=== PATIENT | female | born 1975 | race African-American/Black ===

== ENCOUNTER 2018-04-21 18:33 | Inpatient (IN) ==
[2018-04-21] MEDS ORDERED: Sod Chloride 0.9% Inj 1,000 ML IV.SIG ONE (20:25)
--- NOTE | 2018-04-21 20:28 | ED ---
HPI General Chief complaint: Nausea/Vomiting/Diarrhea Stated complaint: vomiting Time Seen by Provider: 04/21/18 20:09 Source: patient, family and RN notes reviewed Mode of arrival: ambulatory History of Present Illness HPI narrative: 42yF presenting with fever, nausea and vomiting, and dysuria. The patient states that 2 days ago she developed a feeling of "bladder fullness " and urinary urgency; since then, she's developed tactile fevers/ shaking chills, nausea, vomiting, inability to tolerate any PO intake, dysuria and urinary frequency, and loose stools. She has a history of CKD and follows with a commercial administrator in [place], not on HD. Related Data Home Medications Medication Instructions Recorded Confirmed amlodipine [Norvasc] 10 mg PO DAILY 04/21/18 04/21/18 calcitriol 0.25 mcg PO DAILY 04/21/18 04/21/18 calcium acetate 667 mg PO TID 04/21/18 04/21/18 ferrous sulfate 325 mg PO BID 04/21/18 04/21/18 furosemide 20 mg PO DAILY 04/21/18 04/21/18 glipizide 2.5 mg PO DAILY 04/21/18 04/21/18 latanoprost 1 drp OPHTHALMIC (EYE) QPM 04/21/18 04/21/18 metoprolol succinate 100 mg PO DAILY 04/21/18 04/21/18 simvastatin 20 mg PO QPM 04/21/18 04/21/18 Allergies Allergy/AdvReac Type Severity Reaction Status Date / Time No Known Allergies Allergy Unverified 04/21/18 20:25 Review of Systems ROS: all other systems reviewed are negative PMFSH History History Provided By: Patient Medical History Medical History Anemia (Acute) Diabetes (Acute) Chronic kidney disease (Acute) Hyperlipidemia (Acute) Hypertension (Acute) Surgical History Surgical History History of eye surgery (Acute) Social History Social History Substance History: No History of Abuse Smoking Status: Never smoker How Often Do You Have a Drink Containing Alcohol: Never Recent Travel in [facility] within the Last 8 Weeks: No Recent Out of Country Travel within the Last 8 Weeks: No Exam Const Other: Vomiting into emesis bag during exam, (+) rigors HENMT Face and sinus: normal facial exam Eyes General: appearance normal, both eyes and all related structures Resp Effort & Inspection: normal respiratory effort Auscultation: no rhonchi and no wheezes Cardio Rate: tachycardic Rhythm: regular rhythm GI Inspection: non-distended Palpation: soft and nontender Skin General: no rashes or lesions noted Neuro General: alert and awake Psych Affect: normal affect Course Reevaluation(s) Reevaluation #1: I reviewed the patient's history and exam. I reviewed her laboratory testing. I have personally examined the patient. Patient is having shaking chills. She is ill-appearing. I have ordered a second liter of normal saline. Her lactic is negative but she appears to have Sirs I will perform 2 blood cultures and give Rocephin for bacteremia. She has an acute exacerbation of her chronic kidney disease. She still has nausea, vomiting, and abdominal pain. She will be given Benadryl 25 mill grams IV, Reglan 10 mg IV in addition to the 1 g of Rocephin IV. Morphine 4 mg IV. CAT scan shows a mesenteric type mass etiology is unclear. The patient is ill-appearing and requires admission. This has been relayed to Dr. Luciano with the admitting service. She has agreed to admit the patient. Time: 22:38 Initial Documented Vital Signs Temperature 99.2 F 04/21/18 18:41 Pulse Rate 105 H 04/21/18 18:41 Respiratory Rate 18 04/21/18 18:41 Blood Pressure 199/91 H 04/21/18 18:41 Pulse Oximetry 98 04/21/18 18:41 Last Documented Vital Signs Temperature 99.2 F 04/21/18 18:41 Pulse Rate 105 H 04/21/18 18:41 Respiratory Rate 18 04/21/18 20:45 Blood Pressure 199/91 H 04/21/18 18:41 Pulse Oximetry 98 04/21/18 18:41 Medical Decision Making [facility] Narrative Medical decision making narrative: Assessment: 42yF presenting with fever, rigors, nausea/ vomiting, dysuria Plan: Tylenol, zofran, IVF Fingerstick Labs UA, UCG CT abd/ pelvis, non-contrast Dispo TBD depending on results of workup ____ Medical Screen Exam Complete: Yes Emergency Medical Condition: Yes Differential Diagnosis Differential Diagnosis: Differential diagnosis includes, but is not limited to: UTI/ pyelonephritis, hypo/hyperglycemia, pancreatitis, SBO, sepsis/ SIRS Lab Data Result diagrams: 04/21/18 20:35 04/21/18 20:35 POC Results POC Urine Results Negative Lab Results 04/21/18 04/21/18 04/21/18 Range/Units 20:35 20:35 20:35 WBC 7.3 (4.0-11.0) th/mm3 RBC 3.62 L (4.00-5.30) mil/mm3 Hgb 9.6 L (11.6-15.3) gm/dL Hct 30.0 L (35.0-46.0) % MCV 82.9 (80.0-100.0) fL MCH 26.6 L (27.0-34.0) pg MCHC 32.1 (32.0-36.0) % RDW 13.3 (11.6-17.2) % Plt Count 391 (150-450) th/mm3 MPV 8.7 (7.0-11.0) fL Neut % (Auto) 92.2 H (16.0-70.0) % Lymph % (Auto) 6.0 L (9.0-44.0) % Clayton % (Auto) 1.6 (0.0-8.0) % Eos % (Auto) 0.0 (0.0-4.0) % Baso % (Auto) 0.2 (0.0-2.0) % Neut # (Auto) 6.7 (1.8-7.7) th/mm3 Lymph # (Auto) 0.4 L (1.0-4.8) th/mm3 Clayton # (Auto) 0.1 (0.0-0.9) th/mm3 Eos # (Auto) 0.0 (0.0-0.4) th/mm3 Baso # (Auto) 0.0 (0.0-0.2) th/mm3 WBC Differential . Differential Comment Auto diff final Sodium 142 (136-145) meq/L Potassium 4.5 (3.5-5.1) meq/L Chloride 110 H (98-107) meq/L Carbon Dioxide 19.4 L (21.0-32.0) meq/L Anion Gap 13 (5-15) meq/L BUN 103 H (7-18) mg/dL Creatinine 6.61 H (0.50-1.00) mg/dL Estimated GFR 7 L (>89) mL/min POC Glucose (68-110) mg/dl Random Glucose 199 H (74-106) mg/dL Lactic Acid 1.7 (0.4-2.0) mmol/L Calcium 8.6 (8.5-10.1) mg/dL Magnesium 2.2 (1.5-2.5) mg/dL Total Bilirubin 0.3 (0.2-1.0) mg/dL AST 17 (15-37) U/L ALT 27 (10-53) U/L Alkaline Phosphatase 56 (45-117) U/L Total Protein 7.8 (6.4-8.2) g/dL Albumin 3.1 L (3.4-5.0) g/dL Lipase 190 (73-393) U/L Urine Color (Yellw/Straw) Urine Clarity (Clear) Urine pH (5.0-8.5) Ur Specific Bath (1.002-1.035) Urine Protein (Neg-Trace) mg/dL Urine Glucose (UA) (Negative) mg/dL Urine Ketones (Negative) mg/dL Urine Occult Blood (Negative) Urine Nitrate (Negative) Urine Bilirubin (Negative) Urine Urobilinogen (Less than 2) mg/dL Ur Leukocyte Esterase (Negative) Urine RBC (0-3) /hpf Urine WBC (0-5) /hpf Ur Squamous Epith Cells (0-5) /hpf Urine Bacteria (None) /hpf Micro UA Comment Ur Microscopic Review Urine Culture Comments 04/21/18 04/21/18 Range/Units 20:50 21:00 WBC (4.0-11.0) th/mm3 RBC (4.00-5.30) mil/mm3 Hgb (11.6-15.3) gm/dL Hct (35.0-46.0) % MCV (80.0-100.0) fL MCH (27.0-34.0) pg MCHC (32.0-36.0) % RDW (11.6-17.2) % Plt Count (150-450) th/mm3 MPV (7.0-11.0) fL Neut % (Auto) (16.0-70.0) % Lymph % (Auto) (9.0-44.0) % Clayton % (Auto) (0.0-8.0) % Eos % (Auto) (0.0-4.0) % Baso % (Auto) (0.0-2.0) % Neut # (Auto) (1.8-7.7) th/mm3 Lymph # (Auto) (1.0-4.8) th/mm3 Clayton # (Auto) (0.0-0.9) th/mm3 Eos # (Auto) (0.0-0.4) th/mm3 Baso # (Auto) (0.0-0.2) th/mm3 WBC Differential Differential Comment Sodium (136-145) meq/L Potassium (3.5-5.1) meq/L Chloride (98-107) meq/L Carbon Dioxide (21.0-32.0) meq/L Anion Gap (5-15) meq/L BUN (7-18) mg/dL Creatinine (0.50-1.00) mg/dL Estimated GFR (>89) mL/min POC Glucose 192 H (68-110) mg/dl Random Glucose (74-106) mg/dL Lactic Acid (0.4-2.0) mmol/L Calcium (8.5-10.1) mg/dL Magnesium (1.5-2.5) mg/dL Total Bilirubin (0.2-1.0) mg/dL AST (15-37) U/L ALT (10-53) U/L Alkaline Phosphatase (45-117) U/L Total Protein (6.4-8.2) g/dL Albumin (3.4-5.0) g/dL Lipase (73-393) U/L Urine Color Straw (Yellw/Straw) Urine Clarity Clear (Clear) Urine pH 5.0 (5.0-8.5) Ur Specific Bath 1.012 (1.002-1.035) Urine Protein 500 or greater (Neg-Trace) mg/dL Urine Glucose (UA) 150 H (Negative) mg/dL Urine Ketones Trace H (Negative) mg/dL Urine Occult Blood Moderate H (Negative) Urine Nitrate Negative (Negative) Urine Bilirubin Negative (Negative) Urine Urobilinogen Less than 2 (Less than 2) mg/dL Ur Leukocyte Esterase Negative (Negative) Urine RBC 22 H (0-3) /hpf Urine WBC 3 (0-5) /hpf Ur Squamous Epith Cells <1 (0-5) /hpf Urine Bacteria Rare H (None) /hpf Micro UA Comment Culture not ind Ur Microscopic Review Not Reportable Urine Culture Comments Culture not ind Imaging Data Radiologist's impression: Abdomen/Pelvis CT 04/21/18 20:25 CONCLUSION: 1. Bulky large soft tissue density mesenteric masses with the largest measuring 14.7 x 7.5 x 8.5 cm. A second dominant mesenteric mass extends to the right adnexa. Differential considerations include ovarian malignancy with mesenteric metastases, GIST, mesenteric fibromatosis, and mesenteric adenopathy amongst other etiologies. Ultrasound examination of the pelvis may be performed to exclude right ovarian mass. Discharge Plan Discharge Disposition Patient Disposition: ED Admit(ED Internal Use Only) Discharge Condition Condition: Stable Discharge Order Discharge Orders: ED Use Only Admit Order (Routine); Ordered 04/21/18 Ordered By: Paul Cano Discharge Details Diagnosis: SIRS (systemic inflammatory response syndrome), Abdominal pain, Acute renal failure, Abdominal mass Physicians Team ED Provider: Jennifer Finn ED Midlevel Provider: Paul Cano Primary Care Provider: UNKNOWN, Attending Provider: Acacia Luciano Other Providers: Zachary Uribe Status ED Status: Admitted Patient
[2018-04-21 21:06] LABS: Baso % (Auto) 0.2 % (0.0-2.0); Hemoglobin 9.6 gm/dL (11.6-15.3); Lymph # (Auto) 0.4 th/mm3 (1.0-4.8); Mean Corpuscular HGB Conc 32.1 % (32.0-36.0); Mean Corpuscular Hemoglobin 26.6 pg (27.0-34.0); Mean Corpuscular Volume 82.9 fL (80.0-100.0); Mean Platelet Volume 8.7 fL (7.0-11.0); Mono # (Auto) 0.1 th/mm3 (0.0-0.9); Mono % (Auto) 1.6 % (0.0-8.0); Neut # (Auto) 6.7 th/mm3 (1.8-7.7); Neut % (Auto) 92.2 % (16.0-70.0); Platelet Count 391 th/mm3 (150-450); Red Blood Count 3.62 mil/mm3 (4.00-5.30); Red Cell Distribution Width 13.3 % (11.6-17.2); White Blood Count 7.3 th/mm3 (4.0-11.0)
[2018-04-21 21:18] LABS: Alanine Aminotransferase 27 U/L (10-53); Albumin 3.1 g/dL (3.4-5.0); Anion Gap 13 meq/L (5-15); Aspartate Aminotransferase 17 U/L (15-37); Blood Urea Nitrogen 103 mg/dL (7-18); Calcium 8.6 mg/dL (8.5-10.1); Carbon Dioxide 19.4 meq/L (21.0-32.0); Chloride 110 meq/L (98-107); Glomerular Filtration Rate 7 mL/min (>89); Glucose,Random 199 mg/dL (74-106); Lipase 190 U/L (73-393); Magnesium 2.2 mg/dL (1.5-2.5); Potassium 4.5 meq/L (3.5-5.1); Sodium 142 meq/L (136-145)
[2018-04-21 21:21] LABS: Alkaline Phosphatase 56 U/L (45-117); Total Protein 7.8 g/dL (6.4-8.2)
--- NOTE | 2018-04-21 21:28 | CT ---
EXAM DATE: 04/21/2018 9:17 PM EST AGE/SEX: 42 years / Female INDICATIONS: Nausea and vomiting. CLINICAL DATA: This is the patient's initial encounter. Patient reports that signs and symptoms have been present for 2 days and indicates a pain score of 3/10. MEDICAL/SURGICAL HISTORY: . Hypertension. Chronic kidney failure. None. RADIATION DOSE: 16.55 CTDI (mGy) COMPARISON: No prior exams available for comparison. TECHNIQUE: Multiple contiguous axial images were obtained through the abdomen. Images were obtained using multiple row detector helical technique. Using automated exposure control and adjustment of the mA and/or kV according to patient size, radiation dose was kept as low as reasonably achievable to o btain optimal diagnostic quality images. DICOM format image data is available electronically for rev iew and comparison. FINDINGS: LOWER LUNGS: The visualized lower lungs are clear. LIVER: Diffusely homogeneous density without intrahepatic ductal dilatation or volume loss. SPLEEN: Homogeneous density without enlargement. PANCREAS: Grossly unremarkable. KIDNEYS: Kidneys are symmetrical in size without evidence for radiopaque renal calculi or hydronephr osis. No significant contour deforming renal abnormality. ADRENAL GLANDS: Unremarkable. AORTA: Martha-aneurysmal. BOWEL/MESENTERY: There is a very large soft tissue density mesenteric mass which measures 14.7 x 7.5 x 8.5 cm centered just above the umbilicus level. There are multiple additional bulky soft tissue de nsity masses extending inferiorly to the level of the right adnexa. These appear to be separate from the uterus. Bowel loops are normal in caliber without evidence for obstruction. There is trace free f luid noted in the right lower quadrant. Appendix is visualized and normal in appearance. ABDOMINAL WALL: Intact. BLADDER: Contours are smooth. REPRODUCTIVE: Grossly unremarkable. BONY STRUCTURES: Unremarkable. CONCLUSION: 1. Bulky large soft tissue density mesenteric masses with the largest measuring 14.7 x 7.5 x 8.5 cm. A second dominant mesenteric mass extends to the right adnexa. Differential considerations include o varian malignancy with mesenteric metastases, GIST, mesenteric fibromatosis, and mesenteric adenopath y amongst other etiologies. Ultrasound examination of the pelvis may be performed to exclude right ov maribel mass. Electronically signed by: Fawad South MD Board Certified Radiologist 04/21/2018 9:27 PM EST
[2018-04-21 21:52] LABS: Bacteria,Urine Rare /hpf; Bilirubin,Urine Negative (Negative); Clarity,Urine Clear (Clear); Color,Urine Straw (Yellw/Straw); Glucose,Urine (UA) 150 mg/dL (Negative); Leukocyte Esterase,Urine Negative (Negative); Nitrite,Urine Negative (Negative); Specific Gravity,Urine 1.012 (1.002-1.035); Squamous Epithelial Cell,Urine <1 /hpf (0-5)
[2018-04-21] MEDS ORDERED: Morphine Inj 4 MG/ML Vial IV.PUSH ONE (22:11)
[2018-04-21] MEDS ORDERED: Sod Chloride 0.9% Inj 1,000 ML IV.SIG SCH (22:15)
[2018-04-21] MEDS ORDERED: Bisacodyl 10 MG Supp RECTAL PRN (22:34)
[2018-04-21] MEDS ORDERED: Morphine Sulfate Inj 2 MG/ML Vial IV.PUSH PRN (22:34)
--- NOTE | 2018-04-21 22:38 | P.HPIM ---
History of Present Illness Primary Care Physician: UNKNOWN History of Present Illness: This is a 42-year-old female with a PMH of HTN, Hyperlipidemia, Anemia, CKD and DM who presented to the ER with complaints of nausea, vomiting, urinary urgency and subjective fever/chills x2 days. Unable to take PO due to symptoms. Denies sick contacts, chest pain or diarrhea. On arrival, BP 199/91, HR 105, O2 sat 98% on RA, Temp 99.2. CBC essentially unremarkable except for anemia, hemoglobin 9.6. Gotten 6.61, no previous labs for comparison, however patient notes baseline creatinine is approx 3. States she follows w/ [facility] in [place] and is not on HD. UA negative for UTI. CT Abdomen/Pelvis bulky large soft tissue density mesenteric masses, second dominant mesenteric mass extends to right adnexa, differential includes ovarian malignancy with metastatic disease. S/p Blood Cultures and Rocephin IV in ER. Diagnosis (1) SIRS (systemic inflammatory response syndrome): (2) HTN (hypertension): (3) EVER (acute kidney injury): (4) Mesenteric mass: (5) DM (diabetes mellitus): Inpatient Certification Inpatient Certification: I certify that the inpatient services were ordered in accordance with Medicare regulations governing the order. This includes certification that hospital inpatient services are reasonable and necessary and in the case of services not specified as inpatient-only under 42 CFR 419.22(n), that they are appropriately provided as inpatient services in accordance to with the 2-midnight benchmark under 43 CFR 412.3(e) Estimated Total Length of Stay (Days): 2 Plans for Post Hospital Care: Not yet determined Review of Systems PAST FAMILY HISTORY: Reviewed. No h/o DM or CAD Review of Systems: all other systems reviewed are negative [facility] Medical History Medical History Anemia (Acute) Diabetes (Acute) Chronic kidney disease (Acute) Hyperlipidemia (Acute) Hypertension (Acute) Surgical History Surgical History History of eye surgery (Acute) Social History Social History Substance History: No History of Abuse Smoking Status: Never smoker How Often Do You Have a Drink Containing Alcohol: Never Recent Travel in [facility] within the Last 8 Weeks: No Recent Out of Country Travel within the Last 8 Weeks: No Immunization History Tetanus Immunization: >5 Years Medications and Allergies Allergies Allergy/AdvReac Type Severity Reaction Status Date / Time No Known Allergies Allergy Unverified 04/21/18 20:25 Home Medications Medication Instructions Recorded Confirmed Type amlodipine [Norvasc] 10 mg PO DAILY 04/21/18 04/21/18 History calcitriol 0.25 mcg PO DAILY 04/21/18 04/21/18 History calcium acetate 667 mg PO TID 04/21/18 04/21/18 History ferrous sulfate 325 mg PO BID 04/21/18 04/21/18 History furosemide 20 mg PO DAILY 04/21/18 04/21/18 History glipizide 2.5 mg PO DAILY 04/21/18 04/21/18 History latanoprost 1 drp OPHTHALMIC (EYE) QPM 04/21/18 04/21/18 History metoprolol succinate 100 mg PO DAILY 04/21/18 04/21/18 History simvastatin 20 mg PO QPM 04/21/18 04/21/18 History Active Medications: Active Medications Acetaminophen (Tylenol) 650 mg PO Q4H PRN PRN Reason: Temp > 100.4 Al Hydroxide/Mg Hydroxide (Milk Of Magnesia Liq) 30 ml PO Q12H PRN PRN Reason: Mild Constipation Bisacodyl (Dulcolax Supp) 10 mg RECTAL DAILY PRN PRN Reason: SEVERE CONSITIPATION Sodium Chloride (Ns Inj) 1,000 mls @ 1,000 mls/hr IV.SIG BOLUS RENETTA Stop: 04/21/18 23:14 Last Admin: 04/21/18 22:27 Dose: 1,000 mls/hr Ceftriaxone Sodium 1,000 mg/ (Sodium Chloride) 100 mls @ 200 mls/hr IV.SIG ONCE ONE Stop: 04/21/18 22:48 Sodium Chloride (Ns Inj) 1,000 mls @ 100 mls/hr IV.CONT .Q10H RENETTA Cefepime HCl 1,000 mg/ Sodium (Chloride) 100 mls @ 200 mls/hr IV.SIG Q12H RENETTA Lactulose (Lactulose Liq) 30 ml PO DAILY PRN PRN Reason: SEVERE CONSITIPATION Morphine Sulfate (Morphine Inj) 2 mg IV.PUSH Q4H PRN PRN Reason: PAIN SCALE 6 TO 10 Ondansetron HCl (Zofran Inj) 4 mg IV.PUSH Q6H PRN PRN Reason: NAUSEA OR VOMITING Senna/Docusate Sodium (Olga-Colace) 1 tab PO BID RENETTA Sennosides (Senokot) 17.2 mg PO Q12H PRN PRN Reason: Moderate Constipation Sodium Chloride (Ns Flush) 2 ml IV.FLUSH PRN PRN PRN Reason: FLUSH AFTER USING IV ACCESS Sodium Chloride (Ns Flush) 2 ml IV.FLUSH BID RENETTA Sodium Chloride (Ns Flush) 2 ml IV.FLUSH PRN PRN PRN Reason: FLUSH AFTER USING IV ACCESS Physical Exam Vital signs: Vital Signs 04/21/18 18:41 04/21/18 20:45 Temperature 99.2 F Pulse Rate 105 H Respiratory Rate 18 18 Blood Pressure 199/91 H Pulse Oximetry 98 Intake & Output 04/21/18 04/21/18 04/22/18 06:59 18:59 06:59 Weight 86.183 kg Narrative: PE: GENERAL: Pleasant young white female in no acute distress. at bedside. SKIN: Focused skin assessment warm and dry. HEENT: PERRLA, EOMI. No scleral icterus or conjunctival pallor. No lid lag or facial droop. CARDIOVASCULAR: Regular rate and rhythm. No obvious murmurs to auscultation. No chest tenderness to palpation. RESPIRATORY: No obvious rhonchi or wheezing. Clear to auscultation. Breath sounds equal bilaterally. GASTROINTESTINAL: Abdomen soft, non-tender, nondistended. BS normal. MUSCULOSKELETAL: Extremities without clubbing, cyanosis, or edema. No obvious deformities. NEUROLOGICAL: Awake, alert and oriented x4. No focal neurologic deficits. Moving both upper and lower extremities spontaneously. PSYCHIATRIC: Appropriate mood and affect. Insight and judgment normal. Results Labs CBC & Chem 7: 04/21/18 20:35 04/21/18 20:35 Imaging Impressions Abdomen/Pelvis CT 04/21/18 20:25 CONCLUSION: 1. Bulky large soft tissue density mesenteric masses with the largest measuring 14.7 x 7.5 x 8.5 cm. A second dominant mesenteric mass extends to the right adnexa. Differential considerations include ovarian malignancy with mesenteric metastases, GIST, mesenteric fibromatosis, and mesenteric adenopathy amongst other etiologies. Ultrasound examination of the pelvis may be performed to exclude right ovarian mass. Caprini VTE Risk Assessment Caprini VTE Risk Assessment: No/Low Risk (score <= 1) Caprini Risk Assessment Model: Point Value = 1 Point Value = 2 Point Value = 3 Point Value = 5 Age 41-60 Minor surgery BMI > 25 kg/m2 Swollen legs Varicose veins or History of unexplained or recurrent spontaneous Oral contraceptives or hormone replacement Sepsis (< 1 month) Serious lung disease, including pneumonia (< 1 month) Abnormal pulmonary function Acute myocardial infarction Congestive heart failure (< 1 month) History of inflammatory bowel disease Medical patient at bed rest Age 61-74 Arthroscopic surgery Major open surgery (> 45 min) Laparoscopic surgery (> 45 min) Malignancy Confined to bed (> 72 hours) Immobilizing plaster cast Central venous access Age >= 75 History of VTE Family history of VTE Factor V Leiden Prothrombin [id number] Lupus anticoagulant Anticardiolipin antibodies Elevated serum homocysteine Heparin-induced thrombocytopenia Other congenital or acquired thrombophilia Stroke (< 1 month) Elective arthroplasty Hip, pelvis, or leg fracture Acute spinal cord injury (< 1 month) Prophylaxis Regimen: Total Risk Factor Score Risk Level Prophylaxis Regimen 0-1 Low Early ambulation 2 Moderate Order ONE of the following: *Sequential Compression Device (SCD) *Heparin 5000 units SQ BID 3-4 Higher Order ONE of the following medications: *Heparin 5000 units SQ TID *Enoxaparin/Lovenox 40 mg SQ daily (WT < 150 kg, CrCl > 30 mL/min) *Enoxaparin/Lovenox 30 mg SQ daily (WT < 150 kg, CrCl > 10-29 mL/min) *Enoxaparin/Lovenox 30 mg SQ BID (WT < 150 kg, CrCl > 30 mL/min) AND/OR *Sequential Compression Device (SCD) 5 or more Highest Order ONE of the following medications: *Heparin 5000 units SQ TID (Preferred with Epidurals) *Enoxaparin/Lovenox 40 mg SQ daily (WT < 150 kg, CrCl > 30 mL/min) *Enoxaparin/Lovenox 30 mg SQ daily (WT < 150 kg, CrCl > 10-29 mL/min) *Enoxaparin/Lovenox 30 mg SQ BID (WT < 150 kg, CrCl > 30 mL/min) AND *Sequential Compression Device (SCD) Assessment and Plan (1) SIRS (systemic inflammatory response syndrome): Code(s): R65.10 - Systemic inflammatory response syndrome (SIRS) of non-infectious origin without acute organ dysfunction Status: Acute (2) HTN (hypertension): Code(s): I10 - Essential (primary) hypertension Status: Acute (3) EVER (acute kidney injury): Code(s): N17.9 - Acute kidney failure, unspecified Status: Acute (4) Mesenteric mass: Code(s): K63.9 - Disease of intestine, unspecified Status: Acute (5) DM (diabetes mellitus): Code(s): E11.9 - Type 2 diabetes mellitus without complications Status: Acute Plan A/P: 1. SIRS: Temp 99.2, HR 105, Source-unclear, s/p Blood Cultures and Rocephin IV , will follow up cultures, continue IV Abx, IVF for hydration. 2. EVER: h/o CKD, Creatinine currently 6.61, reports baseline creatinine approx 3, follows w/ [facility] in [place]. IVF for hydration, Consult Nephrology for further recommendations/eval, monitor I/O, avoid nephrotoxic agents 3. Mesenteric Masses: CT Abd/Pelvis w/ large mesenteric masses and right adnexal mass, possibly ovarian malignancy w/ mets, will check Pelvic US to eval for ovarian mass. Consult [facility] in am for further eval/recommendations. 4. DM: Sliding scale w/ Accu-checks, will check Hgb A1c. 5. HTN: Uncontrolled. BP 199 systolic, resume home medications, antihypertensives as needed for BP >180 6. DVT Prophylaxis: SCD/Teds 7. Social work for d/c planning as needed. 8. Case discussed w/ ER physician at length, labs/records/imaging reviewed by me.
[2018-04-21] MEDS: Sod Chloride 0.9% Inj 1,000 ML IV.CONT SCH (23:01)
[2018-04-22] MEDS ORDERED: Dextrose 50% in Water 50 ML Vial IV.PUSH PRN (00:02)
--- NOTE | 2018-04-22 00:44 | US ---
EXAM DATE: 04/22/2018 12:10 AM EST AGE/SEX: 42 years / Female INDICATIONS: Pelvic pain. CLINICAL DATA: This is the patient's initial encounter. Patient reports that signs and symptoms have been present for 1 day and indicates a pain score of 3/10. MEDICAL/SURGICAL HISTORY: Anemia. Diabetes. Hypertension. Hyperlipidemia. Chronic kidney dis ease. . History of Eye surgery. [place] [facility] [place] CONTRAST, 04/21/2018. . MEASUREMENTS: Uterus:__8.6 x 4.1 x 4.1 cm Endometrial Stripe:__6 mm Right Ovary:__ 9.7 x 11.6 x 8.1 cm Left Ovary:__ 3.7 x 3.1 x 2.1 cm FINDINGS: Uterus: Uterus is incompletely visualized due to patient's body habitus. Endometrial Stripe: The endometrial stripe displays homogeneous echotexture. Right Ovary: Abnormality noted in the right adnexa does correspond to apparently right ovarian mass which measures 9.7 x 11.6 x 8.1 cm. Evaluation is however limited due to patient's decline of transva ginal exam. Left Ovary: Ovary contains no mass or significant cystic lesion. Fluid: No free fluid. Other: None. CONCLUSION: 1. Limited examination due to patient's body habitus and decline of transvaginal exam. 2. The right adnexal mass noted on CT exam does appear to correspond to the right ovary measuring 9. 7 x 11.6 x 8.1 cm. 3. Uterus is not completely visualized and therefore the midline pelvic mass cannot be definitively excluded from the uterus although again this appears separate on CT exam. 4. Given the possibility of right ovarian mass, findings on CT exam are most concerning for metastat ic ovarian neoplasm. Correlation with tumor markers and clinical history is recommended. Further eval uation may be performed with MRI examination of the pelvis if there is continued clinical uncertainty following gynecological consultation. Electronically signed by: Fawad South MD Board Certified Radiologist 04/22/2018 12:42 AM EST
[2018-04-22 04:34] LABS: Baso % (Auto) 0.3 % (0.0-2.0); Hematocrit 24.3 % (35.0-46.0); Hemoglobin 7.8 gm/dL (11.6-15.3); Lymph # (Auto) 0.7 th/mm3 (1.0-4.8); Lymph % (Auto) 9.9 % (9.0-44.0); Mean Corpuscular HGB Conc 32.3 % (32.0-36.0); Mean Corpuscular Hemoglobin 26.7 pg (27.0-34.0); Mean Corpuscular Volume 82.7 fL (80.0-100.0); Mean Platelet Volume 8.5 fL (7.0-11.0); Mono # (Auto) 0.6 th/mm3 (0.0-0.9); Mono % (Auto) 9.2 % (0.0-8.0); Neut # (Auto) 5.4 th/mm3 (1.8-7.7); Neut % (Auto) 80.6 % (16.0-70.0); Platelet Count 315 th/mm3 (150-450); Red Blood Count 2.94 mil/mm3 (4.00-5.30); Red Cell Distribution Width 13.7 % (11.6-17.2); White Blood Count 6.7 th/mm3 (4.0-11.0)
[2018-04-22 05:05] LABS: Alanine Aminotransferase 20 U/L (10-53); Albumin 2.5 g/dL (3.4-5.0); Alkaline Phosphatase 43 U/L (45-117); Anion Gap 12 meq/L (5-15); Aspartate Aminotransferase 14 U/L (15-37); Blood Urea Nitrogen 97 mg/dL (7-18); Calcium 7.8 mg/dL (8.5-10.1); Carbon Dioxide 19.2 meq/L (21.0-32.0); Chloride 115 meq/L (98-107); Glomerular Filtration Rate 9 mL/min (>89); Glucose,Random 141 mg/dL (74-106); Potassium 4.4 meq/L (3.5-5.1); Sodium 146 meq/L (136-145); Total Protein 6.2 g/dL (6.4-8.2)
[2018-04-22] MEDS ORDERED: Promethazine 25 MG Supp RECTAL SCH (08:00)
[2018-04-22] MEDS: Senna/Docusate Sodium 8.6/50 MG Tablet PO SCH ×2 (08:27→20:46)
[2018-04-22] MEDS: Sodium Chloride 0.9% 2 ML Flush BID IV.FLUSH SCH ×2 (08:27→20:33)
[2018-04-22] MEDS: Insulin NovoLOG Aspart Correctional Sugar Inj SQ SCH ×4 (08:44→20:33)
[2018-04-22] MEDS: Sod Chloride 0.9% Inj 1,000 ML IV.CONT SCH (08:45)
[2018-04-22] MEDS: Sodium Chloride 0.45 % Inj 1,000 ML IV.CONT SCH ×2 (09:53→20:45)
[2018-04-22] MEDS ORDERED: Labetalol HCl Inj 100 MG/20 ML Vial IV.PUSH PRN (10:24)
[2018-04-22] MEDS ORDERED: Naloxone Inj 0.4 MG/ML Vial IV.PUSH PRN (10:30)
[2018-04-22] MEDS ORDERED: Acetaminophen 325 MG Tablet PO PRN (10:30)
[2018-04-22] MEDS ORDERED: Morphine Sulfate Inj 2 MG/ML Vial IV.PUSH PRN (10:30)
--- NOTE | 2018-04-22 10:44 | P.PNIM ---
Subjective Interval history: Patient reports persistent nausea and vomiting, no abdominal pain. Feeling weak. No bowel movement since coming in. No complaints of dysuria. Physical Exam Vital signs: Vital Signs 04/21/18 18:41 04/21/18 20:45 04/21/18 23:00 Temperature 99.2 F Pulse Rate 105 H 107 H Respiratory Rate 18 18 16 Blood Pressure 199/91 H 165/81 H Pulse Oximetry 98 98 04/22/18 02:30 04/22/18 02:42 04/22/18 03:27 Temperature 98.7 F Pulse Rate 104 H Respiratory Rate 15 20 Blood Pressure 181/86 H 161/77 H Pulse Oximetry 99 04/22/18 08:00 Temperature 98.8 F Pulse Rate 126 H Respiratory Rate 16 Blood Pressure 193/88 H Pulse Oximetry 97 Intake & Output 04/21/18 04/22/18 04/22/18 18:59 06:59 18:59 Intake Total 2100 / 2100 1200 / 1200 Balance 2100 / 2100 1200 / 1200 Weight 86.183 kg 86 kg Intake: IV 2100 / 2100 1200 / 1200 NS Inj 1,000 ML @ 100 mls/hr IV 1100 / 1100 .CONT .Q10H [facility] Rx#:[id number] Maxipime Inj 1,000 MG In NS Inj 100 / 100 100 ML @ 200 mls/hr IV.SIG Q12H [facility] Rx#:[id number] NS Inj 1,000 ML @ 1000 mls/hr 2000 / 2000 IV.SIG BOLUS [facility] Rx#:[id number] Rocephin Inj 1,000 MG In NS Inj 100 / 100 100 ML @ 200 mls/hr IV.SIG ONCE ONE Rx#:[id number] Other: # Voids 2 Date of Last Bowel Movement 04/22/18 Narrative: GENERAL: Well nourished well-developed female laying in bed in no acute distress however vomiting, ill-appearing CARDIOVASCULAR: Mild tachycardic rate, regular rhythm RESPIRATORY: Clear to auscultation. Breath sounds equal bilaterally. GASTROINTESTINAL: Abdomen soft, non-tender, mild distentionpositive bowel sounds MUSCULOSKELETAL: Extremities without clubbing, cyanosis, or edema. No obvious deformities. NEUROLOGICAL: Awake, alert and oriented x4. No focal neurologic deficits. Moving both upper and lower extremities spontaneously. Results Labs CBC & Chem 7: 04/22/18 04:14 04/22/18 04:14 Imaging Imaging: Impressions Pelvis Ultrasound 04/21/18 00:00 CONCLUSION: 1. Limited examination due to patient's body habitus and decline of transvaginal exam. 2. The right adnexal mass noted on CT exam does appear to correspond to the right ovary measuring 9.7 x 11.6 x 8.1 cm. 3. Uterus is not completely visualized and therefore the midline pelvic mass cannot be definitively excluded from the uterus although again this appears separate on CT exam. 4. 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 Correlation with tumor markers and clinical history is recommended. Further evaluation may be performed with MRI examination of the pelvis if there is continued clinical uncertainty following gynecological consultation. Abdomen/Pelvis CT 04/21/18 20:25 CONCLUSION: 1. Bulky large soft tissue density mesenteric masses with the largest measuring 14.7 x 7.5 x 8.5 cm. A second dominant mesenteric mass extends to the right adnexa. Differential considerations include ovarian malignancy with mesenteric metastases, GIST, mesenteric fibromatosis, and mesenteric adenopathy amongst other etiologies. Ultrasound examination of the pelvis may be performed to exclude right ovarian mass. Assessment and Plan (1) SIRS (systemic inflammatory response syndrome): Code(s): R65.10 - Systemic inflammatory response syndrome (SIRS) of non-infectious origin without acute organ dysfunction Status: Acute (2) HTN (hypertension): Code(s): I10 - Essential (primary) hypertension Status: Chronic (3) EVER (acute kidney injury): Code(s): N17.9 - Acute kidney failure, unspecified Status: Acute (4) Mesenteric mass: Code(s): K63.9 - Disease of intestine, unspecified Status: Acute (5) DM (diabetes mellitus): Code(s): E11.9 - Type 2 diabetes mellitus without complications Status: Chronic (6) Acute renal failure: Code(s): N17.9 - Acute kidney failure, unspecified Status: Acute (7) Ovarian mass, right: Code(s): N83.9 - Noninflammatory disorder of ovary, fallopian tube and broad ligament, unspecified Status: Acute Plan 42-year-old white female presents with intractable nausea and vomiting with poor p.o. intake Acute renal failure superimposed on chronic kidney disease, no baseline GFR for comparison and reports baseline creatinine of 3.Likely due to dehydration and poor p.o. intake, IV fluid hydration, nephrology consultation. Right ovarian mass with mesenteric mass suspected ovarian malignancy with possible metastasisCA- 125 currently pending. Consult [facility]ology, Dr. Summers. Consult IR for CT-guided biopsy of mass Anemialikely of chronic kidney diseasemild decrease in hemoglobin may be due to fluids overnight, repeat levels in the morning. Hemoccult stool. Consider Epogen. Hypertension, uncontrolled unable to tolerate p.o.IV hydralazine and labetalol. Continue to monitor blood pressure closely. Ceg-[id number] diabetes mellitus, uncontrolled however poor p.o. intake hold home glipizide, blood sugar monitoring with sliding scale insulin. Hypernatremia change IV fluid to half-normal saline and monitor DVT prophylaxisSCDs, start heparin subcu after procedure today. Progress Note: Quality VTE Deep Vein Thrombosis/Pulmonary Embolism Present on Admission: No _ (1) Acute renal failure Qualifiers: Acute renal failure type:
[2018-04-22] MEDS: hydrALAZINE HCl Inj 20 MG/ML Vial IV.PUSH PRN (11:23)
--- NOTE | 2018-04-22 13:35 | P.CONNP ---
<Andrew Taylor - Last Filed: 04/22/18 16:04> History of Present Illness Primary Care Provider: UNKNOWN History of Present Illness: Patient is a 42 year old female who came to ED with fever, nausea and vomiting, and dysuria. Patient stated she has been vomiting since Wednesday with little to no PO intake. Medical history includes: CKD, HTN, HLD, DM, Anemia. Patient stated she has a history of CKD stage IV and follows with a aircraft design engineer in [place], [place]. Patient stated her baseline renal function is Creatinine 3 and eGFR of about 25. Patient reports she has CKD due to DM. Patient states she is still having episodes of nausea and vomiting. Patient states she no longer has dysuria and is constipated. Oncology was consulted for possible ovarian mass on CT scan. CA- 125 is 77.3. Kidneys on CT scan were unremarkable, no hydronephrosis. Patient currently NPO for biopsy today of right ovarian mass. Patient presented to ED with a Creatinine of 6.61 and BUN of 103 so nephrology was consulted. Patient denies drug, tobacco, or alcohol use. Patient denies family history of renal problems. Review of Systems All other systems reviewed negative except as stated in HPI PMFSH - History History Provided By: Patient - Medical History Medical History: Medical History (Last Updated 04/21/18 @ 20:46 by Funmi Waldrop RN) Anemia Diabetes Chronic kidney disease Hyperlipidemia Hypertension - Surgical History Surgical History: Surgical History (Last Updated 04/21/18 @ 20:46 by Funmi Waldrop RN) History of eye surgery - Tobacco History Second Hand Smoke Exposure: No Smoking Status: Never smoker - Alcohol History How Often Do You Have a Drink Containing Alcohol: Never - Substance Use History Substance History: No History of Abuse - Travel History Recent Travel in the [place] Within the Last 8 Weeks: No Recent Travel Out of the Country Within the Last 8 Weeks: No - Immunization History Tetanus Immunization: >5 Years Medications and Allergies Allergies Allergy/AdvReac Type Severity Reaction Status Date / Time No Known Allergies Allergy Unverified 04/21/18 20:25 Home Medications Medication Instructions Recorded Confirmed Type amlodipine [Norvasc] 10 mg PO DAILY 04/21/18 04/21/18 History calcitriol 0.25 mcg PO DAILY 04/21/18 04/21/18 History calcium acetate 667 mg PO TID 04/21/18 04/21/18 History ferrous sulfate 325 mg PO BID 04/21/18 04/21/18 History furosemide 20 mg PO DAILY 04/21/18 04/21/18 History glipizide 2.5 mg PO DAILY 04/21/18 04/21/18 History latanoprost 1 drp OPHTHALMIC (EYE) QPM 04/21/18 04/21/18 History metoprolol succinate 100 mg PO DAILY 04/21/18 04/21/18 History simvastatin 20 mg PO QPM 04/21/18 04/21/18 History Active Medications: Active Medications Acetaminophen (Tylenol) 650 mg PO Q4H PRN PRN Reason: Temp > 100.4 Acetaminophen (Tylenol) 650 mg PO Q6HR PRN PRN Reason: PAIN SCALE 1 TO 2 Hydrocodone Bitart/Acetaminophen ([place] 5/325) 1 tab PO Q4H PRN PRN Reason: PAIN SCALE 3 TO 5 Hydrocodone Bitart/Acetaminophen ([place] 7.5/325) 1 tab PO Q4H PRN PRN Reason: PAIN SCALE 6 TO 10 Al Hydroxide/Mg Hydroxide (Milk Of Magnanshu Liq) 30 ml PO Q12H PRN PRN Reason: Mild Constipation Amlodipine Besylate (Norvasc) 10 mg PO DAILY [facility] Bisacodyl (Dulcolax Supp) 10 mg RECTAL DAILY PRN PRN Reason: SEVERE CONSITIPATION Calcitriol (Rocaltrol) 0.25 mcg PO DAILY [facility] Dextrose (D50w Vial) 50 ml IV.PUSH UNSCH PRN PRN Reason: PER HYPOGLYCEMIA PROTOCOL Glucagon (Glucagon Inj) 1 mg OTHER PRN PRN PRN Reason: for Hypoglycemia Protocol Heparin Sodium (Porcine) (Heparin Inj) 5,000 units SQ Q12HR [facility] Hydralazine HCl (Apresoline Inj) 10 mg IV.PUSH Q6H PRN PRN Reason: SEE LABEL COMMENTS Last Admin: 04/22/18 11:23 Dose: 10 mg Cefepime HCl 1,000 mg/ Sodium (Chloride) 100 mls @ 200 mls/hr IV.SIG Q12H [facility] Last Infusion: 04/22/18 09:08 Dose: Infused Sodium Chloride (1/2 Normal Saline Inj) 1,000 mls @ 100 mls/hr IV.CONT .Q10H [facility] Last Admin: 04/22/18 09:53 Dose: 100 mls/hr Insulin Aspart (Novolog Insulin Correctional Sugar Inj) 0 unit SQ ACHS [facility]; Protocol Last Admin: 04/22/18 08:44 Dose: 1 unit Labetalol HCl (Trandate Inj) 10 mg IV.PUSH Q2H PRN PRN Reason: SEE LABEL COMMENTS Lactulose (Lactulose Liq) 30 ml PO DAILY PRN PRN Reason: SEVERE CONSITIPATION Latanoprost (Xalatan 0.005% Opth Drops) 1 drop EACH EYE QPM [facility] Metoprolol Succinate (Toprol Xl) 100 mg PO DAILY [facility] Morphine Sulfate (Morphine Inj) 2 mg IV.PUSH Q3H PRN PRN Reason: PAIN 3-5; IF UABLE TO TAKE PO Morphine Sulfate (Morphine Inj) 4 mg IV.PUSH Q3H PRN PRN Reason: PAIN 6-10;IF UNABLE TO TAKE PO Naloxone HCl (Narcan Inj) 0.4 mg IV.PUSH UNSCH PRN PRN Reason: SEE LABEL COMMENTS Ondansetron HCl (Zofran Odt) 4 mg PO Q6H PRN PRN Reason: NAUSEA OR VOMITING Ondansetron HCl (Zofran Inj) 8 mg IV.PUSH Q6H PRN PRN Reason: NAUSEA OR VOMITING Prochlorperazine Edisylate (Compazine Inj) 5 mg IV.PUSH Q6H PRN PRN Reason: SEVERE NAUSEA Last Admin: 04/22/18 11:23 Dose: 5 mg Promethazine HCl (Phenergan Supp) 25 mg RECTAL Q6H PRN PRN Reason: NAUSEA OR VOMITING Promethazine HCl (Phenergan) 25 mg PO Q6H PRN PRN Reason: NAUSEA OR VOMITING Senna/Docusate Sodium (Olga-Colace) 1 tab PO BID [facility] Last Admin: 04/22/18 08:27 Dose: Not Given Sennosides (Senokot) 17.2 mg PO Q12H PRN PRN Reason: Moderate Constipation Sodium Chloride (Ns Flush) 2 ml IV.FLUSH BID [facility] Last Admin: 04/22/18 08:27 Dose: Not Given Sodium Chloride (Ns Flush) 2 ml IV.FLUSH PRN PRN PRN Reason: FLUSH AFTER USING IV ACCESS Exam Vital signs: Vital Signs 04/21/18 18:41 04/21/18 20:45 04/21/18 23:00 Temperature 99.2 F Pulse Rate 105 H 107 H Respiratory Rate 18 18 16 Blood Pressure 199/91 H 165/81 H Pulse Oximetry 98 98 04/22/18 02:30 04/22/18 02:42 04/22/18 03:27 Temperature 98.7 F Pulse Rate 104 H Respiratory Rate 15 20 Blood Pressure 181/86 H 161/77 H Pulse Oximetry 99 04/22/18 08:00 04/22/18 10:43 Temperature 98.8 F 98.7 F Pulse Rate 126 H 120 H Respiratory Rate 16 16 Blood Pressure 193/88 H 191/78 H Pulse Oximetry 97 98 Intake & Output 04/21/18 04/22/18 04/22/18 18:59 06:59 18:59 Intake Total 2099 / 2099 1200 / 1200 Balance 2099 / 2099 1200 / 1200 Weight 86.183 kg 86 kg Intake: IV 2099 / 2099 1200 / 1200 NS Inj 1,000 ML @ 100 mls/hr IV 1100 / 1100 .CONT .Q10H [facility] Rx#:[id number] Maxipime Inj 1,000 MG In NS Inj 100 / 100 100 ML @ 200 mls/hr IV.SIG Q12H [facility] Rx#:[id number] NS Inj 1,000 ML @ 1000 mls/hr 2000 / 2000 IV.SIG BOLUS [facility] Rx#:[id number] Rocephin Inj 1,000 MG In NS Inj 100 / 100 100 ML @ 200 mls/hr IV.SIG ONCE ONE Rx#:[id number] Other: # Voids 2 Date of Last Bowel Movement 04/22/18 04/22/18 Narrative: GENERAL: Patient vomiting, ill-appearing. CARDIOVASCULAR: Tachycardic, regular rhythm. RESPIRATORY: Clear to auscultation. Breath sounds equal bilaterally. GASTROINTESTINAL: Abdomen soft, non-tender, positive bowel sounds. MUSCULOSKELETAL: Extremities without clubbing, cyanosis, or edema. No obvious deformities. NEUROLOGICAL: Awake, alert and oriented. Results - Lab Results 04/22/18 04:14 04/22/18 04:14 Most recent lab results Calcium 7.8 mg/dL (8.5-10.1) L D 04/22/18 04:14 Magnesium 2.2 mg/dL (1.5-2.5) 04/21/18 20:35 Assessment and Plan - Assessment (1) Acute on chronic renal failure Code(s): N17.9 - Acute kidney failure, unspecified; N18.9 - Chronic kidney disease, unspecified Status: Acute Plan: Patient reports CKD stage IV with a baseline Creatinine of 3. No prior labs available. Patient had proteinuria which suggests CKD due to diabetic nephropathy. Acute on chronic renal failure could be due to dehydration and poor po intake. Creatinine on admission was 6.61 and has improved with IV fluid hydration. Creatinine currently is 6.16. BUN is 97. Continue IVF. Monitor fluid and electrolytes. Avoid nephrotoxic agents. (2) Ovarian mass, right Code(s): N83.9 - Noninflammatory disorder of ovary, fallopian tube and broad ligament, unspecified Status: Acute Plan: Right ovarian mass found on CT. Biopsy of mass to be done today. (3) DM (diabetes mellitus) Code(s): E11.9 - Type 2 diabetes mellitus without complications Status: Chronic Plan: Insulin coverage to maintain blood glucose levels between 140 and 180 while hospitalized. (4) HTN (hypertension) Code(s): I10 - Essential (primary) hypertension Status: Chronic Plan: Monitor BP. Patient on Amlodipine and Metoprolol. Patient currently unable to tolerate PO so IV Hydralazine and Labetalol ordered. (5) Anemia Code(s): D64.9 - Anemia, unspecified Status: Acute Plan: Hgb 7.8. Monitor. <Zachary Uribe - Last Filed: 04/22/18 16:35> History of Present Illness Primary Care Provider: UNKNOWN [facility] - Medical History Medical History: Medical History (Last Updated 04/21/18 @ 20:46 by Funmi Waldrop RN) Anemia Diabetes Chronic kidney disease Hyperlipidemia Hypertension - Surgical History Surgical History: Surgical History (Last Updated 04/21/18 @ 20:46 by Funmi Waldrop RN) History of eye surgery Medications and Allergies Active Medications: Active Medications Acetaminophen (Tylenol) 650 mg PO Q4H PRN PRN Reason: Temp > 100.4 Acetaminophen (Tylenol) 650 mg PO Q6HR PRN PRN Reason: PAIN SCALE 1 TO 2 Hydrocodone Bitart/Acetaminophen ([place] 5/325) 1 tab PO Q4H PRN PRN Reason: PAIN SCALE 3 TO 5 Hydrocodone Bitart/Acetaminophen ([place] 7.5/325) 1 tab PO Q4H PRN PRN Reason: PAIN SCALE 6 TO 10 Al Hydroxide/Mg Hydroxide (Milk Of Magnesia Liq) 30 ml PO Q12H PRN PRN Reason: Mild Constipation Amlodipine Besylate (Norvasc) 10 mg PO DAILY [facility] Bisacodyl (Dulcolax Supp) 10 mg RECTAL DAILY PRN PRN Reason: SEVERE CONSITIPATION Calcitriol (Rocaltrol) 0.25 mcg PO DAILY [facility] Dextrose (D50w Vial) 50 ml IV.PUSH UNSCH PRN PRN Reason: PER HYPOGLYCEMIA PROTOCOL Glucagon (Glucagon Inj) 1 mg OTHER PRN PRN PRN Reason: for Hypoglycemia Protocol Heparin Sodium (Porcine) (Heparin Inj) 5,000 units SQ Q12HR [facility] Hydralazine HCl (Apresoline Inj) 10 mg IV.PUSH Q6H PRN PRN Reason: SEE LABEL COMMENTS Last Admin: 04/22/18 11:23 Dose: 10 mg Cefepime HCl 1,000 mg/ Sodium (Chloride) 100 mls @ 200 mls/hr IV.SIG Q12H [facility] Last Infusion: 04/22/18 09:08 Dose: Infused Sodium Chloride (1/2 Normal Saline Inj) 1,000 mls @ 100 mls/hr IV.CONT .Q10H [facility] Last Admin: 04/22/18 09:53 Dose: 100 mls/hr Ondansetron HCl 8 mg/ Dextrose 54 mls @ 216 mls/hr IV.SIG Q6H PRN PRN Reason: NAUSEA OR VOMITING Insulin Aspart (Novolog Insulin Correctional Sugar Inj) 0 unit SQ ACHS [facility]; Protocol Last Admin: 04/22/18 13:19 Dose: 1 unit Labetalol HCl (Trandate Inj) 10 mg IV.PUSH Q2H PRN PRN Reason: SEE LABEL COMMENTS Lactulose (Lactulose Liq) 30 ml PO DAILY PRN PRN Reason: SEVERE CONSITIPATION Latanoprost (Xalatan 0.005% Opth Drops) 1 drop EACH EYE QPM [facility] Metoprolol Succinate (Toprol Xl) 100 mg PO DAILY [facility] Morphine Sulfate (Morphine Inj) 2 mg IV.PUSH Q3H PRN PRN Reason: PAIN 3-5; IF UABLE TO TAKE PO Morphine Sulfate (Morphine Inj) 4 mg IV.PUSH Q3H PRN PRN Reason: PAIN 6-10;IF UNABLE TO TAKE PO Naloxone HCl (Narcan Inj) 0.4 mg IV.PUSH UNSCH PRN PRN Reason: SEE LABEL COMMENTS Ondansetron HCl (Zofran Odt) 4 mg PO Q6H PRN PRN Reason: NAUSEA OR VOMITING Prochlorperazine Edisylate (Compazine Inj) 5 mg IV.PUSH Q6H PRN PRN Reason: SEVERE NAUSEA Last Admin: 04/22/18 11:23 Dose: 5 mg Promethazine HCl (Phenergan Supp) 25 mg RECTAL Q6H PRN PRN Reason: NAUSEA OR VOMITING Promethazine HCl (Phenergan) 25 mg PO Q6H PRN PRN Reason: NAUSEA OR VOMITING Senna/Docusate Sodium (Olga-Colace) 1 tab PO BID [facility] Last Admin: 04/22/18 08:27 Dose: Not Given Sennosides (Senokot) 17.2 mg PO Q12H PRN PRN Reason: Moderate Constipation Sodium Chloride (Ns Flush) 2 ml IV.FLUSH BID [facility] Last Admin: 04/22/18 08:27 Dose: Not Given Sodium Chloride (Ns Flush) 2 ml IV.FLUSH PRN PRN PRN Reason: FLUSH AFTER USING IV ACCESS Exam Vital signs: Vital Signs 04/21/18 18:41 04/21/18 20:45 04/21/18 23:00 Temperature 99.2 F Pulse Rate 105 H 107 H Respiratory Rate 18 18 16 Blood Pressure 199/91 H 165/81 H Pulse Oximetry 98 98 04/22/18 02:30 04/22/18 02:42 04/22/18 03:27 Temperature 98.7 F Pulse Rate 104 H Respiratory Rate 15 20 Blood Pressure 181/86 H 161/77 H Pulse Oximetry 99 04/22/18 08:00 04/22/18 10:43 04/22/18 12:00 Temperature 98.8 F 98.7 F 98.3 F Pulse Rate 126 H 120 H 101 H Respiratory Rate 16 16 16 Blood Pressure 193/88 H 191/78 H 163/70 H Pulse Oximetry 97 98 97 Intake & Output 04/21/18 04/22/18 04/22/18 18:59 06:59 18:59 Intake Total 2099 1200 / 1200 Balance 2099 1200 / 1200 Weight 86.183 kg 86 kg Intake: IV 2100 / 2100 1200 / 1200 NS Inj 1,000 ML @ 100 mls/hr IV 1100 / 1100 .CONT .Q10H [facility] Rx#:[id number] Maxipime Inj 1,000 MG In NS Inj 100 / 100 100 ML @ 200 mls/hr IV.SIG Q12H [facility] Rx#:[id number] NS Inj 1,000 ML @ 1000 mls/hr 2000 / 2000 IV.SIG BOLUS [facility] Rx#:[id number] Rocephin Inj 1,000 MG In NS Inj 100 / 100 100 ML @ 200 mls/hr IV.SIG ONCE ONE Rx#:[id number] Other: # Voids 2 Date of Last Bowel Movement 04/22/18 04/22/18 Results - Lab Results 04/22/18 04:14 04/22/18 04:14 Most recent lab results Calcium 7.8 mg/dL (8.5-10.1) L D 04/22/18 04:14 Phosphorus 6.0 mg/dL (2.5-4.9) H 04/22/18 09:49 Magnesium 2.2 mg/dL (1.5-2.5) 04/21/18 20:35 Assessment and Plan - Assessment (1) Acute on chronic renal failure Code(s): N17.9 - Acute kidney failure, unspecified; N18.9 - Chronic kidney disease, unspecified Status: Acute (2) Ovarian mass, right Code(s): N83.9 - Noninflammatory disorder of ovary, fallopian tube and broad ligament, unspecified Status: Acute (3) DM (diabetes mellitus) Code(s): E11.9 - Type 2 diabetes mellitus without complications Status: Chronic (4) HTN (hypertension) Code(s): I10 - Essential (primary) hypertension Status: Chronic (5) Anemia Code(s): D64.9 - Anemia, unspecified Status: Acute - Attending Attestation patient was seen and examined. Agree with above assessment and plan. Apparently follows with aircraft design engineer in [place], baseline stage IV CKD. She has heavy proteinuria, suggesting diabetic nephropathy. Renal function is significantly worse, may be nearing the need for dialysis. However there is slight improvement compared to time of admission. She has an ovarian mass which is to be biopsied. Severe anemia is noted, obtain iron profile. Avoid nephrotoxic agents. Avoid Gadolinium. Monitor. May need dialysis in the near future if no significant improvement in renal function.
[2018-04-22 14:26] LABS: INR 1.1 Ratio; Prothrombin Time 11.1 sec (9.8-11.6)
[2018-04-22] MEDS ORDERED: fentaNYL Citrate Inj 100 MCG/2 ML Ampul ONE (15:45)
[2018-04-22 16:25] LABS: Hemoglobin A1c 6.6 % (4.3-6.0)
--- NOTE | 2018-04-22 16:46 | P.RAD ---
Post CT Procedure Prog Note - Pre Procedure Diagnosis (1) Mesenteric mass - Post Procedure Diagnosis (1) Mesenteric mass - Procedure Information Procedure Date: 04/22/18 Supervising Radiologist: Anurag Diallo Jr, MD Estimated blood loss (mL): 0 Anesthesia: Other - Plan of Activity Patient to Unit: Other Patient condition: Good See PACS Report for procedural detail/treatment. Biopsy CT Abdominal Mass Site: Intraperitoneal masses. Largest left midabdominal mass targeted during the bx. Specimen: Core Biopsy Findings: 3 core samples taken. No hemorrhage on post CT images. Pt tolerated the procedure well. Plan: Back to [place]
[2018-04-22] MEDS ORDERED: HYDROmorphone PF Inj 2 MG/ML Vial ONE (16:51)
[2018-04-22 17:11] LABS: % Iron Saturation 31.4 % (20-50)
--- NOTE | 2018-04-22 17:25 | MB ---
cc: Chely Summers MD,Neris Luciano,Andrew Emery MD DATE: 04/22/2018 PHYSICIAN REQUESTING CONSULTATION: Neris Barroso MD REASON FOR CONSULTATION: 1. Multiple intraperitoneal masses. 2. Evaluate for possible gynecologic malignancy. HISTORY OF PRESENT ILLNESS: This is a 42-year-old female who reports that in the last couple of days, she had a sense of nausea with some vomiting. She has felt that her abdomen is becoming more protuberant than usual. She has noticed that her clothes have not fit recently as they previously had. She also reports some difficulty with urination and changes of the urinary stream. The exact time course of some of these recent symptoms are uncertain. She presented to the hospital because of gastrointestinal symptoms of nausea and vomiting and a sense of fever and chills with decreased oral intake. She is seen and evaluated and admitted to the hospital now. Preliminary findings include renal failure that is interpreted as acute renal failure on top of preexisting chronic renal failure, reportedly with a baseline creatinine of 3, BUN and creatinine today are 97 and 6.16. Other objective data: H and H after hydration 7.9/24.3 but her history does not include any source of unusual bleeding. White count 6.7, platelets 315. INR 1.1. IMAGING: Includes CT scan of the abdomen and pelvis as well as a pelvic ultrasound. CT scan shows multiple large masses in the peritoneal cavity that are thought to involve the mesentery, possibly the adnexa. The uterus appears normal. One of the masses extends down to in close proximity of an ovary. Another mass is above the umbilicus and may be separate from the gynecologic organs, possibly arising from and/or metastatic to involve mesentery. No significant ascites or adenopathy separately detected. The largest mass is 14.7 cm. Pelvic ultrasound is such that the uterus is not well visualized. The left ovary appears normal. The right ovary is thought to probably involve one of these masses measuring 11.6 x 9.7 x 8.1 cm; however, it is noted that evaluation is limited to some extent. Tumor markers were obtained, none of which are significantly abnormal. Beta hCG is normal. CA-125 is only modestly elevated at 71. CEA is normal at 2.0. She is seen now in consultation for further evaluation and recommendations regarding these findings. PAST MEDICAL HISTORY: Notable for chronic renal disease, hypertension, diabetes, elevated cholesterol. PAST SURGICAL HISTORY: She does not report any prior abdominal surgery. She has had surgery on her eye. ALLERGIES: NO KNOWN DRUG ALLERGIES. MEDICATIONS: As listed in the chart. FAMILY HISTORY: Noncontributory. No known cancer history. REVIEW OF SYSTEMS: As per history of present illness. She reports that she still has fairly regular periods without abnormal bleeding between periods for a couple of years at least. Her periods have been quite symptomatic such that the first day of bleeding is associated with GI upset with nausea and vomiting. It lasts for a couple of hours. She also reports a history of gastroesophageal reflux disease and has previously been evaluated and placed on medication for that. She states currently she is not taking any medication. She reports a prior 5-day hospitalization with evaluation for that group of symptoms in the past. SOCIAL HISTORY: She is . 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 PHYSICAL EXAM: GENERAL: She is on a stretcher in preparation of going to interventional radiology for biopsy. She is nauseated with vomiting and appears to be feeling poorly. She is alert and conversive and asks appropriate questions and provides insightful information. ABDOMEN: Distended. There is a solid mass-like effect essentially palpable in all 4 quadrants most noted in the right upper quadrant and left lower midline. There is no overt fluid wave. There are no acute changes in that there is no rebound or guarding. Time is spent in discussion with her reviewing the findings in her case to date. I explained the reason for [facility] oncology consultation. I am sorry that she is feeling poorly and our efforts are to try to get her feeling better and to try to figure out what is going on to come up with treatment recommendations. I explained that I was asked to see her from a gynecologic oncology standpoint due to the masses in the pelvis that may or may not be of gynecologic origin, but the possibility exists of abnormal growths from the ovaries. I explained that there are benign abnormal growths that can become quite large and then there are potentially cancerous growths that can become quite large. With respect to treatment at times surgery is the first course of action and at other times if malignancy is present of gynecologic origin we may recommend chemotherapy to shrink the tumor volume to improve how she is feeling and then consider surgery. Other factors that come into the treatment decision consideration are her overall health and the concerns regarding her underlying renal failure, hydration status and other issues. There is not radiographic evidence to suggest bowel obstruction, but with her fevers at home it is possible that she could have a viral illness and her acute renal failure is due to decreased oral intake with nausea and vomiting resulting in dehydration. Nevertheless, more information is needed and that is the reason behind the recommendations for a tissue biopsy. We will use that information to try to clarify the diagnosis and make recommendations thereafter. Discussion ensued. Questions were asked and answered. I hope she gets to feeling better. We will follow along in her care. ASSESSMENT: 1. Multifocal large intraperitoneal masses, complex in nature was a strong solid feature. 2. Origin of the mass is uncertain may be gynecologic or non-gynecologic. 3. Tumor markers do not provide any definitive additional information. 4. Underlying chronic renal failure with acute renal failure. 5. Febrile illness with nausea and vomiting, dehydration. DISCUSSION: Counseling and coordination of care. PLAN: 1. From a [facility] oncology standpoint, recommend interventional radiology to do CT-directed biopsies of solid intraperitoneal masses to try to clarify diagnosis. 2. Medical care as outlined and initiated. 3. We will follow along in her care. Pending results of biopsies for further recommendations. Thank you for the consultation. MD BLANCO Burrell/foster , 04:02 PM , 04:22 PM
[2018-04-22] MEDS: Heparin - SQ 10,000 UNITS/ML Vial SQ SCH (20:33)
[2018-04-22] MEDS: Latanoprost 0.005% Opth Drops 2.5 ML Bottle EACH EYE SCH (20:50)
[2018-04-23] MEDS: Morphine Inj 4 MG/ML Vial IV.PUSH PRN ×2 (00:24→04:31)
[2018-04-23] MEDS: Sodium Chloride 0.9% 2 ML Flush PRN IV.FLUSH ×2 (00:28→04:32)
[2018-04-23 00:41] LABS: Protein/Creatinine Ratio,Urine 10.99 (0.00-0.14); Total Protein,Urine Random 791.1 mg/dL (0-11.8); Uric Acid, Random Urine 20.3 mg/dL
--- NOTE | 2018-04-23 01:09 | CT ---
EXAM DATE: 04/22/2018 5:02 PM EST AGE/SEX: 42 years / Female INDICATIONS: Abdominal lesion. CLINICAL DATA: This is the patient's initial encounter. Patient reports that signs and symptoms have been present for 1 day and indicates a pain score of 10/10. MEDICAL/SURGICAL HISTORY: Chronic renal failure. Diabetes. Hypertension. Mesenteric masses. None. COMPARISON: [facility] – [place] ABDOMEN & PELVIS W/O CONTRAST, 04/21/2018. . BIOPSY SITE: . . Abdomen MEDICATION(S): 50mcg fentanyl (Sublimaze) IV 1.0mg lorazepam (Ativan) IV DEVICE(S): 18 gauge BARD biopsy needle 17 gauge needle Three core specimen(s) sent to the laboratory for pathologic evaluation. . . PROCEDURE: CT guided . . Abdomen biopsy Prior to the procedure informed consent was obtained. Any appropriate prior imaging studies were rev iewed. These images show a large mesenteric masses occupying the pelvis. The dominant mass within the left hemipelvis was targeted during this biopsy. Using automated exposure control and adjustment of the mA and/or kV according to patient size, radiat ion dose was kept as low as reasonably achievable to obtain optimal diagnostic quality images. DICOM format image data is available electronically for review and comparison. The site was prepped in a sterile fashion. Full sterile technique was used, including cap, mask, katelynn rile gloves and gown and a large sterile sheet. Hand hygiene and 2% chlorhexidine and/or betadine/al cohol prep was utilized per protocol for cutaneous antisepsis. The skin and subcutaneous tissues wer e infiltrated with local anesthetic solution. With CT guidance the previously identified target was localized. Biopsy was performed using the presc ribed needle as above. Adequate hemostasis was obtained with compression at the puncture site. Follow-up CT scan reveals no hemorrhage. The patient tolerated the procedure well and there were no complications. The patient was returned to the Radiology Outpatient Unit in stable condition. FINDINGS: Successful core biopsy of the dominant mesenteric mass within the left hemipelvis. CONCLUSION: 1. Uncomplicated CT guided biopsy. Electronically signed by: Anurag Diallo MD Board Certified Radiologist 04/23/2018 1:07 AM EST
[2018-04-23] MEDS: hydrALAZINE HCl Inj 20 MG/ML Vial IV.PUSH PRN (04:34)
[2018-04-23] MEDS: Promethazine 25 MG Supp RECTAL PRN (04:37)
[2018-04-23 07:03] LABS: Baso # (Auto) 0.1 th/mm3 (0.0-0.2); Baso % (Auto) 0.7 % (0.0-2.0); Hematocrit 23.9 % (35.0-46.0); Hemoglobin 8.3 gm/dL (11.6-15.3); Lymph # (Auto) 0.5 th/mm3 (1.0-4.8); Lymph % (Auto) 4.9 % (9.0-44.0); Mean Corpuscular Hemoglobin 28.6 pg (27.0-34.0); Mean Platelet Volume 8.5 fL (7.0-11.0); Mono # (Auto) 0.4 th/mm3 (0.0-0.9); Mono % (Auto) 4.4 % (0.0-8.0); Platelet Count 288 th/mm3 (150-450); Red Blood Count 2.91 mil/mm3 (4.00-5.30)
[2018-04-23 07:37] LABS: Calcium 8.2 mg/dL (8.5-10.1); Carbon Dioxide 18.3 meq/L (21.0-32.0); Potassium 4.3 meq/L (3.5-5.1)
[2018-04-23] MEDS: Heparin - SQ 10,000 UNITS/ML Vial SQ SCH ×2 (08:19→21:55)
[2018-04-23] MEDS: Senna/Docusate Sodium 8.6/50 MG Tablet PO SCH ×2 (08:20→21:55)
[2018-04-23] MEDS: amLODIPine 10 MG Tablet PO SCH (08:20)
[2018-04-23] MEDS: Calcitriol 0.25 MCG Capsule PO SCH (08:20)
[2018-04-23] MEDS: Acetaminophen 325 MG Tablet PO PRN (08:20)
[2018-04-23] MEDS: Sodium Chloride 0.9% 2 ML Flush BID IV.FLUSH SCH ×2 (08:21→21:55)
--- NOTE | 2018-04-23 10:50 | P.PNIM ---
Subjective Interval history: Wants to know when she will be discharged. She still has episodes of vomiting however improved overnight. Will like to try to eat more than clear liquids. No abdominal pain at this time. Reports no dysuria. No chills or fever. Physical Exam Vital signs: Vital Signs 04/22/18 10:43 04/22/18 12:00 04/22/18 17:41 Temperature 98.7 F 98.3 F 98.6 F Pulse Rate 120 H 101 H 82 Respiratory Rate 16 16 16 Blood Pressure 191/78 H 163/70 H 124/60 Pulse Oximetry 98 97 94 L 04/22/18 18:46 04/22/18 18:47 04/22/18 18:48 Temperature Pulse Rate 108 H Respiratory Rate 14 14 14 Blood Pressure 132/67 Pulse Oximetry 96 04/22/18 20:00 04/23/18 00:00 04/23/18 04:00 Temperature 98.3 F 98.7 F 100.2 F H Pulse Rate 103 H 109 H 111 H Respiratory Rate 17 17 17 Blood Pressure 132/78 186/83 H 188/87 H Pulse Oximetry 96 97 97 04/23/18 04:21 04/23/18 04:57 04/23/18 06:19 Temperature Pulse Rate 113 H Respiratory Rate 19 18 Blood Pressure 173/77 H Pulse Oximetry 96 04/23/18 08:00 Temperature 100.2 F H Pulse Rate 115 H Respiratory Rate 18 Blood Pressure 186/86 H Pulse Oximetry 95 Intake & Output 04/22/18 04/23/18 04/23/18 18:59 06:59 18:59 Intake Total 1200 / 1200 1790 / 1790 Output Total 1025 / 1025 Balance 1200 / 1200 765 / 765 Weight 96.4 kg Intake: IV 1200 / 1200 1770 / 1770 NS Inj 1,000 ML @ 100 mls/hr IV 1100 / 1100 .CONT .Q10H [facility] Rx#:[id number] 1/2 Normal Saline Inj 1,000 ML 1670 / 1670 @ 75 mls/hr IV.CONT .[id number] [facility] Rx#:[id number] Maxipime Inj 1,000 MG In NS Inj 100 / 100 100 / 100 100 ML @ 200 mls/hr IV.SIG Q12H [facility] Rx#:[id number] Oral 20 / 20 Output: Urine 725 / 725 Emesis 300 / 300 Other: Date of Last Bowel Movement 04/22/18 Narrative: GENERAL: Well nourished well-developed female laying in bed in no acute distress ill-appearing CARDIOVASCULAR: Mild tachycardic rate, regular rhythm RESPIRATORY: Clear to auscultation. Breath sounds equal bilaterally. GASTROINTESTINAL: Abdomen soft, non-tender, mild distentionpositive bowel sounds MUSCULOSKELETAL: Extremities without clubbing, cyanosis, or edema. No obvious deformities. NEUROLOGICAL: Awake, alert and oriented x4. No focal neurologic deficits. Moving both upper and lower extremities spontaneously. PSYCH: Flat affect Results Labs CBC & Chem 7: 04/23/18 06:45 04/23/18 06:45 Labs: Microbiology 04/21/18 22:55 Blood - Peripheral Aerobic Blood Culture - Preliminary No growth in 1 day 04/21/18 22:55 Blood - Peripheral Anaerobic Blood Culture - Preliminary No growth in 1 day 04/21/18 22:50 Blood - Peripheral Aerobic Blood Culture - Preliminary No growth in 1 day 04/21/18 22:50 Blood - Peripheral Anaerobic Blood Culture - Preliminary No growth in 1 day Imaging Imaging: Impressions Abdomen Biopsy CT 04/22/18 00:00 CONCLUSION: 1. Uncomplicated CT guided biopsy. Procedures Procedures: 04/22 CT-guided biopsy of intraperitoneal mesenteric mass with interventional radiology Assessment and Plan (1) Acute on chronic renal failure: Code(s): N17.9 - Acute kidney failure, unspecified; N18.9 - Chronic kidney disease, unspecified Status: Acute (2) Ovarian mass, right: Code(s): N83.9 - Noninflammatory disorder of ovary, fallopian tube and broad ligament, unspecified Status: Acute (3) DM (diabetes mellitus): Code(s): E11.9 - Type 2 diabetes mellitus without complications Status: Chronic (4) HTN (hypertension): Code(s): I10 - Essential (primary) hypertension Status: Chronic (5) Anemia: Code(s): D64.9 - Anemia, unspecified Status: Acute (6) Mesenteric mass: Code(s): K63.9 - Disease of intestine, unspecified Status: Acute (7) SIRS (systemic inflammatory response syndrome): Code(s): R65.10 - Systemic inflammatory response syndrome (SIRS) of non-infectious origin without acute organ dysfunction Status: Acute Plan 42-year-old white female presents with intractable nausea and vomiting with poor p.o. intake Acute renal failure superimposed on chronic kidney disease stage IV, no baseline GFR for comparison and reports baseline creatinine of 3.Likely due to dehydration and poor p.o. intake, IV fluid hydration, appreciate nephrology recommendations, if worsens will need future hemodialysis. Right ovarian mass with mesenteric mass suspected ovarian malignancy with possible metastasisCA- 125 elevated 77. Appreciate [facility] oncology, Dr. Summers recommendations and await biopsy results. Status post CT-guided biopsy of mass / Anemialikely of chronic kidney diseasehemoglobin stable overnight, Hemoccult stool. Consider Epogen. Hypertension, uncontrolled .IV hydralazine and labetalol. Restart home amlodipine and metoprolol. Continue to monitor blood pressure closely. Djn-fjguyvj-shahzirkg diabetes mellitus, uncontrolled with underlying diabetic nephropathy however poor p.o. intakehold home glipizide, blood sugar monitoring with sliding scale insulin. Hypernatremia improved today after change IV fluid to half-normal saline. Nausea and vomiting likely due to mesenteric masssupportive care, antiemetics, advance from clear liquids to full liquids. DVT prophylaxisSCDs, heparin subcu Presenting systematic inflammatory response syndrome with no source of infection may be due to tumor mass. Discontinue IV antibiotics and continue to monitor patient clinically. Blood culture showed no infection. Progress Note: Quality VTE Deep Vein Thrombosis/Pulmonary Embolism Present on Admission: No _ (1) Acute on chronic renal failure Qualifiers: Acute renal failure type: Chronic kidney disease stage: (2) DM (diabetes mellitus) Qualifiers: Diabetes mellitus type: Diabetes mellitus detention insulin use: Diabetes mellitus complication status: Diabetes mellitus complication detail: Diabetic retinopathy severity: Proliferative retinopathy type: Diabetes mellitus macular edema: Laterality: Chronic kidney disease stage: (3) HTN (hypertension) Qualifiers: Hypertension type: (4) Anemia Qualifiers: Anemia type: Iron deficiency anemia type: Vitamin B12 deficiency anemia type: Folate deficiency anemia type: Bone marrow failure anemia type: Hemolytic anemia type: Other causes of anemia: Chronic kidney disease stage :
[2018-04-23] MEDS: Sodium Chloride 0.45 % Inj 1,000 ML IV.CONT SCH ×2 (12:42→21:57)
[2018-04-23] MEDS: Insulin NovoLOG Aspart Correctional Sugar Inj SQ SCH ×4 (12:46→20:00)
--- NOTE | 2018-04-23 15:30 | P.PNNP ---
Subjective Interval history: Patient feels tired Physical Exam Vital signs: Vital Signs 04/22/18 17:41 04/22/18 18:46 04/22/18 18:47 Temperature 98.6 F Pulse Rate 82 Respiratory Rate 16 14 14 Blood Pressure 124/60 Pulse Oximetry 94 L 04/22/18 18:48 04/22/18 20:00 04/23/18 00:00 Temperature 98.3 F 98.7 F Pulse Rate 108 H 103 H 109 H Respiratory Rate 14 17 17 Blood Pressure 132/67 132/78 186/83 H Pulse Oximetry 96 96 97 04/23/18 04:00 04/23/18 04:21 04/23/18 04:57 Temperature 100.2 F H Pulse Rate 111 H Respiratory Rate 17 19 18 Blood Pressure 188/87 H Pulse Oximetry 97 04/23/18 06:19 04/23/18 08:00 04/23/18 11:50 Temperature 100.2 F H 99.6 F Pulse Rate 113 H 115 H 102 H Respiratory Rate 18 18 Blood Pressure 173/77 H 186/86 H 177/81 H Pulse Oximetry 96 95 96 Intake & Output 04/22/18 04/23/18 04/23/18 18:59 06:59 18:59 Intake Total 1200 / 1200 1790 / 1790 330 / 330 Output Total 1025 / 1025 Balance 1200 / 1200 765 / 765 330 / 330 Weight 96.4 kg Intake: IV 1200 / 1200 1770 / 1770 330 / 330 NS Inj 1,000 ML @ 100 mls/hr IV 1100 / 1100 .CONT .Q10H [facility] Rx#:[id number] 1/2 Normal Saline Inj 1,000 ML 1670 / 1670 330 / 330 @ 75 mls/hr IV.CONT .[id number] [facility] Rx#:[id number] Maxipime Inj 1,000 MG In NS Inj 100 / 100 100 / 100 100 ML @ 200 mls/hr IV.SIG Q12H [facility] Rx#:[id number] Oral 20 / 20 Output: Urine 725 / 725 Emesis 300 / 300 Other: Date of Last Bowel Movement 04/22/18 04/22/18 Narrative: GENERAL: Patient vomiting, ill-appearing. CARDIOVASCULAR: Tachycardic, regular rhythm. RESPIRATORY: Clear to auscultation. Breath sounds equal bilaterally. GASTROINTESTINAL: Abdomen soft, non-tender, positive bowel sounds. MUSCULOSKELETAL: Extremities without clubbing, cyanosis, or edema. No obvious deformities. NEUROLOGICAL: Awake, alert and oriented. Assessment and Plan - Assessment (1) Acute on chronic renal failure Code(s): N17.9 - Acute kidney failure, unspecified; N18.9 - Chronic kidney disease, unspecified Status: Acute Plan: Patient reports CKD stage IV with a baseline Creatinine of 3. No prior labs available. Patient had proteinuria which suggests CKD due to diabetic nephropathy. Acute on chronic renal failure worsening despite hydration consider dialysis creatinine 6.8 Discussed with patient Continue IVF. Monitor fluid and electrolytes. Avoid nephrotoxic agents. (2) Ovarian mass, right Code(s): N83.9 - Noninflammatory disorder of ovary, fallopian tube and broad ligament, unspecified Status: Acute Plan: Right ovarian mass found on CT. Biopsy of mass (3) DM (diabetes mellitus) Code(s): E11.9 - Type 2 diabetes mellitus without complications Status: Chronic Plan: Insulin coverage to maintain blood glucose levels between 140 and 180 while hospitalized. (4) HTN (hypertension) Code(s): I10 - Essential (primary) hypertension Status: Chronic Plan: Monitor BP. Patient on Amlodipine and Metoprolol. Patient currently unable to tolerate PO so IV Hydralazine and Labetalol ordered. (5) Anemia Code(s): D64.9 - Anemia, unspecified Status: Acute Plan: Hgb 7.8. Monitor.
[2018-04-23] MEDS: Latanoprost 0.005% Opth Drops 2.5 ML Bottle EACH EYE SCH (18:40)
[2018-04-23] MEDS ORDERED: Influenza (Quadrivalent) Vaccine 0.5 ML Syringe IM ONE (22:30)
[2018-04-24] MEDS: Sodium Chloride 0.9% 2 ML Flush PRN IV.FLUSH (03:47)
[2018-04-24] MEDS: Promethazine 25 MG Supp RECTAL PRN (05:36)
[2018-04-24] MEDS ORDERED: Influenza (Quadrivalent) Vaccine 0.5 ML Syringe IM ONE (09:00)
[2018-04-24] MEDS: amLODIPine 10 MG Tablet PO SCH (09:39)
[2018-04-24] MEDS: Heparin - SQ 10,000 UNITS/ML Vial SQ SCH ×2 (09:39→21:00)
[2018-04-24] MEDS: Senna/Docusate Sodium 8.6/50 MG Tablet PO SCH ×2 (09:39→21:07)
[2018-04-24] MEDS: Calcitriol 0.25 MCG Capsule PO SCH (09:39)
[2018-04-24] MEDS: Insulin NovoLOG Aspart Correctional Sugar Inj SQ SCH ×4 (09:40→21:07)
[2018-04-24] MEDS: Sodium Chloride 0.9% 2 ML Flush BID IV.FLUSH SCH ×2 (09:40→21:07)
[2018-04-24] MEDS: Sodium Chloride 0.45 % Inj 1,000 ML IV.CONT SCH (12:43)
[2018-04-24] MEDS: hydrALAZINE 50 MG Tablet PO SCH ×2 (12:44→17:20)
--- NOTE | 2018-04-24 14:07 | P.PNIM ---
Subjective Interval history: Patient reports that her nausea has improved. Tolerating some food. No abdominal pain at this time. Physical Exam Vital signs: Vital Signs 04/23/18 16:00 04/23/18 20:00 04/23/18 20:02 Temperature 99.3 F 98.3 F Pulse Rate 94 H 96 H 96 H Respiratory Rate 20 20 Blood Pressure 160/76 H 157/73 H Pulse Oximetry 96 98 04/23/18 23:58 04/24/18 00:00 04/24/18 03:54 Temperature 98.4 F Pulse Rate 77 96 H 97 H Respiratory Rate 16 Blood Pressure 176/82 H Pulse Oximetry 99 04/24/18 04:00 04/24/18 08:00 04/24/18 11:38 Temperature 98.7 F 98.8 F 98.8 F Pulse Rate 105 H 105 H 104 H Respiratory Rate 20 19 18 Blood Pressure 178/84 H 212/98 H 181/89 H Pulse Oximetry 96 95 95 Intake & Output 04/23/18 04/24/18 04/24/18 18:59 06:59 18:59 Intake Total 930 / 930 2740 / 2740 1054 / 1054 Balance 930 / 930 2740 / 2740 1054 / 1054 Weight 96.4 kg Intake: IV 330 / 330 1000 / 1000 1054 / 1054 1/2 Normal Saline Inj 1,000 ML 330 / 330 1000 / 1000 1000 / 1000 @ 75 mls/hr IV.CONT .[id number] [facility] Rx#:[id number] Zofran Inj 8 MG In D5W Inj 50 54 / 54 ML @ 216 mls/hr IV.SIG Q6H PRN Rx#:[id number] Oral 600 / 600 1740 / 1740 Other: # Voids 4 3 Date of Last Bowel Movement 04/22/18 04/22/18 # Bowel Movements 0 Narrative: GENERAL: Well nourished well-developed female laying in bed in no acute distress ill-appearing CARDIOVASCULAR: Regular rate and rhythm RESPIRATORY: Clear to auscultation. Breath sounds equal bilaterally. GASTROINTESTINAL: Abdomen soft, non-tender, mild distentionpositive bowel sounds MUSCULOSKELETAL: Extremities without clubbing, cyanosis, or edema. No obvious deformities. NEUROLOGICAL: Awake, alert and oriented x4. No focal neurologic deficits. Results Labs CBC & Chem 7: 04/23/18 06:45 04/23/18 06:45 Labs: Microbiology 04/21/18 22:55 Blood - Peripheral Aerobic Blood Culture - Preliminary No growth in 3 days 04/21/18 22:55 Blood - Peripheral Anaerobic Blood Culture - Preliminary No growth in 3 days 04/21/18 22:50 Blood - Peripheral Aerobic Blood Culture - Preliminary No growth in 3 days 04/21/18 22:50 Blood - Peripheral Anaerobic Blood Culture - Preliminary No growth in 3 days Procedures Procedures: 04/22 CT-guided biopsy of intraperitoneal mesenteric mass with interventional radiology Assessment and Plan (1) Acute on chronic renal failure: Code(s): N17.9 - Acute kidney failure, unspecified; N18.9 - Chronic kidney disease, unspecified Status: Acute (2) Ovarian mass, right: Code(s): N83.9 - Noninflammatory disorder of ovary, fallopian tube and broad ligament, unspecified Status: Acute (3) DM (diabetes mellitus): Code(s): E11.9 - Type 2 diabetes mellitus without complications Status: Chronic (4) HTN (hypertension): Code(s): I10 - Essential (primary) hypertension Status: Chronic (5) Anemia: Code(s): D64.9 - Anemia, unspecified Status: Acute (6) Mesenteric mass: Code(s): K63.9 - Disease of intestine, unspecified Status: Acute (7) SIRS (systemic inflammatory response syndrome): Code(s): R65.10 - Systemic inflammatory response syndrome (SIRS) of non-infectious origin without acute organ dysfunction Status: Acute Plan 42-year-old white female presents with intractable nausea and vomiting with poor p.o. intake Acute renal failure superimposed on chronic kidney disease stage IV, no baseline GFR for comparison and reports baseline creatinine of 3.May be due to dehydration and poor p.o. intake, however creatinine has not improved much with IV fluid hydration, appreciate nephrology recommendations, if worsens will need future hemodialysis. Right ovarian mass with mesenteric mass suspected ovarian malignancy with possible metastasisCA- 125 elevated 77. Appreciate [employer] oncology, Dr. Summers recommendations and await biopsy results. Status post CT-guided biopsy of mass 04/22 Anemialikely of chronic kidney diseasehemoglobin stable 05/03, repeat in a.m., Hemoccult stool. Consider Epogen. Hypertension, uncontrolled .IV hydralazine and labetalol. Restart home amlodipine and metoprolol. Add scheduled hydralazine p.o. today. Continue to monitor blood pressure closely. Obw-raiamnl-clnoqxweo diabetes mellitus, uncontrolled with underlying diabetic nephropathy however poor p.o. intakehold home glipizide, blood sugar monitoring with sliding scale insulin. Hypernatremia improved after change IV fluid to half-normal saline. Nausea and vomiting likely due to mesenteric masssupportive care, antiemetics, advance from full liquids to soft diet DVT prophylaxisSCDs, heparin subcu Presenting systematic inflammatory response syndrome with no source of infection may be due to tumor mass. Discontinue IV antibiotics and continue to monitor patient clinically. Blood culture showed no infection. Progress Note: Quality VTE Deep Vein Thrombosis/Pulmonary Embolism Present on Admission: No _ (1) Acute on chronic renal failure Qualifiers: Acute renal failure type: Chronic kidney disease stage: (2) DM (diabetes mellitus) Qualifiers: Diabetes mellitus type: Diabetes mellitus jail insulin use: Diabetes mellitus complication status: Diabetes mellitus complication detail: Diabetic retinopathy severity: Proliferative retinopathy type: Diabetes mellitus macular edema: Laterality: Chronic kidney disease stage: (3) HTN (hypertension) Qualifiers: Hypertension type: (4) Anemia Qualifiers: Anemia type: Iron deficiency anemia type: Vitamin B12 deficiency anemia type: Folate deficiency anemia type: Bone marrow failure anemia type: Hemolytic anemia type: Other causes of anemia: Chronic kidney disease stage :
[2018-04-24 15:07] LABS: Baso % (Auto) 0.2 % (0.0-2.0); Hematocrit 26.7 % (35.0-46.0); Hemoglobin 8.9 gm/dL (11.6-15.3); Lymph # (Auto) 0.6 th/mm3 (1.0-4.8); Lymph % (Auto) 5.6 % (9.0-44.0); Mean Corpuscular HGB Conc 33.2 % (32.0-36.0); Mean Corpuscular Hemoglobin 27.4 pg (27.0-34.0); Mean Corpuscular Volume 82.5 fL (80.0-100.0); Mean Platelet Volume 8.6 fL (7.0-11.0); Mono # (Auto) 0.5 th/mm3 (0.0-0.9); Mono % (Auto) 4.6 % (0.0-8.0); Neut # (Auto) 9.2 th/mm3 (1.8-7.7); Neut % (Auto) 89.6 % (16.0-70.0); Platelet Count 292 th/mm3 (150-450); Red Blood Count 3.24 mil/mm3 (4.00-5.30); Red Cell Distribution Width 13.7 % (11.6-17.2); White Blood Count 10.2 th/mm3 (4.0-11.0)
[2018-04-24 15:27] LABS: Calcium 7.8 mg/dL (8.5-10.1); Carbon Dioxide 16.7 meq/L (21.0-32.0); Potassium 4.2 meq/L (3.5-5.1)
[2018-04-24] MEDS: Latanoprost 0.005% Opth Drops 2.5 ML Bottle EACH EYE SCH (17:20)
--- NOTE | 2018-04-24 19:18 | P.PNNP ---
Subjective Interval history: Patient was having nausea and vomiting and feels sick Physical Exam Vital signs: Vital Signs 04/23/18 20:00 04/23/18 20:02 04/23/18 23:58 Temperature 98.3 F Pulse Rate 96 H 96 H 77 Respiratory Rate 20 Blood Pressure 157/73 H Pulse Oximetry 98 04/24/18 00:00 04/24/18 03:54 04/24/18 04:00 Temperature 98.4 F 98.7 F Pulse Rate 96 H 97 H 105 H Respiratory Rate 16 20 Blood Pressure 176/82 H 178/84 H Pulse Oximetry 99 96 04/24/18 08:00 04/24/18 11:38 04/24/18 16:00 Temperature 98.8 F 98.8 F 98.6 F Pulse Rate 105 H 104 H 97 H Respiratory Rate 19 18 17 Blood Pressure 212/98 H 181/89 H 145/69 H Pulse Oximetry 95 95 95 Intake & Output 04/24/18 04/24/18 04/25/18 06:59 18:59 06:59 Intake Total 2740 / 2740 1204 / 1204 Balance 2740 / 2740 1204 / 1204 Weight 96.4 kg Intake: IV 1000 / 1000 1054 / 1054 1/2 Normal Saline Inj 1,000 ML 1000 / 1000 1000 / 1000 @ 75 mls/hr IV.CONT .[id number] [facility] Rx#:[id number] Zofran Inj 8 MG In D5W Inj 50 54 / 54 ML @ 216 mls/hr IV.SIG Q6H PRN Rx#:[id number] Oral 1740 / 1740 150 / 150 Other: # Voids 3 3 Date of Last Bowel Movement 04/22/18 Narrative: GENERAL: Patient vomiting, ill-appearing. CARDIOVASCULAR: Tachycardic, regular rhythm. RESPIRATORY: Clear to auscultation. Breath sounds equal bilaterally. GASTROINTESTINAL: Abdomen soft, non-tender, positive bowel sounds. MUSCULOSKELETAL: Extremities without clubbing, cyanosis, or edema. No obvious deformities. NEUROLOGICAL: Awake, alert and oriented. Assessment and Plan - Assessment (1) Acute on chronic renal failure Code(s): N17.9 - Acute kidney failure, unspecified; N18.9 - Chronic kidney disease, unspecified Status: Acute Plan: Patient reports CKD stage IV with a baseline Creatinine of 3. No prior labs available. Patient had proteinuria which suggests CKD due to diabetic nephropathy. She is getting more sick creatinine 6.97 discussed dialysis with her Despite hydration she is doing poorly Persistent nausea and vomiting She agreed to it Place consult for interventional radiology for PermCath Dialysis explained to them duration and length Dr. Uribe to discuss further details and alternate home dialysis if interested (2) Ovarian mass, right Code(s): N83.9 - Noninflammatory disorder of ovary, fallopian tube and broad ligament, unspecified Status: Acute Plan: Right ovarian mass found on CT. Biopsy of mass (3) DM (diabetes mellitus) Code(s): E11.9 - Type 2 diabetes mellitus without complications Status: Chronic Plan: Insulin coverage to maintain blood glucose levels between 140 and 180 while hospitalized. (4) HTN (hypertension) Code(s): I10 - Essential (primary) hypertension Status: Chronic Plan: Monitor BP. Patient on Amlodipine and Metoprolol. Patient currently unable to tolerate PO so IV Hydralazine and Labetalol ordered. (5) Anemia Code(s): D64.9 - Anemia, unspecified Status: Acute Plan: Hgb 7.8. Monitor.
[2018-04-25] MEDS: Sodium Chloride 0.45 % Inj 1,000 ML IV.CONT SCH (01:31)
[2018-04-25] MEDS: hydrALAZINE HCl Inj 20 MG/ML Vial IV.PUSH PRN (05:27)
[2018-04-25 06:34] LABS: INR 1.1 Ratio; Prothrombin Time 11.1 sec (9.8-11.6)
[2018-04-25 07:04] LABS: Calcium 8.1 mg/dL (8.5-10.1); Carbon Dioxide 16.9 meq/L (21.0-32.0); Potassium 4.1 meq/L (3.5-5.1)
[2018-04-25] MEDS: Heparin - SQ 10,000 UNITS/ML Vial SQ SCH ×2 (09:38→21:26)
[2018-04-25] MEDS: hydrALAZINE 50 MG Tablet PO SCH ×3 (09:55→19:44)
[2018-04-25] MEDS: amLODIPine 10 MG Tablet PO SCH (09:55)
[2018-04-25] MEDS ORDERED: ceFAZolin 2 GM Premix Inj 2 GM/50 ML PIGGYBACK IV.SIG SCH (10:00)
[2018-04-25] MEDS ORDERED: Vancomycin Inj 1,000 MG in Sodium Chlor 0.9% Inj 250 ML IV.SIG SCH (10:01)
[2018-04-25] MEDS ORDERED: Albumin Human 25% Inj 100 ML IV.SIG PRN (10:03)
[2018-04-25] MEDS ORDERED: Acetaminophen 325 MG Tablet PO PRN (10:03)
[2018-04-25] MEDS ORDERED: Sod Chloride 0.9% Inj 1,000 ML IV.CONT PRN (10:03)
[2018-04-25] MEDS ORDERED: Heparin 10,000 UNITS/10 ML Vial (for IV use) OTHER PRN (10:03)
[2018-04-25] MEDS ORDERED: Gelatin 12 MM/7 MM Topical Foam TOPICAL PRN (10:03)
[2018-04-25] MEDS ORDERED: Sod Chloride 0.9% Inj 1,000 ML OTHER PRN ×2 (10:03)
[2018-04-25] MEDS: Insulin NovoLOG Aspart Correctional Sugar Inj SQ SCH ×3 (10:19→21:20)
[2018-04-25] MEDS: Sodium Chloride 0.9% 2 ML Flush BID IV.FLUSH SCH ×2 (10:20→21:21)
[2018-04-25] MEDS: Calcitriol 0.25 MCG Capsule PO SCH (10:20)
[2018-04-25] MEDS: Senna/Docusate Sodium 8.6/50 MG Tablet PO SCH ×2 (10:20→21:15)
[2018-04-25] MEDS ORDERED: Sodium Chlor 0.9% Inj 250 ML ONE (10:59)
[2018-04-25] MEDS ORDERED: fentaNYL Citrate Inj 250 MCG/5 ML Ampul ONE (11:45)
[2018-04-25] MEDS ORDERED: Lidocaine 1%/Epinephrine 1:100,000 Inj 20 ML Vial ONE (12:29)
[2018-04-25] MEDS ORDERED: *Heparin 10,000 UNITS/10 ML Vial Periprocedural ONLY ONE (12:29)
[2018-04-25] MEDS: Heparin 10,000 UNITS/10 ML Vial (for IV use) OTHER PRN (16:17)
--- NOTE | 2018-04-25 18:41 | P.PNIM ---
Subjective Interval history: no cp or sob, seen in hd. nausea worse earlier, a little better now Physical Exam Vital signs: Vital Signs 04/24/18 20:00 04/25/18 00:00 04/25/18 04:00 Temperature 99.5 F 99.1 F 98.1 F Pulse Rate 103 H 99 H 69 Respiratory Rate 20 21 26 H Blood Pressure 185/81 H 185/80 H 186/82 H Pulse Oximetry 98 98 97 04/25/18 07:35 04/25/18 11:25 04/25/18 13:30 Temperature 99.2 F 99.0 F Pulse Rate 100 H 100 H 113 H Respiratory Rate 20 20 18 Blood Pressure 107/74 140/61 118/48 L Pulse Oximetry 97 97 95 04/25/18 13:45 04/25/18 14:15 Temperature Pulse Rate 113 H 107 H Respiratory Rate 18 18 Blood Pressure 128/54 L 111/52 L Pulse Oximetry 91 L 91 L Intake & Output 04/24/18 04/25/18 04/25/18 18:59 06:59 18:59 Intake Total 1204 / 1204 1054 / 1054 54 / 54 Output Total Balance 1204 / 1204 1054 / 1054 53 / 53 Weight 94.7 kg Intake: IV 1054 / 1054 1054 / 1054 54 / 54 1/2 Normal Saline Inj 1,000 ML 1000 / 1000 1000 / 1000 @ 75 mls/hr IV.CONT .[id number] [facility] Rx#:[id number] Zofran Inj 8 MG In D5W Inj 50 54 / 54 54 / 54 54 / 54 ML @ 216 mls/hr IV.SIG Q6H PRN Rx#:[id number] Oral 150 / 150 0 / 0 Output: Urine Other: # Voids 3 2 Date of Last Bowel Movement 04/22/18 04/22/18 04/22/18 Narrative: GENERAL: sittign up in bed. aaox3 SKIN: Warm and dry. HEAD: Normocephalic. EYES: No scleral icterus. No injection or drainage. NECK: Supple, trachea midline. No JVD. CARDIOVASCULAR: Regular rate and rhythm without murmurs, gallops, or rubs. RESPIRATORY: Breath sounds equal bilaterally. No accessory muscle use. GASTROINTESTINAL: Abdomen soft, non-tender, nondistended. MUSCULOSKELETAL: No cyanosis, or edema. Results Labs CBC & Chem 7: 04/24/18 14:19 04/25/18 05:49 Labs: Microbiology 04/21/18 22:55 Blood - Peripheral Aerobic Blood Culture - Preliminary No growth in 4 days 04/21/18 22:55 Blood - Peripheral Anaerobic Blood Culture - Preliminary No growth in 4 days 04/21/18 22:50 Blood - Peripheral Aerobic Blood Culture - Preliminary No growth in 4 days 04/21/18 22:50 Blood - Peripheral Anaerobic Blood Culture - Preliminary No growth in 4 days Procedures Procedures: 04/22 CT-guided biopsy of intraperitoneal mesenteric mass with interventional radiology Assessment and Plan (1) Acute on chronic renal failure: Code(s): N17.9 - Acute kidney failure, unspecified; N18.9 - Chronic kidney disease, unspecified Status: Acute (2) Ovarian mass, right: Code(s): N83.9 - Noninflammatory disorder of ovary, fallopian tube and broad ligament, unspecified Status: Acute (3) DM (diabetes mellitus): Code(s): E11.9 - Type 2 diabetes mellitus without complications Status: Chronic (4) HTN (hypertension): Code(s): I10 - Essential (primary) hypertension Status: Chronic (5) Anemia: Code(s): D64.9 - Anemia, unspecified Status: Acute (6) Mesenteric mass: Code(s): K63.9 - Disease of intestine, unspecified Status: Acute (7) SIRS (systemic inflammatory response syndrome): Code(s): R65.10 - Systemic inflammatory response syndrome (SIRS) of non-infectious origin without acute organ dysfunction Status: Acute Plan 42-year-old white female presents with intractable nausea and vomiting with poor p.o. intake //Acute renal failure superimposed on chronic kidney disease stage IV, no baseline GFR for comparison and reports baseline creatinine of 3.May be due to dehydration and poor p.o. intake, however creatinine has not improved much with IV fluid hydration, appreciate nephrology recommendations, if worsens will need future hemodialysis. =04/25. vas-cath in -start HD. appreciate Neph assistance. 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 Appreciate WORD PROCESSING SUPERVISOR oncology, Dr. Summers recommendations and await biopsy results. Status post CT-guided biopsy of mass 04/22 =f/u bx results. //Anemialikely of chronic kidney diseasehemoglobin stable 05/03, repeat in a.m. , Hemoccult stool. Consider Epogen. //Hypertension, uncontrolled .IV hydralazine and labetalol. Restart home amlodipine and metoprolol. Add scheduled hydralazine p.o. today. Continue to monitor blood pressure closely. //Ojk-mrtacly-slidwtepw diabetes mellitus, uncontrolled with underlying diabetic nephropathy however poor p.o. intakehold home glipizide, blood sugar monitoring with sliding scale insulin. //Hypernatremia improved after change IV fluid to half-normal saline. //Nausea and vomiting likely due to mesenteric masssupportive care, antiemetics , advance from full liquids to soft diet //DVT prophylaxisSCDs, heparin subcu Discussed Condition With: patient, nurse. Discharge Planning: pending propagation worker onc, neph clearance Progress Note: Quality VTE Deep Vein Thrombosis/Pulmonary Embolism Present on Admission: No _ (1) DM (diabetes mellitus) Qualifiers: Chronic kidney disease stage: Diabetes mellitus complication detail: Diabetes mellitus complication status: Diabetes mellitus prison insulin use : Diabetes mellitus macular edema: Diabetes mellitus type: Diabetic retinopathy severity: Laterality: Proliferative retinopathy type: (2) Anemia Qualifiers: Anemia type: Bone marrow failure anemia type: Chronic kidney disease stage : Folate deficiency anemia type: Hemolytic anemia type: Iron deficiency anemia type: Other causes of anemia: Vitamin B12 deficiency anemia type: (3) Acute on chronic renal failure Qualifiers: Acute renal failure type: Chronic kidney disease stage: (4) HTN (hypertension) Qualifiers: Hypertension type:
[2018-04-25] MEDS: Latanoprost 0.005% Opth Drops 2.5 ML Bottle EACH EYE SCH (19:44)
--- NOTE | 2018-04-25 20:27 | P.PNNP ---
Subjective Interval history: Patient was seen this AM, no distress. Hemodialysis initiated today. PermCath placed. <Agustin Taylorcristian - Last Filed: 04/25/18 20:19> Physical Exam Vital signs: Vital Signs 04/25/18 00:00 04/25/18 04:00 04/25/18 07:35 Temperature 99.1 F 98.1 F 99.2 F Pulse Rate 99 H 69 100 H Respiratory Rate 21 26 H 20 Blood Pressure 185/80 H 186/82 H 107/74 Pulse Oximetry 98 97 97 04/25/18 11:25 04/25/18 13:30 04/25/18 13:45 Temperature 99.0 F Pulse Rate 100 H 113 H 113 H Respiratory Rate 20 18 18 Blood Pressure 140/61 118/48 L 128/54 L Pulse Oximetry 97 95 91 L 04/25/18 14:15 Temperature Pulse Rate 107 H Respiratory Rate 18 Blood Pressure 111/52 L Pulse Oximetry 91 L Intake & Output 04/25/18 04/25/18 04/26/18 06:59 18:59 06:59 Intake Total 1054 / 1054 54 / 54 Output Total 2000 Balance 1054 / 1054 -1947 / -1947 Weight 94.7 kg Intake: IV 1054 / 1054 54 / 54 1/2 Normal Saline Inj 1,000 ML 1000 / 1000 @ 75 mls/hr IV.CONT .[id number] [facility] Rx#:[id number] Zofran Inj 8 MG In D5W Inj 50 54 / 54 54 / 54 ML @ 216 mls/hr IV.SIG Q6H PRN Rx#:[id number] Oral 0 / 0 Output: Urine Hemodialysis Amount 1999 Other: # Voids 2 Date of Last Bowel Movement 04/22/18 04/22/18 Narrative: GENERAL: nad CARDIOVASCULAR: Tachycardic, regular rhythm. RESPIRATORY: Clear to auscultation. Breath sounds equal bilaterally. GASTROINTESTINAL: Abdomen soft, non-tender, positive bowel sounds. MUSCULOSKELETAL: Extremities without clubbing, cyanosis, or edema. No obvious deformities. NEUROLOGICAL: Awake, alert and oriented. <Andrew Taylor - Last Filed: 04/25/18 20:19> Vital signs: Vital Signs 04/25/18 07:35 04/25/18 11:25 04/25/18 13:30 Temperature 99.2 F 99.0 F Pulse Rate 100 H 100 H 113 H Respiratory Rate 20 20 18 Blood Pressure 107/74 140/61 118/48 L Pulse Oximetry 97 97 95 04/25/18 13:45 04/25/18 14:15 04/25/18 20:00 Temperature 99.0 F Pulse Rate 113 H 107 H 115 H Respiratory Rate 18 18 18 Blood Pressure 128/54 L 111/52 L 186/81 H Pulse Oximetry 91 L 91 L 97 04/26/18 00:00 04/26/18 00:56 04/26/18 04:00 Temperature 98.8 F 98.8 F 98.9 F Pulse Rate 108 H 108 H 111 H Respiratory Rate 15 15 15 Blood Pressure 171/72 H 171/72 H 188/84 H Pulse Oximetry 100 100 95 Intake & Output 04/25/18 04/25/18 04/26/18 06:59 18:59 06:59 Intake Total 1054 / 1054 54 / 54 308 / 308 Output Total 2000 Balance 1054 / 1054 -1947 / -194 308 / 308 Weight 94.7 kg 95.6 kg Intake: IV 1054 / 1054 54 / 54 108 / 108 1/2 Normal Saline Inj 1,000 ML 1000 / 1000 @ 75 mls/hr IV.CONT .[id number] [facility] Rx#:[id number] Zofran Inj 8 MG In D5W Inj 50 54 / 54 54 / 54 108 / 108 ML @ 216 mls/hr IV.SIG Q6H PRN Rx#:[id number] Oral 0 / 0 200 / 200 Output: Urine Hemodialysis Amount 1999 Other: # Voids 2 1 Date of Last Bowel Movement 04/22/18 04/22/18 <Zachary Uribe - Last Filed: 04/26/18 06:32> Assessment and Plan - Assessment (1) Acute on chronic renal failure Code(s): N17.9 - Acute kidney failure, unspecified; N18.9 - Chronic kidney disease, unspecified Status: Acute Plan: Patient reports CKD stage IV with a baseline Creatinine of 3. No prior labs available. Patient followed with pierogi maker Dr. Velez in [place] prior to moving. Patient had proteinuria which suggests CKD due to diabetic nephropathy. Creatinine 6.82 and BUN 100. PermCath placed and hemodialysis initiated today. Patient to be dialyzed tomorrow. Monitor fluid and electrolytes. Avoid nephrotoxic agents. (2) Ovarian mass, right Code(s): N83.9 - Noninflammatory disorder of ovary, fallopian tube and broad ligament, unspecified Status: Acute Plan: Right ovarian mass found on CT. Biopsy of mass, pathology pending. (3) DM (diabetes mellitus) Code(s): E11.9 - Type 2 diabetes mellitus without complications Status: Chronic Plan: Insulin coverage to maintain blood glucose levels between 140 and 180 while hospitalized. (4) HTN (hypertension) Code(s): I10 - Essential (primary) hypertension Status: Chronic Plan: Monitor BP. Patient on Amlodipine and Metoprolol. (5) Anemia Code(s): D64.9 - Anemia, unspecified Status: Acute Plan: Hgb 8.9. Epogen with dialysis. <Andrew Taylor - Last Filed: 04/25/18 20:19> - Assessment (1) Acute on chronic renal failure Code(s): N17.9 - Acute kidney failure, unspecified; N18.9 - Chronic kidney disease, unspecified Status: Acute (2) Ovarian mass, right Code(s): N83.9 - Noninflammatory disorder of ovary, fallopian tube and broad ligament, unspecified Status: Acute (3) DM (diabetes mellitus) Code(s): E11.9 - Type 2 diabetes mellitus without complications Status: Chronic (4) HTN (hypertension) Code(s): I10 - Essential (primary) hypertension Status: Chronic (5) Anemia Code(s): D64.9 - Anemia, unspecified Status: Acute - Attending Attestation patient was seen and examined on 04/25/18. Agree with above assessment and plan. <Zachary Uribe - Last Filed: 04/26/18 06:32>
[2018-04-25 21:19] LABS: Hepatitis A IgM Antibody Nonreactive (Nonreactive); Hepatitits B Surface Antigen Nonreactive (Nonreactive)
[2018-04-26] MEDS: hydrALAZINE HCl Inj 20 MG/ML Vial IV.PUSH PRN (04:04)
[2018-04-26 05:53] LABS: Baso % (Auto) 0.1 % (0.0-2.0); Hematocrit 26.6 % (35.0-46.0); Hemoglobin 8.8 gm/dL (11.6-15.3); Lymph # (Auto) 0.6 th/mm3 (1.0-4.8); Mean Corpuscular HGB Conc 33.1 % (32.0-36.0); Mean Corpuscular Hemoglobin 26.8 pg (27.0-34.0); Mean Corpuscular Volume 80.8 fL (80.0-100.0); Mean Platelet Volume 8.9 fL (7.0-11.0); Mono # (Auto) 0.8 th/mm3 (0.0-0.9); Mono % (Auto) 9.2 % (0.0-8.0); Neut # (Auto) 6.9 th/mm3 (1.8-7.7); Neut % (Auto) 83.7 % (16.0-70.0); Platelet Count 266 th/mm3 (150-450); Red Cell Distribution Width 13.4 % (11.6-17.2); White Blood Count 8.2 th/mm3 (4.0-11.0)
[2018-04-26 06:27] LABS: Albumin 2.4 g/dL (3.4-5.0); Calcium 7.8 mg/dL (8.5-10.1); Magnesium 2.1 mg/dL (1.5-2.5); Phosphorus 7.3 mg/dL (2.5-4.9); Potassium 3.8 meq/L (3.5-5.1)
--- NOTE | 2018-04-26 09:50 | IR ---
EXAM DATE: 04/25/2018 1:42 PM EST AGE/SEX: 42 years / Female INDICATIONS: Patient with history of chronic kidney disease stage IV in need of tunneled central matias ous catheter placement for dialysis. CLINICAL DATA: This is the patient's initial encounter. Patient reports that signs and symptoms have been present for 4 - 6 days and indicates a pain score of 0/10. MEDICAL/SURGICAL HISTORY: . Chronic kidney disease, Hypertension, Hyperlipidemia, Diabetes, Ane natalia . Eye surgery. COMPARISON: No prior exams available for comparison. FLUORO TIME (min): 1.34 IMAGE SERIES: 2 RADIATION DOSE: 27 mGy CAK ACCESS SITE: Right internal jugular vein SEDATION TIME (min): 30 MEDICATION(S): 2 mg midazolam (Versed) IV 100 mcg fentanyl (Sublimaze) IV Prophylactic antibiotics were administered with appropriate pre-procedure timing. Vancomycin within 2 hrs of procedure, Ancef (or alternative) within 1 hr of procedure. DEVICE(S): 15 fr 19 cm Palindrome Perm Cath. . . PROCEDURE: 1. Ultrasound-guided venipuncture. 2. PermaCath placement. 3. Conscious sedation with continuous EKG and oximetry monitoring. The risks, benefits and alternatives to the procedure were explained and verbal and written consent w as obtained. The site was prepped in sterile fashion. Full sterile technique was used, including ca p, mask, sterile gloves and gown and a large sterile sheet. Hand hygiene and 2% chlorhexidine and/or betadine/alcohol prep was utilized per protocol for cutaneous antisepsis. Sterile gel and sterile p robe cover were utilized for ultrasound guidance. The skin and subcutaneous tissues were infiltrated with local anesthetic solution. With ultrasound and fluoroscopic guidance a dermatotomy was created over the prescribed vein. A micr opuncture set was used to access the targeted vein and serial dilatation was performed to accept the prescribed length catheter. A subcutaneous tunnel was created in a retrograde fashion the catheter w as pulled through the tunnel. The catheter was flushed and assembled and locked with heparin. The c atheter was sutured in place. Conscious sedation was performed with the prescribed dosages and duration as above in the presence of an independent trained radiology nurse to assist in the monitoring of the patient. EKG and oximetry remained stable throughout the procedure. The patient tolerated the procedure well and there were n o complications. The patient was sent to post anesthesia recovery in stable condition. CONCLUSION: 1. Uncomplicated PermaCath placement as above. Electronically signed by: Fawad South MD Board Certified Radiologist 04/26/2018 9:48 AM EST
--- NOTE | 2018-04-26 09:59 | P.PNNP ---
Subjective Interval history: seen during dialysis. On 3K, UF goal is 3 liters. BFR is 330 ml/min. Physical Exam Vital signs: Vital Signs 04/25/18 11:25 04/25/18 13:30 04/25/18 13:45 Temperature 99.0 F Pulse Rate 100 H 113 H 113 H Respiratory Rate 20 18 18 Blood Pressure 140/61 118/48 L 128/54 L Pulse Oximetry 97 95 91 L 04/25/18 14:15 04/25/18 20:00 04/26/18 00:00 Temperature 99.0 F 98.8 F Pulse Rate 107 H 115 H 108 H Respiratory Rate 18 18 15 Blood Pressure 111/52 L 186/81 H 171/72 H Pulse Oximetry 91 L 97 100 04/26/18 00:56 04/26/18 04:00 04/26/18 08:45 Temperature 98.8 F 98.9 F 98.4 F Pulse Rate 108 H 111 H 112 H Respiratory Rate 15 15 20 Blood Pressure 171/72 H 188/84 H 186/75 H Pulse Oximetry 100 95 96 Intake & Output 04/25/18 04/26/18 04/26/18 18:59 06:59 18:59 Intake Total 54 / 54 308 / 308 Output Total 2000 Balance -1946 / -1946 308 / 308 Weight 95.6 kg Intake: IV 54 / 54 108 / 108 Zofran Inj 8 MG In D5W Inj 50 54 / 54 108 / 108 ML @ 216 mls/hr IV.SIG Q6H PRN Rx#:[id number] Oral 200 / 200 Output: Urine Hemodialysis Amount 1999 Other: # Voids 1 Date of Last Bowel Movement 04/22/18 Narrative: GENERAL: nad CARDIOVASCULAR: RRR RESPIRATORY: Clear to auscultation. Breath sounds equal bilaterally. GASTROINTESTINAL: Abdomen soft, non-tender, positive bowel sounds. MUSCULOSKELETAL: Extremities without clubbing, cyanosis, or edema. No obvious deformities. NEUROLOGICAL: Awake, alert and oriented. Assessment and Plan - Assessment (1) Acute on chronic renal failure Code(s): N17.9 - Acute kidney failure, unspecified; N18.9 - Chronic kidney disease, unspecified Status: Acute Plan: Patient reports CKD stage IV with a baseline Creatinine of 3. No prior labs available. Patient followed with plumber apprentice Dr. Velez in [place] prior to moving. Patient had proteinuria which suggests CKD due to diabetic nephropathy. Patient has likely reached ESRD. PermCath placed and hemodialysis initiated. Dialysis today. Monitor fluid and electrolytes. Needs outpatient dialysis arrangements. (2) Ovarian mass, right Code(s): N83.9 - Noninflammatory disorder of ovary, fallopian tube and broad ligament, unspecified Status: Acute Plan: Right ovarian mass found on CT. Biopsy of mass, pathology pending. (3) DM (diabetes mellitus) Code(s): E11.9 - Type 2 diabetes mellitus without complications Status: Chronic Plan: Insulin coverage to maintain blood glucose levels between 140 and 180 while hospitalized. (4) HTN (hypertension) Code(s): I10 - Essential (primary) hypertension Status: Chronic Plan: Monitor BP. Patient on Amlodipine and Metoprolol. (5) Anemia Code(s): D64.9 - Anemia, unspecified Status: Acute Plan: Epogen with dialysis.
[2018-04-26] MEDS: Insulin NovoLOG Aspart Correctional Sugar Inj SQ SCH ×4 (12:16→20:47)
[2018-04-26] MEDS: hydrALAZINE 50 MG Tablet PO SCH ×3 (12:17→17:56)
[2018-04-26] MEDS: Heparin - SQ 10,000 UNITS/ML Vial SQ SCH ×2 (12:53→20:37)
[2018-04-26] MEDS: Calcitriol 0.25 MCG Capsule PO SCH (12:54)
[2018-04-26] MEDS: Vitamin B Complex/Vit C/Folic Tablet PO SCH (12:54)
[2018-04-26] MEDS: amLODIPine 10 MG Tablet PO SCH (12:55)
[2018-04-26] MEDS: Senna/Docusate Sodium 8.6/50 MG Tablet PO SCH ×2 (12:55→20:37)
[2018-04-26] MEDS: Sodium Chloride 0.9% 2 ML Flush BID IV.FLUSH SCH ×2 (12:55→20:37)
--- NOTE | 2018-04-26 15:34 | P.PNIM ---
Subjective Interval history: Patient with very severe nausea this morning which has resolved after dialysis today. Patient reports pain is under control. Denies any chest pain or shortness of breath. Physical Exam Vital signs: Vital Signs 04/25/18 20:00 04/26/18 00:00 04/26/18 00:56 Temperature 99.0 F 98.8 F 98.8 F Pulse Rate 115 H 108 H 108 H Respiratory Rate 18 15 15 Blood Pressure 186/81 H 171/72 H 171/72 H Pulse Oximetry 97 100 100 04/26/18 04:00 04/26/18 08:45 04/26/18 12:20 Temperature 98.9 F 98.4 F 98.2 F Pulse Rate 111 H 112 H 113 H Respiratory Rate 15 20 25 H Blood Pressure 188/84 H 186/75 H 194/88 H Pulse Oximetry 95 96 97 04/26/18 14:49 04/26/18 15:06 Temperature Pulse Rate Respiratory Rate Blood Pressure 142/65 H Pulse Oximetry 97 Intake & Output 04/25/18 04/26/18 04/26/18 18:59 06:59 18:59 Intake Total 54 / 54 308 / 308 Output Total 2000 3000 / 3000 Balance -1947 / -1947 308 / 308 -3000 / -3000 Weight 95.6 kg Intake: IV 54 / 54 108 / 108 Zofran Inj 8 MG In D5W Inj 50 54 / 54 108 / 108 ML @ 216 mls/hr IV.SIG Q6H PRN Rx#:[id number] Oral 200 / 200 Output: Urine Hemodialysis Amount 1999 / 1999 3000 / 3000 Other: # Voids 1 Date of Last Bowel Movement 04/22/18 04/22/18 Narrative: GENERAL: sitting up in bed. Sleeping, wakes up for exam. Aaox3 SKIN: Warm and dry. HEAD: Normocephalic. EYES: No scleral icterus. No injection or drainage. NECK: Supple, trachea midline. No JVD. CARDIOVASCULAR: Regular rate and rhythm without murmurs, gallops, or rubs. RESPIRATORY: Breath sounds equal bilaterally. No accessory muscle use. GASTROINTESTINAL: Abdomen soft, non-tender, nondistended. MUSCULOSKELETAL: No cyanosis, or edema. Results Labs CBC & Chem 7: 04/26/18 04:56 04/26/18 04:56 Labs: Microbiology 04/21/18 22:55 Blood - Peripheral Aerobic Blood Culture - Final No growth in 5 days 04/21/18 22:55 Blood - Peripheral Anaerobic Blood Culture - Final No growth in 5 days 04/21/18 22:50 Blood - Peripheral Aerobic Blood Culture - Final No growth in 5 days 04/21/18 22:50 Blood - Peripheral Anaerobic Blood Culture - Final No growth in 5 days Imaging Imaging: Impressions Central Venous Line 04/25/18 18:46 CONCLUSION: 1. Uncomplicated PermaCath placement as above. Procedures Procedures: 04/22 CT-guided biopsy of intraperitoneal mesenteric mass with interventional radiology Assessment and Plan (1) Acute on chronic renal failure: Code(s): N17.9 - Acute kidney failure, unspecified; N18.9 - Chronic kidney disease, unspecified Status: Acute (2) Ovarian mass, right: Code(s): N83.9 - Noninflammatory disorder of ovary, fallopian tube and broad ligament, unspecified Status: Acute (3) DM (diabetes mellitus): Code(s): E11.9 - Type 2 diabetes mellitus without complications Status: Chronic (4) HTN (hypertension): Code(s): I10 - Essential (primary) hypertension Status: Chronic (5) Anemia: Code(s): D64.9 - Anemia, unspecified Status: Acute (6) Mesenteric mass: Code(s): K63.9 - Disease of intestine, unspecified Status: Acute (7) SIRS (systemic inflammatory response syndrome): Code(s): R65.10 - Systemic inflammatory response syndrome (SIRS) of non-infectious origin without acute organ dysfunction Status: Acute Plan 42-year-old white female presents with intractable nausea and vomiting with poor p.o. intake //Acute renal failure superimposed on chronic kidney disease stage IV, no baseline GFR for comparison and reports baseline creatinine of 3.May be due to dehydration and poor p.o. intake, however creatinine has not improved much with IV fluid hydration, appreciate nephrology recommendations, if worsens will need future hemodialysis. =04/25. vas-cath in -start HD. appreciate Neph assistance. = 04/26 BUN 70, improving on HD. Continue to monitor. 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 Summers recommendations and await biopsy results. Status post CT-guided biopsy of mass 04/22 = 04/26. Biopsy results still pending f/u bx results. //Anemialikely of chronic kidney diseasehemoglobin stable 05/03, repeat in a.m. , Hemoccult stool. Consider Epogen. //Hypertension, uncontrolled .IV hydralazine and labetalol. Restart home amlodipine and metoprolol. Add scheduled hydralazine p.o. today. Continue to monitor blood pressure closely. = 04/26 systolic blood pressures up to 190 today. Will add clonidine as needed. //Jur-[id number]-bfasynljb diabetes mellitus, uncontrolled with underlying diabetic nephropathy however poor p.o. intakehold home glipizide, blood sugar monitoring with sliding scale insulin. //Hypernatremia .. Improved. As per nephrology. Appreciate assistance. //Nausea and vomiting likely due to mesenteric masssupportive care, antiemetics , advance from full liquids to soft diet //DVT prophylaxisSCDs, heparin subcu Discharge Planning: Biopsy results pending pending director of alumni relations onc, neph clearance On dialysis. Progress Note: Quality VTE Deep Vein Thrombosis/Pulmonary Embolism Present on Admission: No _ (1) Acute on chronic renal failure Qualifiers: Acute renal failure type: Chronic kidney disease stage: (2) DM (diabetes mellitus) Qualifiers: Diabetes mellitus type: Diabetes mellitus detention insulin use: Diabetes mellitus complication status: Diabetes mellitus complication detail: Diabetic retinopathy severity: Proliferative retinopathy type: Diabetes mellitus macular edema: Laterality: Chronic kidney disease stage: (3) HTN (hypertension) Qualifiers: Hypertension type: (4) Anemia Qualifiers: Anemia type: Iron deficiency anemia type: Vitamin B12 deficiency anemia type: Folate deficiency anemia type: Bone marrow failure anemia type: Hemolytic anemia type: Other causes of anemia: Chronic kidney disease stage :
[2018-04-26] MEDS ORDERED: Labetalol HCl Inj 20 MG/4 ML Vial IV.PUSH PRN (16:00)
[2018-04-26] MEDS: Acetaminophen 325 MG Tablet PO PRN (16:07)
[2018-04-26] MEDS: Latanoprost 0.005% Opth Drops 2.5 ML Bottle EACH EYE SCH (17:57)
[2018-04-27] MEDS ORDERED: Pantoprazole Inj 40 MG Vial IV.PUSH ONE (01:37)
--- NOTE | 2018-04-27 08:34 | P.PN ---
Subjective Interval history: patient resting in bed states still having n/v denies pain explained pathology results: SMOOTH MUSCLE TISSUE WITH HISTOPATHOLOGIC FEATURES SUGGESTIVE OF A NEOPLASM NEEDLE CORE BIOPSY, CLINICALLY ABDOMINAL MASS. 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 Summers patient stated understanding Physical Exam Vital signs: Vital Signs 04/26/18 08:45 04/26/18 12:20 04/26/18 14:49 Temperature 98.4 F 98.2 F Pulse Rate 112 H 113 H Respiratory Rate 20 25 H Blood Pressure 186/75 H 194/88 H 142/65 H Pulse Oximetry 96 97 04/26/18 15:06 04/26/18 15:50 04/26/18 19:08 Temperature 101.2 F H 98.3 F Pulse Rate 98 H Respiratory Rate 25 H Blood Pressure 137/62 Pulse Oximetry 97 96 04/26/18 19:31 04/26/18 20:00 04/27/18 00:00 Temperature 98.4 F 98.1 F Pulse Rate 93 H 95 H Respiratory Rate 16 17 Blood Pressure 150/65 H 189/90 H Pulse Oximetry 96 98 96 04/27/18 04:00 04/27/18 07:32 04/27/18 08:00 Temperature 98.3 F 99.1 F Pulse Rate 93 H 104 H Respiratory Rate 15 22 Blood Pressure 133/61 143/76 H Pulse Oximetry 96 95 97 Intake & Output 04/26/18 04/27/18 04/27/18 18:59 06:59 18:59 Intake Total 150 / 150 Output Total 3000 / 3000 Balance -3000 / -3000 150 / 150 Weight 89.9 kg Intake: Oral 150 / 150 Output: Hemodialysis Amount 3000 / 3000 Other: # Voids 3 0 Date of Last Bowel Movement 04/22/18 04/27/18 - Constitutional no acute distress - Routine HEENT Exam Head: Present: normocephalic, atraumatic - Routine Respiratory Exam Present: CTA bilaterally - Routine Cardiovascular Exam Present: RRR - Routine Extremities Exam Present: full ROM - Routine Skin Exam Present: intact - Routine Neurological Exam Present: oriented X3 sleepy - Detailed Neurological Exam: Coma Scale Eye Opening: To sound Verbal Response: Oriented - Routine Psychiatric Exam Present: normal affect Results - Labs CBC & Chem 7: 04/26/18 04:56 04/26/18 04:56 Laboratory Results - last 24 hr 02/12/19 02/12/19 02/12/19 09:02 11:17 17:34 POC Glucose 167 H 178 H 185 H 04/26/18 20:44 POC Glucose 173 H Microbiology 04/21/18 22:55 Blood - Peripheral Aerobic Blood Culture - Final No growth in 5 days 04/21/18 22:55 Blood - Peripheral Anaerobic Blood Culture - Final No growth in 5 days 04/21/18 22:50 Blood - Peripheral Aerobic Blood Culture - Final No growth in 5 days 04/21/18 22:50 Blood - Peripheral Anaerobic Blood Culture - Final No growth in 5 days - Imaging Impressions Central Venous Line 04/25/18 18:46 CONCLUSION: 1. Uncomplicated PermaCath placement as above. 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 Summers
[2018-04-27] MEDS: hydrALAZINE 50 MG Tablet PO SCH ×3 (09:00→17:04)
--- NOTE | 2018-04-27 09:42 | P.PNNP ---
Subjective Interval history: patient was seen and examined. She is experiencing nausea and vomiting. Biopsy of the ovarian mass preliminary is positive for neoplastic disease. Had dialysis yesterday. Physical Exam Vital signs: Vital Signs 04/26/18 12:20 04/26/18 14:49 04/26/18 15:06 Temperature 98.2 F Pulse Rate 113 H Respiratory Rate 25 H Blood Pressure 194/88 H 142/65 H Pulse Oximetry 97 97 04/26/18 15:50 04/26/18 19:08 04/26/18 19:31 Temperature 101.2 F H 98.3 F Pulse Rate 98 H Respiratory Rate 25 H Blood Pressure 137/62 Pulse Oximetry 96 96 04/26/18 20:00 04/27/18 00:00 04/27/18 04:00 Temperature 98.4 F 98.1 F 98.3 F Pulse Rate 93 H 95 H 93 H Respiratory Rate 16 17 15 Blood Pressure 150/65 H 189/90 H 133/61 Pulse Oximetry 98 96 96 04/27/18 07:32 04/27/18 08:00 Temperature 99.1 F Pulse Rate 104 H Respiratory Rate 22 Blood Pressure 143/76 H Pulse Oximetry 95 97 Intake & Output 04/26/18 04/27/18 04/27/18 18:59 06:59 18:59 Intake Total 150 / 150 Output Total 3000 / 3000 Balance -3000 / -3000 150 / 150 Weight 89.9 kg Intake: Oral 150 / 150 Output: Hemodialysis Amount 3000 / 3000 Other: # Voids 3 0 Date of Last Bowel Movement 04/22/18 04/27/18 Narrative: GENERAL: nad CARDIOVASCULAR: RRR RESPIRATORY: Clear to auscultation. Breath sounds equal bilaterally. GASTROINTESTINAL: Abdomen soft, non-tender, positive bowel sounds. MUSCULOSKELETAL: Extremities without clubbing, cyanosis, or edema. No obvious deformities. NEUROLOGICAL: Awake, alert and oriented. Assessment and Plan - Assessment (1) Acute on chronic renal failure Code(s): N17.9 - Acute kidney failure, unspecified; N18.9 - Chronic kidney disease, unspecified Status: Acute Plan: Patient reports CKD stage IV with a baseline Creatinine of 3. No prior labs available. Patient followed with loss control engineer Dr. Velez in [place] prior to moving. Likely has reached ESRD. HD initiated during this admission. Monitor fluid and electrolytes. Depending on [employer] plans, I will consult Vascular surgery for AVF placement. (2) Ovarian mass, right Code(s): N83.9 - Noninflammatory disorder of ovary, fallopian tube and broad ligament, unspecified Status: Acute Plan: Right ovarian mass found on CT. s/p biopsy: neoplasm. (3) DM (diabetes mellitus) Code(s): E11.9 - Type 2 diabetes mellitus without complications Status: Chronic Plan: Insulin coverage to maintain blood glucose levels between 140 and 180 while hospitalized. (4) HTN (hypertension) Code(s): I10 - Essential (primary) hypertension Status: Chronic Plan: Monitor BP. Patient on Amlodipine and Metoprolol. (5) Anemia Code(s): D64.9 - Anemia, unspecified Status: Acute Plan: Epogen with dialysis.
[2018-04-27] MEDS: Heparin - SQ 10,000 UNITS/ML Vial SQ SCH ×2 (09:43→21:12)
[2018-04-27] MEDS: Insulin NovoLOG Aspart Correctional Sugar Inj SQ SCH ×4 (09:45→21:19)
[2018-04-27] MEDS: Sodium Chloride 0.9% 2 ML Flush BID IV.FLUSH SCH ×2 (09:45→21:14)
[2018-04-27] MEDS: amLODIPine 10 MG Tablet PO SCH (12:29)
[2018-04-27] MEDS: Calcitriol 0.25 MCG Capsule PO SCH (12:29)
[2018-04-27] MEDS: Vitamin B Complex/Vit C/Folic Tablet PO SCH (12:30)
[2018-04-27] MEDS: Senna/Docusate Sodium 8.6/50 MG Tablet PO SCH ×2 (12:30→21:14)
--- NOTE | 2018-04-27 15:48 | P.CONGS ---
[facility] Gen Surgery Consult Note Consult date: 04/27/18 Reason for consult: other (Smooth muscle tissue consistent with neoplasm) Requesting physician: Esme Stafford Narrative: This is a 42-year-old female who was recently admitted with complaints of nausea vomiting and urinary urgency for about 2 days. She has a history of hypertension, dyslipidemia, anemia, stage IV chronic kidney disease and diabetes type 2. A pelvic ultrasound was done which was concerning for metastatic ovarian neoplasm. An abdominal/pelvis CT scan showed bulky large soft tissue density mesenteric masses. A CT-guided biopsy was done which showed smooth muscle tissue with histopathological findings of neoplasm. Of note, the patient has started traditional hemodialysis during this admission. A General Surgery consultation has been requested. Review of Systems All other systems reviewed negative except as stated in [facility] - History History Provided By: Patient - Medical History Medical History: Medical History (Last Reviewed 04/27/18 @ 15:39 by LUISANA Baeza) Anemia Diabetes Chronic kidney disease Hyperlipidemia Hypertension - Surgical History Surgical History: Surgical History (Last Reviewed 04/27/18 @ 15:39 by LUISANA Baeza) History of eye surgery - Tobacco History Second Hand Smoke Exposure: No Smoking Status: Never smoker - Alcohol History How Often Do You Have a Drink Containing Alcohol: Never - Substance Use History Substance History: No History of Abuse - Travel History Recent Travel in the [place] Within the Last 8 Weeks: No Recent Travel Out of the Country Within the Last 8 Weeks: No - Immunization History Tetanus Immunization: Unable to Assess Hx Influenza Vaccine This Season: No Medications and Allergies Allergies Allergy/AdvReac Type Severity Reaction Status Date / Time No Known Allergies Allergy Unverified 04/21/18 20:25 Home Medications Medication Instructions Recorded Confirmed Type amlodipine [Norvasc] 10 mg PO DAILY 04/21/18 04/21/18 History calcitriol 0.25 mcg PO DAILY 04/21/18 04/21/18 History calcium acetate 667 mg PO TID 04/21/18 04/21/18 History ferrous sulfate 325 mg PO BID 04/21/18 04/21/18 History furosemide 20 mg PO DAILY 04/21/18 04/21/18 History glipizide 2.5 mg PO DAILY 04/21/18 04/21/18 History latanoprost 1 drp OPHTHALMIC (EYE) QPM 04/21/18 04/21/18 History metoprolol succinate 100 mg PO DAILY 04/21/18 04/21/18 History simvastatin 20 mg PO QPM 04/21/18 04/21/18 History Active Medications: Active Medications Acetaminophen (Tylenol) 650 mg PO UNSCH PRN PRN Reason: SEE LABEL COMMENTS Acetaminophen (Tylenol) 650 mg PO Q4H PRN PRN Reason: Temp > 100.4 Last Admin: 04/26/18 16:07 Dose: 650 mg Acetaminophen (Tylenol) 650 mg PO Q6HR PRN PRN Reason: PAIN SCALE 1 TO 2 Hydrocodone Bitart/Acetaminophen ([place] 5/325) 1 tab PO Q4H PRN PRN Reason: PAIN SCALE 3 TO 5 Hydrocodone Bitart/Acetaminophen ([place] 7.5/325) 1 tab PO Q4H PRN PRN Reason: PAIN SCALE 6 TO 10 Al Hydroxide/Mg Hydroxide (Milk Of Magnesia Liq) 30 ml PO Q12H PRN PRN Reason: Mild Constipation Amlodipine Besylate (Norvasc) 10 mg PO DAILY [facility] Last Admin: 04/27/18 12:29 Dose: 10 mg Bisacodyl (Dulcolax Supp) 10 mg RECTAL DAILY PRN PRN Reason: SEVERE CONSITIPATION Calcitriol (Rocaltrol) 0.25 mcg PO DAILY [facility] Last Admin: 04/27/18 12:29 Dose: 0.25 mcg Clonidine HCl (Catapres) 0.1 mg PO UNSCH PRN PRN Reason: SEE LABEL COMMENTS Clonidine HCl (Catapres) 0.1 mg PO Q6H PRN PRN Reason: SBP>160, DBP>90 Dextrose (D50w Vial) 50 ml IV.PUSH UNSCH PRN PRN Reason: PER HYPOGLYCEMIA PROTOCOL Diphenhydramine HCl (Benadryl) 25 mg PO UNSCH PRN PRN Reason: SEE LABEL COMMENTS Epoetin Danilo (Epogen Inj) 10,000 unit IV.PUSH UNSCH PRN PRN Reason: SEE LABEL COMMENTS Last Admin: 04/25/18 16:17 Dose: 10,000 unit Gelatin (Gelfoam 12 Mm/7 Mm Topical) 1 foam TOPICAL PRN PRN PRN Reason: help stop bleeding from site Gentamicin Sulfate (Gentamicin Inj) 20 mg OTHER WITH DIALYSIS PRN PRN Reason: Dwell Gentamycin Lock Last Admin: 04/25/18 16:17 Dose: 20 mg Glucagon (Glucagon Inj) 1 mg OTHER PRN PRN PRN Reason: for Hypoglycemia Protocol Heparin Sodium (Porcine) (Heparin Inj) 8,000 units OTHER WITH DIALYSIS PRN PRN Reason: for machine prime Heparin Sodium (Porcine) (Heparin Inj) 1,000 units OTHER WITH DIALYSIS PRN PRN Reason: Dwell Heparin to Fill Catheter Last Admin: 04/25/18 16:17 Dose: 1,000 units Heparin Sodium (Porcine) (Heparin Inj) 5,000 units SQ Q12HR [facility] Last Admin: 04/27/18 09:43 Dose: 5,000 units Hydralazine HCl (Apresoline) 50 mg PO TID [facility] Last Admin: 04/27/18 12:29 Dose: 50 mg Hydralazine HCl (Apresoline Inj) 10 mg IV.PUSH Q6H PRN PRN Reason: SEE LABEL COMMENTS Last Admin: 04/26/18 04:04 Dose: 10 mg Cefazolin Sodium/Dextrose (Ancef 2 Gm Premix Inj) 2 gm in 50 mls @ 100 mls/hr IV.SIG HORSE RIDING COACH OR INSTRUCTOR [facility] Vancomycin HCl 1,000 mg/ (Sodium Chloride) 250 mls @ 200 mls/hr IV.SIG HORSE RIDING COACH OR INSTRUCTOR [facility] Last Admin: 04/25/18 11:12 Dose: 200 mls/hr Albumin Human (Flexbumin 25% Inj) 100 mls @ 60 mls/hr IV.SIG WITH DIALYSIS PRN PRN Reason: hypotension / volume replace Sodium Chloride (Ns Inj) 1,000 mls @ 200 mls/hr OTHER .Q5H PRN PRN Reason: for dialyzer flush PRN Sodium Chloride (Ns Inj) 1,000 mls @ 0 mls/hr IV.CONT .Q0M PRN PRN Reason: hypotension / volume replace Sodium Chloride (Ns Inj) 1,000 mls @ 0 mls/hr OTHER .Q0M PRN PRN Reason: for prime and rinse back Ondansetron HCl 8 mg/ Dextrose 54 mls @ 216 mls/hr IV.SIG Q6H PRN PRN Reason: NAUSEA OR VOMITING Last Infusion: 04/26/18 03:59 Dose: Infused Insulin Aspart (Novolog Insulin Correctional Sugar Inj) 0 unit SQ ACHS [facility]; Protocol Last Admin: 04/27/18 12:31 Dose: Not Given Labetalol HCl (Trandate Inj) 10 mg IV.PUSH Q2H PRN PRN Reason: SEE LABEL COMMENTS Lactulose (Lactulose Liq) 30 ml PO DAILY PRN PRN Reason: SEVERE CONSITIPATION Latanoprost (Xalatan 0.005% Opth Drops) 1 drop EACH EYE QPM [facility] Last Admin: 04/26/18 17:57 Dose: Not Given Mannitol (Mannitol Inj) 12.5 gm IV.PUSH UNSCH PRN PRN Reason: hypotension / volume replace Metoprolol Succinate (Toprol Xl) 100 mg PO DAILY [facility] Last Admin: 04/27/18 12:29 Dose: 100 mg Morphine Sulfate (Morphine Inj) 2 mg IV.PUSH Q3H PRN PRN Reason: PAIN 3-5; IF UABLE TO TAKE PO Morphine Sulfate (Morphine Inj) 4 mg IV.PUSH Q3H PRN PRN Reason: PAIN 6-10;IF UNABLE TO TAKE PO Last Admin: 04/23/18 04:31 Dose: 4 mg Naloxone HCl (Narcan Inj) 0.4 mg IV.PUSH UNSCH PRN PRN Reason: SEE LABEL COMMENTS Nitroglycerin (Nitrostat Sl) 0.4 mg SL Q5M PRN PRN Reason: CHEST PAIN Ondansetron HCl (Zofran Odt) 4 mg PO Q6H PRN PRN Reason: NAUSEA OR VOMITING Last Admin: 04/26/18 20:55 Dose: 4 mg Prochlorperazine Edisylate (Compazine Inj) 5 mg IV.PUSH Q6H PRN PRN Reason: SEVERE NAUSEA Last Admin: 04/27/18 09:43 Dose: 5 mg Promethazine HCl (Phenergan Supp) 25 mg RECTAL Q6H PRN PRN Reason: NAUSEA OR VOMITING Last Admin: 04/24/18 05:36 Dose: 25 mg Promethazine HCl (Phenergan) 25 mg PO Q6H PRN PRN Reason: NAUSEA OR VOMITING Last Admin: 04/22/18 09:30 Dose: 25 mg Senna/Docusate Sodium (Olga-Colace) 1 tab PO BID [facility] Last Admin: 04/27/18 12:30 Dose: 1 tab Sennosides (Senokot) 17.2 mg PO Q12H PRN PRN Reason: Moderate Constipation Sevelamer Carbonate (Renvela) 1,600 mg PO TIDAC [facility] Last Admin: 04/27/18 12:29 Dose: 1,600 mg Sodium Chloride (Ns Flush) 5 ml IV.FLUSH PRN PRN PRN Reason: flush each lumen during HD Sodium Chloride (Ns Flush) 2 ml IV.FLUSH BID [facility] Last Admin: 04/27/18 09:45 Dose: 2 ml Sodium Chloride (Ns Flush) 2 ml IV.FLUSH PRN PRN PRN Reason: FLUSH AFTER USING IV ACCESS Last Admin: 04/24/18 03:47 Dose: 2 ml Vitamin B Complex/Vit C/Folic Acid (Nephrocaps) 1 tab PO DAILY [facility] Last Admin: 04/27/18 12:30 Dose: 1 tab Exam Vital signs: Vital Signs 04/26/18 15:50 04/26/18 19:08 04/26/18 19:31 Temperature 101.2 F H 98.3 F Pulse Rate 98 H Respiratory Rate 25 H Blood Pressure 137/62 Pulse Oximetry 96 96 04/26/18 20:00 04/27/18 00:00 04/27/18 04:00 Temperature 98.4 F 98.1 F 98.3 F Pulse Rate 93 H 95 H 93 H Respiratory Rate 16 17 15 Blood Pressure 150/65 H 189/90 H 133/61 Pulse Oximetry 98 96 96 04/27/18 07:32 04/27/18 08:00 04/27/18 12:00 Temperature 99.1 F 99.6 F Pulse Rate 104 H 101 H Respiratory Rate 22 22 Blood Pressure 143/76 H 173/79 H Pulse Oximetry 95 97 97 Intake & Output 04/26/18 04/27/18 04/27/18 18:59 06:59 18:59 Intake Total 150 / 150 Output Total 3000 / 3000 Balance -3000 / -3000 150 / 150 Weight 89.9 kg Intake: Oral 150 / 150 Output: Hemodialysis Amount 3000 / 3000 Other: # Voids 3 0 Date of Last Bowel Movement 04/22/18 04/27/18 Narrative: GENERAL: Very pleasant 42 year old female resting in bed in no acute distress. SKIN: Warm and dry. She has a RIGHT subclavian Vascath in place. HEAD: Atraumatic. Normocephalic. EYES: Pupils equal and round. No scleral icterus. No injection or drainage. ENT: No nasal bleeding or discharge. Mucous membranes pink and moist. NECK: Trachea midline. CARDIOVASCULAR: Regular rate and rhythm. RESPIRATORY: No accessory muscle use. Clear to auscultation. Breath sounds equal bilaterally. GASTROINTESTINAL: Abdomen soft, obese, nondistended. Tenderness to palpation throughout. No visible scars or hernias. MUSCULOSKELETAL: Extremities without clubbing, cyanosis, or edema. No obvious deformities. NEUROLOGICAL: Awake and alert. No obvious cranial nerve deficits. Motor grossly within normal limits. Five out of 5 muscle strength in the arms and legs. Normal speech. PSYCHIATRIC: Appropriate mood and affect; insight and judgment normal. Results - Labs 05/09/18 04:28 05/09/18 04:28 Laboratory Results WBC 8.2 th/mm3 (4.0-11.0) 04/26/18 04:56 RBC 3.30 mil/mm3 (4.00-5.30) L 04/26/18 04:56 Hgb 8.8 gm/dL (11.6-15.3) L 04/26/18 04:56 Hct 26.6 % (35.0-46.0) L 04/26/18 04:56 MCV 80.8 fL (80.0-100.0) 04/26/18 04:56 MCH 26.8 pg (27.0-34.0) L 04/26/18 04:56 MCHC 33.1 % (32.0-36.0) 04/26/18 04:56 RDW 13.4 % (11.6-17.2) 04/26/18 04:56 Plt Count 266 th/mm3 (150-450) 04/26/18 04:56 MPV 8.9 fL (7.0-11.0) 04/26/18 04:56 Neut % (Auto) 83.7 % (16.0-70.0) H 04/26/18 04:56 Lymph % (Auto) 7.0 % (9.0-44.0) L 04/26/18 04:56 Boundary % (Auto) 9.2 % (0.0-8.0) H 04/26/18 04:56 Eos % (Auto) 0.0 % (0.0-4.0) 04/26/18 04:56 Baso % (Auto) 0.1 % (0.0-2.0) 04/26/18 04:56 Neut # (Auto) 6.9 th/mm3 (1.8-7.7) 04/26/18 04:56 Lymph # (Auto) 0.6 th/mm3 (1.0-4.8) L 04/26/18 04:56 Boundary # (Auto) 0.8 th/mm3 (0.0-0.9) 04/26/18 04:56 Eos # (Auto) 0.0 th/mm3 (0.0-0.4) 04/26/18 04:56 Baso # (Auto) 0.0 th/mm3 (0.0-0.2) 04/26/18 04:56 WBC Differential . 04/26/18 04:56 Differential Comment Auto diff final 04/26/18 04:56 PT 11.1 sec (9.8-11.6) 04/25/18 05:49 INR 1.1 Ratio 04/25/18 05:49 Sodium 140 meq/L (136-145) 04/26/18 04:56 Potassium 3.8 meq/L (3.5-5.1) 04/26/18 04:56 Chloride 104 meq/L (98-107) 04/26/18 04:56 Carbon Dioxide 22.0 meq/L (21.0-32.0) 04/26/18 04:56 Anion Gap 14 meq/L (5-15) 04/26/18 04:56 BUN 71 mg/dL (7-18) H 04/26/18 04:56 Creatinine 5.89 mg/dL (0.50-1.00) H 04/26/18 04:56 Estimated GFR 10 mL/min (>89) L 04/26/18 04:56 POC Glucose 163 mg/dl (68-110) H 04/27/18 12:44 Random Glucose 172 mg/dL (74-106) H 04/26/18 04:56 Hemoglobin A1c 6.6 % (4.3-6.0) H 04/22/18 04:14 Lactic Acid 1.7 mmol/L (0.4-2.0) 04/21/18 20:35 Calcium 7.8 mg/dL (8.5-10.1) L 04/26/18 04:56 Phosphorus 7.3 mg/dL (2.5-4.9) H 04/26/18 04:56 Magnesium 2.1 mg/dL (1.5-2.5) 04/26/18 04:56 Iron 88 mcg/dL (50-170) 04/22/18 09:49 TIBC 280 mcg/dL (250-450) 04/22/18 09:49 % Saturation 31.4 % (20-50) 04/22/18 09:49 Total Bilirubin 0.3 mg/dL (0.2-1.0) 04/22/18 04:14 AST 14 U/L (15-37) L 04/22/18 04:14 ALT 20 U/L (10-53) 04/22/18 04:14 Alkaline Phosphatase 43 U/L (45-117) L 04/22/18 04:14 Total Protein 6.2 g/dL (6.4-8.2) L D 04/22/18 04:14 Albumin 2.4 g/dL (3.4-5.0) L 04/26/18 04:56 Lipase 190 U/L (73-393) 04/21/18 20:35 Carcinoembryonic Ag 2.0 ng/mL (0.2-5.0) 04/22/18 09:49 CA 125 Antigen 71.5 U/mL (0.0-30.2) H 04/22/18 09:49 Beta HCG, Qual Less than 1.0 mIU/mL (0-5) 04/22/18 09:49 Urine Color Straw (Yellw/Straw) 04/21/18 20:50 Urine Clarity Clear (Clear) 04/21/18 20:50 Urine pH 5.0 (5.0-8.5) 04/21/18 20:50 Ur Specific [place] 1.012 (1.002-1.035) 04/21/18 20:50 Urine Protein 500 or greater mg/dL (Neg-Trace) 04/21/18 20:50 Urine Glucose (UA) 150 mg/dL (Negative) H 04/21/18 20:50 Urine Ketones Trace mg/dL (Negative) H 04/21/18 20:50 Urine Occult Blood Moderate (Negative) H 04/21/18 20:50 Urine Nitrate Negative (Negative) 04/21/18 20:50 Urine Bilirubin Negative (Negative) 04/21/18 20:50 Urine Urobilinogen Less than 2 mg/dL (Less than 2) 04/21/18 20:50 Ur Leukocyte Esterase Negative (Negative) 04/21/18 20:50 Urine RBC 22 /hpf (0-3) H 04/21/18 20:50 Urine WBC 3 /hpf (0-5) 04/21/18 20:50 Ur Squamous Epith Cells <1 /hpf (0-5) 04/21/18 20:50 Urine Bacteria Rare /hpf (None) H 04/21/18 20:50 Micro UA Comment Culture not ind 04/21/18 20:50 Ur Microscopic Review Not Reportable 04/21/18 20:50 Urine Culture Comments Culture not ind 04/21/18 20:50 Ur Random Creatinine 72 mg/dL (27-300) 04/23/18 00:05 U Random Total Protein 791.1 mg/dL (0-11.8) H 04/23/18 00:05 Ur Random Sodium 51 meq/L 04/23/18 00:05 Ur Random Uric Acid 20.3 mg/dL 04/23/18 00:05 Protein/Creatinin Ratio 10.99 (0.00-0.14) H 04/23/18 00:05 Hepatitis A IgM Ab Nonreactive (Nonreactive) 04/25/18 13:03 Hep Bs Antigen Nonreactive (Nonreactive) 04/25/18 13:03 Hep B Core IgM Ab Nonreactive (Nonreactive) 04/25/18 13:03 Hep C IgG Ab Nonreactive (Nonreactive) 04/25/18 13:03 Impressions Pelvis Ultrasound 04/21/18 00:00 CONCLUSION: 1. Limited examination due to patient's body habitus and decline of transvaginal exam. 2. The right adnexal mass noted on CT exam does appear to correspond to the right ovary measuring 9.7 x 11.6 x 8.1 cm. 3. Uterus is not completely visualized and therefore the midline pelvic mass cannot be definitively excluded from the uterus although again this appears separate on CT exam. 4. 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 Correlation with tumor markers and clinical history is recommended. Further evaluation may be performed with MRI examination of the pelvis if there is continued clinical uncertainty following gynecological consultation. Abdomen/Pelvis CT 04/21/18 20:25 CONCLUSION: 1. Bulky large soft tissue density mesenteric masses with the largest measuring 14.7 x 7.5 x 8.5 cm. A second dominant mesenteric mass extends to the right adnexa. Differential considerations include ovarian malignancy with mesenteric metastases, GIST, mesenteric fibromatosis, and mesenteric adenopathy amongst other etiologies. Ultrasound examination of the pelvis may be performed to exclude right ovarian mass. Abdomen Biopsy CT 04/22/18 00:00 CONCLUSION: 1. Uncomplicated CT guided biopsy. Central Venous Line 04/25/18 18:46 CONCLUSION: 1. Uncomplicated PermaCath placement as above. - Imaging Imaging: ITS Impressions Pelvis Ultrasound 04/21/18 00:00 CONCLUSION: 1. Limited examination due to patient's body habitus and decline of transvaginal exam. 2. The right adnexal mass noted on CT exam does appear to correspond to the right ovary measuring 9.7 x 11.6 x 8.1 cm. 3. Uterus is not completely visualized and therefore the midline pelvic mass cannot be definitively excluded from the uterus although again this appears separate on CT exam. 4. 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 Correlation with tumor markers and clinical history is recommended. Further evaluation may be performed with MRI examination of the pelvis if there is continued clinical uncertainty following gynecological consultation. Abdomen/Pelvis CT 04/21/18 20:25 CONCLUSION: 1. Bulky large soft tissue density mesenteric masses with the largest measuring 14.7 x 7.5 x 8.5 cm. A second dominant mesenteric mass extends to the right adnexa. Differential considerations include ovarian malignancy with mesenteric metastases, GIST, mesenteric fibromatosis, and mesenteric adenopathy amongst other etiologies. Ultrasound examination of the pelvis may be performed to exclude right ovarian mass. Abdomen Biopsy CT 04/22/18 00:00 CONCLUSION: 1. Uncomplicated CT guided biopsy. Central Venous Line 04/25/18 18:46 CONCLUSION: 1. Uncomplicated PermaCath placement as above. CT scan - abdomen: image reviewed Assessment and Plan - Plan 42 year old female with abdominal pain; CKD now on hemodialysis; CT guided bx c/ w neoplasm -CA125 elevated -Continue clear liquids -Nephrology following; now on HD -Will plan for ex lap and resection of neoplasm -Clear liquids today -Thank you for this consult ; We will continue to follow Discussed Condition With: Dr. Remigio Strong - Attending Attestation The exam, history, and the medical decision-making described in the above note were completed with the assistance of the mid-level provider. I reviewed and agree with the findings presented. I attest that I had a [id number] encounter with the patient on the same day, and personally performed and documented my assessment and findings in the medical record. 42yo female with large intra-abdominal mass, uterine vs GI vs soft tissue in origin unlikely malignant, symptomatic currently and painful on exam long d/w patient, recommend surgical resection with surg onc and logistics operations manager onc will plan for surgery next week, optimize from medical standpoint prior to surgery
[2018-04-27] MEDS: Latanoprost 0.005% Opth Drops 2.5 ML Bottle EACH EYE SCH (17:37)
--- NOTE | 2018-04-27 18:34 | P.PNIM ---
Subjective Interval history: Patient says that nausea continues, a little better this afternoon. Denies any chest pain or shortness of breath. Positive bowel movement. Physical Exam Vital signs: Vital Signs 04/26/18 19:08 04/26/18 19:31 04/26/18 20:00 Temperature 98.3 F 98.4 F Pulse Rate 93 H Respiratory Rate 16 Blood Pressure 150/65 H Pulse Oximetry 96 98 04/27/18 00:00 04/27/18 04:00 04/27/18 07:32 Temperature 98.1 F 98.3 F Pulse Rate 95 H 93 H Respiratory Rate 17 15 Blood Pressure 189/90 H 133/61 Pulse Oximetry 96 96 95 04/27/18 08:00 04/27/18 12:00 04/27/18 16:00 Temperature 99.1 F 99.6 F 99.9 F H Pulse Rate 104 H 101 H 95 H Respiratory Rate 22 22 20 Blood Pressure 143/76 H 173/79 H 119/62 Pulse Oximetry 95 97 98 Intake & Output 04/26/18 04/27/18 04/27/18 18:59 06:59 18:59 Intake Total 150 / 150 Output Total 3000 / 3000 Balance -3000 / -3000 150 / 150 Weight 89.9 kg Intake: Oral 150 / 150 Output: Hemodialysis Amount 3000 / 3000 Other: # Voids 3 0 Date of Last Bowel Movement 04/22/18 04/27/18 04/27/18 Narrative: GENERAL: sitting up in bed. Awake. Aaox3 SKIN: Warm and dry. HEAD: Normocephalic. EYES: No scleral icterus. No injection or drainage. NECK: Supple, trachea midline. No JVD. CARDIOVASCULAR: Regular rate and rhythm without murmurs, gallops, or rubs. RESPIRATORY: Breath sounds equal bilaterally. No accessory muscle use. GASTROINTESTINAL: Abdomen soft, non-tender, nondistended. Positive bowel sounds. MUSCULOSKELETAL: No cyanosis, or edema. Results Labs CBC & Chem 7: 04/26/18 04:56 04/26/18 04:56 Procedures Procedures: 04/22 CT-guided biopsy of intraperitoneal mesenteric mass with interventional radiology Assessment and Plan (1) Mesenteric mass: Code(s): K63.9 - Disease of intestine, unspecified Status: Acute Plan 42-year-old white female presents with intractable nausea and vomiting with poor p.o. intake //Acute renal failure superimposed on chronic kidney disease stage IV, no baseline GFR for comparison and reports baseline creatinine of 3.May be due to dehydration and poor p.o. intake, however creatinine has not improved much with IV fluid hydration, appreciate nephrology recommendations, if worsens will need future hemodialysis. =04/25. vas-cath in -start HD. appreciate Neph assistance. = 04/26 BUN 70, improving on HD. Continue to monitor. = 04/27. Continues on HD. Appreciate nephrology assistance. 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 Appreciate HIGH SPEED OPERATOR oncology, Dr. Summers recommendations and await biopsy results. Status post CT-guided biopsy of mass 04/22 = Biopsy results shows smooth muscle with appearance of neoplasm. General surgery consulted. Appreciate assistance. May need to consult general oncology. Follow-up general surgery recommendations. //Anemialikely of chronic kidney diseasehemoglobin stable 05/03. Hemoccult stool. Consider Epogen. = Repeat labs tomorrow. //Hypertension, uncontrolled .IV hydralazine and labetalol. Restart home amlodipine and metoprolol. Add scheduled hydralazine p.o. today. Continue to monitor blood pressure closely. = 04/26 systolic blood pressures up to 190 today. Will add clonidine as needed. = 04/27. Blood pressure acceptable today. Continue current regimen. //[id number] diabetes mellitus, uncontrolled with underlying diabetic nephropathy however poor p.o. intakehold home glipizide, blood sugar monitoring with sliding scale insulin. //Hypernatremia - Improved. As per nephrology. Appreciate assistance. //Nausea and vomiting likely due to mesenteric masssupportive care, antiemetics , advance from full liquids to soft diet = 04/27. Patient says that Compazine appears to be helping the most with her nausea. Positive bowel movement. We will check EKG. If QT okay, will increase Compazine. //DVT prophylaxisSCDs, heparin subcu Discharge Planning: pending automotive general manager onc, neph, general surgery clearance On dialysis. Progress Note: Quality VTE Deep Vein Thrombosis/Pulmonary Embolism Present on Admission: No
[2018-04-28] MEDS: hydrALAZINE HCl Inj 20 MG/ML Vial IV.PUSH PRN (05:24)
[2018-04-28] MEDS: Sodium Chloride 0.9% 2 ML Flush PRN IV.FLUSH (05:25)
[2018-04-28 05:37] LABS: Baso % (Auto) 0.4 % (0.0-2.0); Eos # (Auto) 0.1 th/mm3 (0.0-0.4); Eos % (Auto) 0.6 % (0.0-4.0); Hematocrit 26.7 % (35.0-46.0); Lymph # (Auto) 1.5 th/mm3 (1.0-4.8); Mean Corpuscular HGB Conc 33.9 % (32.0-36.0); Mean Corpuscular Hemoglobin 27.9 pg (27.0-34.0); Mean Corpuscular Volume 82.3 fL (80.0-100.0); Mean Platelet Volume 9.6 fL (7.0-11.0); Mono # (Auto) 1.3 th/mm3 (0.0-0.9); Mono % (Auto) 13.5 % (0.0-8.0); Neut # (Auto) 6.9 th/mm3 (1.8-7.7); Neut % (Auto) 70.5 % (16.0-70.0); Platelet Count 256 th/mm3 (150-450); Red Blood Count 3.24 mil/mm3 (4.00-5.30); Red Cell Distribution Width 13.5 % (11.6-17.2); White Blood Count 9.7 th/mm3 (4.0-11.0)
[2018-04-28 06:07] LABS: Albumin 2.3 g/dL (3.4-5.0); Carbon Dioxide 26.8 meq/L (21.0-32.0); Potassium 3.5 meq/L (3.5-5.1)
[2018-04-28 06:10] LABS: Phosphorus 6.8 mg/dL (2.5-4.9); Total Protein 6.1 g/dL (6.4-8.2)
[2018-04-28] MEDS: amLODIPine 10 MG Tablet PO SCH (08:50)
[2018-04-28] MEDS: Calcitriol 0.25 MCG Capsule PO SCH (08:51)
[2018-04-28] MEDS: hydrALAZINE 50 MG Tablet PO SCH ×3 (08:51→19:14)
[2018-04-28] MEDS: Vitamin B Complex/Vit C/Folic Tablet PO SCH (08:52)
[2018-04-28] MEDS: Heparin - SQ 10,000 UNITS/ML Vial SQ SCH ×2 (08:52→20:59)
[2018-04-28] MEDS: Insulin NovoLOG Aspart Correctional Sugar Inj SQ SCH ×4 (08:53→20:59)
[2018-04-28] MEDS: Sodium Chloride 0.9% 2 ML Flush BID IV.FLUSH SCH ×2 (08:53→21:00)
[2018-04-28] MEDS: Senna/Docusate Sodium 8.6/50 MG Tablet PO SCH ×2 (08:54→20:58)
--- NOTE | 2018-04-28 09:03 | P.PNNP ---
Subjective Interval history: patient was seen and examined. Resting, voices no complaints. General surgery consulted regarding metastatic malignancy. Physical Exam Vital signs: Vital Signs 04/27/18 12:00 04/27/18 16:00 04/27/18 20:00 Temperature 99.6 F 99.9 F H 98.9 F Pulse Rate 101 H 95 H 93 H Respiratory Rate 22 20 17 Blood Pressure 173/79 H 119/62 128/60 Pulse Oximetry 97 98 96 04/27/18 20:21 04/28/18 00:00 04/28/18 04:00 Temperature 98.9 F 98.8 F Pulse Rate 88 92 H Respiratory Rate 16 16 Blood Pressure 135/63 186/86 H Pulse Oximetry 98 95 96 04/28/18 07:47 04/28/18 08:00 Temperature 99.3 F Pulse Rate 75 Respiratory Rate 18 Blood Pressure 143/76 H Pulse Oximetry 97 97 Intake & Output 04/27/18 04/28/18 04/28/18 18:59 06:59 18:59 Intake Total 200 / 200 Balance 200 / 200 Weight 89.8 kg Intake: Oral 200 / 200 Other: # Voids 2 0 Date of Last Bowel Movement 04/27/18 04/24/18 Narrative: GENERAL: no distress, comfortable, voices no complaints. SKIN: Warm and dry. HEAD: Atraumatic. Normocephalic. EYES: Pupils equal and round. No scleral icterus. No injection or drainage. ENT: No nasal bleeding or discharge. Mucous membranes pink and moist. NECK: Trachea midline. CARDIOVASCULAR: Regular rate and rhythm. RESPIRATORY: No accessory muscle use. Clear to auscultation. Breath sounds equal bilaterally. GASTROINTESTINAL: Abdomen soft, obese, nondistended. Tenderness to palpation throughout. No visible scars or hernias. MUSCULOSKELETAL: Extremities without clubbing, cyanosis, or edema. No obvious deformities. NEUROLOGICAL: Awake and alert. No focal deficits. Assessment and Plan - Assessment (1) Acute on chronic renal failure Code(s): N17.9 - Acute kidney failure, unspecified; N18.9 - Chronic kidney disease, unspecified Status: Acute Plan: Patient reports CKD stage IV with a baseline Creatinine of 3. No prior labs available. Patient followed with vehicle technician Dr. Velez in [place] prior to moving. Likely has reached ESRD. HD initiated during this admission. Monitor fluid and electrolytes. Depending on surgery plans I will consult Vascular surgery for AVF placement. (2) Ovarian mass, right Code(s): N83.9 - Noninflammatory disorder of ovary, fallopian tube and broad ligament, unspecified Status: Acute Plan: Right ovarian mass found on CT. s/p biopsy: neoplasm. (3) DM (diabetes mellitus) Code(s): E11.9 - Type 2 diabetes mellitus without complications Status: Chronic Plan: Insulin coverage to maintain blood glucose levels between 140 and 180 while hospitalized. (4) HTN (hypertension) Code(s): I10 - Essential (primary) hypertension Status: Chronic Plan: Monitor BP. Patient on Amlodipine and Metoprolol. (5) Anemia Code(s): D64.9 - Anemia, unspecified Status: Acute Plan: Epogen with dialysis.
--- NOTE | 2018-04-28 11:39 | ECG ---
Date Performed: 04/27/2018 Time Performed: 19:37:21 PTAGE: 42 years EKG: Sinus rhythm POOR R-WAVE PROGRESSION CANNOT EXCLUDE ANTEROSEPTAL AR VS LEAD PLACEMENT. BORDERLINE ECG NO PREVIOUS TRACING DOCTOR: Troy Thomas Interpretating Date/Time 04/28/2018 11:36:23
[2018-04-28] MEDS: Heparin 10,000 UNITS/10 ML Vial (for IV use) OTHER PRN (13:23)
--- NOTE | 2018-04-28 18:09 | P.PNIM ---
Subjective Interval history: Patient says she is feeling right. Nausea improved today. Denies any chest pain or shortness of breath. Would like diet advanced. Physical Exam Vital signs: Vital Signs 04/27/18 20:00 04/27/18 20:21 04/28/18 00:00 Temperature 98.9 F 98.9 F Pulse Rate 93 H 88 Respiratory Rate 17 16 Blood Pressure 128/60 135/63 Pulse Oximetry 96 98 95 04/28/18 04:00 04/28/18 07:47 04/28/18 08:00 Temperature 98.8 F 99.3 F Pulse Rate 92 H 75 Respiratory Rate 16 18 Blood Pressure 186/86 H 143/76 H Pulse Oximetry 96 97 97 04/28/18 12:00 Temperature 99.1 F Pulse Rate 96 H Respiratory Rate 18 Blood Pressure 150/63 H Pulse Oximetry 97 Intake & Output 04/27/18 04/28/18 04/28/18 18:59 06:59 18:59 Intake Total 200 / 200 Output Total 1999 Balance 200 / 200 -1999 Weight 89.8 kg Intake: Oral 200 / 200 Output: Hemodialysis Amount 1999 Other: # Voids 2 0 Date of Last Bowel Movement 04/27/18 04/24/18 Narrative: GENERAL: sitting up in bed. Awake. Aaox3. Appears comfortable today. SKIN: Warm and dry. HEAD: Normocephalic. EYES: No scleral icterus. No injection or drainage. NECK: Supple, trachea midline. No JVD. CARDIOVASCULAR: Regular rate and rhythm without murmurs, gallops, or rubs. RESPIRATORY: Breath sounds equal bilaterally. No accessory muscle use. GASTROINTESTINAL: Abdomen soft, non-tender, nondistended. Positive bowel sounds. MUSCULOSKELETAL: No cyanosis, or edema. Results Labs CBC & Chem 7: 04/28/18 04:56 04/28/18 04:56 Procedures Procedures: 04/22 CT-guided biopsy of intraperitoneal mesenteric mass with interventional radiology Assessment and Plan (1) Mesenteric mass: Code(s): K63.9 - Disease of intestine, unspecified Status: Acute Plan 42-year-old female presents with intractable nausea and vomiting with poor p.o. intake //Acute renal failure superimposed on chronic kidney disease stage IV, no baseline GFR for comparison and reports baseline creatinine of 3.May be due to dehydration and poor p.o. intake, however creatinine has not improved much with IV fluid hydration, appreciate nephrology recommendations, if worsens will need future hemodialysis. =04/25. vas-cath in -start HD. appreciate Neph assistance. = 04/26 BUN 70, improving on HD. Continue to monitor. = 04/27. Continues on HD. Appreciate nephrology assistance. = 04/28. Continues on hemodialysis. Nephrology managing. 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 Appreciate SENIOR WATER RESOURCES ENGINEER oncology, Dr. Summers recommendations and await biopsy results. Status post CT-guided biopsy of mass 04/22 = Biopsy results shows smooth muscle with appearance of neoplasm. General surgery consulted. Appreciate assistance. May need to consult general oncology. Follow-up general surgery recommendations. = 04/28. Discussed with general surgery FLOORING MACHINE FEEDER again.. Follow-up surgeon Recommendations. //Anemialikely of chronic kidney diseasehemoglobin stable 05/03. Hemoccult stool. Consider Epogen. = Labs stable. Follow.. //Hypertension, uncontrolled .IV hydralazine and labetalol. Restart home amlodipine and metoprolol. Add scheduled hydralazine p.o. today. Continue to monitor blood pressure closely. = 04/26 systolic blood pressures up to 190 today. Will add clonidine as needed. = 04/27. Blood pressure acceptable today. Continue current regimen. = 04/28. Blood pressure acceptable. Continue to monitor. //Xam-[id number] diabetes mellitus, uncontrolled with underlying diabetic nephropathy however poor p.o. intakehold home glipizide, blood sugar monitoring with sliding scale insulin. //Hypernatremia - Improved. As per nephrology. Appreciate assistance. //Nausea and vomiting likely due to mesenteric masssupportive care, antiemetics , advance from full liquids to soft diet = 04/27. Patient says that Compazine appears to be helping the most with her nausea. Positive bowel movement. We will check EKG. If QT okay, will increase Compazine. = 04/28. Nausea much improved. Likely improved due to resolution of uremia. Advance diet and monitor. //DVT prophylaxisSCDs, heparin subcu Discharge Planning: pending die cast engineer onc, neph, general surgery clearance On dialysis. Progress Note: Quality VTE Deep Vein Thrombosis/Pulmonary Embolism Present on Admission: No
[2018-04-28] MEDS: Latanoprost 0.005% Opth Drops 2.5 ML Bottle EACH EYE SCH (18:18)
[2018-04-29] MEDS: amLODIPine 10 MG Tablet PO SCH (08:46)
[2018-04-29] MEDS: Vitamin B Complex/Vit C/Folic Tablet PO SCH (08:46)
[2018-04-29] MEDS: Senna/Docusate Sodium 8.6/50 MG Tablet PO SCH ×2 (08:47→20:58)
[2018-04-29] MEDS: Calcitriol 0.25 MCG Capsule PO SCH (08:47)
[2018-04-29] MEDS: Sodium Chloride 0.9% 2 ML Flush BID IV.FLUSH SCH ×2 (08:48→21:06)
[2018-04-29] MEDS: Heparin - SQ 10,000 UNITS/ML Vial SQ SCH ×2 (08:48→20:58)
[2018-04-29] MEDS: hydrALAZINE 50 MG Tablet PO SCH ×3 (08:49→18:05)
[2018-04-29] MEDS: Insulin NovoLOG Aspart Correctional Sugar Inj SQ SCH ×4 (08:49→20:56)
--- NOTE | 2018-04-29 11:31 | P.DIET ---
Nutritional Evaluation Type of nutrition evaluation: initial Nutrition screening: [facility] [place] (Very Poor PO Intake) Subjective Subjective Comments: Ate 100% of breakfast today. Nausea improved. Objective - Diagnosis SIRS, Abd Pain, Vomitting, Acute Exacerb of CKD, Abd Mass - Objective % IBW: 136 (IBW = 145#) Body Weight Used for Calculations: IBW (65.9 kg) Energy Needs - Lower Range (kCal/kg): 28 Energy Needs - Upper Range (kCal/kg): 32 Lower Limit kCal/kg (kCals): 1,845 Upper Limit kCal/kg (kCals): 2,109 Lower Limit Protein Factor (Grams per Kg): 1.2 Upper Limit Protein Factor (Grams per Kg): 1.5 Lower Protein Needs (Protein): 79 Upper Protein Needs (Protein): 99 Dietitian Reviewed in Medical Record: Current diet, Curent medications, Intake & Output, Labs, Medical history Diet Order: Renal, Diabetic, 2 gm Na Objective Comments: Meds include Nephrocaps Assessment Assessment: Pt has had poor intake since admission d/t limited diet and GI symptoms. HD has been initiated. Symptoms related to po intake have improved and the pt was able to eat 100% this morning. RD will monitor po intake moving forward and assess for the need of supplements. Recommendations: Add 2000 ADA to diet order RD following Dietitian to Monitor: Lab values, Intake & Output, Weight change, PO Intake, Medical course
--- NOTE | 2018-04-29 12:18 | P.PNNP ---
Subjective Interval history: Patient dialyzed yesterday, 2 L removed in UF. General surgery consulted regarding metastatic malignancy. Awaiting their input. Patient needs AVF placement for HD. <Andrew Taylor - Last Filed: 04/29/18 12:13> Physical Exam Vital signs: Vital Signs 04/28/18 20:00 04/28/18 21:25 04/29/18 00:00 Temperature 99.1 F 100.1 F H Pulse Rate 96 H 92 H Respiratory Rate 18 18 Blood Pressure 120/56 L 117/57 L Pulse Oximetry 97 95 97 04/29/18 08:00 04/29/18 11:47 Temperature 98.3 F 98.5 F Pulse Rate 95 H 88 Respiratory Rate 16 16 Blood Pressure 127/77 100/52 L Pulse Oximetry 98 96 Intake & Output 04/28/18 04/29/18 04/29/18 18:59 06:59 18:59 Intake Total 360 / 360 Output Total 1999 Balance -1640 / -1640 Weight 89.6 kg Intake: Oral 360 / 360 Output: Hemodialysis Amount 1999 Other: # Voids 1 # Bowel Movements 0 Narrative: GENERAL: no distress, comfortable, voices no complaints. SKIN: Warm and dry. HEAD: Atraumatic. Normocephalic. EYES: Pupils equal and round. No scleral icterus. No injection or drainage. ENT: No nasal bleeding or discharge. Mucous membranes pink and moist. NECK: Trachea midline. CARDIOVASCULAR: Regular rate and rhythm. RESPIRATORY: No accessory muscle use. Clear to auscultation. Breath sounds equal bilaterally. GASTROINTESTINAL: Abdomen soft, obese, nondistended. Tenderness to palpation throughout. No visible scars or hernias. MUSCULOSKELETAL: Extremities without clubbing, cyanosis, or edema. No obvious deformities. NEUROLOGICAL: Awake and alert. No focal deficits. <Andrew Taylor - Last Filed: 04/29/18 12:13> Vital signs: Vital Signs 04/28/18 20:00 04/28/18 21:25 04/29/18 00:00 Temperature 99.1 F 100.1 F H Pulse Rate 96 H 92 H Respiratory Rate 18 18 Blood Pressure 120/56 L 117/57 L Pulse Oximetry 97 95 97 04/29/18 08:00 04/29/18 11:47 Temperature 98.3 F 98.5 F Pulse Rate 95 H 88 Respiratory Rate 16 16 Blood Pressure 127/77 100/52 L Pulse Oximetry 98 96 Intake & Output 04/28/18 04/29/18 04/29/18 18:59 06:59 18:59 Intake Total 360 / 360 Output Total 1999 Balance -1640 / -1640 Weight 89.6 kg Intake: Oral 360 / 360 Output: Hemodialysis Amount 1999 Other: # Voids 1 # Bowel Movements 0 <Zachary Uribe - Last Filed: 05/02/18 08:21> Assessment and Plan - Assessment (1) Acute on chronic renal failure Code(s): N17.9 - Acute kidney failure, unspecified; N18.9 - Chronic kidney disease, unspecified Status: Acute Plan: Patient reports CKD stage IV with a baseline Creatinine of 3. No prior labs available. Patient followed with habilitation specialist Dr. Velez in [place] prior to moving. Likely has reached ESRD. HD initiated during this admission. Patient dialyzed 04/25, 04/26, 04/28. 2 L removed in UF yesterday. Monitor fluid and electrolytes. Depending on surgery plans I will consult Vascular surgery for AVF placement. (2) Ovarian mass, right Code(s): N83.9 - Noninflammatory disorder of ovary, fallopian tube and broad ligament, unspecified Status: Acute Plan: Right ovarian mass found on CT. s/p biopsy: neoplasm. General surgery consulted regarding metastatic malignancy. Awaiting their input. (3) DM (diabetes mellitus) Code(s): E11.9 - Type 2 diabetes mellitus without complications Status: Chronic Plan: Insulin coverage to maintain blood glucose levels between 140 and 180 while hospitalized. (4) HTN (hypertension) Code(s): I10 - Essential (primary) hypertension Status: Chronic Plan: Monitor BP. Patient on Amlodipine and Metoprolol. (5) Anemia Code(s): D64.9 - Anemia, unspecified Status: Acute Plan: Epogen with dialysis. (6) Metabolic bone disease Code(s): E88.9 - Metabolic disorder, unspecified; M90.80 - Osteopathy in diseases classified elsewhere, unspecified site Status: Acute Plan: Monitor phosphorus intermittently, patient on Renvela. <Andrew Taylor - Last Filed: 04/29/18 12:13> - Assessment (1) Acute on chronic renal failure Code(s): N17.9 - Acute kidney failure, unspecified; N18.9 - Chronic kidney disease, unspecified Status: Acute (2) Ovarian mass, right Code(s): N83.9 - Noninflammatory disorder of ovary, fallopian tube and broad ligament, unspecified Status: Acute (3) DM (diabetes mellitus) Code(s): E11.9 - Type 2 diabetes mellitus without complications Status: Chronic (4) HTN (hypertension) Code(s): I10 - Essential (primary) hypertension Status: Chronic (5) Anemia Code(s): D64.9 - Anemia, unspecified Status: Acute (6) Metabolic bone disease Code(s): E88.9 - Metabolic disorder, unspecified; M90.80 - Osteopathy in diseases classified elsewhere, unspecified site Status: Acute - Attending Attestation patient was seen and examined. Agree with above assessment and plan. <Zachary Uribe - Last Filed: 05/02/18 08:21>
--- NOTE | 2018-04-29 17:29 | P.PNIM ---
Subjective Interval history: Reports nausea better is tolerating diet. Had hemodialysis yesterday. States her niece is coming to visit her tomorrow. No significant abdominal pain. Physical Exam Vital signs: Vital Signs 04/28/18 20:00 04/28/18 21:25 04/29/18 00:00 Temperature 99.1 F 100.1 F H Pulse Rate 96 H 92 H Respiratory Rate 18 18 Blood Pressure 120/56 L 117/57 L Pulse Oximetry 97 95 97 04/29/18 08:00 04/29/18 11:47 04/29/18 16:00 Temperature 98.3 F 98.5 F 99.7 F H Pulse Rate 95 H 88 96 H Respiratory Rate 16 16 16 Blood Pressure 127/77 100/52 L 137/61 Pulse Oximetry 98 96 97 Intake & Output 04/28/18 04/29/18 04/29/18 18:59 06:59 18:59 Intake Total 360 / 360 Output Total 1999 Balance -1640 / -1640 Weight 89.6 kg Intake: Oral 360 / 360 Output: Hemodialysis Amount 1999 Other: # Voids 1 Date of Last Bowel Movement 04/29/18 # Bowel Movements 0 1 Narrative: GENERAL: sitting up in bed working on her computer. Awake. Aaox3. Appears comfortable today. CARDIOVASCULAR: Regular rate and rhythm without murmurs, gallops, or rubs. RESPIRATORY: Breath sounds equal bilaterally. No accessory muscle use. GASTROINTESTINAL: Abdomen soft, non-tender, slight distention, positive bowel sounds. MUSCULOSKELETAL: No cyanosis, or edema. Results Labs CBC & Chem 7: 04/28/18 04:56 04/28/18 04:56 Procedures Procedures: 04/22 CT-guided biopsy of intraperitoneal mesenteric mass with interventional radiology Assessment and Plan (1) Acute on chronic renal failure: Code(s): N17.9 - Acute kidney failure, unspecified; N18.9 - Chronic kidney disease, unspecified Status: Acute (2) Ovarian mass, right: Code(s): N83.9 - Noninflammatory disorder of ovary, fallopian tube and broad ligament, unspecified Status: Acute (3) DM (diabetes mellitus): Code(s): E11.9 - Type 2 diabetes mellitus without complications Status: Chronic (4) HTN (hypertension): Code(s): I10 - Essential (primary) hypertension Status: Chronic (5) Anemia: Code(s): D64.9 - Anemia, unspecified Status: Acute (6) Metabolic bone disease: Code(s): E88.9 - Metabolic disorder, unspecified; M90.80 - Osteopathy in diseases classified elsewhere, unspecified site Status: Acute Plan 42-year-old white female presents with intractable nausea and vomiting with poor p.o. intake Acute renal failure superimposed on chronic kidney disease stage IV, no baseline GFR for comparison and reports baseline creatinine of 3.May be due to dehydration and poor p.o. 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 Appreciate [facility]IER oncology, Dr. Summers recommendations Status post CT-guided biopsy of mass 04/22 Biopsy results revealed smooth muscle with appearance of neoplasm, general surgery consulted appreciate further recommendations. Anemialikely of chronic kidney diseasehemoglobin stable 04/28, consider Epogen Hypertension, better controlled.IV hydralazine and labetalol. Restart home amlodipine and metoprolol. Continue scheduled hydralazine Continue to monitor blood pressure closely. Jkh-[id number] diabetes mellitus, uncontrolled with underlying diabetic nephropathy hold home glipizide, blood sugar monitoring with sliding scale insulin. Hypernatremia improved/ resolved Nausea and vomiting likely due to mesenteric masssupportive care, antiemetics, clinically improving currently on ADA diet DVT prophylaxisSCDs, heparin subcu Progress Note: Quality VTE Deep Vein Thrombosis/Pulmonary Embolism Present on Admission: No _ (1) Acute on chronic renal failure Qualifiers: Acute renal failure type: Chronic kidney disease stage: (2) DM (diabetes mellitus) Qualifiers: Diabetes mellitus type: Diabetes mellitus machine wiper insulin use: Diabetes mellitus complication status: Diabetes mellitus complication detail: Diabetic retinopathy severity: Proliferative retinopathy type: Diabetes mellitus macular edema: Laterality: Chronic kidney disease stage: (3) HTN (hypertension) Qualifiers: Hypertension type: (4) Anemia Qualifiers: Anemia type: Iron deficiency anemia type: Vitamin B12 deficiency anemia type: Folate deficiency anemia type: Bone marrow failure anemia type: Hemolytic anemia type: Other causes of anemia: Chronic kidney disease stage :
[2018-04-29] MEDS: Latanoprost 0.005% Opth Drops 2.5 ML Bottle EACH EYE SCH (18:07)
--- NOTE | 2018-04-30 09:15 | P.PNGS ---
Subjective Patient reports: no new complaints (Date of visit was 04/29/2018) Physical Exam Vital signs: Vital Signs 04/29/18 11:47 04/29/18 16:00 04/29/18 20:00 Temperature 98.5 F 99.7 F H 99.2 F Pulse Rate 88 96 H 95 H Respiratory Rate 16 16 18 Blood Pressure 100/52 L 137/61 127/61 Pulse Oximetry 96 97 97 04/30/18 00:06 04/30/18 04:00 04/30/18 07:40 Temperature 98.5 F 98.6 F 98.6 F Pulse Rate 89 88 98 H Respiratory Rate 18 18 20 Blood Pressure 137/66 122/58 L 142/78 H Pulse Oximetry 96 98 98 Intake & Output 04/29/18 04/30/18 04/30/18 18:59 06:59 18:59 Intake Total 1350 / 1350 680 / 680 Balance 1350 / 1350 680 / 680 Weight 89.3 kg Intake: Oral 1350 / 1350 680 / 680 Other: # Voids 2 3 Date of Last Bowel Movement 04/29/18 04/29/18 # Bowel Movements 1 - Constitutional no acute distress - Routine Respiratory Exam Present: CTA bilaterally - Routine Cardiovascular Exam Present: RRR - Routine Abdominal Exam Present: soft, normoactive bowel sounds, mass. Absent: tenderness, distended, rebound - Routine Extremities Exam Absent: cyanosis, clubbing - Routine Neurological Exam Present: alert, oriented X3 Results - Labs 04/28/18 04:56 04/28/18 04:56 Laboratory Results - last 24 hr 04/29/18 04/29/18 04/29/18 12:10 17:23 20:55 POC Glucose 197 H 145 H 232 H 04/30/18 08:55 POC Glucose 146 H - Imaging Imaging: ITS Impressions Pelvis Ultrasound 04/21/18 00:00 CONCLUSION: 1. Limited examination due to patient's body habitus and decline of transvaginal exam. 2. The right adnexal mass noted on CT exam does appear to correspond to the right ovary measuring 9.7 x 11.6 x 8.1 cm. 3. Uterus is not completely visualized and therefore the midline pelvic mass cannot be definitively excluded from the uterus although again this appears separate on CT exam. 4. 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 Correlation with tumor markers and clinical history is recommended. Further evaluation may be performed with MRI examination of the pelvis if there is continued clinical uncertainty following gynecological consultation. Abdomen/Pelvis CT 04/21/18 20:25 CONCLUSION: 1. Bulky large soft tissue density mesenteric masses with the largest measuring 14.7 x 7.5 x 8.5 cm. A second dominant mesenteric mass extends to the right adnexa. Differential considerations include ovarian malignancy with mesenteric metastases, GIST, mesenteric fibromatosis, and mesenteric adenopathy amongst other etiologies. Ultrasound examination of the pelvis may be performed to exclude right ovarian mass. Abdomen Biopsy CT 04/22/18 00:00 CONCLUSION: 1. Uncomplicated CT guided biopsy. Central Venous Line 04/25/18 18:46 CONCLUSION: 1. Uncomplicated PermaCath placement as above. 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
--- NOTE | 2018-04-30 09:45 | P.PNNP ---
Subjective Interval history: Patient is alert, seen during HD, no SOB, not in distress. Physical Exam Vital signs: Vital Signs 04/29/18 11:47 04/29/18 16:00 04/29/18 20:00 Temperature 98.5 F 99.7 F H 99.2 F Pulse Rate 88 96 H 95 H Respiratory Rate 16 16 18 Blood Pressure 100/52 L 137/61 127/61 Pulse Oximetry 96 97 97 04/30/18 00:06 04/30/18 04:00 04/30/18 07:40 Temperature 98.5 F 98.6 F 98.6 F Pulse Rate 89 88 98 H Respiratory Rate 18 18 20 Blood Pressure 137/66 122/58 L 142/78 H Pulse Oximetry 96 98 98 Intake & Output 04/29/18 04/30/18 04/30/18 18:59 06:59 18:59 Intake Total 1350 / 1350 680 / 680 Balance 1350 / 1350 680 / 680 Weight 89.3 kg Intake: Oral 1350 / 1350 680 / 680 Other: # Voids 2 3 Date of Last Bowel Movement 04/29/18 04/29/18 # Bowel Movements 1 Narrative: GENERAL: no distress, comfortable, voices no complaints. SKIN: Warm and dry. HEAD: Atraumatic. Normocephalic. EYES: Pupils equal and round. No scleral icterus. No injection or drainage. ENT: No nasal bleeding or discharge. Mucous membranes pink and moist. NECK: Trachea midline. CARDIOVASCULAR: Regular rate and rhythm. RESPIRATORY: No accessory muscle use. Clear to auscultation. Breath sounds equal bilaterally. GASTROINTESTINAL: Abdomen soft, obese, nondistended. Tenderness to palpation throughout. No visible scars or hernias. MUSCULOSKELETAL: Extremities without clubbing, cyanosis, or edema. No obvious deformities. NEUROLOGICAL: Awake and alert. No focal deficits. Assessment and Plan - Assessment (1) Acute on chronic renal failure Code(s): N17.9 - Acute kidney failure, unspecified; N18.9 - Chronic kidney disease, unspecified Status: Acute Plan: Patient reports CKD stage IV with a baseline Creatinine of 3. No prior labs available. Patient followed with pizzamaker Dr. Velez in [place] prior to moving. Likely has reached ESRD. HD initiated during this admission. Patient dialyzed 04/25, 04/26, 04/28. 2 L removed in UF yesterday. Monitor fluid and electrolytes. Depending on surgery plans, will need to consult Vascular surgery for AVF placement. HD now, remove fluid as tolerated. BP is stable. (2) Ovarian mass, right Code(s): N83.9 - Noninflammatory disorder of ovary, fallopian tube and broad ligament, unspecified Status: Acute Plan: Right ovarian mass found on CT. s/p biopsy: neoplasm. General surgery consulted regarding metastatic malignancy. Awaiting their input. (3) DM (diabetes mellitus) Code(s): E11.9 - Type 2 diabetes mellitus without complications Status: Chronic Plan: Insulin coverage to maintain blood glucose levels between 140 and 180 while hospitalized. (4) HTN (hypertension) Code(s): I10 - Essential (primary) hypertension Status: Chronic Plan: Monitor BP. Patient on Amlodipine and Metoprolol. (5) Anemia Code(s): D64.9 - Anemia, unspecified Status: Acute Plan: Epogen with dialysis. (6) Metabolic bone disease Code(s): E88.9 - Metabolic disorder, unspecified; M90.80 - Osteopathy in diseases classified elsewhere, unspecified site Status: Acute Plan: Monitor phosphorus intermittently, patient on Renvela.
[2018-04-30] MEDS: Heparin 10,000 UNITS/10 ML Vial (for IV use) OTHER PRN (11:53)
[2018-04-30] MEDS: hydrALAZINE 50 MG Tablet PO SCH ×3 (13:00→18:11)
[2018-04-30] MEDS: Insulin NovoLOG Aspart Correctional Sugar Inj SQ SCH ×4 (13:00→21:21)
[2018-04-30] MEDS: Heparin - SQ 10,000 UNITS/ML Vial SQ SCH ×2 (13:00→20:30)
[2018-04-30] MEDS: Calcitriol 0.25 MCG Capsule PO SCH (13:01)
[2018-04-30] MEDS: amLODIPine 10 MG Tablet PO SCH (13:01)
[2018-04-30] MEDS: Senna/Docusate Sodium 8.6/50 MG Tablet PO SCH ×2 (13:01→20:30)
[2018-04-30] MEDS: Vitamin B Complex/Vit C/Folic Tablet PO SCH (13:01)
--- NOTE | 2018-04-30 13:50 | P.PNIM ---
Subjective Interval history: Reports she went to dialysis this morning. Did not get her morning meds yet and complaining of headache. Nausea better tolerating diet. No abdominal pain. Physical Exam Vital signs: Vital Signs 04/29/18 16:00 04/29/18 20:00 04/30/18 00:06 Temperature 99.7 F H 99.2 F 98.5 F Pulse Rate 96 H 95 H 89 Respiratory Rate 16 18 18 Blood Pressure 137/61 127/61 137/66 Pulse Oximetry 97 97 96 04/30/18 04:00 04/30/18 07:40 04/30/18 13:19 Temperature 98.6 F 98.6 F 98.2 F Pulse Rate 88 98 H 105 H Respiratory Rate 18 20 20 Blood Pressure 122/58 L 142/78 H 163/79 H Pulse Oximetry 98 98 98 Intake & Output 04/29/18 04/30/18 04/30/18 18:59 06:59 18:59 Intake Total 1350 / 1350 680 / 680 Balance 1350 / 1350 680 / 680 Weight 89.3 kg Intake: Oral 1350 / 1350 680 / 680 Other: # Voids 2 3 Date of Last Bowel Movement 04/29/18 04/29/18 04/29/18 # Bowel Movements 1 Narrative: GENERAL: sitting up in bed eating lunch in no acute distress CARDIOVASCULAR: Regular rate and rhythm without murmurs, gallops, or rubs. RESPIRATORY: Breath sounds equal bilaterally. No accessory muscle use. GASTROINTESTINAL: Abdomen soft, non-tender, slight distention, positive bowel sounds. MUSCULOSKELETAL: No cyanosis, or edema. Results Labs CBC & Chem 7: 04/28/18 04:56 04/28/18 04:56 Procedures Procedures: 04/22 CT-guided biopsy of intraperitoneal mesenteric mass with interventional radiology Assessment and Plan (1) Abdominal mass: Code(s): R19.00 - Intra-abdominal and pelvic swelling, mass and lump, unspecified site Status: Acute Plan 42-year-old white female presents with intractable nausea and vomiting with poor p.o. intake Acute renal failure superimposed on chronic kidney disease stage IV, no baseline GFR for comparison and reports baseline creatinine of 3.May be due to dehydration and poor p.o. 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 Appreciate QUALITY CONTROL ANALYST oncology, Dr. Summers recommendations Status post CT-guided biopsy of mass 04/22 Biopsy results revealed smooth muscle with appearance of neoplasm, general surgery consulted appreciate further recommendations, scheduled for surgical intervention next Wednesday with Dr. Flood. Anemialikely of chronic kidney diseasehemoglobin stable 04/28, consider Epogen with Hb Hypertension, overall better controlled.IV hydralazine and labetalol. Restart home amlodipine and metoprolol. Continue scheduled hydralazine Continue to monitor blood pressure closely. [id number] diabetes mellitus, uncontrolled with underlying diabetic nephropathy hold home glipizide, blood sugar monitoring with sliding scale insulin. Hypernatremia improved/ resolved Nausea and vomiting likely due to mesenteric masssupportive care, antiemetics, clinically improving currently tolerating ADA diet DVT prophylaxisSCDs, heparin subcu Progress Note: Quality VTE Deep Vein Thrombosis/Pulmonary Embolism Present on Admission: No _ (1) Abdominal mass Qualifiers: Abdominal location:
[2018-04-30] MEDS: Sodium Chloride 0.9% 2 ML Flush BID IV.FLUSH SCH ×2 (18:13→20:30)
[2018-04-30] MEDS: Latanoprost 0.005% Opth Drops 2.5 ML Bottle EACH EYE SCH (18:51)
[2018-05-01] MEDS: Insulin NovoLOG Aspart Correctional Sugar Inj SQ SCH ×4 (09:48→20:41)
[2018-05-01] MEDS: Calcitriol 0.25 MCG Capsule PO SCH (09:48)
[2018-05-01] MEDS: Vitamin B Complex/Vit C/Folic Tablet PO SCH (09:48)
[2018-05-01] MEDS: amLODIPine 10 MG Tablet PO SCH (09:48)
[2018-05-01] MEDS: Senna/Docusate Sodium 8.6/50 MG Tablet PO SCH ×2 (09:48→20:41)
[2018-05-01] MEDS: hydrALAZINE 50 MG Tablet PO SCH ×3 (09:48→17:38)
[2018-05-01] MEDS: Sodium Chloride 0.9% 2 ML Flush BID IV.FLUSH SCH ×2 (09:49→20:41)
[2018-05-01] MEDS: Heparin - SQ 10,000 UNITS/ML Vial SQ SCH ×2 (09:49→20:41)
--- NOTE | 2018-05-01 14:22 | P.PNIM ---
Subjective Interval history: Patient denies nausea and vomiting. Tolerating diet. No abdominal pain. Ready for surgery this coming week. Open to starting long- acting insulin. Asked about alternative options for peritoneal dialysis. Inquired for future kidney transplant Physical Exam Vital signs: Vital Signs 04/30/18 16:30 04/30/18 20:00 05/01/18 00:00 Temperature 98.3 F 99.8 F H 99.1 F Pulse Rate 117 H 111 H 93 H Respiratory Rate 20 18 18 Blood Pressure 160/73 H 127/62 124/69 Pulse Oximetry 98 98 98 05/01/18 04:00 05/01/18 08:00 05/01/18 12:00 Temperature 99.0 F 98.2 F 98.1 F Pulse Rate 97 H 89 84 Respiratory Rate 18 14 14 Blood Pressure 163/77 H 134/75 136/73 Pulse Oximetry 99 97 100 Intake & Output 04/30/18 05/01/18 05/01/18 18:59 06:59 18:59 Intake Total 1040 / 1040 Balance 1040 / 1040 Weight 88.8 kg Intake: Oral 1040 / 1040 Other: # Voids 3 Date of Last Bowel Movement 04/29/18 04/29/18 04/29/18 Narrative: GENERAL: sitting up in bed eating lunch in no acute distress CARDIOVASCULAR: Regular rate and rhythm without murmurs, gallops, or rubs. RESPIRATORY: Breath sounds equal bilaterally. No accessory muscle use. GASTROINTESTINAL: Abdomen soft, non-tender, slight distention, positive bowel sounds. MUSCULOSKELETAL: No cyanosis, or edema. Results Labs CBC & Chem 7: 04/28/18 04:56 04/28/18 04:56 Procedures Procedures: 04/22 CT-guided biopsy of intraperitoneal mesenteric mass with interventional radiology Assessment and Plan (1) Abdominal mass: Code(s): R19.00 - Intra-abdominal and pelvic swelling, mass and lump, unspecified site Status: Acute Plan 42-year-old white female presents with intractable nausea and vomiting with poor p.o. intake Acute renal failure superimposed on chronic kidney disease stage IV, no baseline GFR for comparison and reports baseline creatinine of 3.May be due to dehydration and poor p.o. 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 Appreciate DIRECTOR HEMATOLOGY oncology, Dr. Summers recommendations Status post CT-guided biopsy of mass 04/22 Biopsy results revealed smooth muscle with appearance of neoplasm, general surgery consulted appreciate further recommendations, scheduled for surgical intervention next Wednesday with Dr. Flood. Anemialikely of chronic kidney diseasehemoglobin stable 04/28, consider Epogen with Hb Hypertension, overall better controlled.IV hydralazine and labetalol. Restart home amlodipine and metoprolol. Continue scheduled hydralazine Continue to monitor blood pressure closely. [id number] diabetes mellitus, uncontrolled with underlying diabetic nephropathy hold home glipizide, blood sugar monitoring with sliding scale insulin. Add Levemir to regimen today Hypernatremia improved/ resolved Nausea and vomiting likely due to mesenteric masssupportive care, antiemetics, clinically improving currently tolerating ADA diet DVT prophylaxisSCDs, heparin subcu Progress Note: Quality VTE Deep Vein Thrombosis/Pulmonary Embolism Present on Admission: No _ (1) Abdominal mass Qualifiers: Abdominal location:
[2018-05-01] MEDS: Latanoprost 0.005% Opth Drops 2.5 ML Bottle EACH EYE SCH (17:38)
--- NOTE | 2018-05-01 18:56 | P.PNNP ---
Subjective Interval history: Patient is alert, no SOB, not in distress. Physical Exam Vital signs: Vital Signs 04/30/18 20:00 05/01/18 00:00 05/01/18 04:00 Temperature 99.8 F H 99.1 F 99.0 F Pulse Rate 111 H 93 H 97 H Respiratory Rate 18 18 18 Blood Pressure 127/62 124/69 163/77 H Pulse Oximetry 98 98 99 05/01/18 08:00 05/01/18 12:00 05/01/18 16:00 Temperature 98.2 F 98.1 F 98.7 F Pulse Rate 89 84 88 Respiratory Rate 14 14 15 Blood Pressure 134/75 136/73 121/68 Pulse Oximetry 97 100 98 Intake & Output 04/30/18 05/01/18 05/01/18 18:59 06:59 18:59 Intake Total 1040 / 1040 480 / 480 Balance 1040 / 1040 480 / 480 Weight 88.8 kg Intake: Oral 1040 / 1040 480 / 480 Other: # Voids 3 1 Date of Last Bowel Movement 04/29/18 04/29/18 04/29/18 Narrative: GENERAL: no distress, comfortable, voices no complaints. SKIN: Warm and dry. HEAD: Atraumatic. Normocephalic. EYES: Pupils equal and round. No scleral icterus. No injection or drainage. ENT: No nasal bleeding or discharge. Mucous membranes pink and moist. NECK: Trachea midline. CARDIOVASCULAR: Regular rate and rhythm. RESPIRATORY: No accessory muscle use. Clear to auscultation. Breath sounds equal bilaterally. GASTROINTESTINAL: Abdomen soft, obese, nondistended. Tenderness to palpation throughout. No visible scars or hernias. MUSCULOSKELETAL: Extremities without clubbing, cyanosis, or edema. No obvious deformities. NEUROLOGICAL: Awake and alert. No focal deficits. Assessment and Plan - Assessment (1) Acute on chronic renal failure Code(s): N17.9 - Acute kidney failure, unspecified; N18.9 - Chronic kidney disease, unspecified Status: Acute Plan: Patient reports CKD stage IV with a baseline Creatinine of 3. No prior labs available. Patient followed with neck cutter Dr. Velez in [place] prior to moving. Likely has reached ESRD. HD initiated during this admission. Patient dialyzed 04/25, 04/26, 04/28. 2 L removed in UF yesterday. Monitor fluid and electrolytes. Depending on surgery plans, will need to consult Vascular surgery for AVF placement. HD done yesterday. BP is stable. Patient for surgery tomorrow. Patient is asking for PD, told to discuss with Dr. Uribe after the abd. surgery. Dr. Uribe will follow from AM. (2) Ovarian mass, right Code(s): N83.9 - Noninflammatory disorder of ovary, fallopian tube and broad ligament, unspecified Status: Acute Plan: Right ovarian mass found on CT. s/p biopsy: neoplasm. General surgery consulted regarding metastatic malignancy. Awaiting their input. (3) DM (diabetes mellitus) Code(s): E11.9 - Type 2 diabetes mellitus without complications Status: Chronic Plan: Insulin coverage to maintain blood glucose levels between 140 and 180 while hospitalized. (4) HTN (hypertension) Code(s): I10 - Essential (primary) hypertension Status: Chronic Plan: Monitor BP. Patient on Amlodipine and Metoprolol. (5) Anemia Code(s): D64.9 - Anemia, unspecified Status: Acute Plan: Epogen with dialysis. (6) Metabolic bone disease Code(s): E88.9 - Metabolic disorder, unspecified; M90.80 - Osteopathy in diseases classified elsewhere, unspecified site Status: Acute Plan: Monitor phosphorus intermittently, patient on Renvela.
[2018-05-01] MEDS: Insulin Detemir Inj 1,000 UNIT/10 ML Vial SQ SCH (20:41)
[2018-05-02] MEDS: Insulin NovoLOG Aspart Correctional Sugar Inj SQ SCH ×4 (08:11→21:50)
[2018-05-02] MEDS ORDERED: Polyethylene Glycol 3350 17 GM Packet PO ONE (10:00)
[2018-05-02] MEDS: Heparin - SQ 10,000 UNITS/ML Vial SQ SCH (10:46)
[2018-05-02] MEDS: Senna/Docusate Sodium 8.6/50 MG Tablet PO SCH ×2 (10:47→21:52)
[2018-05-02] MEDS: Calcitriol 0.25 MCG Capsule PO SCH (10:47)
[2018-05-02] MEDS: Vitamin B Complex/Vit C/Folic Tablet PO SCH (10:47)
[2018-05-02] MEDS: amLODIPine 10 MG Tablet PO SCH (10:47)
[2018-05-02] MEDS: Sodium Chloride 0.9% 2 ML Flush BID IV.FLUSH SCH ×2 (10:48→21:52)
[2018-05-02] MEDS: hydrALAZINE 50 MG Tablet PO SCH ×3 (10:59→18:30)
--- NOTE | 2018-05-02 11:53 | P.PNNP ---
Subjective Interval history: Patient was seen, no distress, no complaints. Patient to get dialysis today. <Andrew Taylor - Last Filed: 05/02/18 11:53> Physical Exam Vital signs: Vital Signs 05/01/18 12:00 05/01/18 16:00 05/01/18 20:00 Temperature 98.1 F 98.7 F 98.7 F Pulse Rate 84 88 84 Respiratory Rate 14 15 18 Blood Pressure 136/73 121/68 119/60 Pulse Oximetry 100 98 98 05/01/18 23:42 05/02/18 03:48 05/02/18 04:00 Temperature 97.5 F L 98.3 F Pulse Rate 90 90 80 Respiratory Rate 18 18 Blood Pressure 134/70 131/65 Pulse Oximetry 99 96 05/02/18 08:00 Temperature 98.4 F Pulse Rate 87 Respiratory Rate 18 Blood Pressure 162/77 H Pulse Oximetry 99 Intake & Output 05/01/18 05/02/18 05/02/18 18:59 06:59 18:59 Intake Total 480 / 480 120 / 120 Output Total 800 / 800 Balance 480 / 480 -680 / -680 Weight 89.1 kg Intake: Oral 480 / 480 120 / 120 Output: Urine 800 / 800 Other: # Voids 1 2 Date of Last Bowel Movement 04/29/18 04/29/18 Narrative: GENERAL: no distress, comfortable, voices no complaints. SKIN: Warm and dry. HEAD: Atraumatic. Normocephalic. EYES: Pupils equal and round. No scleral icterus. No injection or drainage. ENT: No nasal bleeding or discharge. Mucous membranes pink and moist. NECK: Trachea midline. CARDIOVASCULAR: Regular rate and rhythm. RESPIRATORY: No accessory muscle use. Clear to auscultation. Breath sounds equal bilaterally. GASTROINTESTINAL: Abdomen soft, obese, nondistended. Tenderness to palpation throughout. No visible scars or hernias. MUSCULOSKELETAL: Extremities without clubbing, cyanosis, or edema. No obvious deformities. NEUROLOGICAL: Awake and alert. No focal deficits. <Andrew Taylor - Last Filed: 05/02/18 11:53> Vital signs: Vital Signs 05/01/18 23:42 05/02/18 03:48 05/02/18 04:00 Temperature 97.5 F L 98.3 F Pulse Rate 90 90 80 Respiratory Rate 18 18 Blood Pressure 134/70 131/65 Pulse Oximetry 99 96 05/02/18 08:00 05/02/18 12:00 05/02/18 17:00 Temperature 98.4 F 98.3 F 98.0 F Pulse Rate 90 102 H 93 H Respiratory Rate 18 Blood Pressure 162/77 H 157/73 H 169/80 H Pulse Oximetry 99 100 100 Intake & Output 05/02/18 05/02/18 05/03/18 06:59 18:59 06:59 Intake Total 120 / 120 Output Total 800 / 800 5000 / 5000 Balance -680 / -680 -5000 / -5000 Weight 89.1 kg Intake: Oral 120 / 120 Output: Urine 800 / 800 Hemodialysis Amount 5000 / 5000 Other: # Voids 4 Date of Last Bowel Movement 04/29/18 05/02/18 # Bowel Movements 1 <Zachary Uribe - Last Filed: 05/02/18 20:29> Assessment and Plan - Assessment (1) Acute on chronic renal failure Code(s): N17.9 - Acute kidney failure, unspecified; N18.9 - Chronic kidney disease, unspecified Status: Acute Plan: Patient reports CKD stage IV with a baseline Creatinine of 3. No prior labs available. Patient followed with [facility] Dr. Velez in [place] prior to moving. Likely has reached ESRD. HD initiated during this admission. Patient to be dialyzed today. Monitor fluid and electrolytes. Will need to consult Vascular for AVF placement sometime after surgery. Monitor fluid and electrolytes. Avoid nephrotoxic agents. (2) Ovarian mass, right Code(s): N83.9 - Noninflammatory disorder of ovary, fallopian tube and broad ligament, unspecified Status: Acute Plan: Right ovarian mass found on CT. s/p biopsy: neoplasm. General surgery consulted regarding metastatic malignancy. Surgery is planned for tomorrow. (3) DM (diabetes mellitus) Code(s): E11.9 - Type 2 diabetes mellitus without complications Status: Chronic Plan: Insulin coverage to maintain blood glucose levels between 140 and 180 while hospitalized. (4) HTN (hypertension) Code(s): I10 - Essential (primary) hypertension Status: Chronic Plan: Monitor BP. Patient on Amlodipine and Metoprolol. (5) Anemia Code(s): D64.9 - Anemia, unspecified Status: Acute Plan: Epogen with dialysis. (6) Metabolic bone disease Code(s): E88.9 - Metabolic disorder, unspecified; M90.80 - Osteopathy in diseases classified elsewhere, unspecified site Status: Acute Plan: Monitor phosphorus intermittently, patient on Renvela. <Andrew Taylor - Last Filed: 05/02/18 11:53> - Assessment (1) Acute on chronic renal failure Code(s): N17.9 - Acute kidney failure, unspecified; N18.9 - Chronic kidney disease, unspecified Status: Acute (2) Ovarian mass, right Code(s): N83.9 - Noninflammatory disorder of ovary, fallopian tube and broad ligament, unspecified Status: Acute (3) DM (diabetes mellitus) Code(s): E11.9 - Type 2 diabetes mellitus without complications Status: Chronic (4) HTN (hypertension) Code(s): I10 - Essential (primary) hypertension Status: Chronic (5) Anemia Code(s): D64.9 - Anemia, unspecified Status: Acute (6) Metabolic bone disease Code(s): E88.9 - Metabolic disorder, unspecified; M90.80 - Osteopathy in diseases classified elsewhere, unspecified site Status: Acute - Attending Attestation patient was seen and examined. Agree with above assessment and plan. <Zachary Uribe - Last Filed: 05/02/18 20:29>
--- NOTE | 2018-05-02 12:07 | P.PNGS ---
Subjective Interval history: Resting in bed No events overnight Pain better Physical Exam Vital signs: Vital Signs 05/01/18 16:00 05/01/18 20:00 05/01/18 23:42 Temperature 98.7 F 98.7 F 97.5 F L Pulse Rate 88 84 90 Respiratory Rate 15 18 18 Blood Pressure 121/68 119/60 134/70 Pulse Oximetry 98 98 99 05/02/18 03:48 05/02/18 04:00 05/02/18 08:00 Temperature 98.3 F 98.4 F Pulse Rate 90 80 87 Respiratory Rate 18 18 Blood Pressure 131/65 162/77 H Pulse Oximetry 96 99 Intake & Output 05/01/18 05/02/18 05/02/18 18:59 06:59 18:59 Intake Total 480 / 480 120 / 120 Output Total 800 / 800 Balance 480 / 480 -680 / -680 Weight 89.1 kg Intake: Oral 480 / 480 120 / 120 Output: Urine 800 / 800 Other: # Voids 1 2 Date of Last Bowel Movement 04/29/18 04/29/18 Narrative: Alert and awake Abd: soft; non tender non distended - Urinary Catheter Management Indwelling Urethral Catheter Cath placed during this visit: no Reason for continuing: Not indwelling catheter Straight Cath placed during this visit: yes Reason for continuing: Not indwelling catheter Insertion date: 05/09/18 Insertion time: 05:34 Results - Labs 05/09/18 04:28 05/09/18 04:28 Laboratory Results - last 24 hr 05/01/18 05/01/18 05/01/18 12:42 17:32 20:39 POC Glucose 254 H 143 H 232 H 05/02/18 05/02/18 08:05 11:35 POC Glucose 119 H 245 H - Imaging Imaging: ITS Impressions Pelvis Ultrasound 04/21/18 00:00 CONCLUSION: 1. Limited examination due to patient's body habitus and decline of transvaginal exam. 2. The right adnexal mass noted on CT exam does appear to correspond to the right ovary measuring 9.7 x 11.6 x 8.1 cm. 3. Uterus is not completely visualized and therefore the midline pelvic mass cannot be definitively excluded from the uterus although again this appears separate on CT exam. 4. 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 Correlation with tumor markers and clinical history is recommended. Further evaluation may be performed with MRI examination of the pelvis if there is continued clinical uncertainty following gynecological consultation. Abdomen/Pelvis CT 04/21/18 20:25 CONCLUSION: 1. Bulky large soft tissue density mesenteric masses with the largest measuring 14.7 x 7.5 x 8.5 cm. A second dominant mesenteric mass extends to the right adnexa. Differential considerations include ovarian malignancy with mesenteric metastases, GIST, mesenteric fibromatosis, and mesenteric adenopathy amongst other etiologies. Ultrasound examination of the pelvis may be performed to exclude right ovarian mass. Abdomen Biopsy CT 04/22/18 00:00 CONCLUSION: 1. Uncomplicated CT guided biopsy. Central Venous Line 04/25/18 18:46 CONCLUSION: 1. Uncomplicated PermaCath placement as above. Assessment and Plan - Assessment (1) Abdominal mass Code(s): R19.00 - Intra-abdominal and pelvic swelling, mass and lump, unspecified site Status: Acute - Plan 42 year old female with abdominal pain; CKD now on hemodialysis; CT guided bx c/ w neoplasm -Plan for ex lap; radical resection of intra-abdominal soft tissue mass -Obtain consents -Clear liquids today; MOM and Miralax for gentle bowel prep -NPO after MN - Attending Attestation The exam, history, and the medical decision-making described in the above note were completed with the assistance of the mid-level provider. I reviewed and agree with the findings presented. I attest that I had a [id number] encounter with the patient on the same day, and personally performed and documented my assessment and findings in the medical record. 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
[2018-05-02 13:48] LABS: Baso % (Auto) 0.6 % (0.0-2.0); Eos # (Auto) 0.1 th/mm3 (0.0-0.4); Eos % (Auto) 1.8 % (0.0-4.0); Hematocrit 26.2 % (35.0-46.0); Hemoglobin 8.6 gm/dL (11.6-15.3); Lymph # (Auto) 1.1 th/mm3 (1.0-4.8); Lymph % (Auto) 15.5 % (9.0-44.0); Mean Corpuscular HGB Conc 32.9 % (32.0-36.0); Mean Corpuscular Hemoglobin 27.4 pg (27.0-34.0); Mean Corpuscular Volume 83.1 fL (80.0-100.0); Mean Platelet Volume 9.8 fL (7.0-11.0); Mono # (Auto) 0.7 th/mm3 (0.0-0.9); Mono % (Auto) 9.4 % (0.0-8.0); Neut # (Auto) 5.2 th/mm3 (1.8-7.7); Neut % (Auto) 72.7 % (16.0-70.0); Platelet Count 228 th/mm3 (150-450); Red Blood Count 3.15 mil/mm3 (4.00-5.30); Red Cell Distribution Width 13.5 % (11.6-17.2); White Blood Count 7.2 th/mm3 (4.0-11.0)
[2018-05-02 14:08] LABS: Calcium 8.3 mg/dL (8.5-10.1); Carbon Dioxide 30.2 meq/L (21.0-32.0); Potassium 3.9 meq/L (3.5-5.1)
--- NOTE | 2018-05-02 15:36 | P.PNIM ---
Subjective Interval history: No nausea or vomiting. No abdominal pain. Ready for surgery tomorrow. No headaches. Doing okay. Physical Exam Vital signs: Vital Signs 05/01/18 16:00 05/01/18 20:00 05/01/18 23:42 Temperature 98.7 F 98.7 F 97.5 F L Pulse Rate 88 84 90 Respiratory Rate 15 18 18 Blood Pressure 121/68 119/60 134/70 Pulse Oximetry 98 98 99 05/02/18 03:48 05/02/18 04:00 05/02/18 08:00 Temperature 98.3 F 98.4 F Pulse Rate 90 80 87 Respiratory Rate 18 18 Blood Pressure 131/65 162/77 H Pulse Oximetry 96 99 05/02/18 12:00 Temperature 98.3 F Pulse Rate 100 H Respiratory Rate 18 Blood Pressure 157/73 H Pulse Oximetry 100 Intake & Output 05/01/18 05/02/18 05/02/18 18:59 06:59 18:59 Intake Total 480 / 480 120 / 120 Output Total 800 / 800 1999 Balance 480 / 480 -680 / -680 -1999 Weight 89.1 kg Intake: Oral 480 / 480 120 / 120 Output: Urine 800 / 800 Hemodialysis Amount 1999 Other: # Voids 1 2 Date of Last Bowel Movement 04/29/18 04/29/18 05/02/18 Narrative: GENERAL: sitting up in bed eating lunch in no acute distress CARDIOVASCULAR: Regular rate and rhythm without murmurs, gallops, or rubs. RESPIRATORY: Breath sounds equal bilaterally. No accessory muscle use. GASTROINTESTINAL: Abdomen soft, non-tender, nondistended, positive bowel sounds. MUSCULOSKELETAL: No cyanosis, or edema. Results Labs CBC & Chem 7: 05/02/18 12:35 05/02/18 12:35 Procedures Procedures: 04/22 CT-guided biopsy of intraperitoneal mesenteric mass with interventional radiology Assessment and Plan (1) Acute on chronic renal failure: Code(s): N17.9 - Acute kidney failure, unspecified; N18.9 - Chronic kidney disease, unspecified Status: Acute (2) Ovarian mass, right: Code(s): N83.9 - Noninflammatory disorder of ovary, fallopian tube and broad ligament, unspecified Status: Acute (3) DM (diabetes mellitus): Code(s): E11.9 - Type 2 diabetes mellitus without complications Status: Chronic (4) HTN (hypertension): Code(s): I10 - Essential (primary) hypertension Status: Chronic (5) Anemia: Code(s): D64.9 - Anemia, unspecified Status: Acute (6) Metabolic bone disease: Code(s): E88.9 - Metabolic disorder, unspecified; M90.80 - Osteopathy in diseases classified elsewhere, unspecified site Status: Acute Plan 42-year-old white female presents with intractable nausea and vomiting with poor p.o. intake Acute renal failure superimposed on chronic kidney disease stage IV, no baseline GFR for comparison and reports baseline creatinine of 3.May be due to dehydration and poor p.o. 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 Appreciate [employer] oncology, Dr. Summers recommendations Status post CT-guided biopsy of mass 04/22 Biopsy results revealed smooth muscle with appearance of neoplasm, general surgery consulted appreciate further recommendations, scheduled for surgical intervention ex lap with radical resection of the intra-abdominal soft tissue mass tomorrow with Dr. Flood. Anemialikely of chronic kidney diseasehemoglobin stable 8.6, consider Epogen with Hb Hypertension, overall better controlled.IV hydralazine and labetalol. Restart home amlodipine and metoprolol. Continue scheduled hydralazine Continue to monitor blood pressure closely. Yhv-[id number]-opmsiferq diabetes mellitus, uncontrolled with underlying diabetic nephropathy hold home glipizide, blood sugar monitoring with sliding scale insulin. Continue Levemir Hypernatremia improved/ resolved Nausea and vomiting likely due to mesenteric masssupportive care, antiemetics, clinically improving currently tolerating ADA diet DVT prophylaxisSCDs, heparin subcu Progress Note: Quality VTE Deep Vein Thrombosis/Pulmonary Embolism Present on Admission: No _ (1) Acute on chronic renal failure Qualifiers: Acute renal failure type: Chronic kidney disease stage: (2) DM (diabetes mellitus) Qualifiers: Diabetes mellitus type: Diabetes mellitus emt intermediate insulin use: Diabetes mellitus complication status: Diabetes mellitus complication detail: Diabetic retinopathy severity: Proliferative retinopathy type: Diabetes mellitus macular edema: Laterality: Chronic kidney disease stage: (3) HTN (hypertension) Qualifiers: Hypertension type: (4) Anemia Qualifiers: Anemia type: Iron deficiency anemia type: Vitamin B12 deficiency anemia type: Folate deficiency anemia type: Bone marrow failure anemia type: Hemolytic anemia type: Other causes of anemia: Chronic kidney disease stage :
[2018-05-02] MEDS: Latanoprost 0.005% Opth Drops 2.5 ML Bottle EACH EYE SCH (18:34)
[2018-05-02] MEDS: Insulin Detemir Inj 1,000 UNIT/10 ML Vial SQ SCH (21:51)
[2018-05-03] MEDS: Insulin NovoLOG Aspart Correctional Sugar Inj SQ SCH ×4 (08:20→22:07)
[2018-05-03] MEDS: hydrALAZINE 50 MG Tablet PO SCH ×2 (09:34→13:39)
[2018-05-03] MEDS: Senna/Docusate Sodium 8.6/50 MG Tablet PO SCH ×2 (09:35→22:07)
[2018-05-03] MEDS: Calcitriol 0.25 MCG Capsule PO SCH (09:35)
[2018-05-03] MEDS: amLODIPine 10 MG Tablet PO SCH (09:35)
[2018-05-03] MEDS: Sodium Chloride 0.9% 2 ML Flush BID IV.FLUSH SCH ×2 (09:35→22:07)
[2018-05-03] MEDS: Vitamin B Complex/Vit C/Folic Tablet PO SCH (09:35)
--- NOTE | 2018-05-03 11:33 | P.PNNP ---
Subjective Interval history: Patient was seen, no distress, no complaints. Patient is having surgery today. Patient dialyzed yesterday, 3 L removed. <Andrew Taylor - Last Filed: 05/03/18 11:31> Physical Exam Vital signs: Vital Signs 05/02/18 12:00 05/02/18 17:00 05/02/18 20:00 Temperature 98.3 F 98.0 F 99.0 F Pulse Rate 102 H 93 H 106 H Respiratory Rate 18 18 16 Blood Pressure 157/73 H 169/80 H 156/72 H Pulse Oximetry 100 100 94 L 05/03/18 00:00 05/03/18 04:00 05/03/18 08:00 Temperature 98.7 F 98.7 F 98.8 F Pulse Rate 93 H 91 H 91 H Respiratory Rate 17 17 18 Blood Pressure 139/77 147/76 H 133/69 Pulse Oximetry 100 97 99 Intake & Output 05/02/18 05/03/18 05/03/18 18:59 06:59 18:59 Output Total 5000 / 5000 Balance -5000 / -5000 Weight 89 kg Output: Hemodialysis Amount 5000 / 5000 Other: # Voids 4 Date of Last Bowel Movement 05/02/18 05/02/18 # Bowel Movements 1 1 - Constitutional no acute distress - Routine HEENT Exam Head: Present: normocephalic Eye: Present: EOMI ENT: Present: mucous membranes moist - Routine Neck Exam Absent: JVD - Routine Respiratory Exam Absent: accessory muscle use, respiratory distress - Routine Abdominal Exam Present: soft. Absent: tenderness - Routine Extremities Exam Absent: edema - Routine Neurological Exam Present: alert, oriented X3 <Andrew Taylor - Last Filed: 05/03/18 11:31> Vital signs: Vital Signs 05/03/18 00:00 05/03/18 04:00 05/03/18 08:00 Temperature 98.7 F 98.7 F 98.8 F Pulse Rate 93 H 91 H 88 Respiratory Rate 17 17 18 Blood Pressure 139/77 147/76 H 133/69 Pulse Oximetry 100 97 99 05/03/18 12:00 05/03/18 16:00 05/03/18 19:56 Temperature 98.7 F 98.8 F 98.9 F Pulse Rate 93 H 94 H 82 Respiratory Rate 18 18 20 Blood Pressure 150/76 H 141/67 H 115/57 L Pulse Oximetry 98 98 97 Intake & Output 05/03/18 05/03/18 05/04/18 06:59 18:59 06:59 Intake Total 480 / 480 Balance 480 / 480 Weight 89 kg Intake: Oral 480 / 480 Other: # Voids 2 Date of Last Bowel Movement 05/02/18 05/02/18 # Bowel Movements 1 <JojoZachary - Last Filed: 05/03/18 21:56> Assessment and Plan - Assessment (1) Acute on chronic renal failure Code(s): N17.9 - Acute kidney failure, unspecified; N18.9 - Chronic kidney disease, unspecified Status: Acute Plan: Patient reports CKD stage IV with a baseline Creatinine of 3. No prior labs available. Patient followed with senior center manager Dr. Velez in [place] prior to moving. Likely has reached ESRD. HD initiated during this admission. Patient dialyzed yesterday, 3 L removed. Monitor fluid and electrolytes. Will need to consult Vascular for AVF placement sometime after surgery. Monitor fluid and electrolytes. Avoid nephrotoxic agents. (2) Ovarian mass, right Code(s): N83.9 - Noninflammatory disorder of ovary, fallopian tube and broad ligament, unspecified Status: Acute Plan: Right ovarian mass found on CT. s/p biopsy: neoplasm. General surgery consulted regarding metastatic malignancy. Surgery is planned for today. (3) DM (diabetes mellitus) Code(s): E11.9 - Type 2 diabetes mellitus without complications Status: Chronic Plan: Insulin coverage to maintain blood glucose levels between 140 and 180 while hospitalized. (4) HTN (hypertension) Code(s): I10 - Essential (primary) hypertension Status: Chronic Plan: Monitor BP. Patient on Amlodipine, Hydralazine, and Metoprolol. (5) Anemia Code(s): D64.9 - Anemia, unspecified Status: Acute Plan: Epogen with dialysis. (6) Metabolic bone disease Code(s): E88.9 - Metabolic disorder, unspecified; M90.80 - Osteopathy in diseases classified elsewhere, unspecified site Status: Acute Plan: Monitor phosphorus intermittently, patient on Renvela. <Andrew Taylor - Last Filed: 05/03/18 11:31> - Assessment (1) Acute on chronic renal failure Code(s): N17.9 - Acute kidney failure, unspecified; N18.9 - Chronic kidney disease, unspecified Status: Acute (2) Ovarian mass, right Code(s): N83.9 - Noninflammatory disorder of ovary, fallopian tube and broad ligament, unspecified Status: Acute (3) DM (diabetes mellitus) Code(s): E11.9 - Type 2 diabetes mellitus without complications Status: Chronic (4) HTN (hypertension) Code(s): I10 - Essential (primary) hypertension Status: Chronic (5) Anemia Code(s): D64.9 - Anemia, unspecified Status: Acute (6) Metabolic bone disease Code(s): E88.9 - Metabolic disorder, unspecified; M90.80 - Osteopathy in diseases classified elsewhere, unspecified site Status: Acute - Attending Attestation patient was seen and examined. Agree with above assessment and plan. Surgery was canceled today, rescheduled for Wednesday. <Zachary Uribe - Last Filed: 05/03/18 21:56>
--- NOTE | 2018-05-03 13:59 | P.PNIM ---
Physical Exam Vital signs: Vital Signs 05/02/18 17:00 05/02/18 20:00 05/03/18 00:00 Temperature 98.0 F 99.0 F 98.7 F Pulse Rate 93 H 106 H 93 H Respiratory Rate 18 16 17 Blood Pressure 169/80 H 156/72 H 139/77 Pulse Oximetry 100 94 L 100 05/03/18 04:00 05/03/18 08:00 05/03/18 12:00 Temperature 98.7 F 98.8 F 98.7 F Pulse Rate 91 H 91 H 93 H Respiratory Rate 17 18 18 Blood Pressure 147/76 H 133/69 150/76 H Pulse Oximetry 97 99 98 Intake & Output 05/02/18 05/03/18 05/03/18 18:59 06:59 18:59 Output Total 5000 / 5000 Balance -5000 / -5000 Weight 89 kg Output: Hemodialysis Amount 5000 / 5000 Other: # Voids 4 Date of Last Bowel Movement 05/02/18 05/02/18 # Bowel Movements 1 1 Narrative: GENERAL: sitting up in bed in no acute distress CARDIOVASCULAR: Regular rate and rhythm without murmurs, gallops, or rubs. RESPIRATORY: Breath sounds equal bilaterally. No accessory muscle use. GASTROINTESTINAL: Abdomen soft, non-tender, nondistended, positive bowel sounds. MUSCULOSKELETAL: No cyanosis, or edema. Neurological exam alert and oriented x3 Results Labs CBC & Chem 7: 05/02/18 12:35 05/02/18 12:35 Procedures Procedures: 04/22 CT-guided biopsy of intraperitoneal mesenteric mass with interventional radiology Assessment and Plan (1) Acute on chronic renal failure: Code(s): N17.9 - Acute kidney failure, unspecified; N18.9 - Chronic kidney disease, unspecified Status: Acute (2) Ovarian mass, right: Code(s): N83.9 - Noninflammatory disorder of ovary, fallopian tube and broad ligament, unspecified Status: Acute (3) DM (diabetes mellitus): Code(s): E11.9 - Type 2 diabetes mellitus without complications Status: Chronic (4) HTN (hypertension): Code(s): I10 - Essential (primary) hypertension Status: Chronic (5) Anemia: Code(s): D64.9 - Anemia, unspecified Status: Acute (6) Metabolic bone disease: Code(s): E88.9 - Metabolic disorder, unspecified; M90.80 - Osteopathy in diseases classified elsewhere, unspecified site Status: Acute Plan 42-year-old white female presents with intractable nausea and vomiting with poor p.o. intake Acute renal failure superimposed on chronic kidney disease stage IV, no baseline GFR for comparison and reports baseline creatinine of 3.May be due to dehydration and poor p.o. 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 Appreciate [employer]INUOUS [employer]ER oncology, Dr. Summers recommendations Status post CT-guided biopsy of mass 04/22 Biopsy results revealed smooth muscle with appearance of neoplasm, general surgery consulted appreciate further recommendations, scheduled for surgical intervention ex lap with radical resection of the intra-abdominal soft tissue mass today with Dr. Flood. Anemialikely of chronic kidney diseasehemoglobin stable 8.6, consider Epogen with Hb Hypertension, overall better controlled.IV hydralazine and labetalol. Restart home amlodipine and metoprolol. Continue scheduled hydralazine Continue to monitor blood pressure closely. [id number] diabetes mellitus, uncontrolled with underlying diabetic nephropathy hold home glipizide, blood sugar monitoring with sliding scale insulin. Continue Levemir 10 units subcu nightly, Hypernatremia improved/ resolved Nausea and vomiting likely due to mesenteric masssupportive care, antiemetics, clinically improving currently tolerating ADA diet DVT prophylaxisSCDs, heparin subcu on hold due to surgery Progress Note: Quality VTE Deep Vein Thrombosis/Pulmonary Embolism Present on Admission: No _ (1) Acute on chronic renal failure Qualifiers: Acute renal failure type: Chronic kidney disease stage: (2) DM (diabetes mellitus) Qualifiers: Diabetes mellitus type: Diabetes mellitus studio model insulin use: Diabetes mellitus complication status: Diabetes mellitus complication detail: Diabetic retinopathy severity: Proliferative retinopathy type: Diabetes mellitus macular edema: Laterality: Chronic kidney disease stage: (3) HTN (hypertension) Qualifiers: Hypertension type: (4) Anemia Qualifiers: Anemia type: Iron deficiency anemia type: Vitamin B12 deficiency anemia type: Folate deficiency anemia type: Bone marrow failure anemia type: Hemolytic anemia type: Other causes of anemia: Chronic kidney disease stage :
--- NOTE | 2018-05-03 16:22 | P.PNGS ---
Subjective Patient reports: no new complaints Physical Exam Vital signs: Vital Signs 05/02/18 17:00 05/02/18 20:00 05/03/18 00:00 Temperature 98.0 F 99.0 F 98.7 F Pulse Rate 93 H 106 H 93 H Respiratory Rate 18 16 17 Blood Pressure 169/80 H 156/72 H 139/77 Pulse Oximetry 100 94 L 100 05/03/18 04:00 05/03/18 08:00 05/03/18 12:00 Temperature 98.7 F 98.8 F 98.7 F Pulse Rate 91 H 91 H 93 H Respiratory Rate 17 18 18 Blood Pressure 147/76 H 133/69 150/76 H Pulse Oximetry 97 99 98 Intake & Output 05/02/18 05/03/18 05/03/18 18:59 06:59 18:59 Output Total 5000 / 5000 Balance -5000 / -5000 Weight 89 kg Output: Hemodialysis Amount 5000 / 5000 Other: # Voids 4 Date of Last Bowel Movement 05/02/18 05/02/18 # Bowel Movements 1 1 - Constitutional no acute distress - Routine Abdominal Exam Present: soft, normoactive bowel sounds, mass. Absent: tenderness, distended, rebound, guarding Results - Labs 05/02/18 12:35 05/02/18 12:35 Laboratory Results - last 24 hr 05/02/18 05/02/18 05/03/18 16:46 20:52 08:17 POC Glucose 106 253 H 118 H Blood Type Blood Type Recheck Antibody Screen 05/03/18 05/03/18 08:48 12:16 POC Glucose 109 Blood Type O Positive Blood Type Recheck Required Antibody Screen Negative - Imaging Imaging: ITS Impressions Pelvis Ultrasound 04/21/18 00:00 CONCLUSION: 1. Limited examination due to patient's body habitus and decline of transvaginal exam. 2. The right adnexal mass noted on CT exam does appear to correspond to the right ovary measuring 9.7 x 11.6 x 8.1 cm. 3. Uterus is not completely visualized and therefore the midline pelvic mass cannot be definitively excluded from the uterus although again this appears separate on CT exam. 4. 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 Correlation with tumor markers and clinical history is recommended. Further evaluation may be performed with MRI examination of the pelvis if there is continued clinical uncertainty following gynecological consultation. Abdomen/Pelvis CT 04/21/18 20:25 CONCLUSION: 1. Bulky large soft tissue density mesenteric masses with the largest measuring 14.7 x 7.5 x 8.5 cm. A second dominant mesenteric mass extends to the right adnexa. Differential considerations include ovarian malignancy with mesenteric metastases, GIST, mesenteric fibromatosis, and mesenteric adenopathy amongst other etiologies. Ultrasound examination of the pelvis may be performed to exclude right ovarian mass. Abdomen Biopsy CT 04/22/18 00:00 CONCLUSION: 1. Uncomplicated CT guided biopsy. Central Venous Line 04/25/18 18:46 CONCLUSION: 1. Uncomplicated PermaCath placement as above. 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 Summers available
[2018-05-03] MEDS: Insulin Detemir Inj 1,000 UNIT/10 ML Vial SQ SCH (22:07)
[2018-05-04 07:37] LABS: Baso # (Auto) 0.1 th/mm3 (0.0-0.2); Baso % (Auto) 0.8 % (0.0-2.0); Eos # (Auto) 0.1 th/mm3 (0.0-0.4); Eos % (Auto) 1.9 % (0.0-4.0); Hematocrit 26.2 % (35.0-46.0); Hemoglobin 8.6 gm/dL (11.6-15.3); Lymph # (Auto) 1.2 th/mm3 (1.0-4.8); Lymph % (Auto) 16.9 % (9.0-44.0); Mean Corpuscular HGB Conc 32.9 % (32.0-36.0); Mean Corpuscular Hemoglobin 27.1 pg (27.0-34.0); Mean Corpuscular Volume 82.3 fL (80.0-100.0); Mean Platelet Volume 9.3 fL (7.0-11.0); Mono # (Auto) 0.9 th/mm3 (0.0-0.9); Neut # (Auto) 4.7 th/mm3 (1.8-7.7); Neut % (Auto) 67.4 % (16.0-70.0); Platelet Count 231 th/mm3 (150-450); Red Blood Count 3.18 mil/mm3 (4.00-5.30)
[2018-05-04 07:55] LABS: Calcium 8.1 mg/dL (8.5-10.1); Carbon Dioxide 32.4 meq/L (21.0-32.0); Phosphorus 3.6 mg/dL (2.5-4.9); Potassium 3.8 meq/L (3.5-5.1)
[2018-05-04] MEDS: Senna/Docusate Sodium 8.6/50 MG Tablet PO SCH ×2 (08:29→21:56)
[2018-05-04] MEDS: Calcitriol 0.25 MCG Capsule PO SCH (08:29)
[2018-05-04] MEDS: Sodium Chloride 0.9% 2 ML Flush BID IV.FLUSH SCH ×2 (08:29→21:56)
[2018-05-04] MEDS: Vitamin B Complex/Vit C/Folic Tablet PO SCH (08:29)
[2018-05-04] MEDS: hydrALAZINE 50 MG Tablet PO SCH ×4 (08:29→18:21)
[2018-05-04] MEDS: amLODIPine 10 MG Tablet PO SCH (08:29)
[2018-05-04] MEDS: Insulin NovoLOG Aspart Correctional Sugar Inj SQ SCH ×4 (08:30→21:56)
--- NOTE | 2018-05-04 08:56 | P.PNNP ---
Subjective Interval history: surgery canceled yesterday. No new issues today. To have dialysis later today. Physical Exam Vital signs: Vital Signs 05/03/18 12:00 05/03/18 16:00 05/03/18 19:56 Temperature 98.7 F 98.8 F 98.9 F Pulse Rate 93 H 94 H 82 Respiratory Rate 18 18 20 Blood Pressure 150/76 H 141/67 H 115/57 L Pulse Oximetry 98 98 97 05/03/18 20:00 05/04/18 00:00 05/04/18 04:00 Temperature 98.8 F 98.8 F Pulse Rate 99 H 94 H 89 Respiratory Rate 20 18 Blood Pressure 132/68 137/65 Pulse Oximetry 98 98 05/04/18 08:00 Temperature 98.0 F Pulse Rate 90 Respiratory Rate 18 Blood Pressure 153/75 H Pulse Oximetry 100 Intake & Output 05/03/18 05/04/18 05/04/18 18:59 06:59 18:59 Intake Total 480 / 480 Balance 480 / 480 Weight 87.7 kg Intake: Oral 480 / 480 Other: # Voids 2 2 Date of Last Bowel Movement 05/02/18 05/03/18 - Routine HEENT Exam Head: Present: normocephalic, atraumatic ENT: Present: mucous membranes moist - Routine Neck Exam Present: supple, full ROM. Absent: JVD, carotid bruit - Routine Respiratory Exam Present: CTA bilaterally. Absent: accessory muscle use - Routine Cardiovascular Exam Present: RRR, S1, S2 - Routine Abdominal Exam Present: soft, normoactive bowel sounds - Routine Neurological Exam Present: alert, oriented X3 - Routine Psychiatric Exam Present: normal affect, normal thought process Assessment and Plan - Assessment (1) Acute on chronic renal failure Code(s): N17.9 - Acute kidney failure, unspecified; N18.9 - Chronic kidney disease, unspecified Status: Acute Plan: Patient has reached ESRD. She will need AVF at some point: awaiting abdominal surgery. She is interested in PD, however, it is unclear if she can have PD: depends on findings of abdominal surgery. Monitor fluid and electrolytes. Avoid nephrotoxic agents. (2) Ovarian mass, right Code(s): N83.9 - Noninflammatory disorder of ovary, fallopian tube and broad ligament, unspecified Status: Acute Plan: Right ovarian mass found on CT. s/p biopsy: neoplasm. General surgery consulted regarding metastatic malignancy. Surgery is planned for Wednesday. (3) DM (diabetes mellitus) Code(s): E11.9 - Type 2 diabetes mellitus without complications Status: Chronic Plan: Insulin coverage to maintain blood glucose levels between 140 and 180 while hospitalized. (4) HTN (hypertension) Code(s): I10 - Essential (primary) hypertension Status: Chronic Plan: Monitor BP. Patient on Amlodipine, Hydralazine, and Metoprolol. (5) Anemia Code(s): D64.9 - Anemia, unspecified Status: Acute Plan: Epogen with dialysis. (6) Metabolic bone disease Code(s): E88.9 - Metabolic disorder, unspecified; M90.80 - Osteopathy in diseases classified elsewhere, unspecified site Status: Acute Plan: Monitor phosphorus intermittently, patient on Renvela.
--- NOTE | 2018-05-04 11:20 | P.PNGS ---
Subjective Interval history: resting in bed Surgery cancelled yesterday due to availability in OR yesterday Physical Exam Vital signs: Vital Signs 05/03/18 12:00 05/03/18 16:00 05/03/18 19:56 Temperature 98.7 F 98.8 F 98.9 F Pulse Rate 93 H 94 H 82 Respiratory Rate 18 18 20 Blood Pressure 150/76 H 141/67 H 115/57 L Pulse Oximetry 98 98 97 05/03/18 20:00 05/04/18 00:00 05/04/18 04:00 Temperature 98.8 F 98.8 F Pulse Rate 99 H 94 H 89 Respiratory Rate 20 18 Blood Pressure 132/68 137/65 Pulse Oximetry 98 98 05/04/18 08:00 Temperature 98.0 F Pulse Rate 90 Respiratory Rate 18 Blood Pressure 153/75 H Pulse Oximetry 100 Intake & Output 05/03/18 05/04/18 05/04/18 18:59 06:59 18:59 Intake Total 480 / 480 Balance 480 / 480 Weight 87.7 kg Intake: Oral 480 / 480 Other: # Voids 2 2 Date of Last Bowel Movement 05/02/18 05/03/18 Narrative: Alert and awake Abd: soft; non tender - Urinary Catheter Management Indwelling Urethral Catheter Cath placed during this visit: no Reason for continuing: Not indwelling catheter Straight Cath placed during this visit: yes Reason for continuing: Not indwelling catheter Insertion date: 05/09/18 Insertion time: 05:34 Results - Labs 05/09/18 04:28 05/09/18 04:28 Laboratory Results - last 24 hr 05/03/18 05/03/18 05/03/18 12:16 16:50 22:03 WBC RBC Hgb Hct MCV MCH MCHC RDW Plt Count MPV Neut % (Auto) Lymph % (Auto) [place] % (Auto) Eos % (Auto) Baso % (Auto) Neut # (Auto) Lymph # (Auto) [place] # (Auto) Eos # (Auto) Baso # (Auto) WBC Differential Differential Comment Sodium Potassium Chloride Carbon Dioxide Anion Gap BUN Creatinine Estimated GFR POC Glucose 109 130 H 320 H Random Glucose Calcium Phosphorus 05/04/18 05/04/18 05/04/18 07:00 07:00 07:40 WBC 7.0 RBC 3.18 L Hgb 8.6 L Hct 26.2 L MCV 82.3 MCH 27.1 MCHC 32.9 RDW 14.0 Plt Count 231 MPV 9.3 Neut % (Auto) 67.4 Lymph % (Auto) 16.9 [place] % (Auto) 13.0 H Eos % (Auto) 1.9 Baso % (Auto) 0.8 Neut # (Auto) 4.7 Lymph # (Auto) 1.2 [place] # (Auto) 0.9 Eos # (Auto) 0.1 Baso # (Auto) 0.1 WBC Differential . Differential Comment Auto diff final Sodium 138 Potassium 3.8 Chloride 99 Carbon Dioxide 32.4 H Anion Gap 7 BUN 32 H Creatinine 4.97 H Estimated GFR 12 L POC Glucose 145 H Random Glucose 150 H Calcium 8.1 L Phosphorus 3.6 - Imaging Imaging: ITS Impressions Pelvis Ultrasound 04/21/18 00:00 CONCLUSION: 1. Limited examination due to patient's body habitus and decline of transvaginal exam. 2. The right adnexal mass noted on CT exam does appear to correspond to the right ovary measuring 9.7 x 11.6 x 8.1 cm. 3. Uterus is not completely visualized and therefore the midline pelvic mass cannot be definitively excluded from the uterus although again this appears separate on CT exam. 4. 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 Correlation with tumor markers and clinical history is recommended. Further evaluation may be performed with MRI examination of the pelvis if there is continued clinical uncertainty following gynecological consultation. Abdomen/Pelvis CT 04/21/18 20:25 CONCLUSION: 1. Bulky large soft tissue density mesenteric masses with the largest measuring 14.7 x 7.5 x 8.5 cm. A second dominant mesenteric mass extends to the right adnexa. Differential considerations include ovarian malignancy with mesenteric metastases, GIST, mesenteric fibromatosis, and mesenteric adenopathy amongst other etiologies. Ultrasound examination of the pelvis may be performed to exclude right ovarian mass. Abdomen Biopsy CT 04/22/18 00:00 CONCLUSION: 1. Uncomplicated CT guided biopsy. Central Venous Line 04/25/18 18:46 CONCLUSION: 1. Uncomplicated PermaCath placement as above. Assessment and Plan - Assessment (1) Abdominal mass Code(s): R19.00 - Intra-abdominal and pelvic swelling, mass and lump, unspecified site Status: Acute - Plan 42 year old female with abdominal pain; CKD now on hemodialysis; CT guided bx c/ w neoplasm -Plan for ex lap; radical resection of intra-abdominal soft tissue mass on Wednesday -Consents already in the chart -Okay for regular diet - Attending Attestation The exam, history, and the medical decision-making described in the above note were completed with the assistance of the mid-level provider. I reviewed and agree with the findings presented. I attest that I had a [id number] encounter with the patient on the same day, and personally performed and documented my assessment and findings in the medical record. 42-year-old female with intra-abdominal mass, GI versus uterine in origin Plan for surgery Wednesday with surgical oncology and [employer] MECH[employer] oncology
[2018-05-04] MEDS: Latanoprost 0.005% Opth Drops 2.5 ML Bottle EACH EYE SCH ×2 (13:12→18:21)
[2018-05-04] MEDS: Heparin 10,000 UNITS/10 ML Vial (for IV use) OTHER PRN (17:36)
[2018-05-04] MEDS: Insulin Detemir Inj 1,000 UNIT/10 ML Vial SQ SCH (21:56)
[2018-05-05] MEDS: Insulin NovoLOG Aspart Correctional Sugar Inj SQ SCH ×4 (08:16→21:39)
[2018-05-05] MEDS: Vitamin B Complex/Vit C/Folic Tablet PO SCH (09:49)
[2018-05-05] MEDS: Calcitriol 0.25 MCG Capsule PO SCH (09:49)
[2018-05-05] MEDS: amLODIPine 10 MG Tablet PO SCH (09:49)
[2018-05-05] MEDS: Senna/Docusate Sodium 8.6/50 MG Tablet PO SCH ×3 (09:49→21:44)
[2018-05-05] MEDS: hydrALAZINE 50 MG Tablet PO SCH ×3 (09:49→17:08)
[2018-05-05] MEDS: Sodium Chloride 0.9% 2 ML Flush BID IV.FLUSH SCH ×2 (09:50→21:40)
--- NOTE | 2018-05-05 10:25 | P.PNGS ---
Subjective Interval history: Alert and awake No issues overnight Physical Exam Vital signs: Vital Signs 05/04/18 12:00 05/04/18 16:00 05/04/18 20:31 Temperature 97.8 F 97.5 F L 98 F Pulse Rate 91 H 90 98 H Respiratory Rate 18 18 18 Blood Pressure 124/62 111/56 L 116/65 Pulse Oximetry 99 99 98 05/05/18 00:00 05/05/18 03:54 05/05/18 08:00 Temperature 98.6 F 98.7 F 98.3 F Pulse Rate 93 H 92 H 92 H Respiratory Rate 18 18 12 Blood Pressure 135/73 120/70 149/72 H Pulse Oximetry 98 100 98 Intake & Output 05/04/18 05/05/18 05/05/18 18:59 06:59 18:59 Intake Total 620 / 620 Output Total 1999 Balance -1380 / -1380 Weight 87.8 kg Intake: Oral 620 / 620 Output: Hemodialysis Amount 1999 Other: # Voids 5 Date of Last Bowel Movement 05/03/18 05/05/18 05/05/18 # Bowel Movements 1 Narrative: Alert and awake Abd: soft; non tender - Urinary Catheter Management Indwelling Urethral Catheter Cath placed during this visit: no Reason for continuing: Not indwelling catheter Straight Cath placed during this visit: yes Reason for continuing: Not indwelling catheter Insertion date: 05/09/18 Insertion time: 05:34 Results - Labs 05/09/18 04:28 05/09/18 04:28 Laboratory Results - last 24 hr 05/04/18 05/04/18 05/04/18 12:33 19:42 21:48 POC Glucose 215 H 124 H 277 H 05/05/18 08:10 POC Glucose 130 H - Imaging Imaging: ITS Impressions Pelvis Ultrasound 04/21/18 00:00 CONCLUSION: 1. Limited examination due to patient's body habitus and decline of transvaginal exam. 2. The right adnexal mass noted on CT exam does appear to correspond to the right ovary measuring 9.7 x 11.6 x 8.1 cm. 3. Uterus is not completely visualized and therefore the midline pelvic mass cannot be definitively excluded from the uterus although again this appears separate on CT exam. 4. 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 Correlation with tumor markers and clinical history is recommended. Further evaluation may be performed with MRI examination of the pelvis if there is continued clinical uncertainty following gynecological consultation. Abdomen/Pelvis CT 04/21/18 20:25 CONCLUSION: 1. Bulky large soft tissue density mesenteric masses with the largest measuring 14.7 x 7.5 x 8.5 cm. A second dominant mesenteric mass extends to the right adnexa. Differential considerations include ovarian malignancy with mesenteric metastases, GIST, mesenteric fibromatosis, and mesenteric adenopathy amongst other etiologies. Ultrasound examination of the pelvis may be performed to exclude right ovarian mass. Abdomen Biopsy CT 04/22/18 00:00 CONCLUSION: 1. Uncomplicated CT guided biopsy. Central Venous Line 04/25/18 18:46 CONCLUSION: 1. Uncomplicated PermaCath placement as above. Assessment and Plan - Assessment (1) Abdominal mass Code(s): R19.00 - Intra-abdominal and pelvic swelling, mass and lump, unspecified site Status: Acute - Plan 42 year old female with abdominal pain; CKD now on hemodialysis; CT guided bx c/ w neoplasm -Plan for ex lap; radical resection of intra-abdominal soft tissue mass on Wednesday -Consents already in the chart -Clear liquids this afternoon; NPO after MN -MOM and Miralax x1 - Attending Attestation The exam, history, and the medical decision-making described in the above note were completed with the assistance of the mid-level provider. I reviewed and agree with the findings presented. I attest that I had a [id number] encounter with the patient on the same day, and personally performed and documented my assessment and findings in the medical record. 42-year-old female with intra-abdominal mass, uterine versus GI in origin Plan for resection on Wednesday with surgical oncology and [facility] oncology Discussed risk benefits and ALTERNATIVES to surgery with the patient and her
[2018-05-05] MEDS ORDERED: Polyethylene Glycol 3350 17 GM Packet PO ONE (11:00)
--- NOTE | 2018-05-05 11:44 | P.PNIM ---
Subjective Interval history: Had dialysis yesterday. Will get another dialysis session today prior to surgery tomorrow. Ready for surgery. Tolerating diet. No nausea or vomiting. Physical Exam Vital signs: Vital Signs 05/04/18 12:00 05/04/18 16:00 05/04/18 20:31 Temperature 97.8 F 97.5 F L 98 F Pulse Rate 91 H 90 98 H Respiratory Rate 18 18 18 Blood Pressure 124/62 111/56 L 116/65 Pulse Oximetry 99 99 98 05/05/18 00:00 05/05/18 03:54 05/05/18 08:00 Temperature 98.6 F 98.7 F 98.3 F Pulse Rate 93 H 92 H 92 H Respiratory Rate 18 18 12 Blood Pressure 135/73 120/70 149/72 H Pulse Oximetry 98 100 98 Intake & Output 05/04/18 05/05/18 05/05/18 18:59 06:59 18:59 Intake Total 620 / 620 Output Total 1999 Balance -1380 / -1380 Weight 87.8 kg Intake: Oral 620 / 620 Output: Hemodialysis Amount 1999 Other: # Voids 5 Date of Last Bowel Movement 05/03/18 05/05/18 05/05/18 # Bowel Movements 1 Narrative: GENERAL: sitting up in bed in no acute distress CARDIOVASCULAR: Regular rate and rhythm without murmurs, gallops, or rubs. RESPIRATORY: Breath sounds equal bilaterally. No accessory muscle use. GASTROINTESTINAL: Abdomen soft, non-tender, nondistended, positive bowel sounds. MUSCULOSKELETAL: No cyanosis, or edema. Neurological exam alert and oriented x3 Results Labs CBC & Chem 7: 05/04/18 07:00 05/04/18 07:00 Procedures Procedures: 04/22 CT-guided biopsy of intraperitoneal mesenteric mass with interventional radiology Assessment and Plan (1) Acute on chronic renal failure: Code(s): N17.9 - Acute kidney failure, unspecified; N18.9 - Chronic kidney disease, unspecified Status: Acute (2) Ovarian mass, right: Code(s): N83.9 - Noninflammatory disorder of ovary, fallopian tube and broad ligament, unspecified Status: Acute (3) DM (diabetes mellitus): Code(s): E11.9 - Type 2 diabetes mellitus without complications Status: Chronic (4) HTN (hypertension): Code(s): I10 - Essential (primary) hypertension Status: Chronic (5) Anemia: Code(s): D64.9 - Anemia, unspecified Status: Acute (6) Metabolic bone disease: Code(s): E88.9 - Metabolic disorder, unspecified; M90.80 - Osteopathy in diseases classified elsewhere, unspecified site Status: Acute Plan 42-year-old white female presents with intractable nausea and vomiting with poor p.o. intake Acute renal failure superimposed on chronic kidney disease stage IV, no baseline GFR for comparison and reports baseline creatinine of 3.May be due to dehydration and poor p.o. intake, however creatinine has not improved much with IV fluid hydration, Hemodialysis has been initiated with Vas-Cath placement; another hemodialysis session scheduled today May need future AV fistula placement per nephrology Right ovarian mass with mesenteric mass suspected ovarian malignancy with possible metastasisCA- 125 elevated 77. 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 Summers recommendations Status post CT-guided biopsy of mass 04/22 Biopsy results revealed smooth muscle with appearance of neoplasm, general surgery consulted appreciate further recommendations, scheduled for surgical intervention ex lap with radical resection of the intra-abdominal soft tissue mass tomorrow 05/[address] Flood and Dr. Summers. Anemialikely of chronic kidney diseasehemoglobin stable 8.6, consider Epogen with Hb Hypertension, overall better controlled.IV hydralazine and labetalol. Restart home amlodipine and metoprolol. Continue scheduled hydralazine Continue to monitor blood pressure closely. Hjl-[id number] diabetes mellitus, with underlying diabetic nephropathy hold home glipizide, blood sugar monitoring with sliding scale insulin. 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
--- NOTE | 2018-05-05 13:14 | P.PNNP ---
Subjective Interval history: Patient was seen, no distress. Patient had dialysis yesterday, 2 L removed. Patient is getting dialyzed today, switching to TTS schedule. Patient is having surgery tomorrow. <Agustin Taylorcristian - Last Filed: 05/05/18 13:10> Physical Exam Vital signs: Vital Signs 05/04/18 16:00 05/04/18 20:31 05/05/18 00:00 Temperature 97.5 F L 98 F 98.6 F Pulse Rate 90 98 H 93 H Respiratory Rate 18 18 18 Blood Pressure 111/56 L 116/65 135/73 Pulse Oximetry 99 98 98 05/05/18 03:54 05/05/18 08:00 05/05/18 12:00 Temperature 98.7 F 98.3 F 98.4 F Pulse Rate 92 H 92 H 94 H Respiratory Rate 18 12 12 Blood Pressure 120/70 149/72 H 140/67 Pulse Oximetry 100 98 99 Intake & Output 05/04/18 05/05/18 05/05/18 18:59 06:59 18:59 Intake Total 620 / 620 Output Total 1999 Balance -1380 / -1380 Weight 87.8 kg Intake: Oral 620 / 620 Output: Hemodialysis Amount 1999 Other: # Voids 5 Date of Last Bowel Movement 05/03/18 05/05/18 05/05/18 # Bowel Movements 1 Narrative: GENERAL: no acute distress CARDIOVASCULAR: Regular rate and rhythm without murmurs, gallops, or rubs. RESPIRATORY: Breath sounds equal bilaterally. No accessory muscle use. GASTROINTESTINAL: Abdomen soft, non-tender, nondistended, positive bowel sounds. MUSCULOSKELETAL: No cyanosis, or edema. Neurological: alert and oriented x3 <BrandonFanybeulah - Last Filed: 05/05/18 13:10> Vital signs: Vital Signs 05/04/18 20:31 05/05/18 00:00 05/05/18 03:54 Temperature 98 F 98.6 F 98.7 F Pulse Rate 98 H 93 H 92 H Respiratory Rate 18 18 18 Blood Pressure 116/65 135/73 120/70 Pulse Oximetry 98 98 100 05/05/18 08:00 05/05/18 12:00 05/05/18 17:00 Temperature 98.3 F 98.4 F 98.6 F Pulse Rate 92 H 94 H 91 H Respiratory Rate 12 12 12 Blood Pressure 149/72 H 140/67 137/74 Pulse Oximetry 98 99 99 Intake & Output 05/05/18 05/05/18 05/06/18 06:59 18:59 06:59 Intake Total 620 / 620 720 / 720 Output Total 1999 1500 / 1500 Balance -1380 / -1380 -780 / -780 Weight 87.8 kg Intake: Oral 620 / 620 720 / 720 Output: Hemodialysis Amount 1999 1500 / 1500 Other: # Voids 5 2 Date of Last Bowel Movement 05/05/18 05/05/18 # Bowel Movements 1 <Zachary Uribe - Last Filed: 05/05/18 19:28> Assessment and Plan - Assessment (1) Acute on chronic renal failure Code(s): N17.9 - Acute kidney failure, unspecified; N18.9 - Chronic kidney disease, unspecified Status: Acute Plan: Patient has reached ESRD. She will need AVF at some point: awaiting abdominal surgery which is tomorrow. She is interested in PD, however, it is unclear if she can have PD: depends on findings of abdominal surgery. Patient had dialysis yesterday, 2 L removed. Patient is getting dialyzed today, switching to TTS schedule. Monitor fluid and electrolytes. Avoid nephrotoxic agents. (2) Ovarian mass, right Code(s): N83.9 - Noninflammatory disorder of ovary, fallopian tube and broad ligament, unspecified Status: Acute Plan: Right ovarian mass found on CT. s/p biopsy: neoplasm. General surgery consulted regarding metastatic malignancy. Surgery is planned for tomorrow. (3) DM (diabetes mellitus) Code(s): E11.9 - Type 2 diabetes mellitus without complications Status: Chronic Plan: Insulin coverage to maintain blood glucose levels between 140 and 180 while hospitalized. (4) HTN (hypertension) Code(s): I10 - Essential (primary) hypertension Status: Chronic Plan: Monitor BP. Patient on Amlodipine, Hydralazine, and Metoprolol. (5) Anemia Code(s): D64.9 - Anemia, unspecified Status: Acute Plan: Epogen with dialysis. (6) Metabolic bone disease Code(s): E88.9 - Metabolic disorder, unspecified; M90.80 - Osteopathy in diseases classified elsewhere, unspecified site Status: Acute Plan: Monitor phosphorus intermittently, patient on Renvela. <Andrew Taylor - Last Filed: 05/05/18 13:10> - Assessment (1) Acute on chronic renal failure Code(s): N17.9 - Acute kidney failure, unspecified; N18.9 - Chronic kidney disease, unspecified Status: Acute (2) Ovarian mass, right Code(s): N83.9 - Noninflammatory disorder of ovary, fallopian tube and broad ligament, unspecified Status: Acute (3) DM (diabetes mellitus) Code(s): E11.9 - Type 2 diabetes mellitus without complications Status: Chronic (4) HTN (hypertension) Code(s): I10 - Essential (primary) hypertension Status: Chronic (5) Anemia Code(s): D64.9 - Anemia, unspecified Status: Acute (6) Metabolic bone disease Code(s): E88.9 - Metabolic disorder, unspecified; M90.80 - Osteopathy in diseases classified elsewhere, unspecified site Status: Acute - Attending Attestation patient was seen and examined. Agree with above assessment and plan. <Zachary Uribe - Last Filed: 05/05/18 19:28>
[2018-05-05] MEDS: Latanoprost 0.005% Opth Drops 2.5 ML Bottle EACH EYE SCH (17:12)
[2018-05-05] MEDS: Insulin Detemir Inj 1,000 UNIT/10 ML Vial SQ SCH (21:39)
[2018-05-06 07:14] LABS: Baso # (Auto) 0.1 th/mm3 (0.0-0.2); Eos # (Auto) 0.1 th/mm3 (0.0-0.4); Eos % (Auto) 1.6 % (0.0-4.0); Hematocrit 29.5 % (35.0-46.0); Lymph # (Auto) 1.2 th/mm3 (1.0-4.8); Lymph % (Auto) 20.7 % (9.0-44.0); Mean Corpuscular HGB Conc 30.6 % (32.0-36.0); Mean Corpuscular Hemoglobin 26.6 pg (27.0-34.0); Mean Platelet Volume 9.7 fL (7.0-11.0); Mono # (Auto) 0.6 th/mm3 (0.0-0.9); Mono % (Auto) 10.9 % (0.0-8.0); Neut # (Auto) 3.9 th/mm3 (1.8-7.7); Neut % (Auto) 65.8 % (16.0-70.0); Platelet Count 198 th/mm3 (150-450); Red Blood Count 3.39 mil/mm3 (4.00-5.30); Red Cell Distribution Width 14.5 % (11.6-17.2); White Blood Count 5.9 th/mm3 (4.0-11.0)
[2018-05-06 07:37] LABS: Carbon Dioxide 31.4 meq/L (21.0-32.0); Potassium 4.1 meq/L (3.5-5.1)
[2018-05-06] MEDS: hydrALAZINE 50 MG Tablet PO SCH ×2 (08:37→12:56)
[2018-05-06] MEDS: Insulin NovoLOG Aspart Correctional Sugar Inj SQ SCH ×4 (08:37→22:12)
[2018-05-06] MEDS: Calcitriol 0.25 MCG Capsule PO SCH (08:38)
[2018-05-06] MEDS: amLODIPine 10 MG Tablet PO SCH (08:38)
[2018-05-06] MEDS: Vitamin B Complex/Vit C/Folic Tablet PO SCH (08:39)
[2018-05-06] MEDS: Senna/Docusate Sodium 8.6/50 MG Tablet PO SCH ×2 (08:39→21:07)
[2018-05-06] MEDS: Sodium Chloride 0.9% 2 ML Flush BID IV.FLUSH SCH ×2 (08:39→21:07)
--- NOTE | 2018-05-06 12:09 | P.PNIM ---
Subjective Interval history: Patient reports no nausea or vomiting. Tolerate food yesterday. N.p.o. today for surgical resection. No abdominal pain. Physical Exam Vital signs: Vital Signs 05/05/18 17:00 05/05/18 20:00 05/06/18 00:00 Temperature 98.6 F 98.3 F 98.6 F Pulse Rate 91 H 95 H 84 Respiratory Rate 12 20 20 Blood Pressure 137/74 145/72 H 141/71 H Pulse Oximetry 99 99 99 05/06/18 04:00 05/06/18 08:12 05/06/18 11:56 Temperature 98.5 F 98.5 F 98.4 F Pulse Rate 84 84 86 Respiratory Rate 20 16 18 Blood Pressure 140/78 134/72 131/69 Pulse Oximetry 98 98 100 Intake & Output 05/05/18 05/06/18 05/06/18 18:59 06:59 18:59 Intake Total 720 / 720 Output Total 1500 / 1500 Balance -780 / -780 Intake: Oral 720 / 720 Output: Hemodialysis Amount 1500 / 1500 Other: # Voids 2 Date of Last Bowel Movement 05/05/18 05/05/18 05/05/18 Narrative: GENERAL: sitting up in bed in no acute distress CARDIOVASCULAR: Regular rate and rhythm without murmurs, gallops, or rubs. RESPIRATORY: Breath sounds equal bilaterally. No accessory muscle use. GASTROINTESTINAL: Abdomen soft, non-tender, nondistended, positive bowel sounds. MUSCULOSKELETAL: No cyanosis, or edema. Neurological exam alert and oriented x3 Results Labs CBC & Chem 7: 05/06/18 05:55 05/06/18 05:55 Procedures Procedures: 04/22 CT-guided biopsy of intraperitoneal mesenteric mass with interventional radiology Assessment and Plan (1) Acute on chronic renal failure: Code(s): N17.9 - Acute kidney failure, unspecified; N18.9 - Chronic kidney disease, unspecified Status: Acute (2) Ovarian mass, right: Code(s): N83.9 - Noninflammatory disorder of ovary, fallopian tube and broad ligament, unspecified Status: Acute (3) DM (diabetes mellitus): Code(s): E11.9 - Type 2 diabetes mellitus without complications Status: Chronic (4) HTN (hypertension): Code(s): I10 - Essential (primary) hypertension Status: Chronic (5) Anemia: Code(s): D64.9 - Anemia, unspecified Status: Acute (6) Metabolic bone disease: Code(s): E88.9 - Metabolic disorder, unspecified; M90.80 - Osteopathy in diseases classified elsewhere, unspecified site Status: Acute Plan 42-year-old white female presents with intractable nausea and vomiting with poor p.o. intake Acute renal failure superimposed on chronic kidney disease stage IV, no baseline GFR for comparison and reports baseline creatinine of 3.May be due to dehydration and poor p.o. intake, however creatinine has not improved much with IV fluid hydration, Hemodialysis has been initiated with Vas-Cath placement; did undergo hemodialysis session yesterday May need future AV fistula placement per nephrology Right ovarian mass with mesenteric mass suspected ovarian malignancy with possible metastasisCA- 125 elevated 77. 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 Summers recommendations Status post CT-guided biopsy of mass 04/22 Biopsy results revealed smooth muscle with appearance of neoplasm, general surgery consulted appreciate further recommendations, scheduled for surgical intervention ex lap with radical resection of the intra-abdominal soft tissue mass today with Dr. Flood and Dr. Summers. Anemialikely of chronic kidney diseasehemoglobin stable 9.0, consider Epogen with Hb Hypertension, overall better controlled.IV hydralazine and labetalol. Restart home amlodipine and metoprolol. Continue scheduled hydralazine Continue to monitor blood pressure closely. [id number] diabetes mellitus, with underlying diabetic nephropathy hold home glipizide, blood sugar monitoring with sliding scale insulin. 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
--- NOTE | 2018-05-06 13:22 | P.PNNP ---
Subjective Interval history: Patient was seen, no distress, patient is looking forward to having surgery today so she can eat after. Patient gets dialysis TTS, was dialyzed yesterday, 1.5 L removed. <Andrew Taylor - Last Filed: 05/06/18 13:19> Physical Exam Vital signs: Vital Signs 05/05/18 17:00 05/05/18 20:00 05/06/18 00:00 Temperature 98.6 F 98.3 F 98.6 F Pulse Rate 91 H 95 H 84 Respiratory Rate 12 20 20 Blood Pressure 137/74 145/72 H 141/71 H Pulse Oximetry 99 99 99 05/06/18 04:00 05/06/18 08:12 05/06/18 11:56 Temperature 98.5 F 98.5 F 98.4 F Pulse Rate 84 84 86 Respiratory Rate 20 16 18 Blood Pressure 140/78 134/72 131/69 Pulse Oximetry 98 98 100 Intake & Output 05/05/18 05/06/18 05/06/18 18:59 06:59 18:59 Intake Total 720 / 720 Output Total 1500 / 1500 Balance -780 / -780 Intake: Oral 720 / 720 Output: Hemodialysis Amount 1500 / 1500 Other: # Voids 2 Date of Last Bowel Movement 05/05/18 05/05/18 05/05/18 Narrative: GENERAL: no acute distress CARDIOVASCULAR: Regular rate and rhythm without murmurs, gallops, or rubs. RESPIRATORY: Breath sounds equal bilaterally. No accessory muscle use. GASTROINTESTINAL: Abdomen soft, non-tender, nondistended, positive bowel sounds. MUSCULOSKELETAL: No cyanosis, or edema. Neurological: alert and oriented x3 <Agustin Taylorcristian - Last Filed: 05/06/18 13:19> Vital signs: Vital Signs 05/05/18 17:00 05/05/18 20:00 05/06/18 00:00 Temperature 98.6 F 98.3 F 98.6 F Pulse Rate 91 H 95 H 84 Respiratory Rate 12 20 20 Blood Pressure 137/74 145/72 H 141/71 H Pulse Oximetry 99 99 99 05/06/18 04:00 05/06/18 08:12 05/06/18 11:56 Temperature 98.5 F 98.5 F 98.4 F Pulse Rate 84 84 86 Respiratory Rate 20 16 18 Blood Pressure 140/78 134/72 131/69 Pulse Oximetry 98 98 100 Intake & Output 05/05/18 05/06/18 05/06/18 18:59 06:59 18:59 Intake Total 720 / 720 100 / 100 Output Total 1500 / 1500 Balance -780 / -780 100 / 100 Intake: IV 100 / 100 Ancef Inj 2,000 MG In NS Inj 100 / 100 100 ML @ 100 mls/hr IV.SIG ONCE ONE Rx#:[id number] Oral 720 / 720 Output: Hemodialysis Amount 1500 / 1500 Other: # Voids 2 Date of Last Bowel Movement 05/05/18 05/05/18 05/05/18 <Zachary Uribe - Last Filed: 05/06/18 16:19> Assessment and Plan - Assessment (1) Acute on chronic renal failure Code(s): N17.9 - Acute kidney failure, unspecified; N18.9 - Chronic kidney disease, unspecified Status: Acute Plan: Patient has reached ESRD. She will need AVF at some point: awaiting abdominal surgery which is today. She is interested in PD, however, it is unclear if she can have PD: depends on findings of abdominal surgery. Patient had dialysis yesterday, 1.5 L removed. Patient is TTS schedule now. Monitor fluid and electrolytes. Avoid nephrotoxic agents. (2) Ovarian mass, right Code(s): N83.9 - Noninflammatory disorder of ovary, fallopian tube and broad ligament, unspecified Status: Acute Plan: Right ovarian mass found on CT. s/p biopsy: neoplasm. General surgery consulted regarding metastatic malignancy. Surgery is planned for today. (3) DM (diabetes mellitus) Code(s): E11.9 - Type 2 diabetes mellitus without complications Status: Chronic Plan: Insulin coverage to maintain blood glucose levels between 140 and 180 while hospitalized. (4) HTN (hypertension) Code(s): I10 - Essential (primary) hypertension Status: Chronic Plan: Monitor BP. Patient on Amlodipine, Hydralazine, and Metoprolol. (5) Anemia Code(s): D64.9 - Anemia, unspecified Status: Acute Plan: Epogen with dialysis. (6) Metabolic bone disease Code(s): E88.9 - Metabolic disorder, unspecified; M90.80 - Osteopathy in diseases classified elsewhere, unspecified site Status: Acute Plan: Monitor phosphorus intermittently, patient on Renvela. <Andrew Taylor - Last Filed: 05/06/18 13:19> - Assessment (1) Acute on chronic renal failure Code(s): N17.9 - Acute kidney failure, unspecified; N18.9 - Chronic kidney disease, unspecified Status: Acute (2) Ovarian mass, right Code(s): N83.9 - Noninflammatory disorder of ovary, fallopian tube and broad ligament, unspecified Status: Acute (3) DM (diabetes mellitus) Code(s): E11.9 - Type 2 diabetes mellitus without complications Status: Chronic (4) HTN (hypertension) Code(s): I10 - Essential (primary) hypertension Status: Chronic (5) Anemia Code(s): D64.9 - Anemia, unspecified Status: Acute (6) Metabolic bone disease Code(s): E88.9 - Metabolic disorder, unspecified; M90.80 - Osteopathy in diseases classified elsewhere, unspecified site Status: Acute - Attending Attestation patient was seen and examined. Agree with above assessment and plan. <Zachary Uribe - Last Filed: 05/06/18 16:19>
[2018-05-06] MEDS ORDERED: Chlorhexidine Gluconate 2% 1 Pack (2 Cloths) TOPICAL SCH (13:27)
[2018-05-06] MEDS ORDERED: Metoprolol Tartrate 25 MG Tablet PO SCH (13:27)
[2018-05-06] MEDS ORDERED: Sodium Chlor 0.9% Inj 500 ML IV.SIG SCH (14:00)
[2018-05-06] MEDS ORDERED: Lidocaine PF 1% Inj 5 ML Syringe OTHER ONE (14:12)
[2018-05-06] MEDS ORDERED: Normosol-R pH 7.4 Inj 1,000 ML IV.CONT ONE (14:12)
[2018-05-06] MEDS ORDERED: Glycopyrrolate Inj 1 MG/5 ML Syringe IV.PUSH ONE (14:12)
[2018-05-06] MEDS ORDERED: Neostigmine Inj 5 MG/5 ML Syringe IV.PUSH ONE (14:12)
[2018-05-06] MEDS ORDERED: Phenylephrine/NS 1000 MCG/10ML Syringe IV.PUSH ONE (14:12)
--- NOTE | 2018-05-06 16:52 | P.DIET ---
Nutritional Evaluation Type of nutrition evaluation: follow-up Nutrition screening: [facility] [place] (Very Poor PO Intake) Objective - Diagnosis SIRS, Abd Pain, Vomitting, Acute Exacerb of CKD, Abd Mass - Objective % IBW: 136 (IBW = 145#) Body Weight Used for Calculations: IBW (65.9 kg) Energy Needs - Lower Range (kCal/kg): 28 Energy Needs - Upper Range (kCal/kg): 32 Lower Limit kCal/kg (kCals): 1,845 Upper Limit kCal/kg (kCals): 2,109 Lower Limit Protein Factor (Grams per Kg): 1.2 Upper Limit Protein Factor (Grams per Kg): 1.5 Lower Protein Needs (Protein): 79 Upper Protein Needs (Protein): 99 Dietitian Reviewed in Medical Record: Current diet, Curent medications, Intake & Output, Labs, Medical history Diet Order: NPO Objective Comments: Meds include Nephrocaps Assessment Assessment: Pt is npo today for resection of intra-abd soft tissue mass and TOMAS. Pt has had poor intake since admission d/t limited diet and GI symptoms. HD has been initiated. RD will continue to monitor po intake moving forward and assess for the need of supplements. Recommendations: Add 2000 ADA to diet order RD following Dietitian to Monitor: Lab values, Intake & Output, Weight change, PO Intake, Medical course
[2018-05-06] MEDS ORDERED: Naloxone Inj 0.4 MG/ML Vial IV.PUSH PRN (16:55)
[2018-05-06] MEDS ORDERED: Morphine Sulfate Inj 2 MG/ML Vial IV.PUSH PRN (16:58)
[2018-05-06] MEDS ORDERED: fentaNYL Citrate Inj 100 MCG/2 ML Ampul ONE (17:23)
[2018-05-06] MEDS ORDERED: *Ondansetron Inj 4 MG/2 ML Vial PERIprocedural Use ONLY ONE (17:37)
[2018-05-06 18:12] LABS: Baso % (Auto) 0.4 % (0.0-2.0); Eos % (Auto) 0.3 % (0.0-4.0); Hematocrit 30.9 % (35.0-46.0); Hemoglobin 10.2 gm/dL (11.6-15.3); Lymph # (Auto) 0.5 th/mm3 (1.0-4.8); Lymph % (Auto) 6.2 % (9.0-44.0); Mean Corpuscular HGB Conc 33.2 % (32.0-36.0); Mean Corpuscular Hemoglobin 27.6 pg (27.0-34.0); Mean Corpuscular Volume 83.1 fL (80.0-100.0); Mean Platelet Volume 9.2 fL (7.0-11.0); Mono # (Auto) 0.2 th/mm3 (0.0-0.9); Mono % (Auto) 2.1 % (0.0-8.0); Neut # (Auto) 7.6 th/mm3 (1.8-7.7); Platelet Count 248 th/mm3 (150-450); Red Blood Count 3.71 mil/mm3 (4.00-5.30); Red Cell Distribution Width 14.2 % (11.6-17.2); White Blood Count 8.4 th/mm3 (4.0-11.0)
[2018-05-06 18:21] LABS: Calcium 8.1 mg/dL (8.5-10.1); Carbon Dioxide 26.8 meq/L (21.0-32.0); Potassium 4.5 meq/L (3.5-5.1)
[2018-05-06] MEDS: Insulin Detemir Inj 1,000 UNIT/10 ML Vial SQ SCH (22:12)
--- NOTE | 2018-05-06 23:23 | MP ---
cc: Randolph Flood MD DATE OF OPERATION: 05/06/2018 PREOPERATIVE DIAGNOSIS: Intra-abdominal mass. 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 PROCEDURES: 1. Exploratory laparotomy. 2. Excisional biopsy of a uterine muscle tumor with intraoperative frozen section. 3. Bilateral salpingo-oophorectomy and total abdominal hysterectomy. 4. Incidental appendectomy. 5. Placement of anti-adhesion barrier (Seprafilm). ATTENDING SURGEON: Dr. Randolph Flood MD. CO-SURGEON: Dr. Chely Summers MD. ESTIMATED BLOOD LOSS: 250 mL. COMPLICATIONS: None. FINDINGS: 1. Multiple large intra-abdominal masses associated with enlarged uterus consistent with uterine soft tissue tumors. 2. Frozen section showing uterine soft tissue muscle tumor, likely benign. 3. Exploratory laparotomy with no intra-abdominal pathology. INDICATIONS FOR PROCEDURE: The patient is a 42-year-old female with a history of diabetes and end-stage renal disease, who developed abdominal pain. CT scan did show a large intra-abdominal mass concerning for malignancy. The patient underwent a biopsy, which had returned smooth muscle type tumor; however, this was indeterminate for source or malignancy. The patient was seen by gynecology oncology as well as surgical oncology. A combined approach was planned, as it was unknown of the etiology of the tumors. We discussed the possible surgery options with the patient, including outcomes, including bilateral salpingo-oophorectomy and hysterectomy. We discussed sterility, and the patient stated that she would not want to retain her ability to have children, as she was medically ill and needed to take care of her health. DESCRIPTION OF PROCEDURE: After informed consent was obtained, the patient was taken to the operating room and placed in a supine position, placed under general endotracheal anesthesia. The patient was then placed in the arms-out and lithotomy position. The patient's abdomen was prepped and draped in a sterile fashion. Timeout was performed. A lower midline incision was made from the pubis to just above the umbilicus. This was done with a scalpel. We used the Bovie electrocautery to dissect the subcutaneous tissue and opened the fascia for the full length of the incision. We were greeted with multiple large intra-abdominal tumors. On initial exploration, there appeared to be no evidence of any metastatic disease. There was no evidence of any intra-abdominal pathology other than the multiple large tumors. These tumors appeared to be associated with the uterus. At this point in time, Dr. Chely Summers did enter the room as a co-surgeon to perform further resections of these tumors and of the possible hysterectomy. We placed a Bookwalter retractor. We did remove 2 large uterine-associated tumors that were rather pedunculated onto a small stalk. These were both removed using Chely clamps and 2-0 Vicryl suture ligatures to remove them from the uterus. One of these was sent down for frozen section and on intraoperative consultation by pathology, they were found to be likely benign fibroids. At this point in time, due to the patient's symptomatology and our intraoperative findings, it was felt it was in the patient's best interest to proceed with a bilateral salpingo-oophorectomy. Dr. Summers concurred. We did perform the bilateral salpingo-oophorectomy and total abdominal hysterectomy, and please see Dr. Chely Summers's note, as he was the lead surgeon for this portion of the procedure and I was assisting. Dr. Chely Summers was a co-surgeon, as the proper care of this patient required 2 surgeons of different surgical expertise. General surgery and surgical oncology, as well as gynecology oncology worked together to safely remove the patient's abdominal tumors and perform hysterectomy. After the hysterectomy was performed and the abdomen was very thoroughly irrigated with sterile saline to all suction, it was clear. The patient did have a long redundant appendix that did lay naturally down into the pelvis, and this was concerning, as if the patient did develop appendicitis, this would be extremely morbid to undergo treatment for this. Therefore, I felt it was in the patient's best interest to perform incidental appendectomy. I made a window at the base of the appendiceal mesentery, with the right angle. We doubly clamped the appendix at its base and divided it with Metzenbaum scissors. We clamped and tied the appendiceal mesentery with silk sutures. We then placed a single silk tie on the base of the appendix at this point into the cecum with a 3-0 silk suture. The clamp was removed. We placed a Z stitch to imbricate the appendiceal stump. The appendix was passed off for permanent processing. At this point in time, we ensured small bowel and colon lay in anatomic position. We placed the omentum back over the midline. We placed 2 pieces of Seprafilm over the omentum to the abdominal wall. Anti-adhesion barrier was indicated that the patient was on dialysis and possibly would need peritoneal dialysis in the future. We then turned our attention towards closure, and closed the fascia with a single running looped PDS suture. The skin was closed with rikki and the patient was discontinued from anesthesia and taken to PACU in stable condition, having tolerated the procedure well. There were no apparent complications. I was present and scrubbed for all the above procedures. Dr. Summers, co-surgeon, was present and scrubbed for all the above procedures. All counts were reported as correct. Randolph Flood MD AWG/eb/do , 10:29 PM , 10:45 PM MEÑO
[2018-05-07 07:04] LABS: Baso % (Auto) 0.3 % (0.0-2.0); Hematocrit 31.8 % (35.0-46.0); Lymph # (Auto) 0.7 th/mm3 (1.0-4.8); Lymph % (Auto) 5.5 % (9.0-44.0); Mean Corpuscular HGB Conc 31.4 % (32.0-36.0); Mean Corpuscular Hemoglobin 26.2 pg (27.0-34.0); Mean Corpuscular Volume 83.6 fL (80.0-100.0); Mono # (Auto) 0.8 th/mm3 (0.0-0.9); Mono % (Auto) 6.8 % (0.0-8.0); Neut # (Auto) 10.5 th/mm3 (1.8-7.7); Neut % (Auto) 87.4 % (16.0-70.0); Platelet Count 283 th/mm3 (150-450); Red Blood Count 3.81 mil/mm3 (4.00-5.30); Red Cell Distribution Width 13.8 % (11.6-17.2); White Blood Count 12.1 th/mm3 (4.0-11.0)
[2018-05-07 07:35] LABS: Calcium 8.5 mg/dL (8.5-10.1); Carbon Dioxide 27.1 meq/L (21.0-32.0); Potassium 5.3 meq/L (3.5-5.1)
[2018-05-07] MEDS: Calcitriol 0.25 MCG Capsule PO SCH (08:40)
[2018-05-07] MEDS: amLODIPine 10 MG Tablet PO SCH (08:40)
[2018-05-07] MEDS: hydrALAZINE 50 MG Tablet PO SCH ×4 (08:40→21:30)
[2018-05-07] MEDS: Senna/Docusate Sodium 8.6/50 MG Tablet PO SCH ×2 (08:41→21:32)
[2018-05-07] MEDS: Vitamin B Complex/Vit C/Folic Tablet PO SCH (08:41)
[2018-05-07] MEDS: Sodium Chloride 0.9% 2 ML Flush BID IV.FLUSH SCH ×2 (08:46→21:33)
[2018-05-07] MEDS: Insulin NovoLOG Aspart Correctional Sugar Inj SQ SCH ×4 (08:47→21:32)
--- NOTE | 2018-05-07 09:54 | P.PNNP ---
Subjective Interval history: Patient is seen during hemodialysis tolerating it well complaining of pain at operative site Physical Exam Vital signs: Vital Signs 05/06/18 11:56 05/06/18 17:12 05/06/18 17:15 Temperature 98.4 F 98.2 F Pulse Rate 86 82 79 Respiratory Rate 18 15 15 Blood Pressure 131/69 129/71 140/87 Pulse Oximetry 100 100 100 05/06/18 17:30 05/06/18 17:45 05/06/18 18:15 Temperature 98.0 F Pulse Rate 61 84 79 Respiratory Rate 17 12 13 Blood Pressure 133/71 137/69 130/65 Pulse Oximetry 100 100 100 05/06/18 18:39 05/06/18 20:00 05/06/18 20:10 Temperature 97.7 F Pulse Rate 93 H Respiratory Rate 16 16 Blood Pressure 126/56 L Pulse Oximetry 100 100 05/06/18 23:39 05/07/18 03:58 05/07/18 08:00 Temperature 98.5 F 98 F 99.6 F Pulse Rate 113 H 85 107 H Respiratory Rate 18 18 16 Blood Pressure 134/63 131/67 155/72 H Pulse Oximetry 99 100 99 Intake & Output 05/06/18 05/07/18 05/07/18 18:59 06:59 18:59 Intake Total 900 / 900 720 / 720 Output Total 275 / 275 600 / 600 Balance 625 / 625 120 / 120 Weight 84.8 kg Intake: IV 100 / 100 Ancef Inj 2,000 MG In NS Inj 100 / 100 100 ML @ 100 mls/hr IV.SIG ONCE ONE Rx#:[id number] Oral 720 / 720 Anesthesia Amount 800 / 800 Output: Emesis 250 / 250 Estimated Blood Loss 250 / 250 Urine Amount (Catheter) 25 / 25 350 / 350 Indwelling Urethral Catheter 25 / 350 / 350 Other: Date of Last Bowel Movement 05/05/18 05/05/18 05/05/18 Narrative: GENERAL: no acute distress CARDIOVASCULAR: Regular rate and rhythm without murmurs, gallops, or rubs. RESPIRATORY: Breath sounds equal bilaterally. No accessory muscle use. GASTROINTESTINAL: Abdomen postsurgical dressing and vacuum dressing in place tenderness around incision MUSCULOSKELETAL: No cyanosis, or edema. Neurological: alert and oriented x3 - Urinary Catheter Management Indwelling Urethral Catheter Cath placed during this visit: no Reason for continuing: Hourly intake/output Assessment and Plan - Assessment (1) Acute on chronic renal failure Code(s): N17.9 - Acute kidney failure, unspecified; N18.9 - Chronic kidney disease, unspecified Status: Acute Plan: Patient has reached ESRD. She will need AVF at some point: Patient has abdominal surgery removal of fibroid tumor and complete hysterectomy with bilateral salpingo-oophorectomy yesterday. Patient patient is seen during hemodialysis ultrafiltration of 2 L tolerating it well. Patient is TTS schedule now. Monitor fluid and electrolytes. Avoid nephrotoxic agents. (2) Ovarian mass, right Code(s): N83.9 - Noninflammatory disorder of ovary, fallopian tube and broad ligament, unspecified Status: Acute Plan: Right ovarian mass found on CT. s/p biopsy: Likely neoplasm. General surgery consulted regarding metastatic malignancy. Surgery is done yesterday (3) DM (diabetes mellitus) Code(s): E11.9 - Type 2 diabetes mellitus without complications Status: Chronic Plan: Insulin coverage to maintain blood glucose levels between 140 and 180 while hospitalized. (4) HTN (hypertension) Code(s): I10 - Essential (primary) hypertension Status: Chronic Plan: Monitor BP. Patient on Amlodipine, Hydralazine, and Metoprolol. (5) Anemia Code(s): D64.9 - Anemia, unspecified Status: Acute Plan: Epogen with dialysis. (6) Metabolic bone disease Code(s): E88.9 - Metabolic disorder, unspecified; M90.80 - Osteopathy in diseases classified elsewhere, unspecified site Status: Acute Plan: Monitor phosphorus intermittently, patient on Renvela.
--- NOTE | 2018-05-07 10:57 | P.PNIM ---
Subjective Interval history: in no acute distress. having her HD today. has on and off nausea. otherwise looks fairly comfortable. no fever. Physical Exam Vital signs: Vital Signs 05/06/18 11:56 05/06/18 17:12 05/06/18 17:15 Temperature 98.4 F 98.2 F Pulse Rate 86 82 79 Respiratory Rate 18 15 15 Blood Pressure 131/69 129/71 140/87 Pulse Oximetry 100 100 100 05/06/18 17:30 05/06/18 17:45 05/06/18 18:15 Temperature 98.0 F Pulse Rate 61 84 79 Respiratory Rate 17 12 13 Blood Pressure 133/71 137/69 130/65 Pulse Oximetry 100 100 100 05/06/18 18:39 05/06/18 20:00 05/06/18 20:10 Temperature 97.7 F Pulse Rate 93 H Respiratory Rate 16 16 Blood Pressure 126/56 L Pulse Oximetry 100 100 05/06/18 23:39 05/07/18 03:58 05/07/18 08:00 Temperature 98.5 F 98 F 99.6 F Pulse Rate 113 H 85 107 H Respiratory Rate 18 18 16 Blood Pressure 134/63 131/67 155/72 H Pulse Oximetry 99 100 99 Intake & Output 05/06/18 05/07/18 05/07/18 18:59 06:59 18:59 Intake Total 900 / 900 720 / 720 Output Total 275 / 275 600 / 600 Balance 625 / 625 120 / 120 Weight 84.8 kg Intake: IV 100 / 100 Ancef Inj 2,000 MG In NS Inj 100 / 100 100 ML @ 100 mls/hr IV.SIG ONCE ONE Rx#:[id number] Oral 720 / 720 Anesthesia Amount 800 / 800 Output: Emesis 250 / 250 Estimated Blood Loss 250 / 250 Urine Amount (Catheter) 25 / 25 350 / 350 Indwelling Urethral Catheter 25 / 25 350 / 350 Other: Date of Last Bowel Movement 05/05/18 05/05/18 05/05/18 Constitutional no acute distress Routine Respiratory Exam Present CTA bilaterally Routine Cardiovascular Exam Present RRR Routine Abdominal Exam Present soft Routine Extremities Exam Comments: no pedal edema. Routine Neurological Exam Present alert and oriented X3 Urinary Catheter Management Indwelling Urethral Catheter: Cath placed during this visit: no Reason for continuing: Hourly intake/output Results Labs CBC & Chem 7: 05/07/18 06:13 05/07/18 06:45 Procedures Procedures: 04/22 CT-guided biopsy of intraperitoneal mesenteric mass with interventional radiology Assessment and Plan (1) Acute on chronic renal failure: Code(s): N17.9 - Acute kidney failure, unspecified; N18.9 - Chronic kidney disease, unspecified Status: Acute (2) Ovarian mass, right: Code(s): N83.9 - Noninflammatory disorder of ovary, fallopian tube and broad ligament, unspecified Status: Acute (3) DM (diabetes mellitus): Code(s): E11.9 - Type 2 diabetes mellitus without complications Status: Chronic (4) HTN (hypertension): Code(s): I10 - Essential (primary) hypertension Status: Chronic (5) Anemia: Code(s): D64.9 - Anemia, unspecified Status: Acute (6) Metabolic bone disease: Code(s): E88.9 - Metabolic disorder, unspecified; M90.80 - Osteopathy in diseases classified elsewhere, unspecified site Status: Acute Plan A/P Acute renal failure superimposed on chronic kidney disease stage IV, no baseline GFR for comparison and reports baseline creatinine of 3.May be due to dehydration and poor p.o. intake, however creatinine has not improved much with IV fluid hydration, Hemodialysis has been initiated with Vas-Cath placement;HD today. 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 Summers recommendations Status post CT-guided biopsy of mass 04/22 Biopsy results revealed smooth muscle with appearance of neoplasm, s/p Exploratory laparotomy, Excisional biopsy of a uterine muscle tumor with intraoperative frozen section, Bilateral salpingo-oophorectomy and total abdominal hysterectomy and incidental appendectomy management per surgery. Anemialikely of chronic kidney diseasehemoglobin stable 9.0, consider Epogen with Hb Hypertension, Restarted home amlodipine and metoprolol. Continue scheduled hydralazine Continue to monitor blood pressure closely. [id number] diabetes mellitus, with underlying diabetic nephropathy hold home glipizide, blood sugar monitoring with sliding scale insulin. now better controlled with addition of Levemir 10 units subcu nightly, Hypernatremia improved/ resolved Nausea and vomiting likely due to mesenteric masssupportive care, antiemetics. DVT prophylaxisSCDs, heparin subcu will be resumed when ok with surgery. 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
--- NOTE | 2018-05-07 11:32 | P.PN ---
Subjective Interval history: attempted to see patient, now POD#1 presently off of the padilla, probably at dialysis Physical Exam Vital signs: Vital Signs 05/06/18 11:56 05/06/18 17:12 05/06/18 17:15 Temperature 98.4 F 98.2 F Pulse Rate 86 82 79 Respiratory Rate 18 15 15 Blood Pressure 131/69 129/71 140/87 Pulse Oximetry 100 100 100 05/06/18 17:30 05/06/18 17:45 05/06/18 18:15 Temperature 98.0 F Pulse Rate 61 84 79 Respiratory Rate 17 12 13 Blood Pressure 133/71 137/69 130/65 Pulse Oximetry 100 100 100 05/06/18 18:39 05/06/18 20:00 05/06/18 20:10 Temperature 97.7 F Pulse Rate 93 H Respiratory Rate 16 16 Blood Pressure 126/56 L Pulse Oximetry 100 100 05/06/18 23:39 05/07/18 03:58 05/07/18 08:00 Temperature 98.5 F 98 F 99.6 F Pulse Rate 113 H 85 107 H Respiratory Rate 18 18 16 Blood Pressure 134/63 131/67 155/72 H Pulse Oximetry 99 100 99 Intake & Output 05/06/18 05/07/18 05/07/18 18:59 06:59 18:59 Intake Total 900 / 900 720 / 720 Output Total 275 / 275 600 / 600 Balance 625 / 625 120 / 120 Weight 84.8 kg Intake: IV 100 / 100 Ancef Inj 2,000 MG In NS Inj 100 / 100 100 ML @ 100 mls/hr IV.SIG ONCE ONE Rx#:[id number] Oral 720 / 720 Anesthesia Amount 800 / 800 Output: Emesis 250 / 250 Estimated Blood Loss 250 / 250 Urine Amount (Catheter) 25 / 25 350 / 350 Indwelling Urethral Catheter 25 / 25 350 / 350 Other: Date of Last Bowel Movement 05/05/18 05/05/18 05/05/18 - Urinary Catheter Management Indwelling Urethral Catheter Cath placed during this visit: no Reason for continuing: Hourly intake/output Results - Labs CBC & Chem 7: 05/07/18 06:13 05/07/18 06:45 Laboratory Results - last 24 hr 05/06/18 05/06/18 05/06/18 11:59 13:45 17:29 WBC RBC Hgb Hct MCV MCH MCHC RDW Plt Count MPV Neut % (Auto) Lymph % (Auto) Pierce % (Auto) Eos % (Auto) Baso % (Auto) Neut # (Auto) Lymph # (Auto) Pierce # (Auto) Eos # (Auto) Baso # (Auto) WBC Differential Differential Comment Sodium Potassium Chloride Carbon Dioxide Anion Gap BUN Creatinine Estimated GFR POC Glucose 105 159 H Random Glucose Calcium Blood Type O Positive Blood Type Recheck Not needed Antibody Screen Negative MTS Gel Crossmatch See Detail 05/06/18 05/06/18 05/06/18 17:33 17:33 21:24 WBC 8.4 RBC 3.71 L Hgb 10.2 L Hct 30.9 L MCV 83.1 D MCH 27.6 MCHC 33.2 RDW 14.2 Plt Count 248 MPV 9.2 Neut % (Auto) 91.0 H Lymph % (Auto) 6.2 L Pierce % (Auto) 2.1 Eos % (Auto) 0.3 Baso % (Auto) 0.4 Neut # (Auto) 7.6 Lymph # (Auto) 0.5 L Pierce # (Auto) 0.2 Eos # (Auto) 0.0 Baso # (Auto) 0.0 WBC Differential . Differential Comment Auto diff final Sodium 138 Potassium 4.5 Chloride 101 Carbon Dioxide 26.8 Anion Gap 10 BUN 23 H Creatinine 4.30 H Estimated GFR 14 L POC Glucose 213 H Random Glucose 186 H Calcium 8.1 L Blood Type Blood Type Recheck Antibody Screen MTS Gel Crossmatch 05/07/18 05/07/18 05/07/18 06:13 06:45 07:51 WBC 12.1 H RBC 3.81 L Hgb 10.0 L Hct 31.8 L MCV 83.6 MCH 26.2 L MCHC 31.4 L RDW 13.8 Plt Count 283 MPV 9.0 Neut % (Auto) 87.4 H Lymph % (Auto) 5.5 L Pierce % (Auto) 6.8 Eos % (Auto) 0.0 Baso % (Auto) 0.3 Neut # (Auto) 10.5 H Lymph # (Auto) 0.7 L Pierce # (Auto) 0.8 Eos # (Auto) 0.0 Baso # (Auto) 0.0 WBC Differential . Differential Comment Auto diff final Sodium 136 Potassium 5.3 H D Chloride 100 Carbon Dioxide 27.1 Anion Gap 9 BUN 33 H Creatinine 5.48 H Estimated GFR 10 L POC Glucose 180 H Random Glucose 207 H Calcium 8.5 Blood Type Blood Type Recheck Antibody Screen MTS Gel Crossmatch 05/07/18 11:15 WBC RBC Hgb Hct MCV MCH MCHC RDW Plt Count MPV Neut % (Auto) Lymph % (Auto) Pierce % (Auto) Eos % (Auto) Baso % (Auto) Neut # (Auto) Lymph # (Auto) Pierce # (Auto) Eos # (Auto) Baso # (Auto) WBC Differential Differential Comment Sodium Potassium Chloride Carbon Dioxide Anion Gap BUN Creatinine Estimated GFR POC Glucose 123 H Random Glucose Calcium Blood Type Blood Type Recheck Antibody Screen MTS Gel Crossmatch - Procedures 04/22 CT-guided biopsy of intraperitoneal mesenteric mass with interventional radiology Assessment and Plan - Assessment (1) Mesenteric mass Code(s): K63.9 - Disease of intestine, unspecified Status: Acute - Plan pod#1 objective data reviewed intraoperative findings, steps taken, preliminary path will be reviewed during our next encounter cpm
[2018-05-07] MEDS: Latanoprost 0.005% Opth Drops 2.5 ML Bottle EACH EYE SCH ×2 (17:48→21:30)
[2018-05-07] MEDS: Insulin Detemir Inj 1,000 UNIT/10 ML Vial SQ SCH (21:32)
[2018-05-08] MEDS: Sodium Chloride 0.9% 2 ML Flush BID IV.FLUSH SCH ×2 (08:10→21:30)
[2018-05-08] MEDS: Insulin NovoLOG Aspart Correctional Sugar Inj SQ SCH ×4 (08:10→21:31)
[2018-05-08] MEDS: Vitamin B Complex/Vit C/Folic Tablet PO SCH (08:49)
[2018-05-08] MEDS: Senna/Docusate Sodium 8.6/50 MG Tablet PO SCH ×2 (08:49→21:30)
[2018-05-08] MEDS: Calcitriol 0.25 MCG Capsule PO SCH (08:49)
[2018-05-08] MEDS: amLODIPine 10 MG Tablet PO SCH (08:49)
[2018-05-08] MEDS: hydrALAZINE 50 MG Tablet PO SCH ×3 (08:49→18:05)
--- NOTE | 2018-05-08 09:18 | P.PNIM ---
Subjective Interval history: in no acute distress. looks fairly comfortable. pain is controlled but has some on and off nausea. Physical Exam Vital signs: Vital Signs 05/07/18 16:00 05/07/18 20:00 05/08/18 00:00 Temperature 99.0 F 97.4 F L 98.1 F Pulse Rate 105 H 103 H 103 H Respiratory Rate 18 18 20 Blood Pressure 108/56 L 123/60 166/87 H Pulse Oximetry 95 96 05/08/18 04:00 Temperature 97.9 F Pulse Rate 95 H Respiratory Rate 18 Blood Pressure 166/76 H Pulse Oximetry 98 Intake & Output 05/07/18 05/08/18 05/08/18 18:59 06:59 18:59 Output Total 1500 / 1500 Balance -1500 / -1500 Output: Hemodialysis Amount 1500 / 1500 Other: Date of Last Bowel Movement 05/05/18 05/05/18 Constitutional no acute distress Routine Respiratory Exam Present CTA bilaterally Routine Cardiovascular Exam Present RRR Routine Abdominal Exam Present soft Routine Extremities Exam Comments: no pedal edema. Routine Neurological Exam Present alert and oriented X3 Urinary Catheter Management Indwelling Urethral Catheter: Cath placed during this visit: no Reason for continuing: Not indwelling catheter Results Labs CBC & Chem 7: 05/07/18 06:13 05/07/18 06:45 Procedures Procedures: 04/22 CT-guided biopsy of intraperitoneal mesenteric mass with interventional radiology Assessment and Plan (1) Mesenteric mass: Code(s): K63.9 - Disease of intestine, unspecified Status: Acute Plan A/P Acute renal failure superimposed on chronic kidney disease stage IV, no baseline GFR for comparison and reports baseline creatinine of 3.May be due to dehydration and poor p.o. intake, however creatinine has not improved much with IV fluid hydration, Hemodialysis has been initiated with Vas-Cath placement;HD per nephrology. 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 Appreciate [facility] oncology, Dr. 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 Anemialikely of chronic kidney diseaseconsider Epogen with Hb Hypertension, Restarted home amlodipine and metoprolol. Continue scheduled hydralazine Continue to monitor blood pressure closely. [id number] diabetes mellitus, with underlying diabetic nephropathy hold home glipizide, blood sugar monitoring with sliding scale insulin. now better controlled with addition of Levemir 10 units subcu nightly, Hypernatremia improved/ resolved Nausea and vomitingsupportive care, antiemetics. DVT prophylaxisSCDs, heparin subcu will be resumed when ok with surgery. Progress Note: Quality VTE Deep Vein Thrombosis/Pulmonary Embolism Present on Admission: No
--- NOTE | 2018-05-08 14:56 | P.PNGS ---
Subjective Patient reports: no new complaints, still having pain Interval history: At my header DAILY PROGRESS NOTE FOR SURGICAL ATTENDING, DR. ALISA JOSEPH Tried some clear liquids but vomited no flatus Physical Exam Vital signs: Vital Signs 05/07/18 16:00 05/07/18 20:00 05/08/18 00:00 Temperature 99.0 F 97.4 F L 98.1 F Pulse Rate 105 H 103 H 103 H Respiratory Rate 18 18 20 Blood Pressure 108/56 L 123/60 166/87 H Pulse Oximetry 95 96 05/08/18 04:00 05/08/18 08:00 05/08/18 12:00 Temperature 97.9 F 98.8 F 98.0 F Pulse Rate 95 H 99 H 97 H Respiratory Rate 18 20 19 Blood Pressure 166/76 H 156/77 H 157/81 H Pulse Oximetry 98 97 97 Intake & Output 05/07/18 05/08/18 05/08/18 18:59 06:59 18:59 Output Total 1500 / 1500 Balance -1500 / -1500 Output: Hemodialysis Amount 1500 / 1500 Other: Date of Last Bowel Movement 05/05/18 05/05/18 05/05/18 Narrative: Alert oriented Pain under control Says she feels nauseated Abdomen soft postsurgical Lisa dressing intact - Urinary Catheter Management Indwelling Urethral Catheter Cath placed during this visit: no Reason for continuing: Not indwelling catheter Results - Labs 05/07/18 06:13 05/07/18 06:45 Laboratory Results - last 24 hr 05/07/18 05/07/18 05/08/18 17:13 20:31 07:51 POC Glucose 145 H 207 H 155 H 05/08/18 11:50 POC Glucose 144 H - Imaging Imaging: ITS Impressions Pelvis Ultrasound 04/21/18 00:00 CONCLUSION: 1. Limited examination due to patient's body habitus and decline of transvaginal exam. 2. The right adnexal mass noted on CT exam does appear to correspond to the right ovary measuring 9.7 x 11.6 x 8.1 cm. 3. Uterus is not completely visualized and therefore the midline pelvic mass cannot be definitively excluded from the uterus although again this appears separate on CT exam. 4. 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 Correlation with tumor markers and clinical history is recommended. Further evaluation may be performed with MRI examination of the pelvis if there is continued clinical uncertainty following gynecological consultation. Abdomen/Pelvis CT 04/21/18 20:25 CONCLUSION: 1. Bulky large soft tissue density mesenteric masses with the largest measuring 14.7 x 7.5 x 8.5 cm. A second dominant mesenteric mass extends to the right adnexa. Differential considerations include ovarian malignancy with mesenteric metastases, GIST, mesenteric fibromatosis, and mesenteric adenopathy amongst other etiologies. Ultrasound examination of the pelvis may be performed to exclude right ovarian mass. Abdomen Biopsy CT 04/22/18 00:00 CONCLUSION: 1. Uncomplicated CT guided biopsy. Central Venous Line 04/25/18 18:46 CONCLUSION: 1. Uncomplicated PermaCath placement as above. Assessment and Plan - Assessment (1) Abdominal mass Code(s): R19.00 - Intra-abdominal and pelvic swelling, mass and lump, unspecified site Status: Acute - Plan Postop resection of abdominal tumor I told her not to drink anymore with her nausea Increasing activities Keep n.p.o. Will need NG tube if continues to vomit - Attending Attestation NOTE FOR SURGICAL ATTENDING, DR. ALISA JOSEPH I attest that I had a [id number] encounter with the patient on the same day, and personally performed and documented my assessment and findings in the medical record. The following services were provided during this hospital visit: Chart data review, vital sign assessments/reviewing monitor data Review of consultations notes if present. Medication orders/review and/or management Ordering and/or reviewing lab tests Ordering and/or interpreting/reviewing x-rays and/or diagnostic studies Care of the patient and discussion of the patient with the care team Documentation time To help prompt me to consider important information that might be impacting today's encounter and assessment, Information from prior notes written by myself or my colleagues may have been "brought forward/copy and pasted" into today's note.
--- NOTE | 2018-05-08 15:18 | P.PNNP ---
Subjective Interval history: Patient is resting comfortably in bed, sleeping. She had vomiting today with breakfast, not passing any flatus. She is now n.p.o. Per general surgery now if continues to vomit will need NG tube. <Yohana Cochran - Last Filed: 05/08/18 15:05> Physical Exam Vital signs: Vital Signs 05/07/18 16:00 05/07/18 20:00 05/08/18 00:00 Temperature 99.0 F 97.4 F L 98.1 F Pulse Rate 105 H 103 H 103 H Respiratory Rate 18 18 20 Blood Pressure 108/56 L 123/60 166/87 H Pulse Oximetry 95 96 05/08/18 04:00 05/08/18 08:00 05/08/18 12:00 Temperature 97.9 F 98.8 F 98.0 F Pulse Rate 95 H 99 H 97 H Respiratory Rate 18 20 19 Blood Pressure 166/76 H 156/77 H 157/81 H Pulse Oximetry 98 97 97 Intake & Output 05/07/18 05/08/18 05/08/18 18:59 06:59 18:59 Output Total 1500 / 1500 Balance -1500 / -1500 Output: Hemodialysis Amount 1500 / 1500 Other: Date of Last Bowel Movement 05/05/18 05/05/18 05/05/18 Narrative: GENERAL: Appears to be in no acute distress. Resting comfortably. SKIN: Warm and dry, intact, No lesions seen. Midline abdominal dressing seen. HEAD: Normocephalic. EYES: No scleral icterus. No injection or drainage. Pupils are equal and reactive to light. NECK: Supple, trachea midline. No JVD or lymphadenopathy. CARDIOVASCULAR: Regular rate and rhythm without murmurs, gallops, or rubs. RESPIRATORY: Breath sounds equal bilaterally. No accessory muscle use. Breath sounds are clear bilaterally to auscultation. GASTROINTESTINAL: Abdomen soft, non-tender, nondistended. Hypoactive bowel sounds BACK: Nontender without obvious deformity. No CVA tenderness. - Urinary Catheter Management Indwelling Urethral Catheter Cath placed during this visit: no Reason for continuing: Not indwelling catheter <Yohana Cochran - Last Filed: 05/08/18 15:05> Vital signs: Vital Signs 05/07/18 20:00 05/08/18 00:00 05/08/18 04:00 Temperature 97.4 F L 98.1 F 97.9 F Pulse Rate 103 H 103 H 95 H Respiratory Rate 18 20 18 Blood Pressure 123/60 166/87 H 166/76 H Pulse Oximetry 96 98 05/08/18 08:00 05/08/18 12:00 Temperature 98.8 F 98.0 F Pulse Rate 99 H 97 H Respiratory Rate 20 19 Blood Pressure 156/77 H 157/81 H Pulse Oximetry 97 97 Intake & Output 05/07/18 05/08/18 05/08/18 18:59 06:59 18:59 Output Total 1500 / 1500 Balance -1500 / -1500 Output: Hemodialysis Amount 1500 / 1500 Other: Date of Last Bowel Movement 05/05/18 05/05/18 05/05/18 - Urinary Catheter Management Indwelling Urethral Catheter Cath placed during this visit: no <Keli Henson - Last Filed: 05/08/18 16:51> Assessment and Plan - Assessment (1) Acute on chronic renal failure Code(s): N17.9 - Acute kidney failure, unspecified; N18.9 - Chronic kidney disease, unspecified Status: Acute Plan: Patient has reached ESRD. She will need AVF at some point: Patient has abdominal surgery removal of fibroid tumor and complete hysterectomy with bilateral salpingo-oophorectomy yesterday. Hemodialysis yesterday, 1.5 L removed. K was 5.3 Patient is TTS schedule now. -Monitor fluid and electrolytes. -Avoid nephrotoxic agents. -Next dialysis treatment is Wednesday -Follow-up BMP, CBC in the a.m. (2) Ovarian mass, right Code(s): N83.9 - Noninflammatory disorder of ovary, fallopian tube and broad ligament, unspecified Status: Acute Plan: Status post surgery continues to be nauseous, vomited this morning Now n.p.o. Per general surgery note, if continues to vomit will need NG tube. Right ovarian mass found on CT. s/p biopsy: Likely neoplasm. Surgery is done on the Complete hysterectomy, with bilateral salpingo-oophorectomy. -General surgery on the case (3) DM (diabetes mellitus) Code(s): E11.9 - Type 2 diabetes mellitus without complications Status: Chronic Plan: Insulin coverage to maintain blood glucose levels between 140 and 180 while hospitalized. (4) HTN (hypertension) Code(s): I10 - Essential (primary) hypertension Status: Chronic Plan: Blood pressure currently 157/88 -Monitor BP. -Patient on Amlodipine, Hydralazine, and Metoprolol. (5) Anemia Code(s): D64.9 - Anemia, unspecified Status: Acute Plan: Hemoglobin 10.0, anemia likely secondary to chronic disease process, renal -Epogen with dialysis. (6) Metabolic bone disease Code(s): E88.9 - Metabolic disorder, unspecified; M90.80 - Osteopathy in diseases classified elsewhere, unspecified site Status: Acute Plan: Monitor phosphorus intermittently, -patient on Renvela. -BMP ordered for the a.m., phosphorus level ordered for the . <Yohana Cochran - Last Filed: 05/08/18 15:05> - Assessment (1) Acute on chronic renal failure Code(s): N17.9 - Acute kidney failure, unspecified; N18.9 - Chronic kidney disease, unspecified Status: Acute (2) Ovarian mass, right Code(s): N83.9 - Noninflammatory disorder of ovary, fallopian tube and broad ligament, unspecified Status: Acute (3) DM (diabetes mellitus) Code(s): E11.9 - Type 2 diabetes mellitus without complications Status: Chronic (4) HTN (hypertension) Code(s): I10 - Essential (primary) hypertension Status: Chronic (5) Anemia Code(s): D64.9 - Anemia, unspecified Status: Acute (6) Metabolic bone disease Code(s): E88.9 - Metabolic disorder, unspecified; M90.80 - Osteopathy in diseases classified elsewhere, unspecified site Status: Acute - Attending Attestation I have seen and examined the patient and agree with above assessment and plan care discussed with LUISANA Muller, patient has been not feeling well had some nausea and abdominal pain from her surgical site, dressing intact no drainage seen. Last dialysis Wednesday ultrafiltration 1.5 L, patient is going to follow- up with Dr. Uribe and remain on dialysis on Wednesday and Wednesday. <Keli Henson - Last Filed: 05/08/18 16:51>
[2018-05-08] MEDS: Latanoprost 0.005% Opth Drops 2.5 ML Bottle EACH EYE SCH (18:05)
[2018-05-08] MEDS: Insulin Detemir Inj 1,000 UNIT/10 ML Vial SQ SCH (21:30)
[2018-05-09 06:36] LABS: Baso % (Auto) 0.6 % (0.0-2.0); Eos # (Auto) 0.1 th/mm3 (0.0-0.4); Eos % (Auto) 2.3 % (0.0-4.0); Hematocrit 27.8 % (35.0-46.0); Lymph # (Auto) 1.2 th/mm3 (1.0-4.8); Lymph % (Auto) 22.7 % (9.0-44.0); Mean Corpuscular HGB Conc 32.3 % (32.0-36.0); Mean Corpuscular Hemoglobin 26.8 pg (27.0-34.0); Mean Platelet Volume 9.2 fL (7.0-11.0); Mono # (Auto) 0.6 th/mm3 (0.0-0.9); Mono % (Auto) 11.3 % (0.0-8.0); Neut # (Auto) 3.5 th/mm3 (1.8-7.7); Neut % (Auto) 63.1 % (16.0-70.0); Platelet Count 226 th/mm3 (150-450); Red Blood Count 3.35 mil/mm3 (4.00-5.30); White Blood Count 5.5 th/mm3 (4.0-11.0)
[2018-05-09 06:54] LABS: Calcium 8.5 mg/dL (8.5-10.1)
--- NOTE | 2018-05-09 08:04 | P.PN ---
Subjective Interval history: patient resting in bed states feels hungry pain controlled no complaints Physical Exam Vital signs: Vital Signs 05/08/18 12:00 05/08/18 16:00 05/08/18 20:00 Temperature 98.0 F 98.9 F 98.8 F Pulse Rate 97 H 94 H 95 H Respiratory Rate 19 19 18 Blood Pressure 157/81 H 101/55 L 122/62 Pulse Oximetry 97 94 L 97 05/08/18 20:25 05/09/18 00:36 05/09/18 03:47 Temperature 98.7 F 97.8 F Pulse Rate 85 92 H Respiratory Rate 18 16 18 Blood Pressure 108/55 L 127/78 Pulse Oximetry 95 98 Intake & Output 05/08/18 05/09/18 05/09/18 18:59 06:59 18:59 Intake Total 720 / 720 Output Total 1000 / 1000 Balance -280 / -280 Weight 85.5 kg Intake: Oral 720 / 720 Output: Urine Amount (Catheter) 1000 / 1000 Straight 1000 / 1000 Other: # Voids 3 Date of Last Bowel Movement 05/05/18 05/05/18 - Constitutional no acute distress - Routine HEENT Exam Head: Present: normocephalic, atraumatic Eye: Present: EOMI, PERRL - Routine Neck Exam Present: supple - Routine Cardiovascular Exam Present: RRR - Routine Abdominal Exam Present: soft Comments: dressing with old blood noted - Routine Extremities Exam Present: full ROM - Routine Skin Exam Present: intact - Urinary Catheter Management Indwelling Urethral Catheter Cath placed during this visit: no Reason for continuing: Not indwelling catheter Straight Cath placed during this visit: yes Reason for continuing: Not indwelling catheter Insertion date: 05/09/18 Insertion time: 05:34 Results - Labs CBC & Chem 7: 05/09/18 04:28 05/09/18 04:28 Laboratory Results - last 24 hr 05/06/18 05/08/18 05/08/18 13:45 07:51 11:50 WBC RBC Hgb Hct MCV MCH MCHC RDW Plt Count MPV Neut % (Auto) Lymph % (Auto) Harrison % (Auto) Eos % (Auto) Baso % (Auto) Neut # (Auto) Lymph # (Auto) Harrison # (Auto) Eos # (Auto) Baso # (Auto) WBC Differential Differential Comment Sodium Potassium Chloride Carbon Dioxide Anion Gap BUN Creatinine Estimated GFR POC Glucose 155 H 144 H Random Glucose Calcium MTS Gel Crossmatch See Detail 05/08/18 05/08/18 05/09/18 16:44 20:21 04:28 WBC 5.5 RBC 3.35 L Hgb 9.0 L Hct 27.8 L MCV 83.0 MCH 26.8 L MCHC 32.3 RDW 14.0 Plt Count 226 MPV 9.2 Neut % (Auto) 63.1 Lymph % (Auto) 22.7 Harrison % (Auto) 11.3 H Eos % (Auto) 2.3 Baso % (Auto) 0.6 Neut # (Auto) 3.5 Lymph # (Auto) 1.2 Harrison # (Auto) 0.6 Eos # (Auto) 0.1 Baso # (Auto) 0.0 WBC Differential . Differential Comment Auto diff final Sodium Potassium Chloride Carbon Dioxide Anion Gap BUN Creatinine Estimated GFR POC Glucose 151 H 165 H Random Glucose Calcium MTS Gel Crossmatch 05/09/18 04:28 WBC RBC Hgb Hct MCV MCH MCHC RDW Plt Count MPV Neut % (Auto) Lymph % (Auto) Harrison % (Auto) Eos % (Auto) Baso % (Auto) Neut # (Auto) Lymph # (Auto) Harrison # (Auto) Eos # (Auto) Baso # (Auto) WBC Differential Differential Comment Sodium 136 Potassium 4.0 D Chloride 98 Carbon Dioxide 32.0 Anion Gap 6 BUN 42 H Creatinine 5.85 H Estimated GFR 10 L POC Glucose Random Glucose 104 D Calcium 8.5 MTS Gel Crossmatch 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 Summers as appears not to be of ob/gyn physician origin discussed with patient, RN and Dr. Summers 05/09/18: POD# 3 s/p X lap TOMAS with BSO and appendectomy final pathology pending pain controlled continues on dialysis management based on final pathology
[2018-05-09] MEDS: Calcitriol 0.25 MCG Capsule PO SCH (08:30)
[2018-05-09] MEDS: amLODIPine 10 MG Tablet PO SCH (08:30)
[2018-05-09] MEDS: Vitamin B Complex/Vit C/Folic Tablet PO SCH (08:30)
[2018-05-09] MEDS: Senna/Docusate Sodium 8.6/50 MG Tablet PO SCH ×2 (08:30→23:04)
[2018-05-09] MEDS: Sodium Chloride 0.9% 2 ML Flush BID IV.FLUSH SCH ×2 (08:31→21:05)
[2018-05-09] MEDS: Insulin NovoLOG Aspart Correctional Sugar Inj SQ SCH ×4 (08:59→21:40)
[2018-05-09] MEDS: hydrALAZINE 50 MG Tablet PO SCH ×3 (08:59→17:15)
--- NOTE | 2018-05-09 09:39 | P.PNIM ---
Subjective Interval history: f/u; post-op medical management in no acute distress. has minimal abdominal pain. had on and off nausea. no fever. Physical Exam Vital signs: Vital Signs 05/08/18 12:00 05/08/18 16:00 05/08/18 20:00 Temperature 98.0 F 98.9 F 98.8 F Pulse Rate 97 H 94 H 95 H Respiratory Rate 19 19 18 Blood Pressure 157/81 H 101/55 L 122/62 Pulse Oximetry 97 94 L 97 05/08/18 20:25 05/09/18 00:36 05/09/18 03:47 Temperature 98.7 F 97.8 F Pulse Rate 85 92 H Respiratory Rate 18 16 18 Blood Pressure 108/55 L 127/78 Pulse Oximetry 95 98 05/09/18 08:00 Temperature 98.3 F Pulse Rate 94 H Respiratory Rate 16 Blood Pressure 134/70 Pulse Oximetry 99 Intake & Output 05/08/18 05/09/18 05/09/18 18:59 06:59 18:59 Intake Total 720 / 720 Output Total 1000 / 1000 Balance -280 / -280 Weight 85.5 kg Intake: Oral 720 / 720 Output: Urine Amount (Catheter) 1000 / 1000 Straight 1000 / 1000 Other: # Voids 3 Date of Last Bowel Movement 05/05/18 05/05/18 05/05/18 Constitutional no acute distress Routine Respiratory Exam Present CTA bilaterally Routine Cardiovascular Exam Present RRR Routine Abdominal Exam Present soft Routine Extremities Exam Comments: no pedal edema. Routine Neurological Exam Present alert and oriented X3 Urinary Catheter Management Indwelling Urethral Catheter: Cath placed during this visit: no Reason for continuing: Not indwelling catheter Straight: Cath placed during this visit: yes Reason for continuing: Not indwelling catheter Insertion date: 05/09/18 Insertion time: 05:34 Results Labs CBC & Chem 7: 05/09/18 04:28 05/09/18 04:28 Procedures Procedures: 04/22 CT-guided biopsy of intraperitoneal mesenteric mass with interventional radiology Assessment and Plan (1) Mesenteric mass: Code(s): K63.9 - Disease of intestine, unspecified Status: Acute Plan A/P Acute renal failure superimposed on chronic kidney disease stage IV, no baseline GFR for comparison and reports baseline creatinine of 3.May be due to dehydration and poor p.o. intake, however creatinine has not improved much with IV fluid hydration, Hemodialysis has been initiated with Vas-Cath placement;HD per nephrology. 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 Appreciate [facility] oncology, Dr. 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 Anemialikely of chronic kidney diseaseconsider Epogen with Hb Hypertension, Restarted home amlodipine and metoprolol. Continue scheduled hydralazine Continue to monitor blood pressure closely. [id number]-ojmmyrjel diabetes mellitus, with underlying diabetic nephropathy hold home glipizide, blood sugar monitoring with sliding scale insulin. now better controlled with addition of Levemir 10 units subcu nightly, Hypernatremia improved/ resolved Nausea and vomitingsupportive care, antiemetics. DVT prophylaxisSCDs, heparin subcu will be resumed when ok with surgery. Progress Note: Quality VTE Deep Vein Thrombosis/Pulmonary Embolism Present on Admission: No
[2018-05-09] MEDS ORDERED: Polyethylene Glycol 3350 17 GM Packet PO ONE (11:06)
--- NOTE | 2018-05-09 11:47 | P.PNNP ---
Subjective Interval history: Patient was seen, no distress. Patient reports no vomiting. Patient gets dialysis TTS, will be dialyzed tomorrow. <Andrew Taylor - Last Filed: 05/09/18 11:42> Physical Exam Vital signs: Vital Signs 05/08/18 12:00 05/08/18 16:00 05/08/18 20:00 Temperature 98.0 F 98.9 F 98.8 F Pulse Rate 97 H 94 H 95 H Respiratory Rate 19 19 18 Blood Pressure 157/81 H 101/55 L 122/62 Pulse Oximetry 97 94 L 97 05/08/18 20:25 05/09/18 00:36 05/09/18 03:47 Temperature 98.7 F 97.8 F Pulse Rate 85 92 H Respiratory Rate 18 16 18 Blood Pressure 108/55 L 127/78 Pulse Oximetry 95 98 05/09/18 08:00 Temperature 98.3 F Pulse Rate 94 H Respiratory Rate 16 Blood Pressure 134/70 Pulse Oximetry 99 Intake & Output 05/08/18 05/09/18 05/09/18 18:59 06:59 18:59 Intake Total 720 / 720 Output Total 1000 / 1000 Balance -280 / -280 Weight 85.5 kg Intake: Oral 720 / 720 Output: Urine Amount (Catheter) 1000 / 1000 Straight 1000 / 1000 Other: # Voids 3 Date of Last Bowel Movement 05/05/18 05/05/18 05/05/18 Narrative: GENERAL: Appears to be in no acute distress. Resting comfortably. SKIN: Warm and dry, intact, No lesions seen. Midline abdominal dressing seen. HEAD: Normocephalic. EYES: No scleral icterus. No injection or drainage. Pupils are equal and reactive to light. NECK: Supple, trachea midline. No JVD or lymphadenopathy. CARDIOVASCULAR: Regular rate and rhythm without murmurs, gallops, or rubs. RESPIRATORY: Breath sounds equal bilaterally. No accessory muscle use. Breath sounds are clear bilaterally to auscultation. GASTROINTESTINAL: Abdomen soft, non-tender, nondistended. Active bowel sounds - Urinary Catheter Management Indwelling Urethral Catheter Cath placed during this visit: no Reason for continuing: Not indwelling catheter Straight Cath placed during this visit: yes Reason for continuing: Not indwelling catheter Insertion date: 05/09/18 Insertion time: 05:34 <Andrew Taylor - Last Filed: 05/09/18 11:42> Vital signs: Vital Signs 05/09/18 00:36 05/09/18 03:47 05/09/18 08:00 Temperature 98.7 F 97.8 F 98.3 F Pulse Rate 85 92 H 94 H Respiratory Rate 16 18 16 Blood Pressure 108/55 L 127/78 134/70 Pulse Oximetry 95 98 99 05/09/18 12:00 05/09/18 16:35 Temperature 99.3 F 98.6 F Pulse Rate 95 H 94 H Respiratory Rate 16 18 Blood Pressure 138/73 137/68 Pulse Oximetry 98 98 Intake & Output 05/09/18 05/09/18 05/10/18 06:59 18:59 06:59 Intake Total 720 / 720 Output Total 1000 / 1000 Balance -280 / -280 Weight 85.5 kg Intake: Oral 720 / 720 Output: Urine Amount (Catheter) 1000 / 1000 Straight 1000 / 1000 Other: Date of Last Bowel Movement 05/05/18 05/05/18 - Urinary Catheter Management Indwelling Urethral Catheter Cath placed during this visit: no Straight Cath placed during this visit: no <Zachary Uribe - Last Filed: 05/09/18 22:20> Assessment and Plan - Assessment (1) Acute on chronic renal failure Code(s): N17.9 - Acute kidney failure, unspecified; N18.9 - Chronic kidney disease, unspecified Status: Acute Plan: Patient has reached ESRD. She will need AVF at some point: Patient is s/p abdominal surgery. Patient is TTS schedule now. -Monitor fluid and electrolytes. -Avoid nephrotoxic agents. -Next dialysis treatment is tomorrow (2) Ovarian mass, right Code(s): N83.9 - Noninflammatory disorder of ovary, fallopian tube and broad ligament, unspecified Status: Acute Plan: Patient on clear liquid diet. s/p appendectomy, hysterectomy with bilateral salpingo-oophorectomy. -General surgery on the case (3) DM (diabetes mellitus) Code(s): E11.9 - Type 2 diabetes mellitus without complications Status: Chronic Plan: Insulin coverage to maintain blood glucose levels between 140 and 180 while hospitalized. (4) HTN (hypertension) Code(s): I10 - Essential (primary) hypertension Status: Chronic Plan: -Monitor BP. -Patient on Amlodipine, Hydralazine, and Metoprolol. (5) Anemia Code(s): D64.9 - Anemia, unspecified Status: Acute Plan: Hemoglobin 9.0, Epogen with dialysis. (6) Metabolic bone disease Code(s): E88.9 - Metabolic disorder, unspecified; M90.80 - Osteopathy in diseases classified elsewhere, unspecified site Status: Acute Plan: Monitor phosphorus intermittently, patient on Renvela. Phosphorus level ordered. <Andrew Taylor - Last Filed: 05/09/18 11:42> - Assessment (1) Acute on chronic renal failure Code(s): N17.9 - Acute kidney failure, unspecified; N18.9 - Chronic kidney disease, unspecified Status: Acute (2) Ovarian mass, right Code(s): N83.9 - Noninflammatory disorder of ovary, fallopian tube and broad ligament, unspecified Status: Acute (3) DM (diabetes mellitus) Code(s): E11.9 - Type 2 diabetes mellitus without complications Status: Chronic (4) HTN (hypertension) Code(s): I10 - Essential (primary) hypertension Status: Chronic (5) Anemia Code(s): D64.9 - Anemia, unspecified Status: Acute (6) Metabolic bone disease Code(s): E88.9 - Metabolic disorder, unspecified; M90.80 - Osteopathy in diseases classified elsewhere, unspecified site Status: Acute - Attending Attestation patient was seen and examined. Agree with above assessment and plan. <Zachary Uribe - Last Filed: 05/09/18 22:20>
--- NOTE | 2018-05-09 16:02 | P.PNGS ---
Subjective Interval history: Resting in bed Wants a cheeseburger Physical Exam Vital signs: Vital Signs 05/08/18 16:00 05/08/18 20:00 05/08/18 20:25 Temperature 98.9 F 98.8 F Pulse Rate 94 H 95 H Respiratory Rate 19 18 18 Blood Pressure 101/55 L 122/62 Pulse Oximetry 94 L 97 05/09/18 00:36 05/09/18 03:47 05/09/18 08:00 Temperature 98.7 F 97.8 F 98.3 F Pulse Rate 85 92 H 94 H Respiratory Rate 16 18 16 Blood Pressure 108/55 L 127/78 134/70 Pulse Oximetry 95 98 99 05/09/18 12:00 Temperature 99.3 F Pulse Rate 95 H Respiratory Rate 16 Blood Pressure 138/73 Pulse Oximetry 98 Intake & Output 05/08/18 05/09/18 05/09/18 18:59 06:59 18:59 Intake Total 720 / 720 Output Total 1000 / 1000 Balance -280 / -280 Weight 85.5 kg Intake: Oral 720 / 720 Output: Urine Amount (Catheter) 1000 / 1000 Straight 1000 / 1000 Other: # Voids 3 Date of Last Bowel Movement 05/05/18 05/05/18 05/05/18 Narrative: Alert and awake Abd: soft; KENIA in place; minimally tender - Urinary Catheter Management Indwelling Urethral Catheter Cath placed during this visit: no Reason for continuing: Not indwelling catheter Straight Cath placed during this visit: yes Reason for continuing: Not indwelling catheter Insertion date: 05/09/18 Insertion time: 05:34 Results - Labs 05/09/18 04:28 05/09/18 04:28 Laboratory Results - last 24 hr 05/06/18 05/08/18 05/08/18 13:45 16:44 20:21 WBC RBC Hgb Hct MCV MCH MCHC RDW Plt Count MPV Neut % (Auto) Lymph % (Auto) Sutton % (Auto) Eos % (Auto) Baso % (Auto) Neut # (Auto) Lymph # (Auto) Sutton # (Auto) Eos # (Auto) Baso # (Auto) WBC Differential Differential Comment Sodium Potassium Chloride Carbon Dioxide Anion Gap BUN Creatinine Estimated GFR POC Glucose 151 H 165 H Random Glucose Calcium MTS Gel Crossmatch See Detail 05/09/18 05/09/18 05/09/18 04:28 04:28 08:52 WBC 5.5 RBC 3.35 L Hgb 9.0 L Hct 27.8 L MCV 83.0 MCH 26.8 L MCHC 32.3 RDW 14.0 Plt Count 226 MPV 9.2 Neut % (Auto) 63.1 Lymph % (Auto) 22.7 Sutton % (Auto) 11.3 H Eos % (Auto) 2.3 Baso % (Auto) 0.6 Neut # (Auto) 3.5 Lymph # (Auto) 1.2 Sutton # (Auto) 0.6 Eos # (Auto) 0.1 Baso # (Auto) 0.0 WBC Differential . Differential Comment Auto diff final Sodium 136 Potassium 4.0 D Chloride 98 Carbon Dioxide 32.0 Anion Gap 6 BUN 42 H Creatinine 5.85 H Estimated GFR 10 L POC Glucose 193 H Random Glucose 104 D Calcium 8.5 MTS Gel Crossmatch 05/09/18 11:39 WBC RBC Hgb Hct MCV MCH MCHC RDW Plt Count MPV Neut % (Auto) Lymph % (Auto) Sutton % (Auto) Eos % (Auto) Baso % (Auto) Neut # (Auto) Lymph # (Auto) Sutton # (Auto) Eos # (Auto) Baso # (Auto) WBC Differential Differential Comment Sodium Potassium Chloride Carbon Dioxide Anion Gap BUN Creatinine Estimated GFR POC Glucose 146 H Random Glucose Calcium MTS Gel Crossmatch - Imaging Imaging: ITS Impressions Pelvis Ultrasound 04/21/18 00:00 CONCLUSION: 1. Limited examination due to patient's body habitus and decline of transvaginal exam. 2. The right adnexal mass noted on CT exam does appear to correspond to the right ovary measuring 9.7 x 11.6 x 8.1 cm. 3. Uterus is not completely visualized and therefore the midline pelvic mass cannot be definitively excluded from the uterus although again this appears separate on CT exam. 4. 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 Correlation with tumor markers and clinical history is recommended. Further evaluation may be performed with MRI examination of the pelvis if there is continued clinical uncertainty following gynecological consultation. Abdomen/Pelvis CT 04/21/18 20:25 CONCLUSION: 1. Bulky large soft tissue density mesenteric masses with the largest measuring 14.7 x 7.5 x 8.5 cm. A second dominant mesenteric mass extends to the right adnexa. Differential considerations include ovarian malignancy with mesenteric metastases, GIST, mesenteric fibromatosis, and mesenteric adenopathy amongst other etiologies. Ultrasound examination of the pelvis may be performed to exclude right ovarian mass. Abdomen Biopsy CT 04/22/18 00:00 CONCLUSION: 1. Uncomplicated CT guided biopsy. Central Venous Line 04/25/18 18:46 CONCLUSION: 1. Uncomplicated PermaCath placement as above. Assessment and Plan - Assessment (1) Abdominal mass Code(s): R19.00 - Intra-abdominal and pelvic swelling, mass and lump, unspecified site Status: Acute - Plan 42 year old female with abdominal pain; CKD now on hemodialysis; CT guided bx c/ w neoplasm -POD3 resection of abdominal tumor -+flatus -Advance to regular diet -OOB as tolerated - Attending Attestation The exam, history, and the medical decision-making described in the above note were completed with the assistance of the mid-level provider. I reviewed and agree with the findings presented. I attest that I had a [id number] encounter with the patient on the same day, and personally performed and documented my assessment and findings in the medical record. 42-year-old female status post hysterectomy and bilateral salpingo-oophorectomy , doing well Pain is better today Some return of bowel function, advance diet Urged out of bed
[2018-05-09] MEDS: Latanoprost 0.005% Opth Drops 2.5 ML Bottle EACH EYE SCH (17:12)
[2018-05-09] MEDS: Insulin Detemir Inj 1,000 UNIT/10 ML Vial SQ SCH (21:40)
[2018-05-09] MEDS: Heparin - SQ 10,000 UNITS/ML Vial SQ SCH (23:02)
--- NOTE | 2018-05-10 06:28 | MP ---
cc: Chely Summers MD, Jeffrey D MD Gamenthaler,Randolph Tilley MD DATE OF OPERATION: 05/06/2018 PREOPERATIVE DIAGNOSIS: Large abdominal pelvic masses. POSTOPERATIVE DIAGNOSIS: Large abdominal pelvic masses. PROCEDURE PERFORMED: Total abdominal hysterectomy, bilateral salpingo-oophorectomy. SURGEON: Chely Summers MD CO-SURGEON: Randolph Flood MD HISTORY: This 42-year-old female was admitted to the hospital with abdominal pain, nausea, vomiting, found on exam and imaging to have multiple large abdominal pelvic masses of uncertain origin. There was a possibility of gynecologic origin for which I was consulted and there was possibility of nongynecologic origin for which Dr. Randolph Flood was consulted. This hospitalization was also notable for her acute renal failure on top of chronic renal disease, which has necessitated the initiation of dialysis. She was counseled regarding the concern about possible malignant neoplasm and the contribution of these large masses to her abdominal symptomatology. She was counseled and understood and consented for surgical resection, which included, but was not limited to, total abdominal hysterectomy, bilateral salpingo-oophorectomy. She understood the reproductive and menopausal ramifications. She understands that the surgical procedure may be more extensive and directed by the anatomical findings at the time of surgery. FINDINGS: At the time of exploration by Dr. Randolph Flood, a large solid mass was seen extending into the right upper abdominal quadrant, which seemed to actually be of gynecologic origin as it was originating from the uterine fundus, attached with a narrow stalk. He had resected this and had gained surgical exposure assisted by a Bookwalter retractor, where the anatomy had been reviewed and it appeared that the multiple masses were arising from the uterus. DESCRIPTION OF PROCEDURE: Dr. Randolph Flood had explored the patient through a midline vertical incision as described above. He contacted me to scrub into surgery, where the original large mass and another fundal mass were now removed and sent for frozen section analysis. The gross appearance of the uterus was suggestive of possible leiomyomas; however, there were multiple irregular contours, nodular surfaces and a heterogeneous appearance to the multiple masses coming off of the uterus, raising the possibility of malignancy and it was agreed that a complete hysterectomy and bilateral salpingo-oophorectomy will be performed pending final histopathologic analysis. Eventual frozen section analysis suggested leiomyomas on the initial specimens removed. The right round ligament was doubly suture ligated, transected. The anterior and posterior leafs of the broad ligament were opened. The right ureter was identified. The right infundibulopelvic ligament was isolated. The intervening peritoneum was opened. The infundibulopelvic ligament was isolated near the pelvic brim where it was doubly clamped, cut, and suture ligated. Posterior peritoneum opened along the right side of the uterus and cervix and the right vesicouterine peritoneum was dissected off the lower uterine segment and cervix. The right uterine vessels were skeletonized. The uterine vessels were doubly clamped, cut, and suture ligated. Next, the cardinal ligaments and then the paracervical and uterosacral ligaments were isolated in a stepwise fashion, dissecting immediately adjacent to the wall of the uterus and cervix, taken down where these tissues were clamped, cut, and suture ligated. Attention was directed toward the left side where the left round ligament was doubly suture ligated and transected. The retroperitoneal dissection was continued. The left ureter was identified. The left infundibulopelvic ligament was isolated. The intervening peritoneum was opened. The infundibulopelvic ligament was isolated to the level of the pelvic brim where it was doubly clamped, cut, and suture ligated. Posterior peritoneum opened along the left side of the uterus and cervix and the left vesicouterine peritoneum was dissected off the lower uterine segment and cervix and the left uterine vessels were skeletonized. The left uterine vessels were doubly clamped, cut, and suture ligated as were the cardinal, paracervical and uterosacral ligaments. Curved clamps were placed below the cervix at the lateral vaginal angles and sharp dissection was used to transect the specimen, the cervix from the upper vagina. The specimen was inspected and the entire cervix was noted to be included in this specimen, which included uterus, cervix, tubes, and ovaries, and was sent for permanent histopathologic analysis. The corners of the vaginal cuff were secured with [id number] sutures, incorporating the edge of the uterosacral ligament and posterior peritoneum. Then, the cuff was closed with interrupted [id number] Vicryl sutures. Pelvis was thoroughly irrigated. Small bleeders rendered hemostatic with bipolar cautery. The anatomy in the abdomen and pelvis was again explored with no other abnormal findings detected. Dr. Flood performed an appendectomy and then the Bookwalter retractor was disassembled. The lap pads were removed. Visual and manual inspection confirmed no remaining foreign objects in the peritoneal cavity and preliminary counts were correct. The abdominal wall was closed. She was pending reversal of anesthesia when I left the operating room to precede her to the postanesthesia care unit. Please see Dr. Flood's op note for additional details. MD BLANCO Burrell/te , 05:27 AM , 05:39 AM MEÑO
[2018-05-10] MEDS: Heparin - SQ 10,000 UNITS/ML Vial SQ SCH ×2 (08:42→23:00)
[2018-05-10] MEDS: Sodium Chloride 0.9% 2 ML Flush BID IV.FLUSH SCH ×2 (08:42→23:02)
[2018-05-10] MEDS: Insulin NovoLOG Aspart Correctional Sugar Inj SQ SCH ×4 (09:07→23:01)
--- NOTE | 2018-05-10 10:28 | P.PNNP ---
Subjective Interval history: patient was seen and examined during dialysis. Had bowel movement yesterday. Diet has been advanced. She is stable clinically. Good urine output. No fluid removal today at dialysis. 3K, BFR 350 ml/min. Physical Exam Vital signs: Vital Signs 05/09/18 12:00 05/09/18 16:35 05/09/18 20:10 Temperature 99.3 F 98.6 F 98.7 F Pulse Rate 95 H 94 H 100 H Respiratory Rate 16 18 20 Blood Pressure 138/73 137/68 127/58 L Pulse Oximetry 98 98 99 05/10/18 00:10 05/10/18 04:07 05/10/18 07:37 Temperature 98.7 F 98.7 F 97.9 F Pulse Rate 100 H 88 94 H Respiratory Rate 21 20 20 Blood Pressure 133/63 102/55 L 145/69 H Pulse Oximetry 98 97 98 Intake & Output 05/09/18 05/10/18 05/10/18 18:59 06:59 18:59 Weight 85.3 kg Other: # Voids 2 3 Date of Last Bowel Movement 05/05/18 - Constitutional no acute distress - Routine HEENT Exam Head: Present: normocephalic, atraumatic Eye: Present: EOMI, PERRL ENT: Present: mucous membranes moist - Routine Neck Exam Present: supple, full ROM. Absent: JVD - Routine Respiratory Exam Present: accessory muscle use, CTA bilaterally - Routine Cardiovascular Exam Present: RRR, S1, S2 - Routine Abdominal Exam Present: soft, normoactive bowel sounds - Routine Extremities Exam Present: full ROM. Absent: edema, AV fistula - Routine Neurological Exam Present: alert, oriented X3, CN II-XII intact, normal speech - Routine Psychiatric Exam Present: normal thought process - Urinary Catheter Management Indwelling Urethral Catheter Cath placed during this visit: no Reason for continuing: Not indwelling catheter Straight Cath placed during this visit: yes Reason for continuing: Not indwelling catheter Insertion date: 05/09/18 Insertion time: 05:34 Assessment and Plan - Assessment (1) End stage renal disease Code(s): N18.6 - End stage renal disease Status: Acute Plan: Dialysis today and TTS. Monitor fluid and electrolytes. Avoid Gadolinium. Needs AVF at some point. (2) Ovarian mass, right Code(s): N83.9 - Noninflammatory disorder of ovary, fallopian tube and broad ligament, unspecified Status: Acute Plan: Patient on clear liquid diet. s/p appendectomy, hysterectomy with bilateral salpingo-oophorectomy. -General surgery on the case. Pathology pending. (3) DM (diabetes mellitus) Code(s): E11.9 - Type 2 diabetes mellitus without complications Status: Chronic Plan: Insulin coverage to maintain blood glucose levels between 140 and 180 while hospitalized. (4) HTN (hypertension) Code(s): I10 - Essential (primary) hypertension Status: Chronic Plan: -Monitor BP. -Patient on Amlodipine, Hydralazine, and Metoprolol. (5) Anemia Code(s): D64.9 - Anemia, unspecified Status: Acute Plan: Continue Epogen with dialysis. (6) Metabolic bone disease Code(s): E88.9 - Metabolic disorder, unspecified; M90.80 - Osteopathy in diseases classified elsewhere, unspecified site Status: Acute Plan: Monitor phosphorus intermittently, patient on Renvela. Phosphorus is 5 - Attending Attestation patient was seen and examined on 05/10/18. Agree with above assessment and plan.
[2018-05-10] MEDS: Heparin 10,000 UNITS/10 ML Vial (for IV use) OTHER PRN (12:18)
[2018-05-10] MEDS: Senna/Docusate Sodium 8.6/50 MG Tablet PO SCH ×2 (13:58→23:00)
[2018-05-10] MEDS: hydrALAZINE 50 MG Tablet PO SCH ×3 (13:58→17:48)
[2018-05-10] MEDS: amLODIPine 10 MG Tablet PO SCH (14:04)
[2018-05-10] MEDS: Calcitriol 0.25 MCG Capsule PO SCH (14:04)
[2018-05-10] MEDS: Vitamin B Complex/Vit C/Folic Tablet PO SCH (14:04)
--- NOTE | 2018-05-10 14:41 | P.PNGS ---
Subjective Interval history: Has small BM Tolerating diet No complaints Physical Exam Vital signs: Vital Signs 05/09/18 16:35 05/09/18 20:10 05/10/18 00:10 Temperature 98.6 F 98.7 F 98.7 F Pulse Rate 94 H 100 H 100 H Respiratory Rate 18 20 21 Blood Pressure 137/68 127/58 L 133/63 Pulse Oximetry 98 99 98 05/10/18 04:07 05/10/18 07:37 05/10/18 14:03 Temperature 98.7 F 97.9 F Pulse Rate 88 94 H 107 H Respiratory Rate 20 20 Blood Pressure 102/55 L 145/69 H 123/62 Pulse Oximetry 97 98 Intake & Output 05/09/18 05/10/18 05/10/18 18:59 06:59 18:59 Output Total 600 / 600 Balance -600 / -600 Weight 85.3 kg Output: Hemodialysis Amount 600 / 600 Other: # Voids 2 3 Date of Last Bowel Movement 05/05/18 Narrative: Alert and awake Abd: soft; KENIA in place to midline incision ---good seal - Urinary Catheter Management Indwelling Urethral Catheter Cath placed during this visit: no Reason for continuing: Not indwelling catheter Straight Cath placed during this visit: yes Reason for continuing: Not indwelling catheter Insertion date: 05/09/18 Insertion time: 05:34 Results - Labs 05/09/18 04:28 05/09/18 04:28 Laboratory Results - last 24 hr 05/09/18 05/09/18 05/10/18 17:14 22:25 06:30 POC Glucose 145 H 295 H Phosphorus 5.0 H 05/10/18 05/10/18 08:17 12:25 POC Glucose 167 H 141 H Phosphorus - Imaging Imaging: ITS Impressions Pelvis Ultrasound 04/21/18 00:00 CONCLUSION: 1. Limited examination due to patient's body habitus and decline of transvaginal exam. 2. The right adnexal mass noted on CT exam does appear to correspond to the right ovary measuring 9.7 x 11.6 x 8.1 cm. 3. Uterus is not completely visualized and therefore the midline pelvic mass cannot be definitively excluded from the uterus although again this appears separate on CT exam. 4. 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 Correlation with tumor markers and clinical history is recommended. Further evaluation may be performed with MRI examination of the pelvis if there is continued clinical uncertainty following gynecological consultation. Abdomen/Pelvis CT 04/21/18 20:25 CONCLUSION: 1. Bulky large soft tissue density mesenteric masses with the largest measuring 14.7 x 7.5 x 8.5 cm. A second dominant mesenteric mass extends to the right adnexa. Differential considerations include ovarian malignancy with mesenteric metastases, GIST, mesenteric fibromatosis, and mesenteric adenopathy amongst other etiologies. Ultrasound examination of the pelvis may be performed to exclude right ovarian mass. Abdomen Biopsy CT 04/22/18 00:00 CONCLUSION: 1. Uncomplicated CT guided biopsy. Central Venous Line 04/25/18 18:46 CONCLUSION: 1. Uncomplicated PermaCath placement as above. Assessment and Plan - Assessment (1) Abdominal mass Code(s): R19.00 - Intra-abdominal and pelvic swelling, mass and lump, unspecified site Status: Acute - Plan 42 year old female with abdominal pain; CKD now on hemodialysis; CT guided bx c/ w neoplasm -POD4 resection of abdominal tumor -Tolerating regular diet -OOB as tolerated -Provided patient with return to work note per request -Working on getting outpatient HD set up - Attending Attestation The exam, history, and the medical decision-making described in the above note were completed with the assistance of the mid-level provider. I reviewed and agree with the findings presented. I attest that I had a [id number] encounter with the patient on the same day, and personally performed and documented my assessment and findings in the medical record. 42yo female s/p abdominal mass/hysterectomy, stable continue diet pain controlled DC when HD set up
[2018-05-10] MEDS: Latanoprost 0.005% Opth Drops 2.5 ML Bottle EACH EYE SCH (17:48)
--- NOTE | 2018-05-10 18:15 | XR ---
EXAM DATE: 05/10/2018 6:08 PM EST AGE/SEX: 42 years / Female INDICATIONS: . Cough. CLINICAL DATA: This is the patient's initial encounter. Patient reports that signs and symptoms have been present for 1 day and indicates a pain score of 0/10. MEDICAL/SURGICAL HISTORY: . Hypertension. Chronic kidney failure. Hysterectomy. COMPARISON: [facility], CV PERM CATH [facility] W , 04/25/2018. . FINDINGS: There is a right IJ tunneled dialysis catheter with tip in the mid SVC. No focal pleural or parenchym al opacities. The cardiomediastinal contours are unremarkable. Osseous structures are intact. CONCLUSION: 1. Tunneled right IJ dialysis catheter is in the mid SVC. This appears to have been pulled back from placement fluoroscopic images of 04/25/2018. Has the catheter been exchanged or just pulled back? Is the catheter cuff exposed? 2. Negative portable chest. Electronically signed by: Fawad South MD Board Certified Radiologist 05/10/2018 6:14 PM EST
--- NOTE | 2018-05-10 21:03 | P.PNIM ---
Subjective Interval history: 42 yo f admitted with abd pain found to have ovarian mass w mets and renal failure on ckd now on dialysis pt seen and examined, doing well, denies sob, no cp, no nv Physical Exam Vital signs: Vital Signs 05/10/18 00:10 05/10/18 04:07 05/10/18 07:37 Temperature 98.7 F 98.7 F 97.9 F Pulse Rate 100 H 88 94 H Respiratory Rate 21 20 20 Blood Pressure 133/63 102/55 L 145/69 H Pulse Oximetry 98 97 98 05/10/18 14:03 05/10/18 16:00 Temperature 97.8 F Pulse Rate 107 H 100 H Respiratory Rate 20 Blood Pressure 123/62 126/64 Pulse Oximetry 98 Intake & Output 05/10/18 05/10/18 05/11/18 06:59 18:59 06:59 Output Total 600 / 600 Balance -600 / -600 Weight 85.3 kg Output: Hemodialysis Amount 600 / 600 Other: # Voids 3 2 Narrative: wdwn 42yo aaf, pleasant nad heart s1s2 reg lungs clear no wrr abd soft nondt pos bs, bandage midline in place w onq pump in place ext no edema no calf tenderness Urinary Catheter Management Indwelling Urethral Catheter: Cath placed during this visit: no Reason for continuing: Not indwelling catheter Straight: Cath placed during this visit: yes Reason for continuing: Not indwelling catheter Insertion date: 05/09/18 Insertion time: 05:34 Results Labs CBC & Chem 7: 05/09/18 04:28 05/09/18 04:28 Imaging Imaging: Impressions Chest X-Ray 05/10/18 00:00 CONCLUSION: 1. Tunneled right IJ dialysis catheter is in the mid SVC. This appears to have been pulled back from placement fluoroscopic images of 04/25/2018. Has the catheter been exchanged or just pulled back? Is the catheter cuff exposed? 2. Negative portable chest. Procedures Procedures: 04/22 CT-guided biopsy of intraperitoneal mesenteric mass with interventional radiology Assessment and Plan Plan R OVARIAN and MESENTERIC MASS possible s/p TAHBSO and appendectomy 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 - cont post op care per surgery ESRD new to dialysis per nephrology DM w diabetic nephropathy niddm - cont diet , iss HTN cont home meds ANEMIA of ckd, iron epo GLAUCOMA latanoprost DYSLIPIDEMIA - statin dvt prophylaxis - heparin sc dispo - home when outpt dialysis arranged, Progress Note: Quality VTE Deep Vein Thrombosis/Pulmonary Embolism Present on Admission: No
[2018-05-10] MEDS: Insulin Detemir Inj 1,000 UNIT/10 ML Vial SQ SCH (23:01)
[2018-05-10] MEDS: Zolpidem Tartrate 5 MG Tablet PO PRN (23:12)
--- NOTE | 2018-05-11 07:42 | P.PN ---
Subjective Interval history: POD # 5 patient resting in bed, no complaints states hopes to be discharged soon explained pathology was benign Physical Exam Vital signs: Vital Signs 05/10/18 14:03 05/10/18 16:00 05/10/18 20:15 Temperature 97.8 F 98.3 F Pulse Rate 107 H 100 H 97 H Respiratory Rate 20 18 Blood Pressure 123/62 126/64 139/66 Pulse Oximetry 98 99 05/11/18 00:00 05/11/18 04:46 Temperature 98.3 F 98.0 F Pulse Rate 94 H 90 Respiratory Rate 18 18 Blood Pressure 107/56 L 112/68 Pulse Oximetry 98 98 Intake & Output 05/10/18 05/11/18 05/11/18 18:59 06:59 18:59 Output Total 600 / 600 Balance -600 / -600 Weight 87.1 kg Output: Hemodialysis Amount 600 / 600 Other: # Voids 2 3 Date of Last Bowel Movement 05/09/18 - Constitutional no acute distress - Routine HEENT Exam Head: Present: normocephalic Eye: Present: EOMI, PERRL - Routine Neck Exam Present: full ROM - Routine Abdominal Exam Present: soft Comments: dressing with old blood noted - Routine Skin Exam Present: intact - Routine Neurological Exam Present: alert, oriented X3 - Detailed Neurological Exam: Coma Scale Eye Opening: Spontaneous Verbal Response: Oriented - Urinary Catheter Management Indwelling Urethral Catheter Cath placed during this visit: no Reason for continuing: Not indwelling catheter Straight Cath placed during this visit: yes Reason for continuing: Not indwelling catheter Insertion date: 05/09/18 Insertion time: 05:34 Results - Labs CBC & Chem 7: 05/09/18 04:28 05/09/18 04:28 Laboratory Results - last 24 hr 05/10/18 05/10/18 05/10/18 06:30 08:17 12:25 POC Glucose 167 H 141 H Phosphorus 5.0 H 05/10/18 05/10/18 16:30 22:48 POC Glucose 272 H 182 H Phosphorus - Imaging Impressions Chest X-Ray 05/10/18 00:00 CONCLUSION: 1. Tunneled right IJ dialysis catheter is in the mid SVC. This appears to have been pulled back from placement fluoroscopic images of 04/25/2018. Has the catheter been exchanged or just pulled back? Is the catheter cuff exposed? 2. Negative portable chest. 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 Summers as appears not to be of trestleman origin discussed with patient, RN and Dr. Summers 05/09/18: POD# 3 s/p X lap TOMAS with BSO and appendectomy final pathology pending pain controlled continues on dialysis management based on final pathology POD #5 s/p X lap TOMAS with BSO and appendectomy final pathology benign pain controlled discharge once dialysis is scheduled OK to discharge per trestleman/onc will follow up with Dr. Summers 2 weeks after discharge for post op check
[2018-05-11] MEDS: Calcitriol 0.25 MCG Capsule PO SCH (09:13)
[2018-05-11] MEDS: amLODIPine 10 MG Tablet PO SCH (09:13)
[2018-05-11] MEDS: Senna/Docusate Sodium 8.6/50 MG Tablet PO SCH ×2 (09:13→21:49)
[2018-05-11] MEDS: Vitamin B Complex/Vit C/Folic Tablet PO SCH (09:14)
[2018-05-11] MEDS: Heparin - SQ 10,000 UNITS/ML Vial SQ SCH ×2 (09:14→21:48)
[2018-05-11] MEDS: hydrALAZINE 50 MG Tablet PO SCH ×3 (09:14→18:07)
[2018-05-11] MEDS: Sodium Chloride 0.9% 2 ML Flush BID IV.FLUSH SCH ×2 (09:15→21:51)
--- NOTE | 2018-05-11 09:39 | P.PN ---
Physical Exam Vital signs: Vital Signs 05/10/18 14:03 05/10/18 16:00 05/10/18 20:15 Temperature 97.8 F 98.3 F Pulse Rate 107 H 100 H 97 H Respiratory Rate 20 18 Blood Pressure 123/62 126/64 139/66 Pulse Oximetry 98 99 05/11/18 00:00 05/11/18 04:46 05/11/18 07:55 Temperature 98.3 F 98.0 F 97.4 F L Pulse Rate 94 H 90 87 Respiratory Rate 18 18 20 Blood Pressure 107/56 L 112/68 125/68 Pulse Oximetry 98 98 99 Intake & Output 05/10/18 05/11/18 05/11/18 18:59 06:59 18:59 Output Total 600 / 600 Balance -600 / -600 Weight 87.1 kg Output: Hemodialysis Amount 600 / 600 Other: # Voids 2 3 Date of Last Bowel Movement 05/09/18 - Urinary Catheter Management Indwelling Urethral Catheter Cath placed during this visit: no Reason for continuing: Not indwelling catheter Straight Cath placed during this visit: yes Reason for continuing: Not indwelling catheter Insertion date: 05/09/18 Insertion time: 05:34 Results - Labs CBC & Chem 7: 05/09/18 04:28 05/09/18 04:28 Laboratory Results - last 24 hr 05/10/18 05/10/18 05/10/18 12:25 16:30 22:48 POC Glucose 141 H 272 H 182 H 05/11/18 09:12 POC Glucose 160 H - Imaging Impressions Chest X-Ray 05/10/18 00:00 CONCLUSION: 1. Tunneled right IJ dialysis catheter is in the mid SVC. This appears to have been pulled back from placement fluoroscopic images of 04/25/2018. Has the catheter been exchanged or just pulled back? Is the catheter cuff exposed? 2. Negative portable chest. - Procedures 04/22 CT-guided biopsy of intraperitoneal mesenteric mass with interventional radiology Assessment and Plan - Assessment (1) Mesenteric mass Code(s): K63.9 - Disease of intestine, unspecified Status: Acute - Plan pod#5 somnolent pathology reviewed c/w benign leiomyomas, inflammation/infarction, ovarian cystadenoma, paratubal cyst, benign appendix Q&A, she understands cpm
[2018-05-11] MEDS: Insulin NovoLOG Aspart Correctional Sugar Inj SQ SCH ×4 (10:10→21:58)
--- NOTE | 2018-05-11 11:35 | P.PNGS ---
Subjective Interval history: Resting in bed No issues overnight RN at bedside Physical Exam Vital signs: Vital Signs 05/10/18 14:03 05/10/18 16:00 05/10/18 20:15 Temperature 97.8 F 98.3 F Pulse Rate 107 H 100 H 97 H Respiratory Rate 20 18 Blood Pressure 123/62 126/64 139/66 Pulse Oximetry 98 99 05/11/18 00:00 05/11/18 04:46 05/11/18 07:55 Temperature 98.3 F 98.0 F 97.4 F L Pulse Rate 94 H 90 87 Respiratory Rate 18 18 20 Blood Pressure 107/56 L 112/68 125/68 Pulse Oximetry 98 98 99 Intake & Output 05/10/18 05/11/18 05/11/18 18:59 06:59 18:59 Output Total 600 / 600 Balance -600 / -600 Weight 87.1 kg Output: Hemodialysis Amount 600 / 600 Other: # Voids 2 3 Date of Last Bowel Movement 05/09/18 Narrative: Alert and awake Abd: soft; KENIA in place with good seal - Urinary Catheter Management Indwelling Urethral Catheter Cath placed during this visit: no Reason for continuing: Not indwelling catheter Straight Cath placed during this visit: yes Reason for continuing: Not indwelling catheter Insertion date: 05/09/18 Insertion time: 05:34 Results - Labs 05/09/18 04:28 05/09/18 04:28 Laboratory Results - last 24 hr 05/10/18 05/10/18 05/10/18 12:25 16:30 22:48 POC Glucose 141 H 272 H 182 H 05/11/18 05/11/18 09:12 11:14 POC Glucose 160 H 264 H - Imaging Imaging: ITS Impressions Pelvis Ultrasound 04/21/18 00:00 CONCLUSION: 1. Limited examination due to patient's body habitus and decline of transvaginal exam. 2. The right adnexal mass noted on CT exam does appear to correspond to the right ovary measuring 9.7 x 11.6 x 8.1 cm. 3. Uterus is not completely visualized and therefore the midline pelvic mass cannot be definitively excluded from the uterus although again this appears separate on CT exam. 4. 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 Correlation with tumor markers and clinical history is recommended. Further evaluation may be performed with MRI examination of the pelvis if there is continued clinical uncertainty following gynecological consultation. Abdomen/Pelvis CT 04/21/18 20:25 CONCLUSION: 1. Bulky large soft tissue density mesenteric masses with the largest measuring 14.7 x 7.5 x 8.5 cm. A second dominant mesenteric mass extends to the right adnexa. Differential considerations include ovarian malignancy with mesenteric metastases, GIST, mesenteric fibromatosis, and mesenteric adenopathy amongst other etiologies. Ultrasound examination of the pelvis may be performed to exclude right ovarian mass. Abdomen Biopsy CT 04/22/18 00:00 CONCLUSION: 1. Uncomplicated CT guided biopsy. Central Venous Line 04/25/18 18:46 CONCLUSION: 1. Uncomplicated PermaCath placement as above. Chest X-Ray 05/10/18 00:00 CONCLUSION: 1. Tunneled right IJ dialysis catheter is in the mid SVC. This appears to have been pulled back from placement fluoroscopic images of 04/25/2018. Has the catheter been exchanged or just pulled back? Is the catheter cuff exposed? 2. Negative portable chest. Assessment and Plan - Plan 42 year old female with abdominal pain; CKD now on hemodialysis; CT guided bx c/ w neoplasm -s/p ex lap; resection of abdominal tumor -Nephrology following; now on HD -Tolerating regular diet -+BM -Will plan to remove KENIA dressing prior to DC -Patient states they are working on getting HD set up
--- NOTE | 2018-05-11 12:45 | P.PNNP ---
Subjective Interval history: Patient was seen, no distress. Patient has been getting dialysis TTS, dialyzed yesterday, 600 mL fluid removed in UF. Consult put in to Dr. Reza for AVF placement, vein mapping has been ordered. Outpatient HD arrangements are being made, patient wants to go to [facility] 4th shift. <Andrew Taylor - Last Filed: 05/11/18 12:33> Physical Exam Vital signs: Vital Signs 05/10/18 14:03 05/10/18 16:00 05/10/18 20:15 Temperature 97.8 F 98.3 F Pulse Rate 107 H 100 H 97 H Respiratory Rate 20 18 Blood Pressure 123/62 126/64 139/66 Pulse Oximetry 98 99 05/11/18 00:00 05/11/18 04:46 05/11/18 07:55 Temperature 98.3 F 98.0 F 97.4 F L Pulse Rate 94 H 90 87 Respiratory Rate 18 18 20 Blood Pressure 107/56 L 112/68 125/68 Pulse Oximetry 98 98 99 Intake & Output 05/10/18 05/11/18 05/11/18 18:59 06:59 18:59 Output Total 600 / 600 Balance -600 / -600 Weight 87.1 kg Output: Hemodialysis Amount 600 / 600 Other: # Voids 2 3 Date of Last Bowel Movement 05/09/18 - Constitutional no acute distress - Routine HEENT Exam Head: Present: normocephalic, tenderness of temporal artery ENT: Present: mucous membranes moist - Routine Neck Exam Present: trachea midline. Absent: JVD - Routine Respiratory Exam Present: CTA bilaterally. Absent: accessory muscle use - Routine Cardiovascular Exam Present: RRR. Absent: murmur - Routine Abdominal Exam Present: soft, surgical scars - Routine Extremities Exam Absent: edema - Routine Skin Exam Present: intact - Routine Neurological Exam Present: alert, oriented X3 - Routine Psychiatric Exam Present: normal affect - Urinary Catheter Management Indwelling Urethral Catheter Cath placed during this visit: no Reason for continuing: Not indwelling catheter Straight Cath placed during this visit: yes Reason for continuing: Not indwelling catheter Insertion date: 05/09/18 Insertion time: 05:34 <Andrew Taylor - Last Filed: 05/11/18 12:33> Vital signs: Vital Signs 05/11/18 15:50 05/11/18 20:10 05/12/18 00:10 Temperature 97.8 F 98.7 F 99.1 F Pulse Rate 92 H 96 H 83 Respiratory Rate 18 20 20 Blood Pressure 128/65 153/79 H 121/58 L Pulse Oximetry 97 97 97 05/12/18 04:10 05/12/18 08:00 05/12/18 13:17 Temperature 98.7 F 97.9 F 97.7 F Pulse Rate 90 90 99 H Respiratory Rate 20 18 16 Blood Pressure 160/77 H 139/65 164/78 H Pulse Oximetry 99 100 100 05/12/18 13:20 05/12/18 13:30 05/12/18 13:45 Temperature 97.6 F Pulse Rate 98 H 98 H Respiratory Rate 16 16 Blood Pressure 162/79 H 155/78 H Pulse Oximetry 100 96 100 05/12/18 13:50 05/12/18 13:55 Temperature Pulse Rate Respiratory Rate 16 Blood Pressure Pulse Oximetry 100 100 Intake & Output 05/11/18 05/12/18 05/12/18 18:59 06:59 18:59 Intake Total 450 / 450 Output Total Balance 440 / 440 Weight 86.3 kg Intake: IV 50 / 50 Ancef 2 GM Premix Inj 2 gm In 50 / 50 50 ml @ 100 mls/hr IV.SIG PAPER [employer] [facility] Rx#:[id number] Anesthesia Amount 400 / 400 Output: Estimated Blood Loss Other: # Voids 1 5 Date of Last Bowel Movement 05/09/18 05/11/18 - Urinary Catheter Management Indwelling Urethral Catheter Cath placed during this visit: no Straight Cath placed during this visit: no <Zachary Uribe - Last Filed: 05/12/18 14:19> Assessment and Plan - Assessment (1) End stage renal disease Code(s): N18.6 - End stage renal disease Status: Acute Plan: Patient getting dialysis TTS while hospitalized, dialyzed yesterday, 600 mL fluid removed. Monitor fluid and electrolytes. Avoid Gadolinium. Consult placed to Dr. Reza for AVF placement. Vein mapping ordered. Outpatient HD arrangements are being made. Patient wants to go to [facility] which is only done on MWF. (2) Ovarian mass, right Code(s): N83.9 - Noninflammatory disorder of ovary, fallopian tube and broad ligament, unspecified Status: Acute Plan: s/p appendectomy, hysterectomy with bilateral salpingo-oophorectomy. -General surgery on the case. (3) DM (diabetes mellitus) Code(s): E11.9 - Type 2 diabetes mellitus without complications Status: Chronic Plan: Insulin coverage to maintain blood glucose levels between 140 and 180 while hospitalized. (4) HTN (hypertension) Code(s): I10 - Essential (primary) hypertension Status: Chronic Plan: -Monitor BP. -Patient on Amlodipine, Hydralazine, and Metoprolol. (5) Anemia Code(s): D64.9 - Anemia, unspecified Status: Acute Plan: Continue Epogen with dialysis. (6) Metabolic bone disease Code(s): E88.9 - Metabolic disorder, unspecified; M90.80 - Osteopathy in diseases classified elsewhere, unspecified site Status: Acute Plan: Monitor phosphorus intermittently, patient on Renvela. Phosphorus is 5 <Andrew Taylor - Last Filed: 05/11/18 12:33> - Assessment (1) End stage renal disease Code(s): N18.6 - End stage renal disease Status: Acute (2) Ovarian mass, right Code(s): N83.9 - Noninflammatory disorder of ovary, fallopian tube and broad ligament, unspecified Status: Acute (3) DM (diabetes mellitus) Code(s): E11.9 - Type 2 diabetes mellitus without complications Status: Chronic (4) HTN (hypertension) Code(s): I10 - Essential (primary) hypertension Status: Chronic (5) Anemia Code(s): D64.9 - Anemia, unspecified Status: Acute (6) Metabolic bone disease Code(s): E88.9 - Metabolic disorder, unspecified; M90.80 - Osteopathy in diseases classified elsewhere, unspecified site Status: Acute - Attending Attestation patient was seen and examined on the . Agree with above assessment and plan. <Zachary Uribe - Last Filed: 05/12/18 14:19>
--- NOTE | 2018-05-11 14:21 | US ---
EXAM DATE: 05/11/2018 2:10 PM EST AGE/SEX: 42 years / Female INDICATIONS: Mapping for arteriovenous fistula. CLINICAL DATA: This is the patient's initial encounter. Patient reports that signs and symptoms have been present for 1 day and indicates a pain score of 0/10. MEDICAL/SURGICAL HISTORY: . Anemia. CKD. Diabetes. Hyperlipidemia. HTN. . Eye surgery. Hys terectomy. COMPARISON: . FINDINGS: Right Upper Extremity: FINDINGS Left Upper Extremity: Occlusive thrombus in the right internal jugular. The entire deep venous syste m appears to be patent and compressible. Nonvisualization of the mid and distal portions of the cepha lic probably representing chronic occlusion of this superficial vein. Other: None. CONCLUSION: 1. Occlusive thrombosis of the right IJ. 2. There may be chronic occlusion of the mid and distal portions of the cephalic vein. 3. Otherwise, deep venous system appears to be widely patent throughout. Electronically signed by: Rom Knight MD Board Certified Radiologist 05/11/2018 2:20 PM EST
--- NOTE | 2018-05-11 14:28 | US ---
EXAM DATE: 05/11/2018 2:17 PM EST AGE/SEX: 42 years / Female INDICATIONS: Mapping for arteriovenous fistula. CLINICAL DATA: This is the patient's initial encounter. Patient reports that signs and symptoms have been present for 1 day and indicates a pain score of 0/10. MEDICAL/SURGICAL HISTORY: . Anemia. CKD. Diabetes. Hyperlipidemia. HTN. . Eye surgery. [place] [facility] [place] 05/11/2018. . MEASUREMENTS: RIGHT: CEPHALIC: Origin:__2 mm Mid-Arm:__2 mm Elbow:__2 mm Forearm:__Non-visualized Wrist:__Non-visualized BASILIC: Origin:__2 mm Mid-Arm:__2 mm Elbow:__1 mm ARTERIES: Brachial:__2 mm Ulnar:__1 mm Radial:__2 mm VEINS: Radial:__1 mm Ulnar:__1 mm LEFT: CEPHALIC: Origin:__2 mm Mid-Arm:__2 mm Elbow:__Non-visualized Forearm:__Non-visualized Wrist:__Non-visualized BASILIC: Origin:__2 mm Mid-Arm:__2 mm Elbow:__2 mm ARTERIES: Brachial:__2 mm Ulnar:__1 mm Radial:__1 mm VEINS: Radial:__1 mm Ulnar:__1 mm FINDINGS: The venous system of the upper extremities are patent by color Doppler imaging. Measurements of the arm veins (in mm) are listed above. CONCLUSION: 1. The study is negative for upper extremity deep venous thrombosis. Electronically signed by: Elias Alston MD Board Certified Radiologist 05/11/2018 2:27 PM EST
[2018-05-11 17:00] LABS: Baso % (Auto) 0.9 % (0.0-2.0); Eos # (Auto) 0.2 th/mm3 (0.0-0.4); Eos % (Auto) 4.4 % (0.0-4.0); Hematocrit 25.8 % (35.0-46.0); Hemoglobin 8.4 gm/dL (11.6-15.3); Lymph % (Auto) 23.9 % (9.0-44.0); Mean Corpuscular HGB Conc 32.7 % (32.0-36.0); Mean Corpuscular Hemoglobin 26.7 pg (27.0-34.0); Mean Corpuscular Volume 81.6 fL (80.0-100.0); Mean Platelet Volume 8.6 fL (7.0-11.0); Mono # (Auto) 0.5 th/mm3 (0.0-0.9); Mono % (Auto) 10.6 % (0.0-8.0); Neut # (Auto) 2.6 th/mm3 (1.8-7.7); Neut % (Auto) 60.2 % (16.0-70.0); Platelet Count 282 th/mm3 (150-450); Red Blood Count 3.16 mil/mm3 (4.00-5.30); Red Cell Distribution Width 14.3 % (11.6-17.2); White Blood Count 4.3 th/mm3 (4.0-11.0)
[2018-05-11 17:49] LABS: Calcium 7.9 mg/dL (8.5-10.1); Carbon Dioxide 31.7 meq/L (21.0-32.0); Potassium 4.2 meq/L (3.5-5.1)
--- NOTE | 2018-05-11 17:57 | P.CONVS ---
History of Present Illness Service: Vascular surgery Consult date: 05/11/18 Primary Care Provider: UNKNOWN Chief Complaint: Hemodialysis access History of Present Illness: 42-year-old female who with uterine mass underwent abdominal hysterectomy and bilateral segmental nephrectomy. She is currently with end-stage renal disease requiring hemodialysis. Vascular surgery is consulted for AV access creation. She denies any chest pain or shortness of breath. She currently receives hemodialysis via right internal jugular vein permacath. She has right-handed. Review of Systems All other systems reviewed negative except as stated in [facility] - History History Provided By: Patient - Medical History Medical History: Medical History (Last Reviewed 04/27/18 @ 15:39 by LUISANA Baeza) Anemia Diabetes Chronic kidney disease Hyperlipidemia Hypertension - Surgical History Surgical History: Surgical History (Last Reviewed 04/27/18 @ 15:39 by LUISANA Baeza) History of eye surgery - Tobacco History Second Hand Smoke Exposure: No Smoking Status: Never smoker - Alcohol History How Often Do You Have a Drink Containing Alcohol: Never - Substance Use History Substance History: No History of Abuse - Travel History Recent Travel in the [place] Within the Last 8 Weeks: No Recent Travel Out of the Country Within the Last 8 Weeks: No - Immunization History Tetanus Immunization: Unable to Assess Hx Influenza Vaccine This Season: No Medications and Allergies Active Medications: Active Medications Acetaminophen (Tylenol) 650 mg PO UNSCH PRN PRN Reason: SEE LABEL COMMENTS Acetaminophen (Tylenol) 650 mg PO Q4H PRN PRN Reason: Temp > 100.4 Last Admin: 04/26/18 16:07 Dose: 650 mg Acetaminophen (Tylenol) 650 mg PO Q6HR PRN PRN Reason: PAIN SCALE 1 TO 2 Last Admin: 04/30/18 22:38 Dose: 650 mg Hydrocodone Bitart/Acetaminophen ([place] 5/325) 1 tab PO Q4H PRN PRN Reason: PAIN SCALE 3 TO 5 Last Admin: 05/10/18 23:12 Dose: 1 tab Hydrocodone Bitart/Acetaminophen ([place] 7.5/325) 1 tab PO Q4H PRN PRN Reason: PAIN SCALE 6 TO 10 Last Admin: 05/09/18 19:06 Dose: 1 tab Al Hydroxide/Mg Hydroxide (Milk Of Magnesia Liq) 30 ml PO Q12H PRN PRN Reason: Mild Constipation Amlodipine Besylate (Norvasc) 10 mg PO DAILY [facility] Last Admin: 05/11/18 09:13 Dose: 10 mg Bisacodyl (Dulcolax Supp) 10 mg RECTAL DAILY PRN PRN Reason: SEVERE CONSITIPATION Last Admin: 05/02/18 18:31 Dose: 10 mg Calcitriol (Rocaltrol) 0.25 mcg PO DAILY [facility] Last Admin: 05/11/18 09:13 Dose: 0.25 mcg Clonidine HCl (Catapres) 0.1 mg PO UNSCH PRN PRN Reason: SEE LABEL COMMENTS Clonidine HCl (Catapres) 0.1 mg PO Q6H PRN PRN Reason: SBP>160, DBP>90 Last Admin: 05/01/18 05:39 Dose: 0.1 mg Dextrose (D50w Vial) 50 ml IV.PUSH UNSCH PRN PRN Reason: PER HYPOGLYCEMIA PROTOCOL Diphenhydramine HCl (Benadryl) 25 mg PO UNSCH PRN PRN Reason: SEE LABEL COMMENTS Epoetin Danilo (Epogen Inj) 10,000 unit IV.PUSH UNSCH PRN PRN Reason: SEE LABEL COMMENTS Last Admin: 05/10/18 12:18 Dose: 10,000 unit Gelatin (Gelfoam 12 Mm/7 Mm Topical) 1 foam TOPICAL PRN PRN PRN Reason: help stop bleeding from site Gentamicin Sulfate (Gentamicin Inj) 20 mg OTHER WITH DIALYSIS PRN PRN Reason: Dwell Gentamycin Lock Last Admin: 05/10/18 12:18 Dose: 20 mg Glucagon (Glucagon Inj) 1 mg OTHER PRN PRN PRN Reason: for Hypoglycemia Protocol Heparin Sodium (Porcine) (Heparin Inj) 8,000 units OTHER WITH DIALYSIS PRN PRN Reason: for machine prime Heparin Sodium (Porcine) (Heparin Inj) 1,000 units OTHER WITH DIALYSIS PRN PRN Reason: Dwell Heparin to Fill Catheter Last Admin: 05/10/18 12:18 Dose: 1,000 units Heparin Sodium (Porcine) (Heparin Inj) 5,000 units SQ Q12HR [facility] Last Admin: 05/11/18 09:14 Dose: 5,000 units Hydralazine HCl (Apresoline) 50 mg PO TID [facility] Last Admin: 05/11/18 12:52 Dose: 50 mg Hydralazine HCl (Apresoline Inj) 10 mg IV.PUSH Q6H PRN PRN Reason: SEE LABEL COMMENTS Last Admin: 04/28/18 05:24 Dose: 10 mg Cefazolin Sodium/Dextrose (Ancef 2 Gm Premix Inj) 2 gm in 50 mls @ 100 mls/hr IV.SIG [facility]IEF EXEC[facility]IVE [facility] Vancomycin HCl 1,000 mg/ (Sodium Chloride) 250 mls @ 200 mls/hr IV.SIG [facility] Last Admin: 04/25/18 11:12 Dose: 200 mls/hr Albumin Human (Flexbumin 25% Inj) 100 mls @ 60 mls/hr IV.SIG WITH DIALYSIS PRN PRN Reason: hypotension / volume replace Sodium Chloride (Ns Inj) 1,000 mls @ 200 mls/hr OTHER .Q5H PRN PRN Reason: for dialyzer flush PRN Sodium Chloride (Ns Inj) 1,000 mls @ 0 mls/hr IV.CONT .Q0M PRN PRN Reason: hypotension / volume replace Sodium Chloride (Ns Inj) 1,000 mls @ 0 mls/hr OTHER .Q0M PRN PRN Reason: for prime and rinse back Ondansetron HCl 8 mg/ Dextrose 54 mls @ 216 mls/hr IV.SIG Q6H PRN PRN Reason: NAUSEA OR VOMITING Last Infusion: 04/26/18 03:59 Dose: Infused Insulin Aspart (Novolog Insulin Correctional Sugar Inj) 0 unit SQ [facility]; Protocol Last Admin: 05/11/18 12:52 Dose: 5 unit Insulin Detemir (Levemir Inj) 10 unit SQ HS [facility] Last Admin: 05/10/18 23:01 Dose: 10 unit Labetalol HCl (Trandate Inj) 10 mg IV.PUSH Q2H PRN PRN Reason: SEE LABEL COMMENTS Lactulose (Lactulose Liq) 30 ml PO DAILY PRN PRN Reason: SEVERE CONSITIPATION Last Admin: 05/11/18 15:06 Dose: 30 ml Latanoprost (Xalatan 0.005% Opth Drops) 1 drop EACH EYE QPM [facility] Last Admin: 05/10/18 17:48 Dose: 1 drop Mannitol (Mannitol Inj) 12.5 gm IV.PUSH UNSCH PRN PRN Reason: hypotension / volume replace Metoprolol Succinate (Toprol Xl) 100 mg PO DAILY [facility] Last Admin: 05/11/18 09:13 Dose: 100 mg Morphine Sulfate (Morphine Inj) 4 mg IV.PUSH Q1H PRN PRN Reason: PAIN 3-5; IF UABLE TO TAKE PO Morphine Sulfate (Morphine Inj) 4 mg IV.PUSH Q3H PRN PRN Reason: PAIN 6-10;IF UNABLE TO TAKE PO Last Admin: 04/23/18 04:31 Dose: 4 mg Naloxone HCl (Narcan Inj) 0.4 mg IV.PUSH UNSCH PRN PRN Reason: SEE LABEL COMMENTS Naloxone HCl (Narcan Inj) 0.4 mg IV.PUSH UNSCH PRN PRN Reason: SEE LABEL COMMENTS Nitroglycerin (Nitrostat Sl) 0.4 mg SL Q5M PRN PRN Reason: CHEST PAIN Ondansetron HCl (Zofran Odt) 4 mg PO Q6H PRN PRN Reason: NAUSEA OR VOMITING Last Admin: 04/26/18 20:55 Dose: 4 mg Prochlorperazine Edisylate (Compazine Inj) 5 mg IV.PUSH Q6H PRN PRN Reason: SEVERE NAUSEA Last Admin: 05/07/18 03:42 Dose: 5 mg Promethazine HCl (Phenergan Supp) 25 mg RECTAL Q6H PRN PRN Reason: NAUSEA OR VOMITING Last Admin: 04/24/18 05:36 Dose: 25 mg Promethazine HCl (Phenergan) 25 mg PO Q6H PRN PRN Reason: NAUSEA OR VOMITING Last Admin: 05/08/18 11:58 Dose: 25 mg Senna/Docusate Sodium (Olga-Colace) 1 tab PO BID [facility] Last Admin: 05/11/18 09:13 Dose: 1 tab Sennosides (Senokot) 17.2 mg PO Q12H PRN PRN Reason: Moderate Constipation Sevelamer Carbonate (Renvela) 1,600 mg PO TIDAC [facility] Last Admin: 05/11/18 12:52 Dose: 1,600 mg Sodium Chloride (Ns Flush) 5 ml IV.FLUSH PRN PRN PRN Reason: flush each lumen during HD Sodium Chloride (Ns Flush) 2 ml IV.FLUSH BID [facility] Last Admin: 05/11/18 09:15 Dose: 2 ml Sodium Chloride (Ns Flush) 2 ml IV.FLUSH PRN PRN PRN Reason: FLUSH AFTER USING IV ACCESS Last Admin: 04/28/18 05:25 Dose: 2 ml Vitamin B Complex/Vit C/Folic Acid (Nephrocaps) 1 tab PO DAILY [facility] Last Admin: 05/11/18 09:14 Dose: 1 tab Zolpidem Tartrate (Ambien) 5 mg PO HS PRN PRN Reason: INSOMNIA Last Admin: 05/10/18 23:12 Dose: 5 mg Allergies Allergy/AdvReac Type Severity Reaction Status Date / Time No Known Allergies Allergy Unverified 04/21/18 20:25 Home Medications Medication Instructions Recorded Confirmed Type amlodipine [Norvasc] 10 mg PO DAILY 04/21/18 04/21/18 History calcitriol 0.25 mcg PO DAILY 04/21/18 04/21/18 History calcium acetate 667 mg PO TID 04/21/18 04/21/18 History ferrous sulfate 325 mg PO BID 04/21/18 04/21/18 History furosemide 20 mg PO DAILY 04/21/18 04/21/18 History glipizide 2.5 mg PO DAILY 04/21/18 04/21/18 History latanoprost 1 drp OPHTHALMIC (EYE) QPM 04/21/18 04/21/18 History metoprolol succinate 100 mg PO DAILY 04/21/18 04/21/18 History simvastatin 20 mg PO QPM 04/21/18 04/21/18 History Physical Exam Vital Signs / I&O: Vital Signs 05/10/18 20:15 05/11/18 00:00 05/11/18 04:46 Temperature 98.3 F 98.3 F 98.0 F Pulse Rate 97 H 94 H 90 Respiratory Rate 18 18 18 Blood Pressure 139/66 107/56 L 112/68 Pulse Oximetry 99 98 98 05/11/18 07:55 05/11/18 08:00 05/11/18 12:50 Temperature 97.4 F L 97.9 F Pulse Rate 87 98 H Respiratory Rate 20 17 Blood Pressure 125/68 140/67 Pulse Oximetry 99 100 05/11/18 12:54 05/11/18 15:50 Temperature 97.9 F 97.8 F Pulse Rate 98 H 92 H Respiratory Rate 20 18 Blood Pressure 140/67 128/65 Pulse Oximetry 100 97 Intake & Output 05/10/18 05/11/18 05/11/18 18:59 06:59 18:59 Output Total 600 / 600 Balance -600 / -600 Weight 87.1 kg Output: Hemodialysis Amount 600 / 600 Other: # Voids 2 3 Date of Last Bowel Movement 05/09/18 05/09/18 Neuro: Alert awake oriented x3 HEENT: Normocephalic atraumatic Neck: Supple Heart: S1-S2 Lungs: Clear to auscultation Abdomen: Soft nontender nondistended Vascular: Palpable radial pulses bilateral Laboratory Results - last 24 hr 05/10/18 05/11/18 05/11/18 22:48 09:12 11:14 WBC RBC Hgb Hct MCV MCH MCHC RDW Plt Count MPV Neut % (Auto) Lymph % (Auto) [facility] % (Auto) Eos % (Auto) Baso % (Auto) Neut # (Auto) Lymph # (Auto) [facility] # (Auto) Eos # (Auto) Baso # (Auto) WBC Differential Differential Comment Sodium Potassium Chloride Carbon Dioxide Anion Gap BUN Creatinine Estimated GFR POC Glucose 182 H 160 H 264 H Random Glucose Calcium 05/11/18 05/11/18 05/11/18 16:31 16:31 17:24 WBC 4.3 RBC 3.16 L Hgb 8.4 L Hct 25.8 L MCV 81.6 MCH 26.7 L MCHC 32.7 RDW 14.3 Plt Count 282 MPV 8.6 Neut % (Auto) 60.2 Lymph % (Auto) 23.9 [facility] % (Auto) 10.6 H Eos % (Auto) 4.4 H Baso % (Auto) 0.9 Neut # (Auto) 2.6 Lymph # (Auto) 1.0 [facility] # (Auto) 0.5 Eos # (Auto) 0.2 Baso # (Auto) 0.0 WBC Differential . Differential Comment Auto diff final Sodium 138 Potassium 4.2 Chloride 100 Carbon Dioxide 31.7 Anion Gap 6 BUN 32 H Creatinine 4.54 H Estimated GFR 13 L POC Glucose 157 H Random Glucose 157 H Calcium 7.9 L Impressions Chest X-Ray 05/10/18 00:00 CONCLUSION: 1. Tunneled right IJ dialysis catheter is in the mid SVC. This appears to have been pulled back from placement fluoroscopic images of 04/25/2018. Has the catheter been exchanged or just pulled back? Is the catheter cuff exposed? 2. Negative portable chest. Upper Extremity Ultrasound 05/11/18 00:00 CONCLUSION: 1. The study is negative for upper extremity deep venous thrombosis. Venous Doppler Study 05/11/18 00:00 CONCLUSION: 1. Occlusive thrombosis of the right IJ. 2. There may be chronic occlusion of the mid and distal portions of the cephalic vein. 3. Otherwise, deep venous system appears to be widely patent throughout. Assessment and Plan - Plan End-stage renal disease requiring hemodialysis. We will schedule patient for left upper extremity AV fistula. We noted that her veins are small on duplex ultrasound. Will perform an intraoperative ultrasound examination of the left upper extremity veins. If noted to be unsuitable for fistula creation, will proceed with left brachial axillary AV graft placement. Risk, benefits and alternatives were explained to the patient she agrees to the procedure. Patient scheduled for the procedure in a.m. Thank you for allowing us to participate in this patient care. If you have any questions do not hesitate to call my cell phone Tu Rdz MD [facility] [id number]
[2018-05-11] MEDS: Latanoprost 0.005% Opth Drops 2.5 ML Bottle EACH EYE SCH (18:07)
--- NOTE | 2018-05-11 19:47 | P.PNIM ---
Subjective Interval history: 42yo f admtted with abd/pelvic mass s/p TAHBSO found to be benign leimyomas now being arranged to get vascular workup for dialysis avf pt seen and doing ok, denies sob, no nv, no cp, abd pain ok, feeling constipated Physical Exam Vital signs: Vital Signs 05/10/18 20:15 05/11/18 00:00 05/11/18 04:46 Temperature 98.3 F 98.3 F 98.0 F Pulse Rate 97 H 94 H 90 Respiratory Rate 18 18 18 Blood Pressure 139/66 107/56 L 112/68 Pulse Oximetry 99 98 98 05/11/18 07:55 05/11/18 08:00 05/11/18 12:50 Temperature 97.4 F L 97.9 F Pulse Rate 87 98 H Respiratory Rate 20 17 Blood Pressure 125/68 140/67 Pulse Oximetry 99 100 05/11/18 12:54 05/11/18 15:50 Temperature 97.9 F 97.8 F Pulse Rate 98 H 92 H Respiratory Rate 20 18 Blood Pressure 140/67 128/65 Pulse Oximetry 100 97 Intake & Output 05/11/18 05/11/18 05/12/18 06:59 18:59 06:59 Weight 87.1 kg Other: # Voids 3 1 Date of Last Bowel Movement 05/09/18 05/09/18 Narrative: wdwn 42yo aaf aaox3 flat afect nad heart s1s2 reg lungs clear nowrr abd soft post op, dressing in place, non dtpos bs ext no edema no calf tenderness Urinary Catheter Management Indwelling Urethral Catheter: Cath placed during this visit: no Reason for continuing: Not indwelling catheter Straight: Cath placed during this visit: yes Reason for continuing: Not indwelling catheter Insertion date: 05/09/18 Insertion time: 05:34 Results Labs CBC & Chem 7: 05/11/18 16:31 05/11/18 16:31 Imaging Imaging: Impressions Upper Extremity Ultrasound 05/11/18 00:00 CONCLUSION: 1. The study is negative for upper extremity deep venous thrombosis. Venous Doppler Study 05/11/18 00:00 CONCLUSION: 1. Occlusive thrombosis of the right IJ. 2. There may be chronic occlusion of the mid and distal portions of the cephalic vein. 3. Otherwise, deep venous system appears to be widely patent throughout. 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
[2018-05-11] MEDS: Insulin Detemir Inj 1,000 UNIT/10 ML Vial SQ SCH (21:51)
[2018-05-11] MEDS: Zolpidem Tartrate 5 MG Tablet PO PRN (23:18)
[2018-05-12] MEDS ORDERED: fentaNYL Citrate Inj 100 MCG/2 ML Ampul ONE (07:34)
[2018-05-12] MEDS: Insulin NovoLOG Aspart Correctional Sugar Inj SQ SCH ×4 (08:00→23:30)
[2018-05-12] MEDS: hydrALAZINE 50 MG Tablet PO SCH ×3 (09:00→18:00)
[2018-05-12] MEDS: Senna/Docusate Sodium 8.6/50 MG Tablet PO SCH ×3 (09:00→23:23)
[2018-05-12] MEDS: Sodium Chloride 0.9% 2 ML Flush BID IV.FLUSH SCH ×2 (09:00→21:05)
[2018-05-12] MEDS: Vitamin B Complex/Vit C/Folic Tablet PO SCH (09:00)
[2018-05-12] MEDS: Calcitriol 0.25 MCG Capsule PO SCH (09:00)
[2018-05-12] MEDS: amLODIPine 10 MG Tablet PO SCH (09:00)
[2018-05-12] MEDS: Heparin - SQ 10,000 UNITS/ML Vial SQ SCH ×2 (09:00→21:05)
[2018-05-12] MEDS ORDERED: Metoprolol Tartrate 25 MG Tablet PO PRN (10:08)
[2018-05-12] MEDS ORDERED: Sodium Chlor 0.9% Inj 500 ML IV.CONT ONE (10:15)
[2018-05-12] MEDS ORDERED: Chlorhexidine Gluconate 2% 1 Pack (2 Cloths) TOPICAL ONE (10:15)
[2018-05-12] MEDS ORDERED: Protamine Sulfate Inj 50 MG/5 ML Vial ONE (10:21)
[2018-05-12] MEDS ORDERED: Heparin 10,000 UNITS/10 ML Vial (for IV use) ONE (10:21)
[2018-05-12] MEDS ORDERED: Heparin/NS PF Inj 500 ML ONE (10:21)
[2018-05-12] MEDS ORDERED: Thrombin Topical Soln 20,000 UNIT Vial TOPICAL ONE (10:21)
[2018-05-12] MEDS ORDERED: Bupivacaine/Epinephrine PF Inj 0.5% 30 ML Vial ONE (10:22)
[2018-05-12] MEDS ORDERED: Famotidine PF Inj 20 MG/2 ML Vial ONE (10:25)
[2018-05-12] MEDS ORDERED: Gabapentin 300 MG Capsule ONE (10:25)
[2018-05-12] MEDS ORDERED: Acetaminophen 500 MG Tablet ONE (10:25)
[2018-05-12] MEDS ORDERED: Phenylephrine/NS 1000 MCG/10ML Syringe IV.PUSH ONE (11:37)
[2018-05-12] MEDS ORDERED: Lidocaine PF 1% Inj 5 ML Syringe OTHER ONE (11:37)
[2018-05-12] MEDS ORDERED: ceFAZolin 2 GM Premix Inj 2 GM/50 ML PIGGYBACK IV.SIG ONE (12:04)
--- NOTE | 2018-05-12 13:32 | P.OP ---
Preoperative Diagnosis: End-stage renal disease Postoperative Diagnosis: End-stage renal disease Date of procedure: 05/12/18 Procedure: Left brachiocephalic AV fistula creation [facility] Surgeon: Tu Rdz MD Estimated blood loss (mL): 5 Operation and Findings: Findings The left cephalic vein measured approximately 2.5 mm diameter. The left brachial artery measured approximately 4 mm in diameter. Successful left brachycephalic AV fistula creation. There is good thrill into the fistula and a multiphasic left radial, ulnar signals at the end of the procedure. Procedure details The patient was taken to the operating room, laid supine on the OR table. After general trach anesthesia, the patient was prepped and draped in the standard sterile fashion. Timeout was called with all members and you are in agreement. An incision was made in the left antecubital fossa. Dissection was taken down through the subcutaneous tissues electrocautery. The brachial artery was dissected and encircled Silastic loop. The median nerve identified and protected. The cephalic vein was dissected. The patient was heparinized. The cephalic vein was ligated and divided distally and clamped proximally. Proximal distal control was obtained in the brachial artery. An arteriotomy was created and anastomosis fashioned between the brachial artery and cephalic vein using 6-0 Prolene suture in a running fashion. Hemostasis achieved. The wound was closed in multiple layers using a Vicryl suture followed by Monocryl suture. Sterile dressing was applied. The patient tolerated the procedure well and was taken to recovery unit in stable condition.
--- NOTE | 2018-05-12 16:03 | P.PNNP ---
Subjective Interval history: Patient was seen, no distress. s/p Left brachiocephalic AV fistula creation Patient getting dialysis TTS, will be dialyzed today. <BrandonAndrew - Last Filed: 05/12/18 15:57> Physical Exam Vital signs: Vital Signs 05/11/18 20:10 05/12/18 00:10 05/12/18 04:10 Temperature 98.7 F 99.1 F 98.7 F Pulse Rate 96 H 83 90 Respiratory Rate 20 20 20 Blood Pressure 153/79 H 121/58 L 160/77 H Pulse Oximetry 97 97 99 05/12/18 08:00 05/12/18 13:17 05/12/18 13:20 Temperature 97.9 F 97.7 F Pulse Rate 90 99 H Respiratory Rate 18 16 Blood Pressure 139/65 164/78 H Pulse Oximetry 100 100 100 05/12/18 13:30 05/12/18 13:45 05/12/18 13:50 Temperature 97.6 F Pulse Rate 98 H 98 H Respiratory Rate 16 16 16 Blood Pressure 162/79 H 155/78 H Pulse Oximetry 96 100 100 05/12/18 13:55 Temperature Pulse Rate Respiratory Rate Blood Pressure Pulse Oximetry 100 Intake & Output 05/11/18 05/12/18 05/12/18 18:59 06:59 18:59 Intake Total 450 / 450 Output Total Balance 440 / 440 Weight 86.3 kg Intake: IV 50 / 50 Ancef 2 GM Premix Inj 2 gm In 50 / 50 50 ml @ 100 mls/hr IV.SIG CHECK [facility] Rx#:[id number] Anesthesia Amount 400 / 400 Output: Estimated Blood Loss Other: # Voids 1 5 Date of Last Bowel Movement 05/09/18 05/11/18 - Constitutional no acute distress - Routine HEENT Exam Head: Present: normocephalic Eye: Present: EOMI ENT: Present: mucous membranes moist - Routine Neck Exam Present: supple, trachea midline - Routine Respiratory Exam Present: accessory muscle use, patient mechanically ventilated - Routine Cardiovascular Exam Present: RRR - Routine Extremities Exam Present: AV fistula, vascular access - Routine Neurological Exam Present: alert, oriented X3 - Routine Psychiatric Exam Present: normal affect - Urinary Catheter Management Indwelling Urethral Catheter Cath placed during this visit: no Reason for continuing: Not indwelling catheter Straight Cath placed during this visit: yes Reason for continuing: Not indwelling catheter Insertion date: 05/09/18 Insertion time: 05:34 <Andrew Taylor - Last Filed: 05/12/18 15:57> Vital signs: Vital Signs 05/12/18 16:00 05/13/18 01:28 05/13/18 02:10 Temperature 97.8 F 97.7 F Pulse Rate 108 H 103 H 116 H Respiratory Rate 14 20 Blood Pressure 147/72 H 153/83 H 136/93 H Pulse Oximetry 100 100 05/13/18 04:10 05/13/18 08:00 05/13/18 12:00 Temperature 98.1 F 98.1 F 97.7 F Pulse Rate 97 H 84 92 H Respiratory Rate 20 18 20 Blood Pressure 158/81 H 139/63 138/67 Pulse Oximetry 100 100 100 Intake & Output 05/12/18 05/13/18 05/13/18 18:59 06:59 18:59 Intake Total 450 / 450 Output Total 1999 Balance 440 / 440 -1999 Weight 86 kg Intake: IV 50 / 50 Ancef 2 GM Premix Inj 2 gm In 50 / 50 50 ml @ 100 mls/hr IV.SIG CHECK PROCESSOR [facility] Rx#:[id number] Anesthesia Amount 400 / 400 Output: Hemodialysis Amount 1999 Estimated Blood Loss Other: # Voids 2 2 Date of Last Bowel Movement 05/11/18 05/11/18 - Urinary Catheter Management Indwelling Urethral Catheter Cath placed during this visit: no Straight Cath placed during this visit: no <Zachary Uribe - Last Filed: 05/13/18 14:40> Assessment and Plan - Assessment (1) End stage renal disease Code(s): N18.6 - End stage renal disease Status: Acute Plan: Patient getting dialysis TTS while hospitalized. Patient to be dialyzed today. s/p Left brachiocephalic AV fistula creation Patient is waiting on outpatient HD arrangements before being discharged. Patient wants to do dialysis at [facility] in [place], the case consultant is working on this. Monitor fluid and electrolytes. Avoid Gadolinium. (2) Ovarian mass, right Code(s): N83.9 - Noninflammatory disorder of ovary, fallopian tube and broad ligament, unspecified Status: Acute Plan: s/p appendectomy, hysterectomy with bilateral salpingo-oophorectomy. General surgery on the case. Plan to remove dressing prior to DC. (3) DM (diabetes mellitus) Code(s): E11.9 - Type 2 diabetes mellitus without complications Status: Chronic Plan: Insulin coverage to maintain blood glucose levels between 140 and 180 while hospitalized. (4) HTN (hypertension) Code(s): I10 - Essential (primary) hypertension Status: Chronic Plan: -Monitor BP. -Patient on Amlodipine, Hydralazine, and Metoprolol. (5) Anemia Code(s): D64.9 - Anemia, unspecified Status: Acute Plan: Continue Epogen with dialysis. (6) Metabolic bone disease Code(s): E88.9 - Metabolic disorder, unspecified; M90.80 - Osteopathy in diseases classified elsewhere, unspecified site Status: Acute Plan: Monitor phosphorus intermittently, patient on Renvela. Phosphorus is 5 <Andrew Taylor - Last Filed: 05/12/18 15:57> - Assessment (1) End stage renal disease Code(s): N18.6 - End stage renal disease Status: Acute (2) Ovarian mass, right Code(s): N83.9 - Noninflammatory disorder of ovary, fallopian tube and broad ligament, unspecified Status: Acute (3) DM (diabetes mellitus) Code(s): E11.9 - Type 2 diabetes mellitus without complications Status: Chronic (4) HTN (hypertension) Code(s): I10 - Essential (primary) hypertension Status: Chronic (5) Anemia Code(s): D64.9 - Anemia, unspecified Status: Acute (6) Metabolic bone disease Code(s): E88.9 - Metabolic disorder, unspecified; M90.80 - Osteopathy in diseases classified elsewhere, unspecified site Status: Acute - Attending Attestation patient was seen and examined on 05/12/18. Agree with above assessment and plan. Seen after surgery. Discharge after outpatient dialysis arrangements. <Zachary Uribe - Last Filed: 05/13/18 14:40>
[2018-05-12] MEDS: Latanoprost 0.005% Opth Drops 2.5 ML Bottle EACH EYE SCH (18:00)
--- NOTE | 2018-05-12 20:39 | P.PNIM ---
Subjective Interval history: 42-year-old female admitted with abdominal mass status post total abdominal hysterectomy with pathology report finding benign leiomyoma, patient also progressing to end-stage renal failure status post AV fistula Patient seen and examined, doing well today, denies shortness of breath, tolerating diet no nausea vomiting, Physical Exam Vital signs: Vital Signs 05/12/18 00:10 05/12/18 04:10 05/12/18 08:00 Temperature 99.1 F 98.7 F 97.9 F Pulse Rate 83 90 90 Respiratory Rate 20 20 18 Blood Pressure 121/58 L 160/77 H 139/65 Pulse Oximetry 97 99 100 05/12/18 13:17 05/12/18 13:20 05/12/18 13:30 Temperature 97.7 F Pulse Rate 99 H 98 H Respiratory Rate 16 16 Blood Pressure 164/78 H 162/79 H Pulse Oximetry 100 100 96 05/12/18 13:45 05/12/18 13:50 05/12/18 13:55 Temperature 97.6 F Pulse Rate 98 H Respiratory Rate 16 16 Blood Pressure 155/78 H Pulse Oximetry 100 100 100 05/12/18 16:00 Temperature 97.8 F Pulse Rate 108 H Respiratory Rate 14 Blood Pressure 147/72 H Pulse Oximetry 100 Intake & Output 05/12/18 05/12/18 05/13/18 06:59 18:59 06:59 Intake Total 450 / 450 Output Total Balance 440 / 440 Weight 86.3 kg Intake: IV 50 / 50 Ancef 2 GM Premix Inj 2 gm In 50 / 50 50 ml @ 100 mls/hr IV.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 [facility] Rx#:[id number] Anesthesia Amount 400 / 400 Output: Estimated Blood Loss Other: # Voids 5 2 Date of Last Bowel Movement 05/11/18 05/11/18 Narrative: wdwn 42yo aaf aaox3 flat afect nad heart s1s2 reg lungs clear nowrr abd soft post op, AV fistula site without erythema or drainage ext no edema no calf tenderness Urinary Catheter Management Indwelling Urethral Catheter: Cath placed during this visit: no Reason for continuing: Not indwelling catheter Straight: Cath placed during this visit: yes Reason for continuing: Not indwelling catheter Insertion date: 05/09/18 Insertion time: 05:34 Results Labs CBC & Chem 7: 05/13/18 07:32 05/13/18 07:33 Procedures Procedures: 04/22 CT-guided biopsy of intraperitoneal mesenteric mass with interventional radiology Assessment and Plan (1) End stage renal disease: Code(s): N18.6 - End stage renal disease Status: Acute (2) Ovarian mass, right: Code(s): N83.9 - Noninflammatory disorder of ovary, fallopian tube and broad ligament, unspecified Status: Acute (3) DM (diabetes mellitus): Code(s): E11.9 - Type 2 diabetes mellitus without complications Status: Chronic (4) HTN (hypertension): Code(s): I10 - Essential (primary) hypertension Status: Chronic (5) Anemia: Code(s): D64.9 - Anemia, unspecified Status: Acute (6) Metabolic bone disease: Code(s): E88.9 - Metabolic disorder, unspecified; M90.80 - Osteopathy in diseases classified elsewhere, unspecified site Status: Acute Plan R OVARIAN and MESENTERIC MASS s/p TAHBSO and appendectomy 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 - cont post op care per surgery ESRD new to dialysis per nephrology -s/p avf today, awaiting arrangements for outpatient dialysis chair DM w diabetic nephropathy niddm - cont diet , iss HTN cont home meds ANEMIA of ckd, iron epo GLAUCOMA latanoprost DYSLIPIDEMIA - statin dvt prophylaxis - heparin sc dispo - home when outpt dialysis arranged, tomorrow after dialysis Progress Note: Quality VTE Deep Vein Thrombosis/Pulmonary Embolism Present on Admission: No _ (1) DM (diabetes mellitus) Qualifiers: Chronic kidney disease stage: Diabetes mellitus complication detail: Diabetes mellitus complication status: Diabetes mellitus retirement insulin use : Diabetes mellitus macular edema: Diabetes mellitus type: Diabetic retinopathy severity: Laterality: Proliferative retinopathy type: (2) Anemia Qualifiers: Anemia type: Bone marrow failure anemia type: Chronic kidney disease stage : Folate deficiency anemia type: Hemolytic anemia type: Iron deficiency anemia type: Other causes of anemia: Vitamin B12 deficiency anemia type: (3) HTN (hypertension) Qualifiers: Hypertension type:
[2018-05-12] MEDS: Zolpidem Tartrate 5 MG Tablet PO PRN (23:23)
[2018-05-12] MEDS: Insulin Detemir Inj 1,000 UNIT/10 ML Vial SQ SCH (23:31)
[2018-05-13] MEDS ORDERED: hydrALAZINE 50 MG Tablet PO ONE (00:02)
[2018-05-13 08:02] LABS: Baso # (Auto) 0.1 th/mm3 (0.0-0.2); Baso % (Auto) 0.7 % (0.0-2.0); Eos % (Auto) 0.4 % (0.0-4.0); Hematocrit 25.5 % (35.0-46.0); Hemoglobin 8.3 gm/dL (11.6-15.3); Lymph # (Auto) 1.1 th/mm3 (1.0-4.8); Lymph % (Auto) 13.8 % (9.0-44.0); Mean Corpuscular HGB Conc 32.5 % (32.0-36.0); Mean Corpuscular Hemoglobin 26.6 pg (27.0-34.0); Mean Corpuscular Volume 81.9 fL (80.0-100.0); Mean Platelet Volume 8.6 fL (7.0-11.0); Mono # (Auto) 0.7 th/mm3 (0.0-0.9); Mono % (Auto) 8.7 % (0.0-8.0); Neut # (Auto) 6.1 th/mm3 (1.8-7.7); Neut % (Auto) 76.4 % (16.0-70.0); Platelet Count 260 th/mm3 (150-450); Red Blood Count 3.11 mil/mm3 (4.00-5.30); Red Cell Distribution Width 14.1 % (11.6-17.2)
[2018-05-13 08:26] LABS: Calcium 8.5 mg/dL (8.5-10.1); Carbon Dioxide 32.3 meq/L (21.0-32.0); Potassium 4.1 meq/L (3.5-5.1)
[2018-05-13] MEDS: hydrALAZINE 50 MG Tablet PO SCH ×3 (09:00→18:11)
[2018-05-13] MEDS: Sodium Chloride 0.9% 2 ML Flush BID IV.FLUSH SCH ×2 (10:43→21:36)
[2018-05-13] MEDS: Calcitriol 0.25 MCG Capsule PO SCH (10:45)
[2018-05-13] MEDS: Senna/Docusate Sodium 8.6/50 MG Tablet PO SCH ×2 (10:45→21:35)
[2018-05-13] MEDS: Vitamin B Complex/Vit C/Folic Tablet PO SCH (10:45)
[2018-05-13] MEDS: amLODIPine 10 MG Tablet PO SCH (10:45)
[2018-05-13] MEDS: Heparin - SQ 10,000 UNITS/ML Vial SQ SCH ×2 (10:46→21:34)
--- NOTE | 2018-05-13 11:23 | P.PNGS ---
Subjective Interval history: Up to chair getting cleaned up Eager to get home once dialysis is set up Physical Exam Vital signs: Vital Signs 05/12/18 13:17 05/12/18 13:20 05/12/18 13:30 Temperature 97.7 F Pulse Rate 99 H 98 H Respiratory Rate 16 16 Blood Pressure 164/78 H 162/79 H Pulse Oximetry 100 100 96 05/12/18 13:45 05/12/18 13:50 05/12/18 13:55 Temperature 97.6 F Pulse Rate 98 H Respiratory Rate 16 16 Blood Pressure 155/78 H Pulse Oximetry 100 100 100 05/12/18 16:00 05/13/18 01:28 05/13/18 02:10 Temperature 97.8 F 97.7 F Pulse Rate 108 H 103 H 116 H Respiratory Rate 14 20 Blood Pressure 147/72 H 153/83 H 136/93 H Pulse Oximetry 100 100 05/13/18 04:10 05/13/18 08:00 Temperature 98.1 F 98.1 F Pulse Rate 97 H 84 Respiratory Rate 20 18 Blood Pressure 158/81 H 139/63 Pulse Oximetry 100 100 Intake & Output 05/12/18 05/13/18 05/13/18 18:59 06:59 18:59 Intake Total 450 / 450 Output Total 1999 Balance 440 / 440 -1999 Weight 86 kg Intake: IV 50 / 50 Ancef 2 GM Premix Inj 2 gm In 50 / 50 50 ml @ 100 mls/hr IV.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 [facility] Rx#:[id number] Anesthesia Amount 400 / 400 Output: Hemodialysis Amount 1999 Estimated Blood Loss Other: # Voids 2 2 Date of Last Bowel Movement 05/11/18 05/11/18 Narrative: Alert and awake Abd: soft; KENIA removed---midline incision with rikki in place---left MILTON - Urinary Catheter Management Indwelling Urethral Catheter Cath placed during this visit: no Reason for continuing: Not indwelling catheter Straight Cath placed during this visit: yes Reason for continuing: Not indwelling catheter Insertion date: 05/09/18 Insertion time: 05:34 Results - Labs 05/13/18 07:32 05/13/18 07:33 Laboratory Results - last 24 hr 05/12/18 05/12/18 05/12/18 13:22 16:38 21:43 WBC RBC Hgb Hct MCV MCH MCHC RDW Plt Count MPV Neut % (Auto) Lymph % (Auto) Cole % (Auto) Eos % (Auto) Baso % (Auto) Neut # (Auto) Lymph # (Auto) Cole # (Auto) Eos # (Auto) Baso # (Auto) WBC Differential Differential Comment Sodium Potassium Chloride Carbon Dioxide Anion Gap BUN Creatinine Estimated GFR POC Glucose 155 H 305 H 182 H Random Glucose Calcium 05/12/18 05/13/18 05/13/18 23:23 07:32 07:33 WBC 8.0 RBC 3.11 L Hgb 8.3 L Hct 25.5 L MCV 81.9 MCH 26.6 L MCHC 32.5 RDW 14.1 Plt Count 260 MPV 8.6 Neut % (Auto) 76.4 H Lymph % (Auto) 13.8 Cole % (Auto) 8.7 H Eos % (Auto) 0.4 Baso % (Auto) 0.7 Neut # (Auto) 6.1 Lymph # (Auto) 1.1 Cole # (Auto) 0.7 Eos # (Auto) 0.0 Baso # (Auto) 0.1 WBC Differential . Differential Comment Auto diff final Sodium 135 L Potassium 4.1 Chloride 97 L Carbon Dioxide 32.3 H Anion Gap 6 BUN 27 H Creatinine 3.60 H Estimated GFR 17 L POC Glucose 286 H Random Glucose 179 H Calcium 8.5 05/13/18 08:45 WBC RBC Hgb Hct MCV MCH MCHC RDW Plt Count MPV Neut % (Auto) Lymph % (Auto) Cole % (Auto) Eos % (Auto) Baso % (Auto) Neut # (Auto) Lymph # (Auto) Cole # (Auto) Eos # (Auto) Baso # (Auto) WBC Differential Differential Comment Sodium Potassium Chloride Carbon Dioxide Anion Gap BUN Creatinine Estimated GFR POC Glucose 146 H Random Glucose Calcium - Imaging Imaging: ITS Impressions Pelvis Ultrasound 04/21/18 00:00 CONCLUSION: 1. Limited examination due to patient's body habitus and decline of transvaginal exam. 2. The right adnexal mass noted on CT exam does appear to correspond to the right ovary measuring 9.7 x 11.6 x 8.1 cm. 3. Uterus is not completely visualized and therefore the midline pelvic mass cannot be definitively excluded from the uterus although again this appears separate on CT exam. 4. 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 Correlation with tumor markers and clinical history is recommended. Further evaluation may be performed with MRI examination of the pelvis if there is continued clinical uncertainty following gynecological consultation. Abdomen/Pelvis CT 04/21/18 20:25 CONCLUSION: 1. Bulky large soft tissue density mesenteric masses with the largest measuring 14.7 x 7.5 x 8.5 cm. A second dominant mesenteric mass extends to the right adnexa. Differential considerations include ovarian malignancy with mesenteric metastases, GIST, mesenteric fibromatosis, and mesenteric adenopathy amongst other etiologies. Ultrasound examination of the pelvis may be performed to exclude right ovarian mass. Abdomen Biopsy CT 04/22/18 00:00 CONCLUSION: 1. Uncomplicated CT guided biopsy. Central Venous Line 04/25/18 18:46 CONCLUSION: 1. Uncomplicated PermaCath placement as above. Chest X-Ray 05/10/18 00:00 CONCLUSION: 1. Tunneled right IJ dialysis catheter is in the mid SVC. This appears to have been pulled back from placement fluoroscopic images of 04/25/2018. Has the catheter been exchanged or just pulled back? Is the catheter cuff exposed? 2. Negative portable chest. Upper Extremity Ultrasound 05/11/18 00:00 CONCLUSION: 1. The study is negative for upper extremity deep venous thrombosis. Venous Doppler Study 05/11/18 00:00 CONCLUSION: 1. Occlusive thrombosis of the right IJ. 2. There may be chronic occlusion of the mid and distal portions of the cephalic vein. 3. Otherwise, deep venous system appears to be widely patent throughout. Assessment and Plan - Plan 42 year old female with abdominal pain; CKD now on hemodialysis; CT guided bx c/ w neoplasm -s/p ex lap; resection of abdominal tumor -Nephrology following; now on HD -Tolerating regular diet -+BM -KENIA removed--- okay to leave open to air; okay to shower from GS standpoint -Patient states they are working on getting HD set up -Follow up for staple removal in about 7-10 days - Attending Attestation The exam, history, and the medical decision-making described in the above note were completed with the assistance of the mid-level provider. I reviewed and agree with the findings presented. I attest that I had a [id number] encounter with the patient on the same day, and personally performed and documented my assessment and findings in the medical record. 42yo female s/p TOMAS BSO for large fibroids no surgical issues awaiting outpatient HD
[2018-05-13] MEDS: Insulin NovoLOG Aspart Correctional Sugar Inj SQ SCH ×4 (12:56→21:35)
--- NOTE | 2018-05-13 14:09 | P.PNNP ---
Subjective Interval history: Patient was seen, no distress. Patient getting dialysis TTS, was dialyzed yesterday, 2 L removed. Patient is waiting on outpatient dialysis arrangements before being discharged. Case management is working on this. <Andrew Taylor - Last Filed: 05/13/18 14:04> Physical Exam Vital signs: Vital Signs 05/12/18 16:00 05/13/18 01:28 05/13/18 02:10 Temperature 97.8 F 97.7 F Pulse Rate 108 H 103 H 116 H Respiratory Rate 14 20 Blood Pressure 147/72 H 153/83 H 136/93 H Pulse Oximetry 100 100 05/13/18 04:10 05/13/18 08:00 05/13/18 12:00 Temperature 98.1 F 98.1 F 97.7 F Pulse Rate 97 H 84 92 H Respiratory Rate 20 18 20 Blood Pressure 158/81 H 139/63 138/67 Pulse Oximetry 100 100 100 Intake & Output 05/12/18 05/13/18 05/13/18 18:59 06:59 18:59 Intake Total 450 / 450 Output Total 1999 Balance 440 / 440 -1999 Weight 86 kg Intake: IV 50 / 50 Ancef 2 GM Premix Inj 2 gm In 50 / 50 50 ml @ 100 mls/hr IV.SIG 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 Absent: JVD, tracheal deviation - Routine Respiratory Exam Present: CTA bilaterally. Absent: accessory muscle use - Routine Cardiovascular Exam Present: S1, S2 - Routine Abdominal Exam Present: soft, normoactive bowel sounds - Routine Extremities Exam Present: AV fistula. Absent: edema - Routine Neurological Exam Present: alert, oriented X3 - Routine Psychiatric Exam Present: normal affect - Urinary Catheter Management Indwelling Urethral Catheter Cath placed during this visit: no Reason for continuing: Not indwelling catheter Straight Cath placed during this visit: yes Reason for continuing: Not indwelling catheter Insertion date: 05/09/18 Insertion time: 05:34 <Andrew Taylor - Last Filed: 05/13/18 14:04> Vital signs: Vital Signs 05/12/18 16:00 05/13/18 01:28 05/13/18 02:10 Temperature 97.8 F 97.7 F Pulse Rate 108 H 103 H 116 H Respiratory Rate 14 20 Blood Pressure 147/72 H 153/83 H 136/93 H Pulse Oximetry 100 100 05/13/18 04:10 05/13/18 08:00 05/13/18 12:00 Temperature 98.1 F 98.1 F 97.7 F Pulse Rate 97 H 84 92 H Respiratory Rate 20 18 20 Blood Pressure 158/81 H 139/63 138/67 Pulse Oximetry 100 100 100 Intake & Output 05/12/18 05/13/18 05/13/18 18:59 06:59 18:59 Intake Total 450 / 450 Output Total 1999 Balance 440 / 440 -1999 Weight 86 kg Intake: IV 50 / 50 Ancef 2 GM Premix Inj 2 gm In 50 / 50 50 ml @ 100 mls/hr IV.SIG DIRECTOR OF [employer]ING SALES [facility] Rx#:[id number] Anesthesia Amount 400 / 400 Output: Hemodialysis Amount 1999 Estimated Blood Loss Other: # Voids 2 2 Date of Last Bowel Movement 05/11/18 05/11/18 - Urinary Catheter Management Indwelling Urethral Catheter Cath placed during this visit: no Straight Cath placed during this visit: no <Zachary Uribe - Last Filed: 05/13/18 14:53> Assessment and Plan - Assessment (1) End stage renal disease Code(s): N18.6 - End stage renal disease Status: Acute Plan: Patient getting dialysis TTS, was dialyzed yesterday, 2 L removed. Patient is waiting on outpatient dialysis arrangements before being discharged. Case management is working on this s/p Left brachiocephalic AV fistula creation. Avoid BP measurements, IV's, blood draws in left arm. Monitor fluid and electrolytes. Avoid Gadolinium. (2) Ovarian mass, right Code(s): N83.9 - Noninflammatory disorder of ovary, fallopian tube and broad ligament, unspecified Status: Acute Plan: s/p appendectomy, hysterectomy with bilateral salpingo-oophorectomy. General surgery on the case. (3) DM (diabetes mellitus) Code(s): E11.9 - Type 2 diabetes mellitus without complications Status: Chronic Plan: Insulin coverage to maintain blood glucose levels between 140 and 180 while hospitalized. (4) HTN (hypertension) Code(s): I10 - Essential (primary) hypertension Status: Chronic Plan: Monitor BP. Patient on Amlodipine, Hydralazine, and Metoprolol. (5) Anemia Code(s): D64.9 - Anemia, unspecified Status: Acute Plan: Continue Epogen with dialysis. (6) Metabolic bone disease Code(s): E88.9 - Metabolic disorder, unspecified; M90.80 - Osteopathy in diseases classified elsewhere, unspecified site Status: Acute Plan: Monitor phosphorus intermittently, patient on Renvela. Phosphorus was 5 on 05/10. <Andrew Taylor - Last Filed: 05/13/18 14:04> - Assessment (1) End stage renal disease Code(s): N18.6 - End stage renal disease Status: Acute (2) Ovarian mass, right Code(s): N83.9 - Noninflammatory disorder of ovary, fallopian tube and broad ligament, unspecified Status: Acute (3) DM (diabetes mellitus) Code(s): E11.9 - Type 2 diabetes mellitus without complications Status: Chronic (4) HTN (hypertension) Code(s): I10 - Essential (primary) hypertension Status: Chronic (5) Anemia Code(s): D64.9 - Anemia, unspecified Status: Acute (6) Metabolic bone disease Code(s): E88.9 - Metabolic disorder, unspecified; M90.80 - Osteopathy in diseases classified elsewhere, unspecified site Status: Acute - Attending Attestation patient was seen and examined. Agree with above assessment and plan. Outpatient dialysis arrangements are complete at [facility]. It will be MW. <Zachary Uribe - Last Filed: 05/13/18 14:53>
--- NOTE | 2018-05-13 14:09 | P.DIET ---
Nutritional Evaluation Type of nutrition evaluation: follow-up Nutrition screening: MDC (Very Poor PO Intake) Subjective Subjective Comments: Eating 100% of Regular meals. Objective - Diagnosis SIRS, Abd Pain, Vomitting, Acute Exacerb of CKD, Abd Mass - Objective % IBW: 136 (IBW = 145#) Body Weight Used for Calculations: IBW (65.9 kg) Energy Needs - Lower Range (kCal/kg): 28 Energy Needs - Upper Range (kCal/kg): 32 Lower Limit kCal/kg (kCals): 1,845 Upper Limit kCal/kg (kCals): 2,109 Lower Limit Protein Factor (Grams per Kg): 1.2 Upper Limit Protein Factor (Grams per Kg): 1.5 Lower Protein Needs (Protein): 79 Upper Protein Needs (Protein): 99 Dietitian Reviewed in Medical Record: Current diet, Curent medications, Intake & Output, Labs, Medical history Diet Order: Regular Objective Comments: Meds include Nephrocaps Assessment Assessment: Pt with improved nutritional status as evidenced by good po intake, and BMI of 28.0. [address] if needed. Recommendations: Add 2000 ADA to diet order
--- NOTE | 2018-05-13 17:14 | P.PNVS ---
Subjective Subjective/Hospital Course: doing well denies left arm pain or numbness Objective Vital Signs / I&O: Vital Signs 05/13/18 01:28 05/13/18 02:10 05/13/18 04:10 Temperature 97.7 F 98.1 F Pulse Rate 103 H 116 H 97 H Respiratory Rate 20 20 Blood Pressure 153/83 H 136/93 H 158/81 H Pulse Oximetry 100 100 05/13/18 08:00 05/13/18 12:00 Temperature 98.1 F 97.7 F Pulse Rate 84 92 H Respiratory Rate 18 20 Blood Pressure 139/63 138/67 Pulse Oximetry 100 100 Intake & Output 05/12/18 05/13/18 05/13/18 18:59 06:59 18:59 Intake Total 450 / 450 Output Total 1999 Balance 440 / 440 -1999 Weight 86 kg Intake: IV 50 / 50 Ancef 2 GM Premix Inj 2 gm In 50 / 50 50 ml @ 100 mls/hr IV.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 [facility] Rx#:[id number] Anesthesia Amount 400 / 400 Output: Hemodialysis Amount 1999 Estimated Blood Loss Other: # Voids 2 2 Date of Last Bowel Movement 05/11/18 05/11/18 Physical Exam: LUE wound CDI good signal in AVF palpable radial pulse Laboratory Results - last 24 hr 05/12/18 05/12/18 05/13/18 21:43 23:23 07:32 WBC 8.0 RBC 3.11 L Hgb 8.3 L Hct 25.5 L MCV 81.9 MCH 26.6 L MCHC 32.5 RDW 14.1 Plt Count 260 MPV 8.6 Neut % (Auto) 76.4 H Lymph % (Auto) 13.8 Mcdonough % (Auto) 8.7 H Eos % (Auto) 0.4 Baso % (Auto) 0.7 Neut # (Auto) 6.1 Lymph # (Auto) 1.1 Mcdonough # (Auto) 0.7 Eos # (Auto) 0.0 Baso # (Auto) 0.1 WBC Differential . Differential Comment Auto diff final Sodium Potassium Chloride Carbon Dioxide Anion Gap BUN Creatinine Estimated GFR POC Glucose 182 H 286 H Random Glucose Calcium 05/13/18 05/13/18 05/13/18 07:33 08:45 12:30 WBC RBC Hgb Hct MCV MCH MCHC RDW Plt Count MPV Neut % (Auto) Lymph % (Auto) Mcdonough % (Auto) Eos % (Auto) Baso % (Auto) Neut # (Auto) Lymph # (Auto) Mcdonough # (Auto) Eos # (Auto) Baso # (Auto) WBC Differential Differential Comment Sodium 135 L Potassium 4.1 Chloride 97 L Carbon Dioxide 32.3 H Anion Gap 6 BUN 27 H Creatinine 3.60 H Estimated GFR 17 L POC Glucose 146 H 229 H Random Glucose 179 H Calcium 8.5 Assessment and Plan - Plan End-stage renal disease requiring hemodialysis. LUE AVF working ok Vein is small in caliber and fistula has a high risk of primary failure Stable for DC from VSx standpoint FU in 6 weeks. Office will call patient to schedule appointment Tu Rdz MD [facility] [place] [id number]
[2018-05-13] MEDS: Zolpidem Tartrate 5 MG Tablet PO PRN (21:35)
[2018-05-13] MEDS: Insulin Detemir Inj 1,000 UNIT/10 ML Vial SQ SCH (21:36)
[2018-05-14] MEDS: Latanoprost 0.005% Opth Drops 2.5 ML Bottle EACH EYE SCH ×2 (00:26→18:39)
[2018-05-14] MEDS: Sodium Chloride 0.9% 2 ML Flush BID IV.FLUSH SCH ×2 (08:05→21:30)
[2018-05-14] MEDS: Senna/Docusate Sodium 8.6/50 MG Tablet PO SCH ×2 (08:05→21:30)
[2018-05-14] MEDS: Heparin - SQ 10,000 UNITS/ML Vial SQ SCH ×2 (08:05→21:29)
[2018-05-14] MEDS: amLODIPine 10 MG Tablet PO SCH (08:05)
[2018-05-14] MEDS: hydrALAZINE 50 MG Tablet PO SCH ×3 (08:05→18:22)
[2018-05-14] MEDS: Insulin NovoLOG Aspart Correctional Sugar Inj SQ SCH ×4 (08:28→21:42)
[2018-05-14] MEDS: Heparin 10,000 UNITS/10 ML Vial (for IV use) OTHER PRN (08:57)
--- NOTE | 2018-05-14 11:17 | P.PNNP ---
Subjective Interval history: Seen during dialysis. Proceedings noted and reviewed with riverboat master. To be discharged after dialysis. Physical Exam Vital signs: Vital Signs 05/13/18 12:00 05/13/18 16:00 05/13/18 19:20 Temperature 97.7 F 98.3 F 98.2 F Pulse Rate 92 H 88 90 Respiratory Rate 20 18 18 Blood Pressure 138/67 164/81 H 127/65 Pulse Oximetry 100 100 100 05/13/18 22:45 05/14/18 04:15 05/14/18 07:05 Temperature 97.8 F 97.7 F 97.6 F Pulse Rate 98 H 93 H 88 Respiratory Rate 18 18 18 Blood Pressure 163/79 H 148/69 H 129/61 Pulse Oximetry 100 98 96 Intake & Output 05/13/18 05/14/18 05/14/18 18:59 06:59 18:59 Weight 87.5 kg Other: # Voids 2 3 Date of Last Bowel Movement 05/11/18 05/13/18 - Constitutional no acute distress - Routine HEENT Exam Head: Present: normocephalic, atraumatic Eye: Present: PERRL ENT: Present: mucous membranes moist - Routine Neck Exam Present: supple, full ROM. Absent: JVD, lymphadenopathy, thyromegaly - Routine Respiratory Exam Present: CTA bilaterally - Routine Cardiovascular Exam Present: RRR, S1, S2 - Routine Abdominal Exam Present: soft, normoactive bowel sounds - Routine Extremities Exam Absent: edema - Routine Skin Exam Present: intact - Routine Neurological Exam Present: alert, oriented X3 - Urinary Catheter Management Indwelling Urethral Catheter Cath placed during this visit: no Reason for continuing: Not indwelling catheter Straight Cath placed during this visit: yes Reason for continuing: Not indwelling catheter Insertion date: 05/09/18 Insertion time: 05:34 Assessment and Plan - Assessment (1) End stage renal disease Code(s): N18.6 - End stage renal disease Status: Acute Plan: Patient getting dialysis TTS Patient will have outpatient dialysis at [facility]. Patient is cleared for discharge from renal standpoint. (2) Ovarian mass, right Code(s): N83.9 - Noninflammatory disorder of ovary, fallopian tube and broad ligament, unspecified Status: Acute Plan: s/p appendectomy, hysterectomy with bilateral salpingo-oophorectomy. General surgery on the case. (3) DM (diabetes mellitus) Code(s): E11.9 - Type 2 diabetes mellitus without complications Status: Chronic Plan: Insulin coverage to maintain blood glucose levels between 140 and 180 while hospitalized. (4) HTN (hypertension) Code(s): I10 - Essential (primary) hypertension Status: Chronic Plan: Monitor BP. Patient on Amlodipine, Hydralazine, and Metoprolol. (5) Anemia Code(s): D64.9 - Anemia, unspecified Status: Acute Plan: Continue Epogen with dialysis. (6) Metabolic bone disease Code(s): E88.9 - Metabolic disorder, unspecified; M90.80 - Osteopathy in diseases classified elsewhere, unspecified site Status: Acute Plan: Monitor phosphorus intermittently, patient on Renvela. Phosphorus was 5 on 05/10.
[2018-05-14] MEDS: Vitamin B Complex/Vit C/Folic Tablet PO SCH (12:45)
[2018-05-14 16:27] VITALS: RESP 18
--- NOTE | 2018-05-14 19:12 | P.PNIM ---
Subjective Interval history: Date of service 05/13/17 fu dialysis and post nate pt seen and examined doing well denies sob,no cp, anxious to go home Physical Exam Vital signs: Vital Signs 05/13/18 19:20 05/13/18 22:45 05/14/18 04:15 Temperature 98.2 F 97.8 F 97.7 F Pulse Rate 90 98 H 93 H Respiratory Rate 18 18 18 Blood Pressure 127/65 163/79 H 148/69 H Pulse Oximetry 100 100 98 05/14/18 07:05 05/14/18 11:45 05/14/18 16:00 Temperature 97.6 F 97.7 F 97.8 F Pulse Rate 88 101 H 99 H Respiratory Rate 18 20 18 Blood Pressure 129/61 136/69 132/70 Pulse Oximetry 96 100 100 Intake & Output 05/14/18 05/14/18 05/15/18 06:59 18:59 06:59 Output Total 1999 Balance -1999 Weight 87.5 kg Output: Hemodialysis Amount 1999 Other: # Voids 3 3 Date of Last Bowel Movement 05/13/18 Narrative: wdwn 42yo aaf aaox3 flat afect nad heart s1s2 reg lungs clear nowrr abd soft post op, AV fistula site without erythema or drainage ext no edema no calf tenderness Urinary Catheter Management Indwelling Urethral Catheter: Cath placed during this visit: no Reason for continuing: Not indwelling catheter Straight: Cath placed during this visit: yes Reason for continuing: Not indwelling catheter Insertion date: 05/09/18 Insertion time: 05:34 Results Labs CBC & Chem 7: 05/13/18 07:32 05/13/18 07:33 Procedures Procedures: 04/22 CT-guided biopsy of intraperitoneal mesenteric mass with interventional radiology Assessment and Plan (1) End stage renal disease: Code(s): N18.6 - End stage renal disease Status: Acute (2) Ovarian mass, right: Code(s): N83.9 - Noninflammatory disorder of ovary, fallopian tube and broad ligament, unspecified Status: Acute (3) DM (diabetes mellitus): Code(s): E11.9 - Type 2 diabetes mellitus without complications Status: Chronic (4) HTN (hypertension): Code(s): I10 - Essential (primary) hypertension Status: Chronic (5) Anemia: Code(s): D64.9 - Anemia, unspecified Status: Acute (6) Metabolic bone disease: Code(s): E88.9 - Metabolic disorder, unspecified; M90.80 - Osteopathy in diseases classified elsewhere, unspecified site Status: Acute Plan R OVARIAN and MESENTERIC MASS s/p TAHBSO and appendectomy 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 - cont post op care per surgery ESRD new to dialysis per nephrology -s/p avf today, awaiting arrangements for outpatient dialysis chair DM w diabetic nephropathy niddm - cont diet , iss HTN cont home meds ANEMIA of ckd, iron epo GLAUCOMA latanoprost DYSLIPIDEMIA - statin dvt prophylaxis - heparin sc dispo - home when outpt dialysis arranged, Progress Note: Quality VTE Deep Vein Thrombosis/Pulmonary Embolism Present on Admission: No _ (1) DM (diabetes mellitus) Qualifiers: Diabetes mellitus type: Diabetes mellitus nursing home insulin use: Diabetes mellitus complication status: Diabetes mellitus complication detail: Diabetic retinopathy severity: Proliferative retinopathy type: Diabetes mellitus macular edema: Laterality: Chronic kidney disease stage: (2) HTN (hypertension) Qualifiers: Hypertension type: (3) Anemia Qualifiers: Anemia type: Iron deficiency anemia type: Vitamin B12 deficiency anemia type: Folate deficiency anemia type: Bone marrow failure anemia type: Hemolytic anemia type: Other causes of anemia: Chronic kidney disease stage :
--- NOTE | 2018-05-14 19:13 | P.PNIM ---
Subjective Interval history: 42yo aaf admitted with abd mass s/p nate found to be leimyoma and started on dialysis for esrd pt seen and examined doing better denies sob, no nv, told po, no other events. Physical Exam Vital signs: Vital Signs 05/13/18 19:20 05/13/18 22:45 05/14/18 04:15 Temperature 98.2 F 97.8 F 97.7 F Pulse Rate 90 98 H 93 H Respiratory Rate 18 18 18 Blood Pressure 127/65 163/79 H 148/69 H Pulse Oximetry 100 100 98 05/14/18 07:05 05/14/18 11:45 05/14/18 16:00 Temperature 97.6 F 97.7 F 97.8 F Pulse Rate 88 101 H 99 H Respiratory Rate 18 20 18 Blood Pressure 129/61 136/69 132/70 Pulse Oximetry 96 100 100 Intake & Output 05/14/18 05/14/18 05/15/18 06:59 18:59 06:59 Output Total 1999 Balance -1999 Weight 87.5 kg Output: Hemodialysis Amount 1999 Other: # Voids 3 3 Date of Last Bowel Movement 05/13/18 Narrative: wdwn 42yo aaf aaox3 flat afect nad heart s1s2 reg lungs clear nowrr abd soft post op, AV fistula site without erythema or drainage ext no edema no calf tenderness Urinary Catheter Management Indwelling Urethral Catheter: Cath placed during this visit: no Reason for continuing: Not indwelling catheter Straight: Cath placed during this visit: yes Reason for continuing: Not indwelling catheter Insertion date: 05/09/18 Insertion time: 05:34 Results Labs CBC & Chem 7: 05/13/18 07:32 05/13/18 07:33 Procedures Procedures: 04/22 CT-guided biopsy of intraperitoneal mesenteric mass with interventional radiology Assessment and Plan (1) End stage renal disease: Code(s): N18.6 - End stage renal disease Status: Acute (2) Ovarian mass, right: Code(s): N83.9 - Noninflammatory disorder of ovary, fallopian tube and broad ligament, unspecified Status: Acute (3) DM (diabetes mellitus): Code(s): E11.9 - Type 2 diabetes mellitus without complications Status: Chronic (4) HTN (hypertension): Code(s): I10 - Essential (primary) hypertension Status: Chronic (5) Anemia: Code(s): D64.9 - Anemia, unspecified Status: Acute (6) Metabolic bone disease: Code(s): E88.9 - Metabolic disorder, unspecified; M90.80 - Osteopathy in diseases classified elsewhere, unspecified site Status: Acute Plan R OVARIAN and MESENTERIC MASS s/p TAHBSO and appendectomy 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 - cont post op care per surgery ESRD new to dialysis per nephrology -s/p avf today, awaiting arrangements for outpatient dialysis chair DM w diabetic nephropathy niddm - cont diet , iss HTN cont home meds ANEMIA of ckd, iron epo GLAUCOMA latanoprost DYSLIPIDEMIA - statin dvt prophylaxis - heparin sc dispo - home when outpt dialysis arranged,discussed w cm, likely mon Progress Note: Quality VTE Deep Vein Thrombosis/Pulmonary Embolism Present on Admission: No _ (1) DM (diabetes mellitus) Qualifiers: Diabetes mellitus type: Diabetes mellitus alf insulin use: Diabetes mellitus complication status: Diabetes mellitus complication detail: Diabetic retinopathy severity: Proliferative retinopathy type: Diabetes mellitus macular edema: Laterality: Chronic kidney disease stage: (2) HTN (hypertension) Qualifiers: Hypertension type: (3) Anemia Qualifiers: Anemia type: Iron deficiency anemia type: Vitamin B12 deficiency anemia type: Folate deficiency anemia type: Bone marrow failure anemia type: Hemolytic anemia type: Other causes of anemia: Chronic kidney disease stage :
[2018-05-14] MEDS: Insulin Detemir Inj 1,000 UNIT/10 ML Vial SQ SCH (21:30)
[2018-05-14] MEDS: Zolpidem Tartrate 5 MG Tablet PO PRN (23:58)
[2018-05-15] MEDS: Insulin NovoLOG Aspart Correctional Sugar Inj SQ SCH ×3 (08:21→17:54)
[2018-05-15] MEDS: Vitamin B Complex/Vit C/Folic Tablet PO SCH (08:22)
[2018-05-15] MEDS: Sodium Chloride 0.9% 2 ML Flush BID IV.FLUSH SCH (08:22)
[2018-05-15] MEDS: amLODIPine 10 MG Tablet PO SCH (08:22)
[2018-05-15] MEDS: Senna/Docusate Sodium 8.6/50 MG Tablet PO SCH (08:22)
[2018-05-15] MEDS: Heparin - SQ 10,000 UNITS/ML Vial SQ SCH (08:22)
[2018-05-15] MEDS: hydrALAZINE 50 MG Tablet PO SCH ×3 (08:22→17:04)
[2018-05-15 11:51] VITALS: PULSE 91; TEMP 98.9
--- NOTE | 2018-05-15 12:29 | P.PNNP ---
Subjective Interval history: patient can be discharged from renal standpoint. Outpatient dialysis is at [facility]. Physical Exam Vital signs: Vital Signs 05/14/18 16:00 05/14/18 19:15 05/14/18 22:55 Temperature 97.8 F 99.8 F H 98.6 F Pulse Rate 99 H 111 H 103 H Respiratory Rate 18 18 18 Blood Pressure 132/70 130/72 135/66 Pulse Oximetry 100 100 100 05/15/18 03:50 05/15/18 07:00 05/15/18 11:20 Temperature 98.5 F 98.9 F Pulse Rate 98 H 89 91 H Respiratory Rate 18 18 Blood Pressure 190/88 H 146/71 H 120/57 L Pulse Oximetry 99 99 Intake & Output 05/14/18 05/15/18 05/15/18 18:59 06:59 18:59 Output Total 1999 Balance -1999 Weight 87.6 kg Output: Hemodialysis Amount 1999 Other: # Voids 3 2 Date of Last Bowel Movement 05/13/18 05/13/18 - Constitutional no acute distress - Routine HEENT Exam Head: Present: normocephalic, atraumatic Eye: Present: EOMI, PERRL - Routine Neck Exam Present: supple. Absent: JVD, lymphadenopathy - Routine Respiratory Exam Present: CTA bilaterally - Routine Cardiovascular Exam Present: RRR, S1, S2 - Routine Abdominal Exam Present: soft - Routine Extremities Exam Present: AV fistula - Routine Skin Exam Present: intact - Routine Neurological Exam Present: alert, oriented X3, CN II-XII intact - Urinary Catheter Management Indwelling Urethral Catheter Cath placed during this visit: no Reason for continuing: Not indwelling catheter Straight Cath placed during this visit: yes Reason for continuing: Not indwelling catheter Insertion date: 05/09/18 Insertion time: 05:34 Assessment and Plan - Assessment (1) End stage renal disease Code(s): N18.6 - End stage renal disease Status: Acute Plan: Patient getting dialysis TTS Patient will have outpatient dialysis at [facility] on MWF. Patient is cleared for discharge from renal standpoint. She is interested in PD , will consider referral to surgery after about 6-8 weeks. (2) Ovarian mass, right Code(s): N83.9 - Noninflammatory disorder of ovary, fallopian tube and broad ligament, unspecified Status: Acute Plan: s/p appendectomy, hysterectomy with bilateral salpingo-oophorectomy. General surgery on the case. (3) DM (diabetes mellitus) Code(s): E11.9 - Type 2 diabetes mellitus without complications Status: Chronic Plan: Insulin coverage to maintain blood glucose levels between 140 and 180 while hospitalized. (4) HTN (hypertension) Code(s): I10 - Essential (primary) hypertension Status: Chronic Plan: Monitor BP. Patient on Amlodipine, Hydralazine, and Metoprolol. (5) Anemia Code(s): D64.9 - Anemia, unspecified Status: Acute Plan: Continue Epogen with dialysis. (6) Metabolic bone disease Code(s): E88.9 - Metabolic disorder, unspecified; M90.80 - Osteopathy in diseases classified elsewhere, unspecified site Status: Acute Plan: Monitor phosphorus intermittently, patient on Renvela. Phosphorus was 5 on 05/10.
--- NOTE | 2018-05-15 16:18 | P.DS ---
DS: Providers Date of admission: 04/21/18 22:32 Primary care physician: UNKNOWN Consults: 04/21/18 22:34 Consult to Nephrology Routine Consulting Provider: Zachary Uribe Does the patient have a Program Project Manager who follows them?: No Preferred Nephrology Telecine Operator:: Waterworks Chief Engineer Physician Reason for Consultation: EVER CONSULT FOR AM Notified:: Service Spoke with:: Daquan Date Notified:: 04/21/18 Time Notified:: 22:38 Ordering Provider: MILE 04/22/18 08:52 Consult to SENIOR PATIENT ACCOUNT REPRESENTATIVE Oncology Routine Consulting Provider: Chely Summers Reason for Consultation: ovarian mass, ? metastatic Notified:: Office Spoke with:: macrina Date Notified:: 04/22/18 Time Notified:: 09:00 Ordering Provider: MATTHEW 04/27/18 08:34 Consult to General Surgery Routine Consulting Provider: Sascha Rodrigez Preferred Telecine Operator:: Randolph Flood Reason for Consultation: smooth muscle neoplasm Notified:: Service Spoke with:: Thuy Date Notified:: 04/27/18 Time Notified:: 08:59 Ordering Provider: JORGE 05/11/18 09:26 Consult to Vascular Surgery Routine Consulting Provider: Elias Reza Preferred Telecine Operator:: Elias Reza Reason for Consultation: need for AVF placement. Notified:: Physician Spoke with:: Date Notified:: 05/11/18 Time Notified:: 09:32 Ordering Provider: SHAKIRA Brief History from admission: This is a 42-year-old female with a PMH of HTN, Hyperlipidemia, Anemia, CKD and DM who presented to the ER with complaints of nausea, vomiting, urinary urgency and subjective fever/chills x2 days. Unable to take PO due to symptoms. Denies sick contacts, chest pain or diarrhea. On arrival, BP 199/91, HR 105, O2 sat 98% on RA, Temp 99.2. CBC essentially unremarkable except for anemia, hemoglobin 9.6. Gotten 6.61, no previous labs for comparison, however patient notes baseline creatinine is approx 3. States she follows w/ Program Project Manager in [place] and is not on HD. UA negative for UTI. CT Abdomen/Pelvis bulky large soft tissue density mesenteric masses, second dominant mesenteric mass extends to right adnexa, differential includes ovarian malignancy with metastatic disease. S/p Blood Cultures and Rocephin IV in ER. DS: Diagnosis Discharge Diagnosis (1) End stage renal disease: Status: Acute (2) Ovarian mass, right: Status: Acute (3) DM (diabetes mellitus): Status: Chronic (4) HTN (hypertension): Status: Chronic (5) Anemia: Status: Acute (6) Metabolic bone disease: Status: Acute DS: Summary Patient was admitted and seen by general surgery SENIOR PATIENT ACCOUNT REPRESENTATIVE, taken to the operating room for total abdominal hysterectomy and removal of large masses, pathology found them to be benign leiomyomas with extensive necrosis. Additionally patient was noted to have progressive end-stage renal failure nephrology was consulted and patient was started on dialysis with Vas-Cath. She also had vascular surgical consultation for AV fistula which was performed in the left upper extremity on 05/12/2018. Postoperatively patient continued to improve and was tolerating diet outpatient dialysis arranged. Patient's blood sugars were rather uncontrolled she was transitioned to subcu insulin. With instruction. Patient was instructed regarding activity diet medications glucose monitoring and outpatient follow-up with surgery, nephrology, her rikki will be removed in 7-10 days and follow-up with Dr. Summers she is otherwise clinically stable for discharge and outpatient follow-up. Discharge diagnosis Right ovarian and mesenteric masses due to leiomyoma with extensive infarction End-stage renal disease new to dialysis Diabetes with diabetic nephropathy Hypertension Anemia of chronic kidney disease Glaucoma Dyslipidemia Time Spent with Patient Total time spent providing and/or coordinating discharge services: Greater than 30 minutes Status at Discharge Functional status at discharge: independent ambulation Overall status at discharge: patient is progressing back to baseline Quality: VTE Deep Vein Thrombosis/Pulmonary Embolism Present on Admission: No Exam Narrative Exam Narrative: Well-developed well-nourished 42-year-old -[place] female Awake alert oriented no acute distress Heart S1-S2 regular Lungs clear no wheeze no rhonchi Abdomen soft nondistended midline incision with rikki intact without erythema or drainage Extremities no clubbing cyanosis left upper extremity with AV fistula intact Results Procedures completed during hospitalization: 04/22 CT-guided biopsy of intraperitoneal mesenteric mass with interventional radiology Completed studies during hospitalization: Pending at discharge 05/06/18 15:46 Surgical [PTH] Routine Labs on day of discharge: Labs from last 24 hours 05/15/18 05/15/18 05/14/18 11:52 07:42 21:34 POC Glucose 232 H 181 H 261 H 05/14/18 17:26 POC Glucose 287 H Impressions ITS Impressions Pelvis Ultrasound 04/21/18 00:00 CONCLUSION: 1. Limited examination due to patient's body habitus and decline of transvaginal exam. 2. The right adnexal mass noted on CT exam does appear to correspond to the right ovary measuring 9.7 x 11.6 x 8.1 cm. 3. Uterus is not completely visualized and therefore the midline pelvic mass cannot be definitively excluded from the uterus although again this appears separate on CT exam. 4. 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 Correlation with tumor markers and clinical history is recommended. Further evaluation may be performed with MRI examination of the pelvis if there is continued clinical uncertainty following gynecological consultation. Abdomen/Pelvis CT 04/21/18 20:25 CONCLUSION: 1. Bulky large soft tissue density mesenteric masses with the largest measuring 14.7 x 7.5 x 8.5 cm. A second dominant mesenteric mass extends to the right adnexa. Differential considerations include ovarian malignancy with mesenteric metastases, GIST, mesenteric fibromatosis, and mesenteric adenopathy amongst other etiologies. Ultrasound examination of the pelvis may be performed to exclude right ovarian mass. Abdomen Biopsy CT 04/22/18 00:00 CONCLUSION: 1. Uncomplicated CT guided biopsy. Central Venous Line 04/25/18 18:46 CONCLUSION: 1. Uncomplicated PermaCath placement as above. Chest X-Ray 05/10/18 00:00 CONCLUSION: 1. Tunneled right IJ dialysis catheter is in the mid SVC. This appears to have been pulled back from placement fluoroscopic images of 04/25/2018. Has the catheter been exchanged or just pulled back? Is the catheter cuff exposed? 2. Negative portable chest. Upper Extremity Ultrasound 05/11/18 00:00 CONCLUSION: 1. The study is negative for upper extremity deep venous thrombosis. Venous Doppler Study 05/11/18 00:00 CONCLUSION: 1. Occlusive thrombosis of the right IJ. 2. There may be chronic occlusion of the mid and distal portions of the cephalic vein. 3. Otherwise, deep venous system appears to be widely patent throughout. Discharge Plan Discharge Disposition Patient Disposition: 01 Discharge Home Discharge Condition Condition: Stable Discharge Order Discharge Orders: Discharge Order (Routine); Ordered 05/14/18 Ordered By: Ana Yusuf Physicians Team Primary Care Provider: UNKNOWN, Attending Provider: Ana Yusuf Other Providers: Zachary Uribe ; Chely Summers ; Randolph Flood ; Sascha Rodrigez ; Elias Reza Rxs /Orders / Referrals /Forms Prescriptions: New hydralazine 50 mg Tablet 50 mg PO TID Qty: 90 RF: 0 B complex with C#20-folic acid [Nephrocaps] 1 mg Capsule 1 tab PO DAILY Qty: 30 RF: 0 sevelamer carbonate [Renvela] 800 mg Tablet 1,600 mg PO TIDAC Qty: 90 RF: 0 lancets [BD Ultra-Fine II Lancets] 30 gauge misc .ROUTE .MEDSUPPLY Qty: 25 RF: 0 blood sugar diagnostic strip .ROUTE .MEDSUPPLY Qty: 10 RF: 0 blood-glucose meter kit .ROUTE .MEDSUPPLY Qty: 1 RF: 0 insulin glargine [Lantus Solostar U-100 Insulin] 100 unit/mL (3 mL) insulin pen 10 unit SQ DAILY Qty: 15 RF: 0 hydrocodone-acetaminophen [[place]] 5-325 mg tablet 1 tab PO Q4H Qty: 12 RF: 0 insulin aspart U-100 [Novolog Flexpen U-100 Insulin] 100 unit/mL insulin pen 5 unit SQ TID Qty: 15 RF: 0 blood-glucose meter kit .ROUTE .MEDSUPPLY Qty: 1 RF: 0 Continue calcium acetate 667 mg Capsule 667 mg PO TID RF: 0 latanoprost 0.005 % Drops 1 drp OPHTHALMIC (EYE) QPM RF: 0 metoprolol succinate 100 mg Tablet Extended Release 24 Hr 100 mg PO DAILY RF: 0 amlodipine [Norvasc] 10 mg Tablet 10 mg PO DAILY RF: 0 simvastatin 20 mg Tablet 20 mg PO QPM RF: 0 ferrous sulfate 325 mg (65 mg iron) Tablet 325 mg PO BID RF: 0 calcitriol 0.25 mcg Capsule 0.25 mcg PO DAILY RF: 0 Discontinued glipizide 2.5 mg Tablet Extended Release 24hr 2.5 mg PO DAILY RF: 0 furosemide 20 mg Tablet 20 mg PO DAILY RF: 0 Referrals: Randolph Flood MD [Physician] - See Instructions Zachary Uribe MD [Physician] - See Instructions Chely Summers MD [Physician] - See Instructions Tu Rdz MD [Physician] - See Instructions (Follow-up in 6 weeks. Office will call patient for a point) Elias Reza MD [Physician] - See Instructions UNKNOWN, [Primary Care Provider] - See Instructions (Please call [facility] schedule appt. [phone] [facility] [id number] ) Discharge Instructions Patient Printed Instructions: Chronic Kidney Disease (DC), Pain Management After Surgery (DC), Exploratory Laparoscopy (DC), Narcotic Safety (DC), Hysterectomy (DC) Additional Instructions: [facility] [address] [place]. [facility] Jenkins phone [phone] Uribe dialysis is set up for Wed -Wed-Wed at 4:30pm Status ED Status: Left Department
[2018-05-15 17:06] VITALS: BP 136/66; O2SAT 95
[2018-05-15] MEDS: Latanoprost 0.005% Opth Drops 2.5 ML Bottle EACH EYE SCH (17:28)
== END 2018-05-15 19:58 | disposition home or self-care (01) | DRG 742 ==
LOC: NEPD 18:33 → NEDA 22:32 → N03 04-22 02:15 → N06 05-06 18:17 → N05 05-09 15:41
PROVIDERS: ADMIT Internal Medicine; ATTEND Internal Medicine
PROC: AVGFTUE (ICD-10-PCS; 2018-05-12 11:37)
DX: E11.65 Type 2 diabetes mellitus with hyperglycemia; D63.1 Anemia in chronic kidney disease; H40.9 Unspecified glaucoma; E11.3519 Type 2 diabetes mellitus with proliferative diabetic retinopathy with macular edema, unspecified eye; E11.21 Type 2 diabetes mellitus with diabetic nephropathy; D25.9 Leiomyoma of uterus, unspecified; E78.5 Hyperlipidemia, unspecified; E86.0 Dehydration; N83.8 Other noninflammatory disorders of ovary, fallopian tube and broad ligament; N18.6 End stage renal disease; I12.0 Hypertensive chronic kidney disease with stage 5 chronic kidney disease or end stage renal disease; D27.9 Benign neoplasm of unspecified ovary; N17.9 Acute kidney failure, unspecified; Z79.84 Long term (current) use of oral hypoglycemic drugs; M90.80 Osteopathy in diseases classified elsewhere, unspecified site; E88.89 Other specified metabolic disorders; K21.9 Gastro-esophageal reflux disease without esophagitis; Z79.899 Other long term (current) drug therapy; Z23 Encounter for immunization; E87.0 Hyperosmolality and hypernatremia; R39.15 Urgency of urination; E11.22 Type 2 diabetes mellitus with diabetic chronic kidney disease; I82.C11 Acute embolism and thrombosis of right internal jugular vein
CPT/HCPCS: 36415; 36558; 49180; 51798; 71020; 71046; 74176; 75998; 76360; 76856; 76937; 77001; 77012; 80048; 80053; 80069; 80074; 80076; 81001; 82378; 82570; 82948; 82962; 83036; 83540; 83550; 83605; 83690; 83735; 84100; 84155; 84157; 84300; 84560; 84703; 85025; 85610; 86304; 86850; 86900; 86901; 86923; 87040; 88304; 88305; 88307; 88331; 90658; 90686; 90761; 90774; 90775; 90784; 90935; 93005; 93965; 93970; 93998; 96361; 96374; 96375; 99145; 99152; 99153; 99285; C1750; C1765; C1769; C8952; C9113; J0131; J0360; J0690; J0692; J0696; J0780; J0886; J1100; J1170; J1200; J1580; J1644; J1815; J2060; J2250; J2270; J2370; J2405; J2550; J2704; J2710; J2720; J2765; J3010; J3370; J7030; J7040; J7050; J8501; Q0169; Q2038; Q4055; Q4081